=== PATIENT | female | born 1970 | race Caucasian/White ===

== ENCOUNTER 2016-06-14 18:01 | Emergency (ER) | payer MEDICARE ==
[2016-06-14] MEDS ORDERED: Phenergan 25 MG INJ IM ONE ×2 (18:33→20:44)
[2016-06-14] MEDS ORDERED: DILAUDID 1 MG/ML INJECTION IM ONE (18:33)
[2016-06-14] MEDS ORDERED: Phenergan 25 MG INJ ONE ×2 (18:34→20:46)
[2016-06-14] MEDS ORDERED: DILAUDID 1 MG/ML INJECTION ONE (18:35)
--- NOTE | 2016-06-14 18:44 | ERPHSYRPT ---
- History of Present Illness Time Seen by Provider: 06/14/16 18:30 Source: patient Exam Limitations: clinical condition Patient Subjective Stated Complaint: PT REPORTS LEGS GAVE OUT ET SHE FELL LANDING ON LEFT HIP ET WRIST-STATES THAT SHE IS SCHEDULED TO HAVE A HIP REPLACEMENT SOON-PT HAS HX OF HIP ET LEG PROBLEMS-PT STATES SHE BECAME NASUEATED DUE TO PAIN Triage Nursing Assessment: PT PALE WARM ET DRY-A & O X 3-NO BRUISING CONTUSIONS NOTED AT THSI TIME-PT MOVING WRIST WITH NO DIFFICUTLY Physician History: PATIENT WITH HISTORY OF LEFT HIP PROSTHESIS, HAS FREQUENT FALLS, SCHEDULED FOR PROSTHETIC REVISION. FELL TODAY HAS LEFT HIP AND LOWER BACK PAIN. CURRENTLY TAKES OXYCONTIN AND OXYCODONE. DENIES ASSOCIATED HEAD, NECK INJURY. Timing/Duration: today Occured at: home Context: fall, lost balance Quality: throbbing Hip Pain Location: hip (L) Severity of Pain-Max: severe Severity of Pain-Current: severe Symptoms prior to fall: none Associated Symptoms: denies symptoms Allergies/Adverse Reactions: latex Allergy (Intermediate, Verified 06/14/16 18:09) Rash metronidazole [From Flagyl] Allergy (Intermediate, Verified 06/14/16 18:09) Hives Metronidazole HCl [From Flagyl] Allergy (Intermediate, Verified 06/14/16 18:09) Hives clomiphene citrate [From Serophene] Allergy (Mild, Verified 06/14/16 18:09) Nausea and Vomiting lidocaine Allergy (Mild, Verified 06/14/16 18:09) Hives fluoxetine [From Sarafem] Allergy (Verified 06/14/16 18:09) ketorolac tromethamine [From Toradol] Adverse Reaction (Intermediate, Verified 06/14/16 18:09) Vomiting NSAIDS (Non-Steroidal Anti-Inflamma Adverse Reaction (Mild, Verified 06/14/16 18 :09) Vomiting triamcinolone acetonide [From Kenalog] Adverse Reaction (Verified 06/14/16 18:09 ) Vomiting SARAPIN Allergy (Uncoded 06/14/16 18:09) CERAPIN Adverse Reaction (Uncoded 06/14/16 18:09) Vomiting Home Medications: Esomeprazole Magnesium [Nexium] 40 mg PO BID 11/26/15 [History] Levothyroxine Sodium 150 Mcg [Synthroid 150 Mcg] 150 mcg PO HS 11/26/15 [ History] Pregabalin [Lyrica] 75 mg PO LUNCH 11/26/15 [History] Pregabalin [Lyrica] 150 mg PO BID 11/26/15 [History] Ondansetron HCl [Zofran] 4 mg PO UD PRN 12/17/15 [History] Ranitidine HCl 150 mg PO DAILY PRN 12/17/15 [History] Tizanidine HCl [Zanaflex] 4 mg PO QID 12/17/15 [History] Diazepam 5 mg [Valium 5 MG] 2.5 mg PO DAILY PRN PRN 01/22/16 [History] Aclidinium [place] [Tudorza Pressair] 400 mcg IH DAILY 03/10/16 [History] Albuterol 2.5 mg/3 ml Neb [Proventil 2.5 mg/3 ml Neb] 2.5 mg IH QID PRN [History] Albuterol Common Canister [Proventil Common Canister] 2 puff IH UD PRN 10/19 [History] Cholecalciferol (Vitamin D3) [Vitamin D] 1.25 mg PO DAILY 03/10/16 [History ] Denosumab 60 mg [Prolia 60 mg Injection] 60 mg SQ UD 03/10/16 [History] Ferrous Sulfate 325 mg [Feosol 325 mg] 325 mg PO DAILY 03/10/16 [History] Oxycodone HCl Cr 20 mg [Oxycontin 20 MG] 20 mg PO BID 03/10/16 [History] Oxycodone HCl [Roxicodone] 7.5 mg PO BID 03/10/16 [History] Potassium Chloride 20 Meq Tab [Potassium Chloride 20 MEQ TABLET] 20 meq PO DAILY 03/10/16 [History] Hx Tetanus, Diphtheria Vaccination/Date Given: No Hx Influenza Vaccination/Date Given: No Hx Pneumococcal Vaccination/Date Given: No Immunizations Up to Date: Yes - Review of Systems Constitutional: No Fever, No Chills Eyes: No Symptoms Ears, Nose, & Throat: No Symptoms Respiratory: No Cough, No Dyspnea Cardiac: No Chest Pain, No Edema, No Syncope Abdominal/Gastrointestinal: No Abdominal Pain, No Nausea, No Vomiting, No Diarrhea Genitourinary Symptoms: No Dysuria Musculoskeletal: Injury, Joint Pain, No Back Pain, No Neck Pain Skin: No Rash Neurological: No Dizziness, No Focal Weakness, No Sensory Changes Psychological: No Symptoms Endocrine: No Symptoms All Other Systems: Reviewed and Negative - Past Medical History Pertinent Past Medical History: Yes Neurological History: Migraines ENT History: No Pertinent History Cardiac History: No Pertinent History Respiratory History: Bronchitis, Pneumonia Endocrine Medical History: Hypothyroidism Musculoskeletal History: Fibromyalgia, Osteoarthritis, Osteoporosis, Rheumatoid Arthritis, Other GI Medical History: GERD History: No Pertinent History Psycho-Social History: Depression Female Reproductive Disorders: No Pertinent History Other Medical History: HIATAL HERNIA, KIDNEY STONE X1 2015. recent bronchitis- sees Dr De Leon - Past Surgical History Past Surgical History: Yes Neuro Surgical History: No Pertinent History Cardiac: No Pertinent History Respiratory: No Pertinent History Gastrointestinal: No Pertinent History Genitourinary: No Pertinent History Musculoskeletal: Joint Replacement Female Surgical History: Tubal Ligation Other Surgical History: TOTAL HIP REPLACEMENT TO LEFT, CARVED HIP SOCKET OFF "hip dysplasia repair" (1972) - Social History Smoking Status: Former smoker How long have you smoked: 24years Exposure to second hand smoke: Yes Drug Use: none Patient Lives Alone: No Significant Family History: no pertinent family hx - Female History Hx Now: No (TUBAL) - Nursing Vital Signs Nursing Vital Signs: Initial Vital Signs Temperature 97.5 F Temperature Source Oral Pulse Rate 76 Respiratory Rate 14 Blood Pressure 107/63 Pain Intensity 10 - Physical Exam General Appearance: no apparent distress, mild distress, alert Eye Exam: PERRL/EOMI Ears, Nose, Throat Exam: normal ENT inspection, moist mucous membranes Neck Exam: normal inspection, non-tender, supple Respiratory Exam: normal breath sounds, lungs clear, No chest tenderness, No respiratory distress Cardiovascular Exam: regular rate/rhythm, No edema Gastrointestinal Exam: soft, normal bowel sounds, No tenderness, No distention, No guarding Back Exam: normal inspection, normal range of motion, No vertebral tenderness (L -1 TO L-5) Extremity Exam: normal inspection, pelvis stable, limited range of motion (LEFT HIP, NO GREATER TROCHANTER SWELLING, ECCHYMOSIS OR DEFORMITY) Peripheral Pulses: femoral (R): 3+, femoral (L): 3+, dorsalis-pedis (R): 3+, dorsalis-pedis (L): 3+ Neurologic Exam: alert, oriented x 3, cooperative, 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, sensation nml, No motor deficits Skin Exam: normal color, warm, dry, No rash SpO2 Interpretation: normal SpO2: 99 Oxygen Delivery: Room Air - CT Exams Pelvis CT Interpretation: Tele-radiologist Report (NO ACUTE FINDINGS, FRACTURE, STREAK ARTIFACT FROM A LEFT HIP ARTHROPLASTY, NO DISLOCATION) Lumbar Spine CT Interpretation: Tele-radiologist Report (DEGENERATIVE CHANGES ARE PRESENT IN THE SPINE, NO FRACTURE OR SPINAL CANAL STENOSIS) Ordered Tests: Active Orders 24 hr Category Date Time Status LUMBAR SPINE W/O [CT] Stat Exams 06/14/16 18:39 Taken PELVIS WITHOUT CONTRAST [CT] Stat Exams 06/14/16 18:39 Taken Medication Summary Discontinued Medications Generic Name Dose Route Start Last Admin Trade Name Freq PRN Reason Stop Dose Admin Hydromorphone HCl 0.5 mg 06/14/16 18:33 06/14/16 18:38 Dilaudid 1 Mg/Ml Injection IM 06/14/16 18:34 0.5 mg STAT ONE Administration Hydromorphone HCl Confirm 06/14/16 18:35 Dilaudid 1 Mg/Ml Injection Administered 06/14/16 18:36 Dose 1 mg .ROUTE .STK-MED ONE Promethazine HCl 12.5 mg 06/14/16 18:33 06/14/16 18:38 Phenergan 25 Mg Inj IM 06/14/16 18:34 12.5 mg STAT ONE Administration Promethazine HCl Confirm 06/14/16 18:34 Phenergan 25 Mg Inj Administered 06/14/16 18:35 Dose 25 mg .ROUTE .STK-MED ONE Promethazine HCl 25 mg 06/14/16 20:44 06/14/16 20:50 Phenergan 25 Mg Inj IM 06/14/16 20:45 25 mg STAT ONE Administration Promethazine HCl Confirm 06/14/16 20:46 Phenergan 25 Mg Inj Administered 06/14/16 20:47 Dose 25 mg .ROUTE .STK-MED ONE - Progress Progress: improved Progress Note: 06/14/16 20:39 PATIENT GIVEN DILAUDID 0.5MG/PHENERGAN 12.5MG IM Counseled pt/family regarding: diagnosis, need for follow-up, rad results - Departure Time of Disposition: 21:15 Departure Disposition: Home Clinical Impression: CHRONIC PAIN LEFT HIP, CONTUSION/STRAIN LUMBAR SPINE Condition: Stable Critical Care Time: No Referrals: MARNIE FLORIAN [Primary Care Provider] - Instructions: Contusion, Prevent Falls Additional Instructions: CONTINUE ALL CURRENT PAIN MEDICATIONS. CONSULT YOUR FAMILY PHYSICIAN FOR ADJUSTMENT OF YOUR PAIN MEDICATIONS.
[2016-06-14 20:21] VITALS: BP 107/63
[2016-06-14 20:52] VITALS: PULSE 76
[2016-06-14 21:52] VITALS: O2SAT 99
--- NOTE | 2016-06-15 08:58 | XRAY ---
Indication: Pain following fall. Multiple contiguous axial images obtained through the lumbar spine. Sagittal and coronal reformatted images obtained. Comparison: Lumbar radiograph of July 09, 2015. Axial images negative for acute fracture, suspicious bony lesions, or spinal canal stenosis. There is mild broad-based disc bulge, endplate spurring, and vacuum disc phenomena at the L5-S1 level. Facets are symmetric. Sagittal and coronal reformatted images demonstrates normal alignment with L5-S1 disc space loss. Remaining disc spaces preserved. No acute compression fracture or subluxation. Visualized noncontrasted soft tissues demonstrates fatty liver, mild scattered colonic fecal debris, previous cholecystectomy, and 4 mm right renal calculus. Impression: 1. Negative for acute fracture/subluxation. 2. Stable L5-S1 degenerative disc disease. 3. Incidental nonobstructing right renal micro-calculus, fatty liver, and fecal stasis. Comment: Preliminary interpretation was made by [facility]. Incidental soft tissue findings not reported and not felt to be critical. CT DI is 73.57
--- NOTE | 2016-06-15 09:03 | XRAY ---
Indication: Pain following fall. Multiple contiguous axial images obtained through the pelvis with special attention to the osseous structures. Sagittal and coronal reformatted images obtained. Comparison: March 31, 2015 CT lumbar spine reported separately. Again there is note of left total hip arthroplasty with intact bipolar prosthesis and single acetabular screw again producing beam artifact. No acute fracture, dislocation, or suspicious bony lesions. Visualized noncontrasted soft tissues again demonstrate scattered colonic fecal debris and bilateral tubal ligation clips. No pelvic free fluid/air. Impression: 1. Again negative for acute fracture/dislocation. 2. Stable left total hip arthroplasty with intact bipolar prosthesis. 3. Incidental fecal stasis. Comment: Preliminary interpretation was made by C. No discrepancy. CT DI is 52.87
== END 2016-06-14 21:07 | disposition home or self-care (01) ==
LOC: ED 18:01
DX: M25.552 Pain in left hip (principal); G89.29 Other chronic pain; S30.0XXA Contusion of lower back and pelvis, initial encounter; W18.39XA Other fall on same level, initial encounter
CPT/HCPCS: 72131; 72192; 96372; 99283; J1170; J2550

== ENCOUNTER 2016-09-11 23:56 | Emergency (ER) | payer MEDICARE ==
[2016-09-12] MEDS ORDERED: ZOFRAN ODT 4 MG PO ONE (00:16)
[2016-09-12] MEDS ORDERED: SUBLIMAZE 100 MCG/2 ML IV ONE ×2 (00:16→00:40)
[2016-09-12] MEDS ORDERED: ZOFRAN ODT 4 MG ONE (00:22)
--- NOTE | 2016-09-12 00:24 | ERPHSYRPT ---
- History of Present Illness Time Seen by Provider: 09/12/16 00:12 Source: patient Exam Limitations: no limitations Patient Subjective Stated Complaint: pt states she thinks that she dislocated her hip. states she has dislocated her hip before. had revision of total lt hip in june. Triage Nursing Assessment: pt alert and oriented, answers questions approp. respirations nonlabored with lungs cta. difficult to tell if pt has deformity d/ t the way pt is laying. pedal pule wnl. Physician History: This is a 45-year-old white female she is brought by medics with complaint of pain in her left hip since his prior to arrival according to the patient she was in the shower sitting in a shower chair, shaving her legs when she twisted and felt a pop in her left hip. She arrives with complaint of pain in the left hip states she cannot move her left leg secondary to pain in her left hip she denies any other complaints she states she did not fall in the shower. Patient does have a history of a left hip prosthesis revision which was done in June. She has a history of a hip dysplasia in the past. Patient does state she has narcotic analgesia at home. Past medical history includes left hip prosthesis, frequent falls, migraines, bronchitis, pneumonia, osteoporosis, rheumatoid arthritis, GERD, depression, hiatal hernia, kidney stones. Past surgical history includes tubal ligation, total hip arthroplasty, hip dysplasia repair. Method of Injury: twisted Occurred: just prior to arrival Quality: constant Severity of Pain-Max: moderate Severity of Pain-Current: moderate Lower Extremities Pain: hip: left Modifying Factors: Improves With: movement Associated Symptoms: other (pain with moving her lower left extremity) Allergies/Adverse Reactions: latex Allergy (Intermediate, Verified 09/12/16 01:44) Rash metronidazole [From Flagyl] Allergy (Intermediate, Verified 09/12/16 01:44) Hives Metronidazole HCl [From Flagyl] Allergy (Intermediate, Verified 09/12/16 01:44) Hives clomiphene citrate [From Serophene] Allergy (Mild, Verified 09/12/16 01:44) Nausea and Vomiting lidocaine Allergy (Mild, Verified 09/12/16 01:44) Hives fluoxetine [From Sarafem] Allergy (Verified 09/12/16 01:44) ketorolac tromethamine [From Toradol] Adverse Reaction (Intermediate, Verified 09/12/16 01:44) Vomiting NSAIDS (Non-Steroidal Anti-Inflamma Adverse Reaction (Mild, Verified 09/12/16 01 :44) Vomiting triamcinolone acetonide [From Kenalog] Adverse Reaction (Verified 09/12/16 01:44 ) Vomiting SARAPIN Allergy (Uncoded 09/12/16 01:44) CERAPIN Adverse Reaction (Uncoded 09/12/16 01:44) Vomiting Home Medications: Esomeprazole Magnesium [Nexium] 40 mg PO BID 11/26/15 [History] Levothyroxine Sodium 150 Mcg [Synthroid 150 Mcg] 150 mcg PO HS 11/26/15 [ History] Pregabalin [Lyrica] 75 mg PO LUNCH 11/26/15 [History] Pregabalin [Lyrica] 150 mg PO BID 11/26/15 [History] Ondansetron HCl [Zofran] 4 mg PO UD PRN 12/17/15 [History] Ranitidine HCl 150 mg PO DAILY PRN 12/17/15 [History] Tizanidine HCl [Zanaflex] 4 mg PO TID 12/17/15 [History] Diazepam 5 mg [Valium 5 MG] 2.5 mg PO DAILY PRN PRN 01/22/16 [History] Aclidinium [place] [Tudorza Pressair] 400 mcg IH DAILY 03/10/16 [History] Albuterol Common Canister [Proventil Common Canister] 2 puff IH UD PRN 10/19 [History] Denosumab 60 mg [Prolia 60 mg Injection] 60 mg SQ UD 03/10/16 [History] Oxycodone HCl Cr 20 mg [Oxycontin 20 MG] 20 mg PO BID 03/10/16 [History] Potassium Chloride 20 Meq Tab [Potassium Chloride 20 MEQ TABLET] 20 meq PO DAILY 03/10/16 [History] Ergocalciferol (Vitamin D2) [Vitamin D2] 50,000 unit PO Q7D 08/23/16 [History] Ferrous Gluconate 324 mg PO DAILY 08/23/16 [History] Oxycodone HCl/Acetaminophen [Percocet 7.5-325 mg Tablet] 1 tab PO DAILY PRN PRN 08/23/16 [History] Pregabalin [Lyrica] 75 mg PO DAILY PRN PRN 08/23/16 [History] Hx Tetanus, Diphtheria Vaccination/Date Given: No Hx Influenza Vaccination/Date Given: No Hx Pneumococcal Vaccination/Date Given: No Immunizations Up to Date: Yes - Review of Systems Constitutional: No Fever, No Chills Eyes: No Symptoms Ears, Nose, & Throat: No Symptoms Respiratory: No Cough, No Dyspnea Cardiac: No Chest Pain, No Edema, No Syncope Abdominal/Gastrointestinal: No Abdominal Pain, No Nausea, No Vomiting, No Diarrhea Genitourinary Symptoms: No Dysuria Musculoskeletal: Other (Left hip pain) Skin: No Rash Neurological: No Dizziness, No Focal Weakness, No Sensory Changes Psychological: No Symptoms Endocrine: No Symptoms All Other Systems: Reviewed and Negative - Past Medical History Pertinent Past Medical History: Yes Neurological History: Migraines ENT History: No Pertinent History Cardiac History: No Pertinent History Respiratory History: Bronchitis, Pneumonia Endocrine Medical History: Hypothyroidism Musculoskeletal History: Fibromyalgia, Osteoarthritis, Osteoporosis, Rheumatoid Arthritis, Other GI Medical History: GERD History: No Pertinent History Psycho-Social History: Depression Female Reproductive Disorders: No Pertinent History Other Medical History: HIATAL HERNIA, KIDNEY STONE X1 2015. recent bronchitis- sees Dr De Leon - Past Surgical History Past Surgical History: Yes Neuro Surgical History: No Pertinent History Cardiac: No Pertinent History Respiratory: No Pertinent History Gastrointestinal: No Pertinent History Genitourinary: No Pertinent History Musculoskeletal: Joint Replacement Female Surgical History: Tubal Ligation Other Surgical History: TOTAL HIP REPLACEMENT TO LEFT, CARVED HIP SOCKET OFF "hip dysplasia repair" (1972). revision of lt total hip in june - Social History Smoking Status: Former smoker How long have you smoked: 24years Exposure to second hand smoke: Yes Drug Use: none Patient Lives Alone: No Significant Family History: no pertinent family hx - Female History Hx Last Menstrual Period: last week Hx Now: No (TUBAL) - Nursing Vital Signs Nursing Vital Signs: Initial Vital Signs Temperature 99.0 F Temperature Source Oral Pulse Rate 87 Respiratory Rate 18 Blood Pressure [] 129/70 Pain Intensity 1 - Physical Exam General Appearance: mild distress Eyes, Ears, Nose, Throat Exam: moist mucous membranes Neck Exam: non-tender, supple Cardiovascular/Respiratory Exam: chest non-tender, normal breath sounds, regular rate/rhythm, no respiratory distress Gastrointestinal/Abdominal Exam: non-tender, guarding Back Exam: normal inspection, No vertebral tenderness Hips Exam: right: non-tender, normal inspection, normal range of motion, no evidence of injury, left: other (left hip with well-healed surgical incision laterally, decreased range of motion left hip secondary to pain. Left hip internally rotated decreased range of motion left knee sensation intactto left toes, dorsal pedal, posterior tibial pulses intact 2/4) Legs Exam: left leg: limited range of motion (Decreased range of motion left lower extremities secondary to pain in left hip), bilateral leg: non-tender, normal inspection Knees Exam: bilateral knee: non-tender, normal inspection, normal range of motion Ankle Exam: bilateral ankle: non-tender, normal inspection, normal range of motion, no evidence of injury Foot Exam: bilateral foot: non-tender, normal inspection, normal range of motion , no evidence of injury Neuro/Tendon Exam: normal sensation, normal motor functions Mental Status Exam: alert, oriented x 3, cooperative Skin Exam: normal color, warm, dry SpO2 Interpretation: normal (100%) SpO2: 100 Oxygen Delivery: Room Air - Course Nursing assessment & vital signs reviewed: Yes - Radiology Exams Left Hip X-ray Interpretation: Interpreted by me, Other (x-ray left hip: Dislocated prosthetic left hip) Pelvis X-ray Interpretation: Interpreted by me (AP pelvis dislocated prosthetic left hip) Ordered Tests: Active Orders 24 hr Category Date Time Status IV Insertion STAT Care 09/12/16 00:17 Active HIP UNI (2V) INCL PEL IF DONE Stat Exams 09/12/16 00:18 Taken Medication Summary Discontinued Medications Generic Name Dose Route Start Last Admin Trade Name Luanq PRN Reason Stop Dose Admin Fentanyl Citrate 50 mcg 09/12/16 00:16 09/12/16 00:43 Sublimaze 100 Mcg/2 Ml IV 09/12/16 00:17 Not Given STAT ONE Fentanyl Citrate 100 mcg 09/12/16 00:40 09/12/16 00:43 Sublimaze 100 Mcg/2 Ml IV 09/12/16 00:41 100 mcg STAT ONE Administration Fentanyl Citrate Confirm 09/12/16 00:43 Sublimaze 100 Mcg/2 Ml Administered 09/12/16 00:44 Dose 100 mcg .ROUTE .STK-MED ONE Hydromorphone HCl 1 mg 09/12/16 01:27 09/12/16 01:32 Hydromorphone 1 Mg/Ml Ampule IV 09/12/16 01:28 1 mg STAT ONE Administration Hydromorphone HCl Confirm 09/12/16 01:31 Hydromorphone 1 Mg/Ml Ampule Administered 09/12/16 01:32 Dose 1 mg .ROUTE .STK-MED ONE Ondansetron HCl 4 mg 09/12/16 00:16 09/12/16 00:22 Zofran Odt 4 Mg PO 09/12/16 00:17 4 mg STAT ONE Administration Ondansetron HCl Confirm 09/12/16 00:22 Zofran Odt 4 Mg Administered 09/12/16 00:23 Dose 4 mg .ROUTE .STK-MED ONE - Progress Progress: improved Progress Note: 09/12/16 01:54 This is a 45-year-old white female with a 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 Gallego at [facility] he recommended ER to ER transfer, Will plan on this, Patient has been given fentanyl, and Dilaudid for pain, 09/12/16 02:05 Case is discussed with Dr. Gibson at [facility] ER he accepted the patient for transfer. - Departure Time of Disposition: 02:06 Departure Disposition: Transfer ([facility] emergency room) Clinical Impression: Dislocation of internal left hip prosthesis Qualifiers: Encounter type: initial encounter Qualified Code(s): T84.021A - Dislocation of internal left hip prosthesis, initial encounter Condition: Fair Critical Care Time: No Referrals: MARNIE FLORIAN [Primary Care Provider] -
[2016-09-12] MEDS ORDERED: SUBLIMAZE 100 MCG/2 ML ONE (00:43)
[2016-09-12] MEDS ORDERED: Hydromorphone 1 mg/ml Ampule IV ONE (01:27)
[2016-09-12] MEDS ORDERED: Hydromorphone 1 mg/ml Ampule ONE (01:31)
[2016-09-12 03:27] VITALS: BP 108/68; PULSE 112; O2SAT 97
--- NOTE | 2016-09-12 08:43 | XRAY ---
Indication: Pain following twisting injury. Comparison: February 17, 2016. AP pelvis and 2 views of the left hip again demonstrates bilateral tubal ligation clips and prior left total hip arthroplasty. Femur prosthesis now dislocated posterior superiorly. No other bony, articular, or soft tissue abnormalities.
== END 2016-09-12 02:38 | disposition short-term general hospital (02) ==
LOC: ED 23:56
DX: T84.021A Dislocation of internal left hip prosthesis, initial encounter (principal); X50.1XXA Overexertion from prolonged static or awkward postures, initial encounter; M25.552 Pain in left hip
CPT/HCPCS: 36000; 73502; 96374; 96375; 99285; J1170; J3010; Q0162

== ENCOUNTER 2017-03-26 21:35 | Emergency (ER) | payer MEDICARE ==
[2017-03-26] MEDS ORDERED: Sodium Chloride 0.9% 1000 ML 1,000 ML IV STA (22:36)
[2017-03-26] MEDS ORDERED: ROCEPHIN 1 Gm-D5w 50 ml Bag** 1 G/50 ML IVPB IV STA (22:36)
--- NOTE | 2017-03-26 22:36 | ERPHSYRPT ---
- History of Present Illness Time Seen by Provider: 03/26/17 22:33 Source: patient, family Exam Limitations: no limitations Patient Subjective Stated Complaint: patient went to [facility] care on tuesday gave her z pack but shes worse and now is nauseous and having fever and vomitting Triage Nursing Assessment: pt is alert and orientedx3, [place] WELL, GAIT IS SLOW BUT STEADY, PAtients skin pale, dry adn intact, oral mucosa dry, lung sounds clear diminished, bowels sounds present x4, stomach tender to palpation. Physician History: pt has three week history of productive cough, vomiting this week started on z farnaz and just finished but still sick; chest has bilateral rhonchi and wheezes; pt states 95 BP is normal for her. abd is nontender at this time. Timing/Duration: week(s) Cough Quality/Degree: moderate, productive cough Possible Cause: frequent episodes, chronic episodes Modifying Factors: Improves With: albuterol nebulizer, coughing Associated Symptoms: fever, cough Allergies/Adverse Reactions: latex Allergy (Intermediate, Verified 09/12/16 01:44) Rash metronidazole [From Flagyl] Allergy (Intermediate, Verified 09/12/16 01:44) Hives Metronidazole HCl [From Flagyl] Allergy (Intermediate, Verified 09/12/16 01:44) Hives clomiphene citrate [From Serophene] Allergy (Mild, Verified 09/12/16 01:44) Nausea and Vomiting lidocaine Allergy (Mild, Verified 09/12/16 01:44) Hives fluoxetine [From Sarafem] Allergy (Verified 09/12/16 01:44) ketorolac tromethamine [From Toradol] Adverse Reaction (Intermediate, Verified 09/12/16 01:44) Vomiting NSAIDS (Non-Steroidal Anti-Inflamma Adverse Reaction (Mild, Verified 09/12/16 01 :44) Vomiting triamcinolone acetonide [From Kenalog] Adverse Reaction (Verified 09/12/16 01:44 ) Vomiting SARAPIN Allergy (Uncoded 09/12/16 01:44) CERAPIN Adverse Reaction (Uncoded 09/12/16 01:44) Vomiting Home Medications: Esomeprazole Magnesium [Nexium] 40 mg PO BID 11/26/15 [History] Levothyroxine Sodium 150 Mcg [Synthroid 150 Mcg] 150 mcg PO HS 11/26/15 [ History] Pregabalin [Lyrica] 75 mg PO LUNCH 11/26/15 [History] Pregabalin [Lyrica] 150 mg PO BID 11/26/15 [History] Ondansetron HCl [Zofran] 4 mg PO UD PRN 12/17/15 [History] Ranitidine HCl 150 mg PO DAILY PRN 12/17/15 [History] Tizanidine HCl [Zanaflex] 4 mg PO QID 12/17/15 [History] Diazepam 5 mg [Valium 5 MG] 2.5 mg PO DAILY PRN PRN 01/22/16 [History] Aclidinium [place] [Tudorza Pressair] 400 mcg IH DAILY 03/10/16 [History] Albuterol Common Canister [Proventil Common Canister] 2 puff IH UD PRN 10/19 [History] Denosumab 60 mg [Prolia 60 mg Injection] 60 mg SQ UD 03/10/16 [History] Oxycodone HCl Cr 20 mg [Oxycontin 20 MG ER] 20 mg PO BID 03/10/16 [History ] Potassium Chloride 20 Meq Tab [Potassium Chloride 20 MEQ TABLET] 20 meq PO DAILY 03/10/16 [History] Ergocalciferol (Vitamin D2) [Vitamin D2] 50,000 unit PO Q7D 08/23/16 [History] Ferrous Gluconate 324 mg PO DAILY 08/23/16 [History] Pregabalin [Lyrica] 75 mg PO DAILY PRN PRN 08/23/16 [History] Hx Tetanus, Diphtheria Vaccination/Date Given: No Hx Influenza Vaccination/Date Given: No Hx Pneumococcal Vaccination/Date Given: No Immunizations Up to Date: No - Review of Systems Constitutional: Fever, No Chills Eyes: No Symptoms Ears, Nose, & Throat: No Symptoms Respiratory: Cough, Dyspnea, Wheezing Cardiac: No Chest Pain, No Edema, No Syncope Abdominal/Gastrointestinal: Nausea, Vomiting, Diarrhea, No Abdominal Pain Genitourinary Symptoms: No Dysuria Musculoskeletal: No Back Pain, No Neck Pain Skin: No Rash Neurological: No Dizziness, No Focal Weakness, No Sensory Changes Psychological: No Symptoms Endocrine: No Symptoms All Other Systems: Reviewed and Negative - Past Medical History Pertinent Past Medical History: Yes Neurological History: Migraines ENT History: No Pertinent History Cardiac History: No Pertinent History Respiratory History: Bronchitis, Pneumonia Endocrine Medical History: Hypothyroidism Musculoskeletal History: Fibromyalgia, Osteoarthritis, Osteoporosis, Rheumatoid Arthritis, Other GI Medical History: GERD History: No Pertinent History Psycho-Social History: Depression Female Reproductive Disorders: No Pertinent History Other Medical History: HIATAL HERNIA, KIDNEY STONE X1 2015. recent bronchitis- sees Dr De Leon - Past Surgical History Past Surgical History: Yes Neuro Surgical History: No Pertinent History Cardiac: No Pertinent History Respiratory: No Pertinent History Gastrointestinal: No Pertinent History Genitourinary: No Pertinent History Musculoskeletal: Joint Replacement Female Surgical History: Tubal Ligation Other Surgical History: TOTAL HIP REPLACEMENT TO LEFT, CARVED HIP SOCKET OFF "hip dysplasia repair" (1972). revision of lt total hip in june - Social History Smoking Status: Current every day smoker How long have you smoked: 24years Exposure to second hand smoke: Yes Drug Use: none Patient Lives Alone: No Significant Family History: no pertinent family hx - Female History Hx Now: No (TUBAL) - Nursing Vital Signs Nursing Vital Signs: Initial Vital Signs Temperature 96.5 F 03/26/17 21:36 Pulse Rate 80 03/26/17 21:36 Respiratory Rate 20 03/26/17 21:36 Blood Pressure 95/60 03/26/17 21:36 O2 Sat by Pulse Oximetry 98 03/26/17 21:36 Pain Scale Pain Intensity 4 - Physical Exam General Appearance: no apparent distress, alert Eye Exam: PERRL/EOMI, eyes nml inspection Ears, Nose, Throat Exam: normal ENT inspection, TMs normal, pharynx normal, moist mucous membranes Neck Exam: normal inspection, non-tender, supple, full range of motion Respiratory Exam: airway intact, rhonchi, wheezing, No respiratory distress, No accessory muscle use Cardiovascular Exam: regular rate/rhythm, normal heart sounds Gastrointestinal/Abdomen Exam: soft, No tenderness Back Exam: normal inspection, No CVA tenderness, No vertebral tenderness Extremity Exam: normal inspection, normal range of motion Neurologic Exam: alert, oriented x 3, cooperative, normal mood/affect, sensation nml, No motor deficits Skin Exam: normal color, warm, dry, No rash Lymphatic Exam: No adenopathy SpO2: 98 Oxygen Delivery: Room Air - Course Nursing assessment & vital signs reviewed: Yes Ordered Tests: Active Orders 24 hr Category Date Time Status IV Insertion STAT Care 03/26/17 22:36 Active PO Fluid Challenge STAT Care 03/27/17 01:26 Active Pulse Oximetry (ED) STAT Care 03/26/17 22:36 Active CHEST 2 VIEWS (PA AND LAT) Stat Exams 03/26/17 22:37 Taken CBC W DIFF Stat Lab 03/26/17 22:40 Completed CMP Stat Lab 03/26/17 22:40 Completed CULTURE, THROAT Stat Lab 03/26/17 22:45 Received Lactic Acid Stat Lab 03/26/17 22:42 Completed STREP SCREEN-BETA A Stat Lab 03/26/17 22:45 Completed Medication Summary Generic Name Dose Route Start Last Admin Trade Name Freq PRN Reason Stop Dose Admin Levofloxacin/Dextrose 500 mg in 100 mls @ 100 mls/hr 03/27/17 00:58 03/27/17 01:23 Levofloxacin 500mg/100ml D5w IV 03/27/17 01:57 100 mls/hr STAT STA Administration Discontinued Medications Generic Name Dose Route Start Last Admin Trade Name Freq PRN Reason Stop Dose Admin Ceftriaxone Sodium/Dextrose 1 g in 50 mls @ 100 mls/hr 03/26/17 22:36 22:49 Rocephin 1 Gm-D5w 50 Ml Bag IV 03/26/17 23:05 100 mls/hr STAT STA Administration Sodium Chloride 1,000 mls @ 999 mls/hr 03/26/17 22:36 03/26/17 22:49 Sodium Chloride 0.9% 1000 Ml IV 03/26/17 23:36 999 mls/hr .Q1H1M STA Administration Sodium Chloride Confirm 03/26/17 22:46 Sodium Chloride 0.9% 1000 Ml Administered 03/26/17 22:47 Dose 1,000 mls @ ud .ROUTE .STK-MED ONE Ceftriaxone Sodium/Dextrose Confirm 03/26/17 22:46 Rocephin 1 Gm-D5w 50 Ml Bag Administered 03/26/17 22:47 Dose 1 g in 50 mls @ ud IV .STK-MED ONE Levofloxacin/Dextrose Confirm 03/27/17 01:15 Levofloxacin 500mg/100ml D5w Administered 03/27/17 01:16 Dose 500 mg in 100 mls @ ud IV .STK-MED ONE Methylprednisolone Sodium Succinate 125 mg 03/27/17 00:58 03/27/17 01:24 Solu-Medrol 125 Mg IV 03/27/17 00:59 125 mg STAT ONE Administration Methylprednisolone Sodium Succinate Confirm 03/27/17 01:14 Solu-Medrol 125 Mg Administered 03/27/17 01:15 Dose 125 mg .ROUTE .STK-MED ONE Promethazine HCl 25 mg 03/27/17 01:26 03/27/17 01:34 Phenergan 25 Mg PO 03/27/17 01:27 25 mg STAT ONE Administration Lab/Rad Data: Laboratory Result Diagrams 03/26/17 22:40 03/26/17 22:40 Laboratory Results 03/26/17 03/26/17 03/26/17 Range/Units 22:45 22:45 22:42 WBC (4.0-10.5) K/mm3 RBC (4.1-5.4) M/mm3 Hgb (12.0-16.0) gm/dl Hct (35-47) % MCV (78-100) fl MCH (26-32) pg MCHC (32-36) g/dl RDW (11.5-14.0) % Plt Count (150-450) K/mm3 MPV (6-9.5) fl Gran % (36.0-66.0) % Lymphocytes % (24.0-44.0) % Monocytes % (0.0-12.0) % Eosinophils % (0.00-5.0) % Basophils % (0.0-0.4) % Basophils # (0-0.4) Sodium (136-145) mEq/L Potassium (3.5-5.1) mEq/L Chloride (98-107) mEq/L Carbon Dioxide (21-32) mEq/L Anion Gap (5-15) MEQ/L BUN (9-20) mg/dL Creatinine (0.55-1.30) mg/dl Estimated GFR ML/MIN Glucose (70-110) MG/DL Lactic Acid 1.3 (0.4-2.0) Calcium (8.5-10.1) mg/dL Total Bilirubin (0.2-1.0) mg/dL AST (15-37) U/L ALT (12-78) U/L Alkaline Phosphatase (46-116) U/L Serum Total Protein (6.4-8.2) gm/dL Albumin (3.4-5.0) g/dL Influenza Type A Ag NEGATIVE (NEGATIVE) Influenza Type B Ag NEGATIVE (NEGATIVE) RSV (PCR) NEGATIVE (Negative) Streptococcus Screen NEGATIVE (Negative) 03/26/17 03/26/17 Range/Units 22:40 22:40 WBC 11.4 H (4.0-10.5) K/mm3 RBC 5.54 H (4.1-5.4) M/mm3 Hgb 14.1 (12.0-16.0) gm/dl Hct 43.3 (35-47) % MCV 78.2 (78-100) fl MCH 25.4 L (26-32) pg MCHC 32.6 (32-36) g/dl RDW 16.2 H (11.5-14.0) % Plt Count 326 (150-450) K/mm3 MPV 10.6 H (6-9.5) fl Gran % 50.3 (36.0-66.0) % Lymphocytes % 40.8 (24.0-44.0) % Monocytes % 6.6 (0.0-12.0) % Eosinophils % 1.5 (0.00-5.0) % Basophils % 0.8 (0.0-0.4) % Basophils # 0.09 (0-0.4) Sodium 135 L (136-145) mEq/L Potassium 3.6 (3.5-5.1) mEq/L Chloride 99 (98-107) mEq/L Carbon Dioxide 24.8 (21-32) mEq/L Anion Gap 15.0 (5-15) MEQ/L BUN 13 (9-20) mg/dL Creatinine 0.99 (0.55-1.30) mg/dl Estimated GFR > 60 ML/MIN Glucose 125 H (70-110) MG/DL Lactic Acid (0.4-2.0) Calcium 9.2 (8.5-10.1) mg/dL Total Bilirubin 0.20 (0.2-1.0) mg/dL AST 12 L (15-37) U/L ALT 12 (12-78) U/L Alkaline Phosphatase 96 (46-116) U/L Serum Total Protein 7.9 (6.4-8.2) gm/dL Albumin 3.6 (3.4-5.0) g/dL Influenza Type A Ag (NEGATIVE) Influenza Type B Ag (NEGATIVE) RSV (PCR) (Negative) Streptococcus Screen (Negative) - Progress Progress: improved, re-examined Air Movement: good Progress Note: 03/27/17 00:52 discussed with pt and she wants to try additional ab and steroids and see if that works and then return if not improving pt also wants to take a little longer to try po and this will take more tme in ER prior to dispo . 03/27/17 01:28 03/27/17 01:51 bartolome po in er now Blood Culture(s) Obtained: No Antibiotics given: Yes Counseled pt/family regarding: lab results, diagnosis, need for follow-up, rad results - Departure Time of Disposition: 00:54 Departure Disposition: Home Clinical Impression: Chronic bronchitis with acute exacerbation, COPD exacerbation Condition: Good Critical Care Time: No Referrals: MARNIE FLORIAN [Primary Care Provider] - Instructions: Chronic Obstructive Pulmonary Disease Additional Instructions: followup with your dr this week, return meantime if relapse again or other concerns. Prescriptions: Promethazine HCl 25 mg [Phenergan 25 mg] 25 mg PO Q4HPRN PRN #20 tablet PRN Reason: Nausea Levofloxacin [Levaquin] 500 mg PO DAILY #10 tablet
[2017-03-26 22:43] LABS: BASOPHIL % 0.8 % (0.0-0.4); Eosinophil % 1.5 % (0.00-5.0); Granulocytes % 50.3 % (36.0-66.0); Lymphocytes % 40.8 % (24.0-44.0); Mean Cell Volume 78.2 fl (78-100); Mean Platelet Volume 10.6 fl (6-9.5); Monocytes % 6.6 % (0.0-12.0); Platelet Count 326 K/mm3 (150-450); Red Blood Count 5.54 M/mm3 (4.1-5.4); Red Cell Distribution Width 16.2 % (11.5-14.0); White Blood Count 11.4 K/mm3 (4.0-10.5)
[2017-03-26] MEDS ORDERED: Sodium Chloride 0.9% 1000 ML 1,000 ML ONE (22:46)
[2017-03-26] MEDS ORDERED: ROCEPHIN 1 Gm-D5w 50 ml Bag** 1 G/50 ML IVPB IV ONE (22:46)
[2017-03-26 22:54] LABS: Mean Corpuscular Hemoglobin 25.4 pg (26-32)
[2017-03-26 23:00] LABS: ALBUMIN 3.6 g/dL (3.4-5.0); ALKALINE PHOSPHATASE 96 U/L (46-116); BLOOD UREA NITROGEN 13 mg/dL (9-20); CHLORIDE 99 mEq/L (98-107); Carbon Dioxide 24.8 mEq/L (21-32); Glucose 125 MG/DL (70-110); Potassium 3.6 mEq/L (3.5-5.1); SGPT/ALT 12 U/L (12-78); SODIUM 135 mEq/L (136-145); Total Protein 7.9 gm/dL (6.4-8.2)
[2017-03-26 23:42] LABS: SGOT/AST 12 U/L (15-37)
[2017-03-27] MEDS ORDERED: Levofloxacin 500MG/100ML D5W 500 MG/100 ML BAG IV STA (00:58)
[2017-03-27] MEDS ORDERED: solu-MEDROL 125 MG IV ONE (00:58)
[2017-03-27] MEDS ORDERED: solu-MEDROL 125 MG ONE (01:14)
[2017-03-27] MEDS ORDERED: Levofloxacin 500MG/100ML D5W 500 MG/100 ML BAG IV ONE (01:15)
[2017-03-27] MEDS ORDERED: PHENERGAN 25 MG PO ONE (01:26)
[2017-03-27 02:52] VITALS: BP 98/46; PULSE 77; O2SAT 100
--- NOTE | 2017-03-27 08:50 | XRAY ---
Indication: Fever, cough, and congestion. Comparison: December 30, 2016. AP/lateral chest unchanged again hyperinflated and clear. Heart is not enlarged. No new/acute findings.
[2017-03-27] MEDS ORDERED: PHENERGAN 25 MG ONE (12:15)
== END 2017-03-27 02:52 | disposition home or self-care (01) ==
LOC: ED 21:35
DX: J42 Unspecified chronic bronchitis (principal); J44.1 Chronic obstructive pulmonary disease with (acute) exacerbation; Z79.899 Other long term (current) drug therapy; Z79.891 Long term (current) use of opiate analgesic; R11.2 Nausea with vomiting, unspecified; R19.7 Diarrhea, unspecified
CPT/HCPCS: 36000; 36415; 71020; 80053; 83605; 85025; 87070; 87430; 87631; 96360; 96361; 96365; 96367; 96374; 96375; 99284; J0696; J1956; J2930; A9270-GY

== ENCOUNTER 2018-04-18 12:22 | Emergency (ER) | payer MEDICARE ==
[2018-04-18] MEDS ORDERED: Quelicin Fliptop 200 MG/10 ML IJ ONE (12:23)
[2018-04-18] MEDS ORDERED: VERSED 5 MG/5 ML IV ONE (12:23)
[2018-04-18] MEDS ORDERED: Sodium Chloride 0.9% 250 ML 250 ML IV ONE (12:47)
[2018-04-18] MEDS ORDERED: Sodium Chloride 0.9% 1000 ML 1,000 ML ONE ×2 (12:47→13:37)
[2018-04-18] MEDS ORDERED: Versed 50 MG/ 10 Ml MDV ONE (12:47)
[2018-04-18] MEDS ORDERED: Zofran 4 MG/2 ML VIAL IV ONE (13:00)
[2018-04-18] MEDS ORDERED: Sodium Chloride 0.9% 1000 ML 1,000 ML IV STA (13:00)
--- NOTE | 2018-04-18 13:00 | ERPHSYRPT ---
- History of Present Illness Time Seen by Provider: 04/18/18 12:25 Source: EMS Exam Limitations: clinical condition Physician History: 47 y/o morbidly obese white female with known opiod abuse hx, found unresponsive sitting in her chair at home. friends and family who found her state she was in the same position yesterday afternoon at 4pm. family state she routinely takes more than prescribed dose of her oxycodone and oxycontin meds and passes out, wakes up later and repeats the cycles. not much else in terms of hx. pt unable to provide and no family members available. EMS found pt sitting in a chair slumped over with vomitus in her mouth. pt given narcan X4 ( two intranasally and two iv). pt did wake up slightly to a incomprehensible mumble and responded to pain. pt arrived to ED with IV in place moving all extremities. Timing/Duration: today Severity: severe Character of Deficits: unable to speak Deficits: cannot stand, cannot walk, unable to stand, unable to sit Baseline/Normal Cognition: alert oriented x 3, poor alertness Current Cognition: poor alertness Baseline Gait: walks w/o assistance Associated Symptoms: loss of consciousness, vomiting, slurred speech Allergies/Adverse Reactions: latex Allergy (Intermediate, Verified 04/18/18 13:37) Rash metronidazole [From Flagyl] Allergy (Intermediate, Verified 04/18/18 13:37) Hives Metronidazole HCl [From Flagyl] Allergy (Intermediate, Verified 04/18/18 13:37) Hives clomiphene citrate [From Serophene] Allergy (Mild, Verified 04/18/18 13:37) Nausea and Vomiting lidocaine Allergy (Mild, Verified 04/18/18 13:37) Hives fluoxetine [From Sarafem] Allergy (Verified 04/18/18 13:37) ketorolac tromethamine [From Toradol] Adverse Reaction (Intermediate, Verified 04/18/18 13:37) Vomiting NSAIDS (Non-Steroidal Anti-Inflamma Adverse Reaction (Mild, Verified 04/18/18 13 :37) Vomiting triamcinolone acetonide [From Kenalog] Adverse Reaction (Verified 04/18/18 13:37 ) Vomiting Home Medications: Esomeprazole Magnesium [Nexium] 40 mg PO BID 11/26/15 [History] Levothyroxine Sodium 150 Mcg [Synthroid 150 Mcg] 150 mcg PO HS 11/26/15 [ History] Pregabalin [Lyrica 75 mg Cap] 75 mg PO LUNCH 11/26/15 [History] Pregabalin [Lyrica] 150 mg PO BID 11/26/15 [History] Ondansetron HCl [Zofran] 4 mg PO Q4H PRN 12/17/15 [History] Ranitidine HCl 150 mg PO DAILY PRN 12/17/15 [History] Tizanidine HCl [Zanaflex] 4 mg PO QID 12/17/15 [History] Aclidinium [place] [Tudorza Pressair] 400 mcg IH DAILY 03/10/16 [History] Albuterol Common Canister [Proventil Common Canister] 2 puff IH UD PRN 10/19 [History] Denosumab 60 mg [Prolia 60 mg Injection] 60 mg SQ UD 03/10/16 [History] Oxycodone HCl Cr 20 mg [Oxycontin 20 MG ER] 20 mg PO BID 03/10/16 [History ] Potassium Chloride 20 Meq Tab [Potassium Chloride 20 MEQ TABLET] 20 meq PO DAILY 03/10/16 [History] Ergocalciferol (Vitamin D2) [Vitamin D2] 50,000 unit PO Q7D 08/23/16 [History] Albuterol/Ipratropium 3ml Neb* [DUONEB 0.5-3 MG/3 ml Neb] 3 ml IH QID PRN [History] Ferrous Sulfate 325 mg [Feosol 325 mg] 325 mg PO DAILY 04/04/17 [History] Hydroxyzine HCl 25 mg [Atarax 25 mg] 25 mg PO QID 04/04/17 [History] Oxycodone HCl/Acetaminophen [Oxycodon-Acetaminophen 7.5-325] 1 each PO BIDPRN PRN 04/04/17 [History] Promethazine HCl 25 mg [Phenergan 25 mg] 25 mg PO TIDPRN PRN 04/04/17 [ History] Hx Tetanus, Diphtheria Vaccination/Date Given: No Hx Influenza Vaccination/Date Given: No Hx Pneumococcal Vaccination/Date Given: No - Review of Systems Constitutional: Lethargy Respiratory: Wheezing Abdominal/Gastrointestinal: Vomiting Skin: Other (cool moist skin) Neurological: Lethargy, Other All Other Systems: Unable due to condition - Past Medical History Pertinent Past Medical History: Yes Neurological History: Migraines ENT History: No Pertinent History Cardiac History: No Pertinent History Respiratory History: Bronchitis, Pneumonia Endocrine Medical History: Hypothyroidism Musculoskeletal History: Fibromyalgia, Osteoarthritis, Osteoporosis, Rheumatoid Arthritis, Other GI Medical History: GERD History: No Pertinent History Psycho-Social History: Depression Female Reproductive Disorders: No Pertinent History Other Medical History: HIATAL HERNIA, KIDNEY STONE X1 2015. recent bronchitis- sees Dr De Leon - Past Surgical History Past Surgical History: Yes Neuro Surgical History: No Pertinent History Cardiac: No Pertinent History Respiratory: No Pertinent History Gastrointestinal: Cholecystectomy Genitourinary: No Pertinent History Musculoskeletal: Joint Replacement Female Surgical History: Tubal Ligation Other Surgical History: TOTAL HIP REPLACEMENT TO LEFT, CARVED HIP SOCKET OFF "hip dysplasia repair" (1972). revision of lt total hip in june. carpal tunnel 2016 - Social History Smoking Status: Current every day smoker How long have you smoked: 24years Exposure to second hand smoke: Yes Drug Use: none Patient Lives Alone: No Significant Family History: no pertinent family hx - Nursing Vital Signs Nursing Vital Signs: Initial Vital Signs Temperature 99.5 F 04/18/18 12:59 Pulse Rate 67 04/18/18 12:59 Blood Pressure 70/45 04/18/18 12:59 - [place] Coma Scale Best Eye Response ([place]): (2) open to pain Best Verbal Response ([place]): (2) incomprehsible sounds Best Motor Response ([place]): (4) withdraws to pain [place] Total: 8 - Physical Exam General Appearance: severe distress, lethargy Eye Exam: bilateral eye: other (pinpoint equal size) Ears, Nose, Throat Exam: TMs normal, other (vomitus orotracheally. ) Respiratory: diminished breath sounds, accessory muscle use, rhonchi, wheezing, other (decreased respiratory ) Cardiovascular: regular rate/rhythm, normal heart sounds, normal peripheral pulses, capillary refill <2 sec Gastrointestinal: soft, normal bowel sounds, No tenderness, No guarding, No rebound Pelvic Exam: not done Rectal Exam: not done Back Exam: normal inspection Mental Status: intoxicated appearance, lethargy, unresponsive flanger Exam: abnormal speech Skin Exam: other (cool and moist) SpO2 Interpretation: borderline oxygenation Procedures - Intubation Intubation Indications: airway protection, respiratory distress Intubation Method: orotracheal, curved blade Tube Size (cm): 7.5 Medications: Midazolam (Versed), Succinylcholine Endotracheal Tube Confirmation: bilateral breath sounds, positive end tidal CO2 , good rise & fall of chest Intubation Complications: no complications Performed By: ED Physician Post Intubation Xray: Yes Progress/X-ray Impression: 04/18/18 13:32 ett in appropriate location 3cm above curtis advanced 1cm. - Course Nursing assessment & vital signs reviewed: Yes Ordered Tests: Active Orders 24 hr Category Date Time Status Accucheck STAT Care 04/18/18 13:00 Active CO2 Monitoring STAT Care 04/18/18 14:08 Active Irrigation Service Technician STAT Care 04/18/18 13:02 Active Clean Catch Urine Specimen STAT Care 04/18/18 13:00 Active EKG-ER Only STAT Care 04/18/18 13:00 Active Goel [Catheter-[place] Goel] STAT Care 04/18/18 13:34 Active Gastric Tube Insertion STAT Care 04/18/18 13:35 Active IV Insertion STAT Care 04/18/18 13:00 Active NPO (ED) STAT Care 04/18/18 13:00 Active Pulse Oximetry (ED) STAT Care 04/18/18 13:00 Active CHEST 1 VIEW (PORTABLE) Stat Exams 04/18/18 13:01 Completed HEAD WITHOUT CONTRAST [CT] Stat Exams 04/18/18 15:01 Completed ABG [ARTERIAL BLOOD GASES] Routine Lab 04/18/18 15:16 Completed ABG [ARTERIAL BLOOD GASES] Stat Lab 04/18/18 13:20 Completed ACETAMINOPHEN Stat Lab 04/18/18 13:40 Completed CBC W DIFF Stat Lab 04/18/18 13:40 Completed CMP Stat Lab 04/18/18 13:40 Completed ETHYL ALCOHOL Stat Lab 04/18/18 13:40 Completed Lactic Acid Stat Lab 04/18/18 13:20 Completed SALICYLATE Stat Lab 04/18/18 13:40 Completed UA W/RFX UR CULTURE Stat Lab 04/18/18 13:20 Completed Urine Triage Profile Stat Lab 04/18/18 13:20 Completed Intubate Patient STAT RT 04/18/18 14:07 Completed Standby STAT RT 04/18/18 14:07 Completed Vent Settings [Ventilator Management] STAT RT 04/18/18 14:06 Active Medication Summary Generic Name Dose Route Start Last Admin Trade Name Imani PRN Reason Stop Dose Admin Dopamine HCl/Dextrose 250 mls @ 16.074 mls/hr 04/18/18 13:17 Dopamine 400 Mg/D5w 250ml Premix IV 05/18/18 13:16 .[id number] PRN SEVERE HYPOTENSION Protocol 5 MCG/KG/MIN Discontinued Medications Generic Name Dose Route Start Last Admin Trade Name Imani PRN Reason Stop Dose Admin Artificial Tears 3.5 gm 04/18/18 14:54 04/18/18 15:13 Lubrifresh P.M. 3.5 Gm Ointment OP 04/18/18 14:55 3.5 gm STAT ONE Administration Sodium Chloride Confirm 04/18/18 12:47 Sodium Chloride 0.9% 1000 Ml Administered 04/18/18 12:48 Dose 1,000 mls @ ud .ROUTE .STK-MED ONE Sodium Chloride Confirm 04/18/18 12:47 Sodium Chloride 0.9% 250 Ml Administered 04/18/18 12:48 Dose 250 mls @ ud IV .STK-MED ONE Sodium Chloride 1,000 mls @ 999 mls/hr 04/18/18 13:00 04/18/18 14:40 Sodium Chloride 0.9% 1000 Ml IV 04/18/18 14:00 Infused .Q1H1M STA Infusion Dopamine HCl/Dextrose Confirm 04/18/18 13:13 Dopamine 400 Mg/D5w 250ml Premix Administered 04/18/18 13:14 Dose 250 mls @ ud IV .STK-MED ONE Sodium Chloride Confirm 04/18/18 13:37 Sodium Chloride 0.9% 1000 Ml Administered 04/18/18 13:38 Dose 1,000 mls @ ud .ROUTE .STK-MED ONE Midazolam HCl Confirm 04/18/18 12:47 Versed 50 Mg/ 10 Ml Mdv Administered 04/18/18 12:48 Dose 50 mg .ROUTE .STK-MED ONE Ondansetron HCl 4 mg 04/18/18 13:00 04/18/18 13:39 Zofran 4 Mg/2 Ml Vial IV 04/18/18 13:01 4 mg STAT ONE Administration Ondansetron HCl Confirm 04/18/18 13:34 Zofran 4 Mg/2 Ml Vial Administered 04/18/18 13:35 Dose 4 mg .ROUTE .STK-MED ONE Sodium Chloride Confirm 04/18/18 15:28 Sodium Chloride 3 Ml Ud Nebules Administered 04/18/18 15:29 Dose 6 ml IH .STK-MED ONE Lab/Rad Data: Laboratory Result Diagrams 04/18/18 13:40 04/18/18 13:40 Laboratory Results 04/18/18 04/18/18 04/18/18 Range/Units 15:16 13:40 13:40 WBC 21.8 H (4.0-10.5) K/mm3 RBC 5.21 (4.1-5.4) M/mm3 Hgb 12.3 (12.0-16.0) gm/dl Hct 42.3 (35-47) % MCV 81.2 (78-100) fl MCH 23.6 L (26-32) pg MCHC 29.1 L (32-36) g/dl RDW 20.4 H (11.5-14.0) % Plt Count 231 (150-450) K/mm3 MPV 11.2 H (6-9.5) fl Gran % 85.2 H (36.0-66.0) % Eos # (Auto) 0.05 (0-0.5) Absolute Lymphs (auto) 1.72 (1.0-4.6) Absolute Monos (auto) 1.41 H (0.0-1.3) Lymphocytes % 7.9 L (24.0-44.0) % Monocytes % 6.5 (0.0-12.0) % Eosinophils % 0.2 (0.00-5.0) % Basophils % 0.2 (0.0-0.4) % Absolute Granulocytes 18.59 H (1.4-6.9) Basophils # 0.04 (0-0.4) Puncture Site RIGHT BRACHIAL pCO2 50 H (35-45) mmHg pO2 138 H* (75-100) mmHg Base Excess -8.5 L (-2.0-2.0) O2 Saturation 94.8 (94-100) g/dF ABG pH 7.20 L* (7.35-7.45) ABG HCO3 19.5 L (22-28) ABG O2 Sat (Measured) 99.4 (95-100) % Ric Test NOT APPLICABLE A-a Gradient 299 a/A Ratio 0.32 Hemoglobin 11.4 Carboxyhemoglobin 3.0 (0.0-6.9) % THgb Methemoglobin 1.6 H (1.4-1.5) % Potassium 3.5 4.1 (3.5-5.1) Temperature 37.0 C POC O2 Flow Rate 70 % Vent Mode A/C Tidal Volume 550 cc PEEP 3 cmH2O Sodium 139 (137-145) mmol/L Chloride 108 H (98-107) mmol/L Carbon Dioxide 21 L (22-30) mmol/L Anion Gap 14.0 (5-15) MEQ/L BUN 21 H (7-17) mg/dL Creatinine 1.72 H (0.52-1.04) mg/dL Estimated GFR 33.8 ML/MIN Glucose 130 H (74-106) mg/dL Lactic Acid (0.4-2.0) Calcium 8.8 (8.4-10.2) mg/dL Total Bilirubin 0.50 (0.2-1.3) mg/dL AST 39 H (14-36) U/L ALT 16 (0-35) U/L Alkaline Phosphatase 82 (38-126) U/L Serum Total Protein 7.0 (6.3-8.2) g/dL Albumin 3.7 (3.5-5.0) g/dL Urine Color (YELLOW) Urine Appearance (CLEAR) Urine pH (5-6) Ur Specific [place] (1.005-1.025) Urine Protein (Negative) Urine Ketones (NEGATIVE) Urine Blood (0-5) Marshal/ul Urine Nitrite (NEGATIVE) Urine Bilirubin (NEGATIVE) Urine Urobilinogen (0-1) mg/dL Ur Leukocyte Esterase (NEGATIVE) Urine WBC (Auto) (0-5) /HPF Urine RBC (Auto) (0-2) /HPF U Hyaline Cast (Auto) (0-2) /LPF U Epithel Cells (Auto) (FEW) /HPF Urine Bacteria (Auto) (NEGATIVE) /HPF Urine Mucus (Auto) (NEGATIVE) /HPF Urine Culture Reflexed (NO) Urine Glucose (NEGATIVE) mg/dL Salicylates < 1.0 L (2-20) mg/dL Urine Opiates Level (NEGATIVE) Ur Methadone (NEGATIVE) Acetaminophen < 10 L (10-30) ug/ml Urine Barbiturates (NEGATIVE) Ur Phencyclidine (PCP) (NEGATIVE) Urine Amphetamine (NEGATIVE) U Benzodiazepine Level (NEGATIVE) Urine Cocaine (NEGATIVE) Urine Marijuana (THC) (NEGATIVE) Ethyl Alcohol < 10 (0-10) mg/dL 04/18/18 04/18/18 04/18/18 Range/Units 13:20 13:20 13:20 WBC (4.0-10.5) K/mm3 RBC (4.1-5.4) M/mm3 Hgb (12.0-16.0) gm/dl Hct (35-47) % MCV (78-100) fl MCH (26-32) pg MCHC (32-36) g/dl RDW (11.5-14.0) % Plt Count (150-450) K/mm3 MPV (6-9.5) fl Gran % (36.0-66.0) % Eos # (Auto) (0-0.5) Absolute Lymphs (auto) (1.0-4.6) Absolute Monos (auto) (0.0-1.3) Lymphocytes % (24.0-44.0) % Monocytes % (0.0-12.0) % Eosinophils % (0.00-5.0) % Basophils % (0.0-0.4) % Absolute Granulocytes (1.4-6.9) Basophils # (0-0.4) Puncture Site pCO2 (35-45) mmHg pO2 (75-100) mmHg Base Excess (-2.0-2.0) O2 Saturation (94-100) g/dF ABG pH (7.35-7.45) ABG HCO3 (22-28) ABG O2 Sat (Measured) (95-100) % Ric Test A-a Gradient a/A Ratio Hemoglobin Carboxyhemoglobin (0.0-6.9) % THgb Methemoglobin (1.4-1.5) % Potassium (3.5-5.1) Temperature C POC O2 Flow Rate % Vent Mode Tidal Volume cc PEEP cmH2O Sodium (137-145) mmol/L Chloride (98-107) mmol/L Carbon Dioxide (22-30) mmol/L Anion Gap (5-15) MEQ/L BUN (7-17) mg/dL Creatinine (0.52-1.04) mg/dL Estimated GFR ML/MIN Glucose (74-106) mg/dL Lactic Acid 1.3 (0.4-2.0) Calcium (8.4-10.2) mg/dL Total Bilirubin (0.2-1.3) mg/dL AST (14-36) U/L ALT (0-35) U/L Alkaline Phosphatase (38-126) U/L Serum Total Protein (6.3-8.2) g/dL Albumin (3.5-5.0) g/dL Urine Color YELLOW (YELLOW) Urine Appearance SLIGHTLY CLOUDY (CLEAR) Urine pH 5.0 (5-6) Ur Specific [place] 1.025 (1.005-1.025) Urine Protein 30 (Negative) Urine Ketones NEGATIVE (NEGATIVE) Urine Blood NEGATIVE (0-5) Marshal/ul Urine Nitrite NEGATIVE (NEGATIVE) Urine Bilirubin NEGATIVE (NEGATIVE) Urine Urobilinogen NEGATIVE (0-1) mg/dL Ur Leukocyte Esterase NEGATIVE (NEGATIVE) Urine WBC (Auto) 3-5 (0-5) /HPF Urine RBC (Auto) NONE (0-2) /HPF U Hyaline Cast (Auto) >50 (0-2) /LPF U Epithel Cells (Auto) RARE (FEW) /HPF Urine Bacteria (Auto) RARE (NEGATIVE) /HPF Urine Mucus (Auto) SLIGHT (NEGATIVE) /HPF Urine Culture Reflexed NO (NO) Urine Glucose NEGATIVE (NEGATIVE) mg/dL Salicylates (2-20) mg/dL Urine Opiates Level POSITIVE (NEGATIVE) Ur Methadone NEGATIVE (NEGATIVE) Acetaminophen (10-30) ug/ml Urine Barbiturates POSITIVE (NEGATIVE) Ur Phencyclidine (PCP) NEGATIVE (NEGATIVE) Urine Amphetamine NEGATIVE (NEGATIVE) U Benzodiazepine Level NEGATIVE (NEGATIVE) Urine Cocaine NEGATIVE (NEGATIVE) Urine Marijuana (THC) NEGATIVE (NEGATIVE) Ethyl Alcohol (0-10) mg/dL 04/18/18 Range/Units 13:20 WBC (4.0-10.5) K/mm3 RBC (4.1-5.4) M/mm3 Hgb (12.0-16.0) gm/dl Hct (35-47) % MCV (78-100) fl MCH (26-32) pg MCHC (32-36) g/dl RDW (11.5-14.0) % Plt Count (150-450) K/mm3 MPV (6-9.5) fl Gran % (36.0-66.0) % Eos # (Auto) (0-0.5) Absolute Lymphs (auto) (1.0-4.6) Absolute Monos (auto) (0.0-1.3) Lymphocytes % (24.0-44.0) % Monocytes % (0.0-12.0) % Eosinophils % (0.00-5.0) % Basophils % (0.0-0.4) % Absolute Granulocytes (1.4-6.9) Basophils # (0-0.4) Puncture Site RIGHT BRACHIAL pCO2 46 H (35-45) mmHg pO2 377 H* (75-100) mmHg Base Excess -3.8 L (-2.0-2.0) O2 Saturation 95.7 (94-100) g/dF ABG pH 7.30 L (7.35-7.45) ABG HCO3 22.6 (22-28) ABG O2 Sat (Measured) 99.9 (95-100) % Ric Test NOT APPLICABLE A-a Gradient 279 a/A Ratio 0.57 Hemoglobin 10.6 Carboxyhemoglobin 3.3 (0.0-6.9) % THgb Methemoglobin 0.9 L (1.4-1.5) % Potassium 3.6 (3.5-5.1) Temperature 37.0 C POC O2 Flow Rate 100 % Vent Mode A/C Tidal Volume cc PEEP cmH2O Sodium (137-145) mmol/L Chloride (98-107) mmol/L Carbon Dioxide (22-30) mmol/L Anion Gap (5-15) MEQ/L BUN (7-17) mg/dL Creatinine (0.52-1.04) mg/dL Estimated GFR ML/MIN Glucose (74-106) mg/dL Lactic Acid (0.4-2.0) Calcium (8.4-10.2) mg/dL Total Bilirubin (0.2-1.3) mg/dL AST (14-36) U/L ALT (0-35) U/L Alkaline Phosphatase (38-126) U/L Serum Total Protein (6.3-8.2) g/dL Albumin (3.5-5.0) g/dL Urine Color (YELLOW) Urine Appearance (CLEAR) Urine pH (5-6) Ur Specific [place] (1.005-1.025) Urine Protein (Negative) Urine Ketones (NEGATIVE) Urine Blood (0-5) Marshal/ul Urine Nitrite (NEGATIVE) Urine Bilirubin (NEGATIVE) Urine Urobilinogen (0-1) mg/dL Ur Leukocyte Esterase (NEGATIVE) Urine WBC (Auto) (0-5) /HPF Urine RBC (Auto) (0-2) /HPF U Hyaline Cast (Auto) (0-2) /LPF U Epithel Cells (Auto) (FEW) /HPF Urine Bacteria (Auto) (NEGATIVE) /HPF Urine Mucus (Auto) (NEGATIVE) /HPF Urine Culture Reflexed (NO) Urine Glucose (NEGATIVE) mg/dL Salicylates (2-20) mg/dL Urine Opiates Level (NEGATIVE) Ur Methadone (NEGATIVE) Acetaminophen (10-30) ug/ml Urine Barbiturates (NEGATIVE) Ur Phencyclidine (PCP) (NEGATIVE) Urine Amphetamine (NEGATIVE) U Benzodiazepine Level (NEGATIVE) Urine Cocaine (NEGATIVE) Urine Marijuana (THC) (NEGATIVE) Ethyl Alcohol (0-10) mg/dL - Progress Progress: improved, re-examined Progress Note: 04/18/18 16:[address] florian i reviewed pt condition, hx, lab,ekg and xray results. she is concerned of the possible immediate need for back up in this pt if she suddenly decompensates. she would like to see if dr. gamez will accept pt in transfer to [facility]. i feel this is reasonable. 04/18/18 16:11 [id number] i reviewed pt hx, condition, lab, xray, ekg results with dr. gamez. he accepts pt for transfer admission to [facility]. jennifer Cr Discussed with : Violeta Martinez Counseled pt/family regarding: lab results, diagnosis, rad results - Departure Time of Disposition: 16:12 Departure Disposition: Transfer Clinical Impression: Opioid abuse with intoxication, Barbiturate abuse, Respiratory distress, Aspiration pneumonia Condition: Stable Critical Care Time: Yes Critical Care Time(excluding separately billable procedures): 75-104 minutes Referrals: MARNIE FLORIAN [Primary Care Provider] -
[2018-04-18] MEDS ORDERED: Dopamine 400 MG/D5W 250ML PREMIX 250 ML IV ONE (13:13)
--- NOTE | 2018-04-18 13:16 | XRAY ---
Indication: Overdose. Intubation. Comparison: March 17, 2018. Portable chest demonstrates new endotracheal tube tip 3 cm above the curtis and new NG tube with the tip presumed in the stomach. Remaining heart, lungs, and bony thorax unremarkable.
[2018-04-18] MEDS ORDERED: Dopamine 400 MG/D5W 250ML PREMIX 250 ML IV PRN (13:17)
[2018-04-18 13:24] LABS: A-aADO2 279; ABG HEMOGLOBIN 10.6; ABG POTASSIUM 3.6 (3.5-5.1); ABG SITE RIGHT BRACHIAL; ARTERIAL BLD GAS O2 SATURATION 99.9 % (95-100); ARTERIAL BLOOD GAS BASE EXCESS -3.8 (-2.0-2.0); ARTERIAL BLOOD GAS FIO2 100 %; ARTERIAL BLOOD GAS PCO2 46 mmHg (35-45); ARTERIAL BLOOD GAS PO2 377 mmHg (75-100); ARTERIAL BLOOD GAS VENT MODE A/C; CARBOXYHEMOGLOBIN 3.3 % THgb (0.0-6.9); HCO3- 22.6 (22-28); HGB O2 SAT 95.7 g/dF (94-100); Methhemoglobin 0.9 % (1.4-1.5); paO2 pAO1 0.57
[2018-04-18] MEDS ORDERED: Zofran 4 MG/2 ML VIAL ONE (13:34)
[2018-04-18 13:44] LABS: BASOPHIL % 0.2 % (0.0-0.4); Basophil (Absolute #) 0.04 (0-0.4); Eosinophil % 0.2 % (0.00-5.0); Eosinophil (Absolute #) 0.05 (0-0.5); Granulocyte Absolute (ANC) 18.59 (1.4-6.9); Granulocytes % 85.2 % (36.0-66.0); Hematocrit 42.3 % (35-47); Hemoglobin 12.3 gm/dl (12.0-16.0); Lymphocyte (Absolute #) 1.72 (1.0-4.6); Lymphocytes % 7.9 % (24.0-44.0); Mean Cell Volume 81.2 fl (78-100); Mean Corpuscular Hemoglobin 23.6 pg (26-32); Mean Corpuscular Hgb Concent. 29.1 g/dl (32-36); Mean Platelet Volume 11.2 fl (6-9.5); Monocyte (Absolute #) 1.41 (0.0-1.3); Monocytes % 6.5 % (0.0-12.0); Platelet Count 231 K/mm3 (150-450); Red Blood Count 5.21 M/mm3 (4.1-5.4); Red Cell Distribution Width 20.4 % (11.5-14.0); White Blood Count 21.8 K/mm3 (4.0-10.5)
[2018-04-18 14:02] LABS: Appearance SLIGHTLY CLOUDY (CLEAR); Bilirubin NEGATIVE (NEGATIVE); Blood NEGATIVE Ery/ul (0-5); Glucose NEGATIVE (NEGATIVE); Ketones NEGATIVE (NEGATIVE); Leukocyte Esterase NEGATIVE (NEGATIVE); Nitrite NEGATIVE (NEGATIVE); Protein,Urine Dip 30 (Negative); Specific Gravity 1.025 (1.005-1.025); Urobilinogen NEGATIVE mg/dL (0-1)
[2018-04-18 14:05] LABS: ALBUMIN 3.7 g/dL (3.5-5.0); ALKALINE PHOSPHATASE 82 U/L (38-126); BLOOD UREA NITROGEN 21 mg/dL (7-17); CHLORIDE 108 mmol/L (98-107); Calcium 8.8 mg/dL (8.4-10.2); Carbon Dioxide 21 mmol/L (22-30); Creatinine 1 1.72 mg/dL (0.52-1.04); Glucose 130 mg/dL (74-106); Potassium 4.1 mmol/L (3.5-5.1); SGOT/AST 39 U/L (14-36); SGPT/ALT 16 U/L (0-35); SODIUM 139 mmol/L (137-145)
[2018-04-18 14:16] LABS: ACETAMINOPHEN < 10 ug/ml (10-30); ETHYL ALCOHOL < 10 mg/dL (0-10); SALICYLATE < 1.0 mg/dL (2-20)
[2018-04-18 14:19] LABS: Amphetamine,Urine NEGATIVE (NEGATIVE); Barbiturate,Urine POSITIVE (NEGATIVE); Benzodiazepine,Urine NEGATIVE (NEGATIVE); Cocaine,Urine NEGATIVE (NEGATIVE); Methadone,Urine NEGATIVE (NEGATIVE); Opiate,Urine POSITIVE (NEGATIVE); PCP,Urine NEGATIVE (NEGATIVE); THC,Urine NEGATIVE (NEGATIVE)
[2018-04-18] MEDS ORDERED: Lubrifresh P.M. 3.5 gm Ointment OP ONE (14:54)
[2018-04-18 15:19] LABS: A-aADO2 299; ABG HEMOGLOBIN 11.4; ABG POTASSIUM 3.5 (3.5-5.1); ARTERIAL BLD GAS O2 SATURATION 99.4 % (95-100); ARTERIAL BLD GAS TIDAL VOLUME 550 cc; ARTERIAL BLOOD GAS BASE EXCESS -8.5 (-2.0-2.0); ARTERIAL BLOOD GAS FIO2 70 %; ARTERIAL BLOOD GAS PCO2 50 mmHg (35-45); ARTERIAL BLOOD GAS PEEP 3 cmH2O; ARTERIAL BLOOD GAS PO2 138 mmHg (75-100); ARTERIAL BLOOD GAS VENT MODE A/C; HCO3- 19.5 (22-28); HGB O2 SAT 94.8 g/dF (94-100); Methhemoglobin 1.6 % (1.4-1.5); paO2 pAO1 0.32
[2018-04-18 15:21] LABS: ABG SITE RIGHT BRACHIAL
[2018-04-18] MEDS ORDERED: Sodium Chloride 3 ML UD NEBULES IH ONE (15:28)
[2018-04-18 15:33] VITALS: O2SAT 99
--- NOTE | 2018-04-18 15:34 | XRAY ---
Indication: Overdose. Multiple contiguous axial images obtained through the head without contrast. Comparison: August 16, 2015. Several images slightly degraded by motion artifact. No gross acute intracranial hemorrhage, abnormal extra-axial fluid collection, or mass effect. Fourth Beng[place] was midline without hydrocephalus. Richardson-white matter differentiation preserved. Bony calvarium intact. Mild mucosal thickening of both ethmoid and sphenoid sinuses. Remaining visualized paranasal sinuses and mastoid air cells are clear. Impression: 1. Motion artifact. 2. No gross acute intracranial abnormalities. 3. Incidental paranasal sinus disease. CT DI 68.32
[2018-04-18] MEDS ORDERED: Zosyn 3.375GM/100 Ml D5W 3.375 GM/100 ML IVPB IV STA (16:21)
[2018-04-18] MEDS ORDERED: Zosyn 3.375GM/100 Ml D5W 3.375 GM/100 ML IVPB IV ONE (16:23)
[2018-04-18 16:47] LABS: VBG CARBOXYHEMOGLOBIN 3.1 % T HGB (0.0-6.9); VBG HCO3- 18.9 meq/L (22-28); VBG HEMOGLOBIN 11.3; VBG O2 SATURATION 81.2 (95-100); VBG POTASSIUM 3.3 (3.5-5.1); VBG pH 7.25 (7.32-7.42)
[2018-04-18 18:10] VITALS: BP 123/67; PULSE 86
== END 2018-04-18 18:39 | disposition short-term general hospital (02) ==
LOC: ED 12:22
DX: F11.129 Opioid abuse with intoxication, unspecified (principal); F13.10 Sedative, hypnotic or anxiolytic abuse, uncomplicated; R06.03 Acute respiratory distress; J69.0 Pneumonitis due to inhalation of food and vomit; Z79.899 Other long term (current) drug therapy
CPT/HCPCS: 31500; 51702; 70450; 80053; 80307; 81001; 82375; 82803; 82805; 82962; 83605; 85025; 93005; 93041; 94770; 94799; 96360; 96365; 96367; 96374; 96375; 99291; 99292; G0480; G0481; 36000; 36415; 36600; 71045; 94002; 99285; J0330; J1265; J2250; J2405; J2543; A9270-GY

== ENCOUNTER 2018-05-22 11:27 | Emergency (ER) | payer MEDICARE ==
[2018-05-22] MEDS ORDERED: Sodium Chloride 0.9% 1000 ML 1,000 ML IV STA ×3 (11:46→12:09)
[2018-05-22] MEDS ORDERED: DUONEB 0.5-3 MG/3 ml Neb IH ONE ×2 (11:50→12:17)
--- NOTE | 2018-05-22 11:50 | ERPHSYRPT ---
- History of Present Illness Time Seen by Provider: 05/22/18 11:43 Source: patient Exam Limitations: no limitations Patient Subjective Stated Complaint: Pt states "I was placed in [facility] in the middle of april for opiate issues and they took me off and put me on suboxone. I mised my midnight dose because I was actually sleeping and I feel like I am withdrawling. I have been coughing, diarrhea, I hurt all over, I just do not feel well." Triage Nursing Assessment: Pt alert and oriented X 3, ski pwd. Pt ambulates with a limp. Pt has rhonchi noted in all lung frances. Pt coughing intermittantly. Pt in no apparent respiratory distress. Physician History: 47-year-old white female with history of migraines, bronchitis, pneumonia, hypothyroidism, fibromyalgia, osteoarthritis, osteoporosis, rheumatoid arthritis , GERD, depression Patient states she was recently admitted to [facility] for pneumonia she also had her pain medications turned around she apparently was placed on Suboxone. She states that she missed her dose of Suboxone last night she states she is feeling sleepy she states she is aching all over she states she is coughing and feels short of breath. Past medical history includes migraines, bronchitis, pneumonia, hypothyroidism, fibromyalgia, osteoarthritis, osteoporosis, rheumatoid arthritis, GERD, depression, hiatal hernia, kidney stones Past surgical history includes cholecystectomy, tubal ligation, left total hip arthroplasty, surgery for hip dysplasia in 1972, carpal tunnel Timing/Duration: other (symptoms since last night) Activities at Onset: none Severity of Dyspnea-Max: moderate Severity of Dyspnea-Current: moderate Possible Cause: occasional episodes Modifying Factors: Improves With: activity Associated Symptoms: cough, fever, chills, No chest pain/discomfort, No edema, No insomnia, No loss of appetite, No lightheadedness, No weakness, No ankle swelling, No hemoptysis, No calf pain, No dizziness, No heaviness, No heart racing, No lightheadedness, No leg swelling, No muscle spasms feet, No muscle spasms hands, No painful breathing, No productive cough, No sweating, No tightness, No tingling face International travel in last 2 weeks: No Allergies/Adverse Reactions: divalproex sodium [From Depakote] Allergy (Intermediate, Verified 05/22/18 11:42 ) latex Allergy (Intermediate, Verified 04/18/18 13:37) Rash metronidazole [From Flagyl] Allergy (Intermediate, Verified 04/18/18 13:37) Hives Metronidazole HCl [From Flagyl] Allergy (Intermediate, Verified 04/18/18 13:37) Hives olanzapine [From Zyprexa] Allergy (Intermediate, Verified 05/22/18 11:42) clomiphene citrate [From Serophene] Allergy (Mild, Verified 04/18/18 13:37) Nausea and Vomiting lidocaine Allergy (Mild, Verified 04/18/18 13:37) Hives fluoxetine [From Sarafem] Allergy (Verified 04/18/18 13:37) ketorolac tromethamine [From Toradol] Adverse Reaction (Intermediate, Verified 04/18/18 13:37) Vomiting NSAIDS (Non-Steroidal Anti-Inflamma Adverse Reaction (Mild, Verified 04/18/18 13 :37) Vomiting triamcinolone acetonide [From Kenalog] Adverse Reaction (Verified 04/18/18 13:37 ) Vomiting Home Medications: Esomeprazole Magnesium [Nexium] 40 mg PO BID 11/26/15 [History] Levothyroxine Sodium 150 Mcg [Synthroid 150 Mcg] 150 mcg PO HS 11/26/15 [ History] Pregabalin [Lyrica 75 mg Cap] 75 mg PO LUNCH 11/26/15 [History] Pregabalin [Lyrica] 150 mg PO BID 11/26/15 [History] Ondansetron HCl [Zofran] 4 mg PO Q4H PRN 12/17/15 [History] Ranitidine HCl 150 mg PO DAILY PRN 12/17/15 [History] Aclidinium [place] [Tudorza Pressair] 400 mcg IH DAILY 03/10/16 [History] Albuterol Common Canister [Proventil Common Canister] 2 puff IH UD PRN 10/19 [History] Denosumab 60 mg [Prolia 60 mg Injection] 60 mg SQ UD 03/10/16 [History] Potassium Chloride 20 Meq Tab [Potassium Chloride 20 MEQ TABLET] 20 meq PO DAILY 03/10/16 [History] Ergocalciferol (Vitamin D2) [Vitamin D2] 50,000 unit PO Q7D 08/23/16 [History] Albuterol/Ipratropium 3ml Neb* [DUONEB 0.5-3 MG/3 ml Neb] 3 ml IH QID PRN [History] Ferrous Sulfate 325 mg [Feosol 325 mg] 325 mg PO DAILY 04/04/17 [History] Hydroxyzine HCl 25 mg [Atarax 25 mg] 25 mg PO QID 04/04/17 [History] Promethazine HCl 25 mg [Phenergan 25 mg] 25 mg PO TIDPRN PRN 04/04/17 [ History] Hx Tetanus, Diphtheria Vaccination/Date Given: No Hx Influenza Vaccination/Date Given: Yes Hx Pneumococcal Vaccination/Date Given: Yes Immunizations Up to Date: Yes - Review of Systems Constitutional: Fever, Chills, Malaise, No Fatigue, No Lethargy, No Night Sweats , No Weakness, No Weight Loss Eyes: No Symptoms Ears, Nose, & Throat: No Symptoms Respiratory: Cough, Dyspnea, No Cyanosis, No Dyspnea on Exertion (VIEIRA), No Wheezing Cardiac: No Chest Pain, No Edema, No Syncope Abdominal/Gastrointestinal: No Abdominal Pain, No Nausea, No Vomiting, No Diarrhea Genitourinary Symptoms: No Dysuria Musculoskeletal: Myalgias (aches all over), No Back Pain, No Neck Pain Skin: No Rash Neurological: Other (patient states she feels s;leepy), No Dizziness, No Focal Weakness, No Gait Changes, No Headache, No Irritability, No Lethargy, No Paralysis, No Parasthesia, No Seizure, No Sensory Changes, No Speech Changes, No Tics, No Tremors, No Vertigo Psychological: No Symptoms Endocrine: No Symptoms All Other Systems: Reviewed and Negative - Past Medical History Pertinent Past Medical History: Yes Neurological History: Migraines ENT History: No Pertinent History Cardiac History: No Pertinent History Respiratory History: Bronchitis, Pneumonia Endocrine Medical History: Hypothyroidism Musculoskeletal History: Fibromyalgia, Osteoarthritis, Osteoporosis, Rheumatoid Arthritis, Other GI Medical History: GERD History: No Pertinent History Psycho-Social History: Depression Female Reproductive Disorders: No Pertinent History Other Medical History: HIATAL HERNIA, KIDNEY STONE X1 2014. recent bronchitis- sees Dr De Leon - Past Surgical History Past Surgical History: Yes Neuro Surgical History: No Pertinent History Cardiac: No Pertinent History Respiratory: No Pertinent History Gastrointestinal: Cholecystectomy Genitourinary: No Pertinent History Musculoskeletal: Joint Replacement Female Surgical History: Tubal Ligation Other Surgical History: TOTAL HIP REPLACEMENT TO LEFT, CARVED HIP SOCKET OFF "hip dysplasia repair" (1972). revision of lt total hip in june. carpal tunnel 2016 - Social History Smoking Status: Current some day smoker How long have you smoked: years Exposure to second hand smoke: Yes Drug Use: none Patient Lives Alone: No Significant Family History: no pertinent family hx - Female History Hx Last Menstrual Period: 04/20/2018 Hx Now: No - Nursing Vital Signs Nursing Vital Signs: Initial Vital Signs Temperature 100.2 F 05/22/18 11:33 Pulse Rate 120 H 05/22/18 11:33 Respiratory Rate 20 05/22/18 11:33 Blood Pressure 76/45 05/22/18 11:33 O2 Sat by Pulse Oximetry 94 L 05/22/18 11:33 Pain Scale Pain Intensity 0 - Physical Exam General Appearance: mild distress, alert Eye Exam: PERRL/EOMI, eyes nml inspection, other (Fundi are unremarkable) Ears, Nose, Throat Exam: hearing grossly normal, normal pharynx, No abnormal TM (R), No abnormal TM (L), No sinus pain/drainage, No hearing decreased, No nasal congestion, No pharyngeal erythema Neck Exam: normal inspection, supple, full range of motion Respiratory Exam: diminished breath sounds, rhonchi Cardiovascular/Chest Exam: normal heart sounds, regular rate/rhythm, tachycardia Abdominal/Gastrointestinal Exam: soft, No tenderness, No distention, No mass Extremity Exam: non-tender, normal range of motion, normal inspection, no calf tenderness, no pedal edema Peripheral Pulses Exam: dorsalis-pedis (R): 2+, dorsalis-pedis (L): 2+ Neurologic Exam: alert, oriented x 3, cooperative, felt cementer II-XII nml as tested, sensation nml, No motor deficits Skin Exam: normal color, warm, No dry SpO2 Interpretation: normal (94%) SpO2: 94 Oxygen Delivery: Room Air - Course Nursing assessment & vital signs reviewed: Yes EKG Interpreted by Me: RATE (108 bpm), Sinus Tach, NORMAL AXIS, Other (EKG: Sinus tachycardia, 108 bpm, normal axis, no acute st or t wave changes noted) - Radiology Exams Chest X-ray Interpretation: Discussed w/ radiologist (chest x-ray: New diffuse left lung infiltrate with left base atelectasis/effusion, remaining heart, right lung, and bony thorax are unremarkable) - CT Exams Chest CT Interpretation: Discussed w/radiologist (CT chest with contrast: Impression. 1. Negative pulmonary embolus. 2. Diffuse left lung infiltrates with lower lobe consolidations and small effusion. Probable pneumonia. Additional subtle hazy infiltrates in the right upper and right lower lobes3. Prominent mediastinal lymph nodes presumed reactive. 4. Hiatal hernia with partial intrathoracic stomach. Esophagus is also mildly fluid distended presumed from reflux. In light of above findings, rule out aspiration pneumonitis. 5. Incidental fatty liver and splenomegaly,) Ordered Tests: Active Orders 24 hr Category Date Time Status Airbrush Painter STAT Care 05/22/18 11:48 Active EKG-ER Only STAT Care 05/22/18 11:46 Active IV Insertion STAT Care 05/22/18 11:46 Active Pulse Oximetry (ED) STAT Care 05/22/18 11:46 Active cath [Cath for Specimen-Straight] STAT Care 05/22/18 12:34 Active CHEST 1 VIEW (PORTABLE) Stat Exams 05/22/18 11:47 Completed CHEST WITH CONTRAST [CT] Stat Exams 05/22/18 13:58 Completed ACETAMINOPHEN Stat Lab 05/22/18 12:16 Completed BLOOD CULTURE Stat Lab 05/22/18 11:50 Received CBC W DIFF Stat Lab 05/22/18 12:07 Completed CMP Stat Lab 05/22/18 12:07 Completed CULTURE,SPUTUM Stat Lab 05/22/18 11:47 Uncollected D-DIMER QUANTITATION Stat Lab 05/22/18 12:07 Completed Lactic Acid Stat Lab 05/22/18 11:46 Completed Lactic Acid Stat Lab 05/22/18 14:02 Results NT PRO BNP Stat Lab 05/22/18 12:07 Completed PROTIME WITH INR Stat Lab 05/22/18 12:07 Completed PTT Stat Lab 05/22/18 12:07 Completed SALICYLATE Stat Lab 05/22/18 12:16 Completed TROPONIN Q3H Lab 05/22/18 12:07 Completed TROPONIN Q3H Lab 05/22/18 15:14 Completed TROPONIN Q3H Lab 05/22/18 18:00 Ordered TROPONIN Q3H Lab 05/22/18 21:00 Ordered TROPONIN Q3H Lab 05/23/18 00:00 Ordered UA W/RFX UR CULTURE Stat Lab 05/22/18 15:00 Completed Urine Triage Profile Stat Lab 05/22/18 15:00 Completed VENOUS BLOOD GAS Stat Lab 05/22/18 11:46 Completed Peak Expiratory Flow Rate ONCE RT 05/22/18 12:26 Completed Respiratory Nebulizer STAT RT 05/22/18 11:50 Completed Respiratory Therapy Assessment DAILY RT 05/22/18 12:26 Active Medication Summary Generic Name Dose Route Start Last Admin Trade Name Freq PRN Reason Stop Dose Admin Sodium Chloride 1,000 mls @ 100 mls/hr 05/22/18 14:15 05/22/18 14:13 Sodium Chloride 0.9% 1000 Ml IV 06/21/18 14:14 100 mls/hr .Q10H CHRIST Administration Dopamine HCl/Dextrose 250 mls @ 15.564 mls/hr 05/22/18 14:57 05/22/18 15:28 Dopamine 400 Mg/D5w 250ml Premix IV 06/21/18 14:56 5 mcg/kg/min .Q16H4M PRN 15.564 mls/hr SEVERE HYPOTENSION Administration Protocol 5 MCG/KG/MIN Discontinued Medications Generic Name Dose Route Start Last Admin Trade Name Freq PRN Reason Stop Dose Admin Albuterol Sulfate 2.5 mg 05/22/18 15:52 Proventil 2.5 Mg/3 Ml Neb IH 05/22/18 15:53 STAT ONE Albuterol/Ipratropium 3 ml 05/22/18 11:50 05/22/18 12:20 Duoneb 0.5-3 Mg/3 Ml Neb IH 05/22/18 11:51 3 ml STAT ONE Administration Albuterol/Ipratropium Confirm 05/22/18 12:17 Duoneb 0.5-3 Mg/3 Ml Neb Administered 05/22/18 12:18 Dose 3 ml IH .STK-MED ONE Sodium Chloride 1,000 mls @ 999 mls/hr 05/22/18 11:46 05/22/18 14:02 Sodium Chloride 0.9% 1000 Ml IV 05/22/18 12:46 Infused .Q1H1M STA Infusion Sodium Chloride Confirm 05/22/18 12:02 Sodium Chloride 0.9% 1000 Ml Administered 05/22/18 12:03 Dose 1,000 mls @ ud .ROUTE .STK-MED ONE Sodium Chloride 1,000 mls @ 999 mls/hr 05/22/18 12:07 05/22/18 14:02 Sodium Chloride 0.9% 1000 Ml IV 05/22/18 13:07 Infused .Q1H1M STA Infusion Piperacillin Sod/Tazobactam Sod 3.375 gm in 100 mls @ 200 mls/hr 05/22/18 12: 09 05/22/18 14:03 Zosyn 3.375gm/100 Ml D5w IV 05/22/18 12:38 Infused STAT STA Infusion Sodium Chloride 1,000 mls @ 999 mls/hr 05/22/18 12:09 05/22/18 14:03 Sodium Chloride 0.9% 1000 Ml IV 05/22/18 13:09 Infused .Q1H1M STA Infusion Sodium Chloride Confirm 05/22/18 12:34 Sodium Chloride 0.9% 1000 Ml Administered 05/22/18 12:35 Dose 1,000 mls @ ud .ROUTE .STK-MED ONE Sodium Chloride Confirm 05/22/18 12:34 Sodium Chloride 0.9% 1000 Ml Administered 05/22/18 12:35 Dose 1,000 mls @ ud .ROUTE .STK-MED ONE Piperacillin Sod/Tazobactam Sod Confirm 05/22/18 12:34 Zosyn 3.375gm/100 Ml D5w Administered 05/22/18 12:35 Dose 3.375 gm in 100 mls @ ud IV .STK-MED ONE Sodium Chloride Confirm 05/22/18 14:04 Sodium Chloride 0.9% 1000 Ml Administered 05/22/18 14:05 Dose 1,000 mls @ ud .ROUTE .STK-MED ONE Lab/Rad Data: Laboratory Result Diagrams 05/22/18 12:07 05/22/18 12:07 Laboratory Results 05/22/18 05/22/18 05/22/18 Range/Units 15:14 15:00 15:00 WBC (4.0-10.5) K/mm3 RBC (4.1-5.4) M/mm3 Hgb (12.0-16.0) gm/dl Hct (35-47) % MCV (78-100) fl MCH (26-32) pg MCHC (32-36) g/dl RDW (11.5-14.0) % Plt Count (150-450) K/mm3 MPV (6-9.5) fl Gran % (36.0-66.0) % Eos # (Auto) (0-0.5) Absolute Lymphs (auto) (1.0-4.6) Absolute Monos (auto) (0.0-1.3) Lymphocytes % (24.0-44.0) % Monocytes % (0.0-12.0) % Eosinophils % (0.00-5.0) % Basophils % (0.0-0.4) % Absolute Granulocytes (1.4-6.9) Basophils # (0-0.4) PT (9.95-12.35) SECONDS INR (0.8-3.0) APTT (25.3-37.0) SECONDS D-Dimer (215-500) ng/mL pO2/FiO2 Ratio % VBG pH (7.32-7.42) VBG pCO2 at Pat Temp (42-55) mm/Hg VBG pO2 at Pat Temp (25-40) mm/Hg VBG HCO3 (22-28) meq/L VBG O2 Sat ([place]) (95-100) VBG Base Excess (-2.0-2.0) VBG Hemoglobin VBG Carboxyhemoglobin (0.0-6.9) % T HGB POC Potassium (3.5-5.1) Sodium (137-145) mmol/L Potassium (3.5-5.1) mmol/L Chloride (98-107) mmol/L Carbon Dioxide (22-30) mmol/L Anion Gap (5-15) MEQ/L BUN (7-17) mg/dL Creatinine (0.52-1.04) mg/dL Estimated GFR ML/MIN Glucose (74-106) mg/dL Lactic Acid (0.4-2.0) Calcium (8.4-10.2) mg/dL Total Bilirubin (0.2-1.3) mg/dL AST (14-36) U/L ALT (0-35) U/L Alkaline Phosphatase (38-126) U/L Troponin I < 0.012 (0.000-0.034) ng/mL NT-Pro-B Natriuret Pep (0-450) pg/mL Serum Total Protein (6.3-8.2) g/dL Albumin (3.5-5.0) g/dL Urine Color BILL (YELLOW) Urine Appearance CLOUDY (CLEAR) Urine pH 5.0 (5-6) Ur Specific [place] 1.024 (1.005-1.025) Urine Protein 100 (Negative) Urine Ketones TRACE (NEGATIVE) Urine Blood NEGATIVE (0-5) Marshal/ul Urine Nitrite NEGATIVE (NEGATIVE) Urine Bilirubin SMALL (NEGATIVE) Urine Urobilinogen 2 (0-1) mg/dL Ur Leukocyte Esterase NEGATIVE (NEGATIVE) Urine WBC (Auto) 3-5 (0-5) /HPF Urine RBC (Auto) NONE (0-2) /HPF U Hyaline Cast (Auto) >50 (0-2) /LPF U Epithel Cells (Auto) RARE (FEW) /HPF Urine Bacteria (Auto) RARE (NEGATIVE) /HPF Urine Mucus (Auto) MODERATE (NEGATIVE) /HPF Urine Culture Reflexed NO (NO) Urine Glucose NEGATIVE (NEGATIVE) mg/dL Salicylates (2-20) mg/dL Urine Opiates Level NEGATIVE (NEGATIVE) Ur Methadone NEGATIVE (NEGATIVE) Acetaminophen (10-30) ug/ml Urine Barbiturates NEGATIVE (NEGATIVE) Ur Phencyclidine (PCP) NEGATIVE (NEGATIVE) Urine Amphetamine NEGATIVE (NEGATIVE) U Benzodiazepine Level NEGATIVE (NEGATIVE) Urine Cocaine NEGATIVE (NEGATIVE) Urine Marijuana (THC) POSITIVE (NEGATIVE) 05/22/18 05/22/18 05/22/18 Range/Units 14:02 12:16 12:07 WBC (4.0-10.5) K/mm3 RBC (4.1-5.4) M/mm3 Hgb (12.0-16.0) gm/dl Hct (35-47) % MCV (78-100) fl MCH (26-32) pg MCHC (32-36) g/dl RDW (11.5-14.0) % Plt Count (150-450) K/mm3 MPV (6-9.5) fl Gran % (36.0-66.0) % Eos # (Auto) (0-0.5) Absolute Lymphs (auto) (1.0-4.6) Absolute Monos (auto) (0.0-1.3) Lymphocytes % (24.0-44.0) % Monocytes % (0.0-12.0) % Eosinophils % (0.00-5.0) % Basophils % (0.0-0.4) % Absolute Granulocytes (1.4-6.9) Basophils # (0-0.4) PT (9.95-12.35) SECONDS INR (0.8-3.0) APTT (25.3-37.0) SECONDS D-Dimer (215-500) ng/mL pO2/FiO2 Ratio % VBG pH (7.32-7.42) VBG pCO2 at Pat Temp (42-55) mm/Hg VBG pO2 at Pat Temp (25-40) mm/Hg VBG HCO3 (22-28) meq/L VBG O2 Sat ([place]) (95-100) VBG Base Excess (-2.0-2.0) VBG Hemoglobin VBG Carboxyhemoglobin (0.0-6.9) % T HGB POC Potassium (3.5-5.1) Sodium (137-145) mmol/L Potassium (3.5-5.1) mmol/L Chloride (98-107) mmol/L Carbon Dioxide (22-30) mmol/L Anion Gap (5-15) MEQ/L BUN (7-17) mg/dL Creatinine (0.52-1.04) mg/dL Estimated GFR ML/MIN Glucose (74-106) mg/dL Lactic Acid 2.4 H (0.4-2.0) Calcium (8.4-10.2) mg/dL Total Bilirubin (0.2-1.3) mg/dL AST (14-36) U/L ALT (0-35) U/L Alkaline Phosphatase (38-126) U/L Troponin I < 0.012 (0.000-0.034) ng/mL NT-Pro-B Natriuret Pep (0-450) pg/mL Serum Total Protein (6.3-8.2) g/dL Albumin (3.5-5.0) g/dL Urine Color (YELLOW) Urine Appearance (CLEAR) Urine pH (5-6) Ur Specific [place] (1.005-1.025) Urine Protein (Negative) Urine Ketones (NEGATIVE) Urine Blood (0-5) Marshal/ul Urine Nitrite (NEGATIVE) Urine Bilirubin (NEGATIVE) Urine Urobilinogen (0-1) mg/dL Ur Leukocyte Esterase (NEGATIVE) Urine WBC (Auto) (0-5) /HPF Urine RBC (Auto) (0-2) /HPF U Hyaline Cast (Auto) (0-2) /LPF U Epithel Cells (Auto) (FEW) /HPF Urine Bacteria (Auto) (NEGATIVE) /HPF Urine Mucus (Auto) (NEGATIVE) /HPF Urine Culture Reflexed (NO) Urine Glucose (NEGATIVE) mg/dL Salicylates < 1.0 L (2-20) mg/dL Urine Opiates Level (NEGATIVE) Ur Methadone (NEGATIVE) Acetaminophen < 10 L (10-30) ug/ml Urine Barbiturates (NEGATIVE) Ur Phencyclidine (PCP) (NEGATIVE) Urine Amphetamine (NEGATIVE) U Benzodiazepine Level (NEGATIVE) Urine Cocaine (NEGATIVE) Urine Marijuana (THC) (NEGATIVE) 05/22/18 05/22/18 05/22/18 Range/Units 12:07 12:07 12:07 WBC 11.5 H (4.0-10.5) K/mm3 RBC 4.18 (4.1-5.4) M/mm3 Hgb 9.8 L (12.0-16.0) gm/dl Hct 33.4 L (35-47) % MCV 79.9 (78-100) fl MCH 23.4 L (26-32) pg MCHC 29.3 L (32-36) g/dl RDW 17.3 H (11.5-14.0) % Plt Count 252 (150-450) K/mm3 MPV 11.1 H (6-9.5) fl Gran % 87.0 H (36.0-66.0) % Eos # (Auto) 0.01 (0-0.5) Absolute Lymphs (auto) 0.76 L (1.0-4.6) Absolute Monos (auto) 0.70 (0.0-1.3) Lymphocytes % 6.6 L (24.0-44.0) % Monocytes % 6.1 (0.0-12.0) % Eosinophils % 0.1 (0.00-5.0) % Basophils % 0.2 (0.0-0.4) % Absolute Granulocytes 9.98 H (1.4-6.9) Basophils # 0.02 (0-0.4) PT 13.6 H (9.95-12.35) SECONDS INR 1.17 (0.8-3.0) APTT 26.4 (25.3-37.0) SECONDS D-Dimer 2085 H* (215-500) ng/mL pO2/FiO2 Ratio % VBG pH (7.32-7.42) VBG pCO2 at Pat Temp (42-55) mm/Hg VBG pO2 at Pat Temp (25-40) mm/Hg VBG HCO3 (22-28) meq/L VBG O2 Sat ([place]) (95-100) VBG Base Excess (-2.0-2.0) VBG Hemoglobin VBG Carboxyhemoglobin (0.0-6.9) % T HGB POC Potassium (3.5-5.1) Sodium 136 L (137-145) mmol/L Potassium 3.5 (3.5-5.1) mmol/L Chloride 99 (98-107) mmol/L Carbon Dioxide 25 (22-30) mmol/L Anion Gap 14.7 (5-15) MEQ/L BUN 13 (7-17) mg/dL Creatinine 1.05 H (0.52-1.04) mg/dL Estimated GFR 59.7 ML/MIN Glucose 115 H (74-106) mg/dL Lactic Acid (0.4-2.0) Calcium 8.7 (8.4-10.2) mg/dL Total Bilirubin 0.90 (0.2-1.3) mg/dL AST 19 (14-36) U/L ALT 15 (0-35) U/L Alkaline Phosphatase 59 (38-126) U/L Troponin I (0.000-0.034) ng/mL NT-Pro-B Natriuret Pep 1560 H (0-450) pg/mL Serum Total Protein 6.3 (6.3-8.2) g/dL Albumin 3.4 L (3.5-5.0) g/dL Urine Color (YELLOW) Urine Appearance (CLEAR) Urine pH (5-6) Ur Specific [place] (1.005-1.025) Urine Protein (Negative) Urine Ketones (NEGATIVE) Urine Blood (0-5) Marshal/ul Urine Nitrite (NEGATIVE) Urine Bilirubin (NEGATIVE) Urine Urobilinogen (0-1) mg/dL Ur Leukocyte Esterase (NEGATIVE) Urine WBC (Auto) (0-5) /HPF Urine RBC (Auto) (0-2) /HPF U Hyaline Cast (Auto) (0-2) /LPF U Epithel Cells (Auto) (FEW) /HPF Urine Bacteria (Auto) (NEGATIVE) /HPF Urine Mucus (Auto) (NEGATIVE) /HPF Urine Culture Reflexed (NO) Urine Glucose (NEGATIVE) mg/dL Salicylates (2-20) mg/dL Urine Opiates Level (NEGATIVE) Ur Methadone (NEGATIVE) Acetaminophen (10-30) ug/ml Urine Barbiturates (NEGATIVE) Ur Phencyclidine (PCP) (NEGATIVE) Urine Amphetamine (NEGATIVE) U Benzodiazepine Level (NEGATIVE) Urine Cocaine (NEGATIVE) Urine Marijuana (THC) (NEGATIVE) 05/22/18 Range/Units 11:46 WBC (4.0-10.5) K/mm3 RBC (4.1-5.4) M/mm3 Hgb (12.0-16.0) gm/dl Hct (35-47) % MCV (78-100) fl MCH (26-32) pg MCHC (32-36) g/dl RDW (11.5-14.0) % Plt Count (150-450) K/mm3 MPV (6-9.5) fl Gran % (36.0-66.0) % Eos # (Auto) (0-0.5) Absolute Lymphs (auto) (1.0-4.6) Absolute Monos (auto) (0.0-1.3) Lymphocytes % (24.0-44.0) % Monocytes % (0.0-12.0) % Eosinophils % (0.00-5.0) % Basophils % (0.0-0.4) % Absolute Granulocytes (1.4-6.9) Basophils # (0-0.4) PT (9.95-12.35) SECONDS INR (0.8-3.0) APTT (25.3-37.0) SECONDS D-Dimer (215-500) ng/mL pO2/FiO2 Ratio 21.0 % VBG pH 7.45 H (7.32-7.42) VBG pCO2 at Pat Temp 39 L (42-55) mm/Hg VBG pO2 at Pat Temp 36 (25-40) mm/Hg VBG HCO3 27.1 (22-28) meq/L VBG O2 Sat ([place]) 76.9 L (95-100) VBG Base Excess 2.9 H (-2.0-2.0) VBG Hemoglobin 10.0 VBG Carboxyhemoglobin 5.1 (0.0-6.9) % T HGB POC Potassium 3.4 L (3.5-5.1) Sodium (137-145) mmol/L Potassium (3.5-5.1) mmol/L Chloride (98-107) mmol/L Carbon Dioxide (22-30) mmol/L Anion Gap (5-15) MEQ/L BUN (7-17) mg/dL Creatinine (0.52-1.04) mg/dL Estimated GFR ML/MIN Glucose (74-106) mg/dL Lactic Acid 3.4 H (0.4-2.0) Calcium (8.4-10.2) mg/dL Total Bilirubin (0.2-1.3) mg/dL AST (14-36) U/L ALT (0-35) U/L Alkaline Phosphatase (38-126) U/L Troponin I (0.000-0.034) ng/mL NT-Pro-B Natriuret Pep (0-450) pg/mL Serum Total Protein (6.3-8.2) g/dL Albumin (3.5-5.0) g/dL Urine Color (YELLOW) Urine Appearance (CLEAR) Urine pH (5-6) Ur Specific [place] (1.005-1.025) Urine Protein (Negative) Urine Ketones (NEGATIVE) Urine Blood (0-5) Marshal/ul Urine Nitrite (NEGATIVE) Urine Bilirubin (NEGATIVE) Urine Urobilinogen (0-1) mg/dL Ur Leukocyte Esterase (NEGATIVE) Urine WBC (Auto) (0-5) /HPF Urine RBC (Auto) (0-2) /HPF U Hyaline Cast (Auto) (0-2) /LPF U Epithel Cells (Auto) (FEW) /HPF Urine Bacteria (Auto) (NEGATIVE) /HPF Urine Mucus (Auto) (NEGATIVE) /HPF Urine Culture Reflexed (NO) Urine Glucose (NEGATIVE) mg/dL Salicylates (2-20) mg/dL Urine Opiates Level (NEGATIVE) Ur Methadone (NEGATIVE) Acetaminophen (10-30) ug/ml Urine Barbiturates (NEGATIVE) Ur Phencyclidine (PCP) (NEGATIVE) Urine Amphetamine (NEGATIVE) U Benzodiazepine Level (NEGATIVE) Urine Cocaine (NEGATIVE) Urine Marijuana (THC) (NEGATIVE) - Progress Progress: improved Air Movement: fair Progress Note: 05/22/18 12:11 This is a 47-year-old white female with history of migraines, bronchitis, pneumonia, hypothyroidism, fibromyalgia patient arrives with complaint of shortness of breath cough she states that she missed a dose of Suboxone feels like she might be withdrawing from Suboxone states she feels sleepy. Patient arrives patient is noted to have a temperature of 100.2 pulse 120 respirations 20 blood pressure is low at 76/45 patient with bilateral rhonchi in her lung frances Patient does have a lactate of 3.4 Blood cultures chest x-ray CBC CMP sputum cultures urine have been ordered. Zosyn has been ordered IV. 05/22/18 15:53 Patient given 3 L of fluids started on Zosyn she is being given DuoNeb treatment. Patient with left sided extensive pneumonia and right-sided pneumonia as well of findings suspicious for aspiration pneumonitis. Patient's blood pressure was noted to be somewhat low around 78 on arrival she is placed on dopamine after receiving 3 L IV normal saline I've discussed the patient's case with Dr. Newby will plan on placing patient on ICU Continue IV antibiotics . 05/22/18 15:56 I reevaluated the patient after talking with Dr. Newby, I feel patient would best be served by transfer to [place] [facility]. She has both sepsis and pneumonia and pneumonia is fairly extensive. 05/22/18 16:15 I discussed the patient's case with Dr. Florez, he has accepted the patient for transfer to [facility]. Will send patient Diagnosis 1. Pneumonia 2. Sepsis 3. Hypotension. - Departure Time of Disposition: 16:16 Departure Disposition: Transfer ([facility]) Clinical Impression: Pneumonia Qualifiers: Pneumonia type: due to unspecified organism Laterality: bilateral Lung location : unspecified part of lung Qualified Code(s): J18.9 - Pneumonia, unspecified organism Sepsis Qualifiers: Sepsis type: sepsis due to unspecified organism Qualified Code(s): A41.9 - Sepsis, unspecified organism Hypotension Qualifiers: Hypotension type: unspecified hypotension type Qualified Code(s): I95.9 - Hypotension, unspecified Condition: Fair Critical Care Time: No Referrals: MARNIE FLORIAN [Primary Care Provider] -
[2018-05-22] MEDS ORDERED: Sodium Chloride 0.9% 1000 ML 1,000 ML ONE ×4 (12:02→14:04)
[2018-05-22 12:03] LABS: Lactic Acid 3.4 (0.4-2.0); VBG BASE EXCESS 2.9 (-2.0-2.0); VBG CARBOXYHEMOGLOBIN 5.1 % T HGB (0.0-6.9); VBG HCO3- 27.1 meq/L (22-28); VBG O2 SATURATION 76.9 (95-100); VBG PCO2 39 mm/Hg (42-55); VBG PO2 36 mm/Hg (25-40); VBG POTASSIUM 3.4 (3.5-5.1); VBG pH 7.45 (7.32-7.42)
[2018-05-22] MEDS ORDERED: Zosyn 3.375GM/100 Ml D5W 3.375 GM/100 ML IVPB IV STA (12:09)
[2018-05-22 12:15] LABS: BASOPHIL % 0.2 % (0.0-0.4); Basophil (Absolute #) 0.02 (0-0.4); Eosinophil % 0.1 % (0.00-5.0); Eosinophil (Absolute #) 0.01 (0-0.5); Granulocyte Absolute (ANC) 9.98 (1.4-6.9); Hematocrit 33.4 % (35-47); Hemoglobin 9.8 gm/dl (12.0-16.0); Lymphocyte (Absolute #) 0.76 (1.0-4.6); Lymphocytes % 6.6 % (24.0-44.0); Mean Cell Volume 79.9 fl (78-100); Mean Corpuscular Hemoglobin 23.4 pg (26-32); Mean Corpuscular Hgb Concent. 29.3 g/dl (32-36); Mean Platelet Volume 11.1 fl (6-9.5); Monocytes % 6.1 % (0.0-12.0); Platelet Count 252 K/mm3 (150-450); Red Blood Count 4.18 M/mm3 (4.1-5.4); Red Cell Distribution Width 17.3 % (11.5-14.0); White Blood Count 11.5 K/mm3 (4.0-10.5)
--- NOTE | 2018-05-22 12:16 | XRAY ---
Indication: Short of breath. Comparison: April 18, 2018. Portal chest demonstrates new diffuse left lung infiltrate with left base atelectasis/effusion. Remaining heart, right lung, and bony thorax are unremarkable.
[2018-05-22] MEDS ORDERED: Zosyn 3.375GM/100 Ml D5W 3.375 GM/100 ML IVPB IV ONE (12:34)
[2018-05-22 12:39] LABS: ACETAMINOPHEN < 10 ug/ml (10-30); SALICYLATE < 1.0 mg/dL (2-20)
[2018-05-22 12:47] LABS: ALBUMIN 3.4 g/dL (3.5-5.0); ANION GAP 14.7 MEQ/L (5-15); BILIRUBIN,TOTAL 0.9 mg/dL (0.2-1.3); Calcium 8.7 mg/dL (8.4-10.2); Creatinine 1 1.05 mg/dL (0.52-1.04); Potassium 3.5 mmol/L (3.5-5.1); Total Protein 6.3 g/dL (6.3-8.2)
[2018-05-22 12:55] LABS: INR 1.17 (0.8-3.0)
[2018-05-22 12:57] LABS: PTT 26.4 SECONDS (25.3-37.0)
[2018-05-22] MEDS ORDERED: Sodium Chloride 0.9% 1000 ML 1,000 ML IV SCH (14:15)
--- NOTE | 2018-05-22 14:23 | XRAY ---
Indication: Short of breath. Elevated d-dimer. Multiple contiguous axial images obtained through the chest using 80 cc Isovue 370 contrast and PE protocol. Comparison: None There is satisfactory opacification of the pulmonary arteries to include the lobar and segmental branches. No filling defect or pulmonary embolus. Heart is not enlarged. Aorta is normal in course and caliber. Small paratracheal and precarinal lymph nodes, largest precarinal measuring 1.6 x 2.2 cm. No pathologic hilar lymphadenopathy. Moderate-sized hiatal hernia with partial intrathoracic stomach. Remaining esophagus is mildly fluid distended, possibly from reflux. Examination of lung parenchyma demonstrates diffuse left lung infiltrates greatest in the lower lobe with multifocal areas of organizing/consolidation. Small left effusion. Subtle patchy hazy opacities in the right upper and right lower lobes suggesting further disease. Minimal peripheral right lower lobe fibrosis/scarring. Bony thorax intact. Limited upper abdomen demonstrates mild fatty liver and 13 cm splenomegaly. Impression: 1. Negative pulmonary embolus. 2. Diffuse left lung infiltrates with lower lobe consolidations and small effusion, probable pneumonia. Additional subtle hazy infiltrates in the right upper and right lower lobes. 3. Prominent mediastinal lymph nodes presumed reactive. 4. Hiatal hernia with partial intrathoracic stomach. Esophagus is also mildly fluid distended presumed from reflux. In light of above findings, rule out aspiration pneumonitis. 5. Incidental fatty liver and splenomegaly. CT DI 23.18
[2018-05-22] MEDS ORDERED: Dopamine 400 MG/D5W 250ML PREMIX 250 ML IV PRN (14:57)
[2018-05-22 15:09] LABS: Appearance CLOUDY (CLEAR); Bilirubin SMALL (NEGATIVE); Blood NEGATIVE Ery/ul (0-5); Glucose NEGATIVE (NEGATIVE); Ketones TRACE (NEGATIVE); Leukocyte Esterase NEGATIVE (NEGATIVE); Nitrite NEGATIVE (NEGATIVE); Protein,Urine Dip 100 (Negative); Specific Gravity 1.024 (1.005-1.025); Urobilinogen 2 mg/dL (0-1)
[2018-05-22 15:09] LABS: Lactic Acid 2.4 (0.4-2.0)
[2018-05-22 15:18] LABS: Amphetamine,Urine NEGATIVE (NEGATIVE); Barbiturate,Urine NEGATIVE (NEGATIVE); Benzodiazepine,Urine NEGATIVE (NEGATIVE); Cocaine,Urine NEGATIVE (NEGATIVE); Methadone,Urine NEGATIVE (NEGATIVE); Opiate,Urine NEGATIVE (NEGATIVE); PCP,Urine NEGATIVE (NEGATIVE); THC,Urine POSITIVE (NEGATIVE)
[2018-05-22] MEDS ORDERED: Dopamine 400 MG/D5W 250ML PREMIX 250 ML IV ONE (15:22)
[2018-05-22] MEDS ORDERED: PROVENTIL 2.5 MG/3 ML NEB IH ONE ×2 (15:52→16:16)
[2018-05-22 16:09] VITALS: BP 97/55
[2018-05-22 16:31] VITALS: PULSE 116; O2SAT 82
[2018-05-22 16:33] LABS: A-aADO2 147; ABG HEMOGLOBIN 9.5; ABG POTASSIUM 3.6 (3.5-5.1); ARTERIAL BLD GAS O2 SATURATION 93.2 % (95-100); ARTERIAL BLOOD GAS BASE EXCESS -0.2 (-2.0-2.0); ARTERIAL BLOOD GAS FIO2 36 %; ARTERIAL BLOOD GAS PCO2 41 mmHg (35-45); ARTERIAL BLOOD GAS PO2 58 mmHg (75-100); ARTERIAL BLOOD GAS pH 7.39 (7.35-7.45); CARBOXYHEMOGLOBIN 4.4 % THgb (0.0-6.9); HCO3- 24.8 (22-28); HGB O2 SAT 88.3 g/dF (94-100); Methhemoglobin 0.9 % (1.4-1.5); paO2 pAO1 0.28
[2018-05-22 16:34] LABS: ABG SITE LEFT RADIAL; ALLEN TEST OK? YES
== END 2018-05-22 16:50 | disposition short-term general hospital (02) ==
LOC: ED 11:27
DX: J18.9 Pneumonia, unspecified organism (principal); A41.9 Sepsis, unspecified organism; I95.9 Hypotension, unspecified; Z79.899 Other long term (current) drug therapy
CPT/HCPCS: 36000; 36415; 36600; 71045; 71260; 80053; 80307; 81001; 82375; 82803; 82805; 83605; 83880; 84484; 85025; 85379; 85610; 85730; 87040; 93005; 93041; 94150; 94640; 96360; 96361; 96365; 96368; 96374; 96375; 99285; G0481; P9612; J1265; J2543; J7609; A9270-GY

== ENCOUNTER 2018-11-30 11:32 | Inpatient (IN) | payer MEDICARE ==
[2018-11-30] MEDS ORDERED: DUONEB 0.5-3 MG/3 ml Neb IH PRN (11:38)
[2018-11-30 12:38] LABS: BASOPHIL % 0.6 % (0.0-0.4); Basophil (Absolute #) 0.05 (0-0.4); Eosinophil % 2.6 % (0.00-5.0); Eosinophil (Absolute #) 0.23 (0-0.5); Granulocyte Absolute (ANC) 5.56 (1.4-6.9); Granulocytes % 62.3 % (36.0-66.0); Hematocrit 38.4 % (35-47); Hemoglobin 11.6 gm/dl (12.0-16.0); Lymphocyte (Absolute #) 2.49 (1.0-4.6); Lymphocytes % 27.9 % (24.0-44.0); Mean Cell Volume 76.5 fl (78-100); Mean Corpuscular Hemoglobin 23.1 pg (26-32); Mean Corpuscular Hgb Concent. 30.2 g/dl (32-36); Mean Platelet Volume 10.9 fl (6-9.5); Monocyte (Absolute #) 0.59 (0.0-1.3); Monocytes % 6.6 % (0.0-12.0); Platelet Count 321 K/mm3 (150-450); Red Blood Count 5.02 M/mm3 (4.1-5.4); Red Cell Distribution Width 19.4 % (11.5-14.0); White Blood Count 8.9 K/mm3 (4.0-10.5)
[2018-11-30 12:46] LABS: ALBUMIN 3.7 g/dL (3.5-5.0); ALKALINE PHOSPHATASE 92 U/L (38-126); ANION GAP 12.7 MEQ/L (5-15); BLOOD UREA NITROGEN 11 mg/dL (7-17); CHLORIDE 102 mmol/L (98-107); Calcium 9.7 mg/dL (8.4-10.2); Carbon Dioxide 26 mmol/L (22-30); Creatinine 1 0.67 mg/dL (0.52-1.04); Glucose 100 mg/dL (74-106); Potassium 4.1 mmol/L (3.5-5.1); SGOT/AST 15 U/L (14-36); SGPT/ALT 11 U/L (0-35); SODIUM 137 mmol/L (137-145); Total Protein 6.9 g/dL (6.3-8.2)
--- NOTE | 2018-11-30 13:13 | XRAY ---
Indication: Pneumonia. Comparison: November 23, 2018. PA/lateral chest unchanged again demonstrating subtle hazy right lung interstitial alveolar opacities without consolidation/large effusion. Remaining heart and lungs unremarkable. No new cardiopulmonary abnormalities.
[2018-11-30] MEDS: Levofloxacin 500MG/100ML D5W 500 MG/100 ML BAG IV SCH (13:32)
[2018-11-30] MEDS: Sodium Chloride 0.9% 1000 ML 1,000 ML IV SCH ×2 (13:32→21:08)
[2018-11-30 14:00] LABS: Appearance CLEAR (CLEAR); Bilirubin NEGATIVE (NEGATIVE); Blood NEGATIVE Ery/ul (0-5); Epithelial Cells RARE /HPF (FEW); Glucose NEGATIVE (NEGATIVE); Ketones NEGATIVE (NEGATIVE); Leukocyte Esterase NEGATIVE (NEGATIVE); Nitrite NEGATIVE (NEGATIVE); Protein,Urine Dip NEGATIVE (Negative); Specific Gravity 1.003 (1.005-1.025); Urobilinogen NEGATIVE mg/dL (0-1)
[2018-11-30] MEDS ORDERED: NON-FORMULARY ITEM (Ranitidine Hcl [Ranitidine Hcl] 150 MG) PO PRN (16:20)
[2018-11-30] MEDS ORDERED: Flonase NASAL NS PRN (16:20)
[2018-11-30] MEDS ORDERED: Colace 100 MG PO PRN (16:20)
[2018-11-30] MEDS ORDERED: Tessalon Perles 100 MG PO PRN (16:20)
[2018-11-30] MEDS ORDERED: Sodium Chloride 0.9% 500 ML 500 ML IV ONE (16:26)
--- NOTE | 2018-11-30 16:26 | PCM.HP ---
History of Present Illness - Chief Complaint Chief Complaint: PNEUMONIA History of Present Illness: is a 48 year old female pt of mine from [facility] with COPD, PTSD, chronic hip pain s/p multiple surgeries, hypothyroidism, and fibromyalgia who was admitted directly with pneumonia. She had pneumonia last fall, was inpatient two separate times at different facilities then went to [facility] for 4 months. She has been out since October 12 and has already completed 2 rounds of antibiotics for respiratory infections. For the past 3 weeks her cough has been worse. She saw me last week and we started po augmentin. She had an XR with pneumonia. Follow up CT lungs with LLL and RLL patchy infiltrates. She has not had productive cough. Some nausea, no vomiting. Temps 99-100. - Review of Systems Respiratory: Cough Abdominal/Gastrointestinal: Nausea Musculoskeletal: Joint Pain (chronic) Psychological: Anxiety, No Depression, No Suicidal Ideations All Other Systems: Reviewed and Negative Medications & Allergies Home Medications: Home Medication List Esomeprazole Magnesium [Nexium] 40 mg PO 0800 11/26/15 [History Confirmed ] Pregabalin [Lyrica] 225 mg PO BID 11/26/15 [History Confirmed 11/30/18] Ranitidine HCl 150 mg PO BID PRN PRN 12/17/15 [History Confirmed 11/30/18] Nicotine 21 mg [Nicoderm CQ 21 MG] 21 mg TOP Q24H #14 patch 02/20/16 [Rx Confirmed 11/30/18] Aclidinium Howe [Tudorza Pressair] 400 mcg IH Q12H 03/10/16 [History Confirmed 11/30/18] Albuterol Common Canister [Proventil Common Canister] 2 puff IH Q4-6HPRN PRN 03/10/16 [History Confirmed 11/30/18] Denosumab 60 mg [Prolia 60 mg Injection] 60 mg SQ UD 03/10/16 [History Confirmed 11/30/18] Potassium Chloride 20 Meq Tab [Potassium Chloride 20 MEQ TABLET] 20 meq PO DAILY 03/10/16 [History Confirmed 11/30/18] Ergocalciferol (Vitamin D2) [Vitamin D2] 50,000 unit PO Q7D 08/23/16 [History Confirmed 11/30/18] Albuterol/Ipratropium 3ml Neb* [DUONEB 0.5-3 MG/3 ml Neb] 3 ml IH QID PRN PRN 04/04/17 [History Confirmed 11/30/18] Ferrous Sulfate 325 mg [Feosol 325 mg] 325 mg PO DAILY 04/04/17 [History Confirmed 11/30/18] Hydroxyzine HCl 25 mg [Atarax 25 mg] 25 mg PO TID PRN 04/04/17 [History Confirmed 11/30/18] Promethazine HCl 25 mg [Phenergan 25 mg] 12.5 mg PO Q6H PRN PRN 04/04/17 [ History Confirmed 11/30/18] Amox Tr/Potass Clav. 875 mg [Augmentin 875-125 Tablet] 1 tab PO BID [History Confirmed 11/30/18] Benzonatate [Tessalon Perle] 100 mg PO TIDPRN PRN 11/30/18 [History Confirmed ] Buprenorphine HCl/Naloxone HCl [Suboxone 2 mg-0.5 mg Sl Film] 1 each SL QAM [History Confirmed 11/30/18] Buprenorphine HCl/Naloxone HCl [Suboxone 2 mg-0.5 mg Tablet Sl] 0.5 each SL HS 11/30/18 [History Confirmed 11/30/18] Cetirizine HCl 10 mg PO DAILY 11/30/18 [History Confirmed 11/30/18] Citalopram Hydrobromide [Celexa] 30 mg PO HS 11/30/18 [History Confirmed ] Cyanocobalamin (Vitamin B-12) [Cyanocobalamin Injection] 1,000 mcg IJ UD [History Confirmed 11/30/18] Docusate Sodium [Doc-Q-Lace] 100 mg PO DAILY PRN PRN 11/30/18 [History Confirmed 11/30/18] Fluticasone Propionate [Flonase NASAL] 1 spray NS DAILY PRN PRN 11/30/18 [ History Confirmed 11/30/18] Fluticasone/Salmeterol [Advair 250-50 Diskus] 1 puff IH BID 11/30/18 [History Confirmed 11/30/18] Levothyroxine Sodium [Synthroid] 137 mcg PO DAILY 11/30/18 [History Confirmed ] Montelukast Sodium 10 mg [Singulair 10 MG] 10 mg PO DAILY 11/30/18 [History Confirmed 11/30/18] Ondansetron ODT 4 MG [Zofran Odt 4 mg] 1 tab SL Q4-6HPRN PRN 11/30/18 [ History Confirmed 11/30/18] Prazosin HCl 2 mg PO DAILY 11/30/18 [History Confirmed 11/30/18] Tizanidine HCl 4 mg [Zanaflex 4 MG] 4 mg PO TID PRN 11/30/18 [History Confirmed 11/30/18] Trazodone HCl 50 mg [Desyrel 50 mg] 150 mg PO HS 11/30/18 [History Confirmed 11/30/18] hydrOXYzine pamoate [Hydroxyzine Pamoate] 50 mg PO HS 11/30/18 [History Confirmed 11/30/18] Allergies/Adverse Reactions: Allergies Allergy/AdvReac Type Severity Reaction Status Date / Time divalproex sodium Allergy Intermediate Verified 11/24/18 08:13 [From Depakote] latex Allergy Intermediate Rash Verified 11/24/18 08:13 metronidazole [From Flagyl] Allergy Intermediate Hives Verified 11/24/18 08:13 Metronidazole HCl Allergy Intermediate Hives Verified 11/24/18 08:13 [From Flagyl] olanzapine [From Zyprexa] Allergy Intermediate Verified 11/24/18 08:13 clomiphene citrate Allergy Mild Nausea and Verified 11/24/18 08:13 [From Serophene] Vomiting lidocaine Allergy Mild Hives Verified 11/24/18 08:13 fluoxetine [From Sarafem] Allergy Verified 11/24/18 08:13 ketorolac tromethamine AdvReac Intermediate Vomiting Verified 11/24/18 08:13 [From Toradol] NSAIDS (Non-Steroidal AdvReac Mild Vomiting Verified 11/24/18 08:13 Anti-Inflamma triamcinolone acetonide AdvReac Vomiting Verified 11/24/18 08:13 [From Kenalog] - Past Medical History Past Medical History: Yes Neurological History: Migraines ENT History: No Pertinent History Cardiac History: No Pertinent History Respiratory History: Bronchitis, Pneumonia Endocrine Medical History: Hypothyroidism Musculoskelatal History: Other, Rheumatoid Arthritis, Osteoarthritis, Osteoporosis, Fibromyalgia GI Medical History: GERD History: No Pertinent History Pyscho-Social History: Depression, Other Reproductive Disorders: No Pertinent History Comment: HIATAL HERNIA, KIDNEY STONE X1 2015. recent bronchitis- sees Dr De Leon. Opioid abuse; opioid overdose resulting in intubation - Female History Are you now?: No - Past Surgical History Past Surgical History: Yes Neuro Surgical History: No Pertinent History Cardiac History: No Pertinent History Respiratory Surgery: No Pertinent History GI Surgical History: Cholecystectomy Genitourinary Surgical Hx: No Pertinent History Musculskeletal Surgical Hx: Joint Replacement Female Surgical History: Tubal Ligation Other Surgical History: TOTAL HIP REPLACEMENT TO LEFT, CARVED HIP SOCKET OFF "hip dysplasia repair" (1972). revision of lt total hip in june. carpal tunnel 2016 - Social History Smoking Status: Former smoker How long have you smoked: "Since " Exposure to second hand smoke: Yes Alcohol: Rarely Drug Use: none Significant Family History: no pertinent family hx - Physical Exam Vital Signs: Vital Signs - 24 hr Temp Pulse Resp BP Pulse Ox 11/30/18 13:48 98.4 F 72 16 98/53 98 11/30/18 12:10 72 18 95 General Appearance: no apparent distress, alert Neurologic Exam: oriented x 3, cooperative Eye Exam: eyes nml inspection Ears, Nose, Throat Exam: pharynx normal, moist mucous membranes, No pharyngeal erythema Respiratory Exam: normal breath sounds, lungs clear, rhonchi (RLL), wheezing ( RLL), No crackles/rales Cardiovascular Exam: regular rate/rhythm, normal heart sounds, No murmur Gastrointestinal/Abdomen Exam: soft, normal bowel sounds, No tenderness, No distention, No mass, No guarding, No rebound Extremity Exam: normal inspection, No pedal edema, No swelling Skin Exam: normal color, warm, dry, No rash Results - Labs Lab/Micro Results: Lab Results-Last 24 Hours 11/30/18 11/30/18 11/30/18 Range/Units 12:22 12:22 13:47 WBC 8.9 (4.0-10.5) K/mm3 RBC 5.02 (4.1-5.4) M/mm3 Hgb 11.6 L (12.0-16.0) gm/dl Hct 38.4 (35-47) % MCV 76.5 L (78-100) fl MCH 23.1 L (26-32) pg MCHC 30.2 L (32-36) g/dl RDW 19.4 H (11.5-14.0) % Plt Count 321 (150-450) K/mm3 MPV 10.9 H (6-9.5) fl Gran % 62.3 (36.0-66.0) % Eos # (Auto) 0.23 (0-0.5) Absolute Lymphs (auto) 2.49 (1.0-4.6) Absolute Monos (auto) 0.59 (0.0-1.3) Lymphocytes % 27.9 (24.0-44.0) % Monocytes % 6.6 (0.0-12.0) % Eosinophils % 2.6 (0.00-5.0) % Basophils % 0.6 (0.0-0.4) % Absolute Granulocytes 5.56 (1.4-6.9) Basophils # 0.05 (0-0.4) Sodium 137 (137-145) mmol/L Potassium 4.1 (3.5-5.1) mmol/L Chloride 102 (98-107) mmol/L Carbon Dioxide 26 (22-30) mmol/L Anion Gap 12.7 (5-15) MEQ/L BUN 11 (7-17) mg/dL Creatinine 0.67 (0.52-1.04) mg/dL Estimated GFR > 60.0 ML/MIN Glucose 100 (74-106) mg/dL Calcium 9.7 (8.4-10.2) mg/dL Total Bilirubin 0.30 (0.2-1.3) mg/dL AST 15 (14-36) U/L ALT 11 (0-35) U/L Alkaline Phosphatase 92 (38-126) U/L Serum Total Protein 6.9 (6.3-8.2) g/dL Albumin 3.7 (3.5-5.0) g/dL Urine Color STRAW (YELLOW) Urine Appearance CLEAR (CLEAR) Urine pH 6.0 (5-6) Ur Specific [place] 1.003 (1.005-1.025) Urine Protein NEGATIVE (Negative) Urine Ketones NEGATIVE (NEGATIVE) Urine Blood NEGATIVE (0-5) Marshal/ul Urine Nitrite NEGATIVE (NEGATIVE) Urine Bilirubin NEGATIVE (NEGATIVE) Urine Urobilinogen NEGATIVE (0-1) mg/dL Ur Leukocyte Esterase NEGATIVE (NEGATIVE) Urine WBC (Auto) NONE (0-5) /HPF Urine RBC (Auto) NONE (0-2) /HPF U Epithel Cells (Auto) RARE (FEW) /HPF Urine Bacteria (Auto) NONE (NEGATIVE) /HPF Urine Glucose NEGATIVE (NEGATIVE) mg/dL - Radiology Impressions Radiology Exams & Impressions: Radiology Procedures Category Date Time Status CHEST 2 VIEWS (PA AND LAT) Routine Exams 11/30/18 12:00 Completed - Other Procedures and Tests Respiratory Therapy 11/30/18 12:09 Peak Expiratory Flow Rate ONCE Respiratory Therapy Assessment DAILY 11/30/18 12:14 Oxygen NASAL CANNULA 2 lpm Assessment/Plan (1) Pneumonia Current Visit: No Status: Acute Qualifiers: Pneumonia type: due to unspecified organism Laterality: bilateral Lung location: unspecified part of lung Qualified Code(s): J18.9 - Pneumonia, unspecified organism Assessment & Plan: start IV levaquin. overall is fairly well appearing. Code(s): J18.9 - PNEUMONIA, UNSPECIFIED ORGANISM (2) Failure of outpatient treatment Current Visit: No Status: Acute Code(s): Z78.9 - OTHER SPECIFIED HEALTH STATUS (3) Hypotension Current Visit: No Status: Acute Qualifiers: Hypotension type: unspecified hypotension type Qualified Code(s): I95.9 - Hypotension, unspecified Assessment & Plan: bp 89/40s, will give IV bollus. is somewhat chronic. Code(s): I95.9 - HYPOTENSION, UNSPECIFIED (4) Chronic pain Current Visit: No Status: Chronic Qualifiers: Chronic pain type: other chronic pain Assessment & Plan: ok to stay on home meds Code(s): G89.29 - OTHER CHRONIC PAIN
[2018-11-30] MEDS ORDERED: ATARAX 25 MG PO SCH (16:30)
[2018-11-30] MEDS ORDERED: Pepcid 20 MG PO PRN (16:42)
[2018-11-30] MEDS: Nicoderm CQ 21 MG TOP SCH (17:45)
[2018-11-30] MEDS: Advair Hfa 115/21 Common canister IH SCH (18:39)
[2018-11-30] MEDS: Desyrel 150 MG PO SCH (21:32)
[2018-11-30] MEDS: LYRICA 75 MG CAP PO SCH (21:32)
[2018-11-30] MEDS: ATARAX 25 MG PO SCH (21:33)
[2018-11-30] MEDS: PATIENT OWN MEDICATION SL SCH ×2 (21:34→21:37)
[2018-11-30] MEDS: ceLEXa 20 MG PO SCH (21:37)
[2018-11-30] MEDS: NON-FORMULARY ITEM (Prazosin Hcl [Prazosin Hcl] 0 MG) PO SCH (21:53)
[2018-11-30] MEDS ORDERED: BUPRENORPHINE HCL SL SCH (22:00)
[2018-11-30] MEDS ORDERED: NALOXONE HCL SL SCH (22:00)
[2018-11-30] MEDS ORDERED: HYDROXYZINE PAMOATE 50 MG PO SCH (22:00)
[2018-11-30] MEDS ORDERED: DESYREL 50 MG PO SCH (22:00)
[2018-11-30] MEDS ORDERED: [UNRECOGNIZED DRUG - OTHER] SL SCH (22:00)
[2018-11-30] MEDS ORDERED: PREGABALIN 225 MG PO SCH (22:00)
[2018-11-30] MEDS ORDERED: CITALOPRAM HYDROBROMIDE 30 MG PO SCH (22:00)
[2018-12-01] MEDS: Protonix 40MG Tablet PO SCH (07:45)
[2018-12-01] MEDS: Sodium Chloride 0.9% 1000 ML 1,000 ML IV SCH ×2 (07:47→18:32)
[2018-12-01] MEDS ORDERED: NON-FORMULARY ITEM (Esomeprazole Magnesium [Nexium] 40 MG) PO SCH (08:00)
[2018-12-01] MEDS: Advair Hfa 115/21 Common canister IH SCH ×2 (08:44→18:42)
[2018-12-01] MEDS: Spiriva 18 Mcg/Cap Inhaler IH SCH (08:45)
--- NOTE | 2018-12-01 09:03 | PCM.NOTE ---
Date and Time: 12/01/18900 Subjective Assessment: She is starting to cough up some sputum. Carina po. - Review of Systems Constitutional: No Fever Respiratory: Cough Objective Exam General Appearance: no apparent distress, alert Neurologic Exam: oriented x 3, cooperative Skin Exam: normal color, warm, dry, No rash Respiratory Exam: diminished breath sounds, wheezing (scattered), No crackles/ rales, No rhonchi Cardiovascular Exam: regular rate/rhythm, normal heart sounds, No murmur Extremity Exam: normal inspection, No pedal edema, No swelling Back Exam: normal inspection, No rash OBJECTIVE DATA Vital Signs: Vital Signs - 24 hr Temp Pulse Resp BP Pulse Ox 12/01/18 08:48 82 16 92 L 12/01/18 07:33 98.2 F 65 18 90/55 94 L 12/01/18 04:00 97.9 F 68 15 84/54 95 12/01/18 00:00 98.7 F 85 16 89/52 95 11/30/18 20:00 98.3 F 76 16 83/48 98 11/30/18 18:40 77 16 93 L 11/30/18 16:00 98.5 F 69 16 89/45 94 L 11/30/18 13:48 98.4 F 72 16 98/53 98 11/30/18 12:10 72 18 95 Pain Assessment - Last Documented Pain Intensity 0 [facility] Intake and Output: Intake & Output 11/28/18 11/29/18 11/30/18 12/01/18 11:59 11:59 11:59 11:59 Intake Total 2814 Output Total 2700 Balance 114 Weight 95 kg Lab Results: Lab Results-Last 24 Hours 11/30/18 11/30/18 11/30/18 Range/Units 12:22 12:22 13:47 WBC 8.9 (4.0-10.5) K/mm3 RBC 5.02 (4.1-5.4) M/mm3 Hgb 11.6 L (12.0-16.0) gm/dl Hct 38.4 (35-47) % MCV 76.5 L (78-100) fl MCH 23.1 L (26-32) pg MCHC 30.2 L (32-36) g/dl RDW 19.4 H (11.5-14.0) % Plt Count 321 (150-450) K/mm3 MPV 10.9 H (6-9.5) fl Gran % 62.3 (36.0-66.0) % Eos # (Auto) 0.23 (0-0.5) Absolute Lymphs (auto) 2.49 (1.0-4.6) Absolute Monos (auto) 0.59 (0.0-1.3) Lymphocytes % 27.9 (24.0-44.0) % Monocytes % 6.6 (0.0-12.0) % Eosinophils % 2.6 (0.00-5.0) % Basophils % 0.6 (0.0-0.4) % Absolute Granulocytes 5.56 (1.4-6.9) Basophils # 0.05 (0-0.4) Sodium 137 (137-145) mmol/L Potassium 4.1 (3.5-5.1) mmol/L Chloride 102 (98-107) mmol/L Carbon Dioxide 26 (22-30) mmol/L Anion Gap 12.7 (5-15) MEQ/L BUN 11 (7-17) mg/dL Creatinine 0.67 (0.52-1.04) mg/dL Estimated GFR > 60.0 ML/MIN Glucose 100 (74-106) mg/dL Calcium 9.7 (8.4-10.2) mg/dL Total Bilirubin 0.30 (0.2-1.3) mg/dL AST 15 (14-36) U/L ALT 11 (0-35) U/L Alkaline Phosphatase 92 (38-126) U/L Serum Total Protein 6.9 (6.3-8.2) g/dL Albumin 3.7 (3.5-5.0) g/dL Urine Color STRAW (YELLOW) Urine Appearance CLEAR (CLEAR) Urine pH 6.0 (5-6) Ur Specific [place] 1.003 (1.005-1.025) Urine Protein NEGATIVE (Negative) Urine Ketones NEGATIVE (NEGATIVE) Urine Blood NEGATIVE (0-5) Marshal/ul Urine Nitrite NEGATIVE (NEGATIVE) Urine Bilirubin NEGATIVE (NEGATIVE) Urine Urobilinogen NEGATIVE (0-1) mg/dL Ur Leukocyte Esterase NEGATIVE (NEGATIVE) Urine WBC (Auto) NONE (0-5) /HPF Urine RBC (Auto) NONE (0-2) /HPF U Epithel Cells (Auto) RARE (FEW) /HPF Urine Bacteria (Auto) NONE (NEGATIVE) /HPF Urine Glucose NEGATIVE (NEGATIVE) mg/dL Radiology Exams: Radiology Procedures Category Date Time Status CHEST 2 VIEWS (PA AND LAT) Routine Exams 11/30/18 12:00 Completed Assessment/Plan (1) Pneumonia Current Visit: No Status: Acute Qualifiers: Pneumonia type: due to unspecified organism Laterality: bilateral Lung location: unspecified part of lung Qualified Code(s): J18.9 - Pneumonia, unspecified organism Assessment & Plan: On IV levaquin. Will get sputum culture if possible. Code(s): J18.9 - PNEUMONIA, UNSPECIFIED ORGANISM (2) Failure of outpatient treatment Current Visit: No Status: Acute Code(s): Z78.9 - OTHER SPECIFIED HEALTH STATUS (3) Hypotension Current Visit: No Status: Chronic Qualifiers: Hypotension type: unspecified hypotension type Qualified Code(s): I95.9 - Hypotension, unspecified Code(s): I95.9 - HYPOTENSION, UNSPECIFIED (4) Chronic pain Current Visit: No Status: Chronic Qualifiers: Chronic pain type: other chronic pain Code(s): G89.29 - OTHER CHRONIC PAIN
[2018-12-01] MEDS ORDERED: NALOXONE HCL SL SCH (10:00)
[2018-12-01] MEDS ORDERED: BUPRENORPHINE HCL SL SCH (10:00)
[2018-12-01] MEDS ORDERED: LEVOTHYROXINE SODIUM 137 MCG PO SCH (10:00)
[2018-12-01] MEDS ORDERED: NON-FORMULARY ITEM (Potassium Chloride 20 Meq Tab [Potassium Chloride 20 Meq Tablet] 20 ME PO SCH (10:00)
[2018-12-01] MEDS ORDERED: [UNRECOGNIZED DRUG - OTHER] SL SCH (10:00)
[2018-12-01] MEDS: Singulair 10 MG PO SCH (10:34)
[2018-12-01] MEDS: LYRICA 75 MG CAP PO SCH ×2 (10:34→22:35)
[2018-12-01] MEDS: SYNTHROID 112 MCG PO SCH (10:35)
[2018-12-01] MEDS: SYNTHROID 25 MCG PO SCH (10:35)
[2018-12-01] MEDS: Klor Con 10 MEQ PO SCH (10:35)
[2018-12-01] MEDS: ENOXAPARIN SODIUM SQ SCH (10:40)
[2018-12-01] MEDS: Levofloxacin 500MG/100ML D5W 500 MG/100 ML BAG IV SCH (10:41)
[2018-12-01] MEDS: PATIENT OWN MEDICATION SL SCH ×2 (10:44→22:42)
[2018-12-01] MEDS: Phenergan 25 MG INJ IV PRN ×2 (12:29→18:33)
[2018-12-01] MEDS ORDERED: Zanaflex 4 MG PO PRN (12:30)
[2018-12-01] MEDS: NON-FORMULARY ITEM (Prazosin Hcl [Prazosin Hcl] 0 MG) PO SCH ×2 (13:12→22:40)
[2018-12-01] MEDS: Nicoderm CQ 21 MG TOP SCH (17:31)
[2018-12-01] MEDS: ceLEXa 20 MG PO SCH (22:35)
[2018-12-01] MEDS: Desyrel 150 MG PO SCH (22:35)
[2018-12-01] MEDS: ATARAX 25 MG PO SCH (22:41)
[2018-12-02] MEDS: Sodium Chloride 0.9% 1000 ML 1,000 ML IV SCH ×2 (04:33→15:33)
[2018-12-02 05:31] LABS: BASOPHIL % 0.9 % (0.0-0.4); Basophil (Absolute #) 0.08 (0-0.4); Eosinophil % 4.5 % (0.00-5.0); Eosinophil (Absolute #) 0.41 (0-0.5); Granulocyte Absolute (ANC) 5.53 (1.4-6.9); Granulocytes % 60.6 % (36.0-66.0); Hematocrit 34.1 % (35-47); Hemoglobin 10.1 gm/dl (12.0-16.0); Lymphocyte (Absolute #) 2.46 (1.0-4.6); Mean Cell Volume 79.3 fl (78-100); Mean Corpuscular Hgb Concent. 29.6 g/dl (32-36); Mean Platelet Volume 10.8 fl (6-9.5); Monocyte (Absolute #) 0.64 (0.0-1.3); Platelet Count 283 K/mm3 (150-450); White Blood Count 9.1 K/mm3 (4.0-10.5)
[2018-12-02 05:59] LABS: ALKALINE PHOSPHATASE 72 U/L (38-126); ANION GAP 10.6 MEQ/L (5-15); BLOOD UREA NITROGEN 9 mg/dL (7-17); CHLORIDE 108 mmol/L (98-107); Calcium 8.9 mg/dL (8.4-10.2); Carbon Dioxide 28 mmol/L (22-30); Creatinine 1 0.74 mg/dL (0.52-1.04); Glucose 125 mg/dL (74-106); Potassium 4.1 mmol/L (3.5-5.1); SGOT/AST 14 U/L (14-36); SGPT/ALT 9 U/L (0-35); SODIUM 142 mmol/L (137-145)
[2018-12-02 06:00] LABS: Mean Corpuscular Hemoglobin 23.4 pg (26-32)
[2018-12-02] MEDS: Levofloxacin 500MG/100ML D5W 500 MG/100 ML BAG IV SCH (09:22)
[2018-12-02] MEDS: SYNTHROID 25 MCG PO SCH (09:23)
[2018-12-02] MEDS: Klor Con 10 MEQ PO SCH (09:23)
[2018-12-02] MEDS: Protonix 40MG Tablet PO SCH (09:23)
[2018-12-02] MEDS: Singulair 10 MG PO SCH (09:23)
[2018-12-02] MEDS: ENOXAPARIN SODIUM SQ SCH (09:23)
[2018-12-02] MEDS: LYRICA 75 MG CAP PO SCH ×2 (09:23→22:44)
[2018-12-02] MEDS: SYNTHROID 112 MCG PO SCH (09:24)
[2018-12-02] MEDS: PATIENT OWN MEDICATION SL SCH ×2 (09:25→22:50)
[2018-12-02] MEDS: Advair Hfa 115/21 Common canister IH SCH ×2 (10:05→19:01)
[2018-12-02] MEDS: Spiriva 18 Mcg/Cap Inhaler IH SCH (10:05)
[2018-12-02] MEDS: Phenergan 25 MG INJ IV PRN ×2 (11:12→17:50)
--- NOTE | 2018-12-02 14:53 | PCM.NOTE ---
Date and Time: 12/02/18 1449 Subjective Assessment: Cough seems more productive intermittently. Having some nausea with levaquin. - Review of Systems Constitutional: No Fever Respiratory: Cough Objective Exam General Appearance: no apparent distress, alert Neurologic Exam: oriented x 3, cooperative Skin Exam: normal color, warm, dry, No rash Respiratory Exam: lungs clear, diminished breath sounds, No crackles/rales, No rhonchi, No wheezing Cardiovascular Exam: regular rate/rhythm, normal heart sounds, No murmur Extremity Exam: normal inspection, swelling (trace pretibial edema bilat) OBJECTIVE DATA Vital Signs: Vital Signs - 24 hr Temp Pulse Resp BP Pulse Ox 12/02/18 12:00 98.3 F 103 H 18 86/53 94 L 12/02/18 10:09 88 16 94 L 12/02/18 07:26 98.3 F 84 18 94/56 94 L 12/02/18 03:46 98.5 F 97 H 19 103/63 94 L 12/01/18 23:39 79.6 F 71 18 111/71 95 12/01/18 19:44 98.3 F 88 18 110/60 93 L 12/01/18 18:42 71 18 93 L 12/01/18 16:00 98.3 F 81 18 115/67 93 L Oxygen-Last 24 hours O2 Percentage 2 Liters = 28% Pain Assessment - Last Documented Pain Intensity 0 Pain Scale Used 0-10 Pain Scale Intake and Output: Intake & Output 11/30/18 12/01/18 12/02/18 12/03/18 11:59 11:59 11:59 11:59 Intake Total 2814 3268 Output Total 2700 4100 1200 Balance 114 -832 -1200 Weight 95 kg 95 kg Lab Results: Lab Results-Last 24 Hours 12/02/18 12/02/18 Range/Units 05:28 05:28 WBC 9.1 (4.0-10.5) K/mm3 RBC 4.30 (4.1-5.4) M/mm3 Hgb 10.1 L (12.0-16.0) gm/dl Hct 34.1 L (35-47) % MCV 79.3 (78-100) fl MCH 23.4 L (26-32) pg MCHC 29.6 L (32-36) g/dl RDW 19.0 H (11.5-14.0) % Plt Count 283 (150-450) K/mm3 MPV 10.8 H (6-9.5) fl Gran % 60.6 (36.0-66.0) % Eos # (Auto) 0.41 (0-0.5) Absolute Lymphs (auto) 2.46 (1.0-4.6) Absolute Monos (auto) 0.64 (0.0-1.3) Lymphocytes % 27.0 (24.0-44.0) % Monocytes % 7.0 (0.0-12.0) % Eosinophils % 4.5 (0.00-5.0) % Basophils % 0.9 (0.0-0.4) % Absolute Granulocytes 5.53 (1.4-6.9) Basophils # 0.08 (0-0.4) Sodium 142 (137-145) mmol/L Potassium 4.1 (3.5-5.1) mmol/L Chloride 108 H (98-107) mmol/L Carbon Dioxide 28 (22-30) mmol/L Anion Gap 10.6 (5-15) MEQ/L BUN 9 (7-17) mg/dL Creatinine 0.74 (0.52-1.04) mg/dL Estimated GFR > 60.0 ML/MIN Glucose 125 H (74-106) mg/dL Calcium 8.9 (8.4-10.2) mg/dL Total Bilirubin 0.20 (0.2-1.3) mg/dL AST 14 (14-36) U/L ALT 9 (0-35) U/L Alkaline Phosphatase 72 (38-126) U/L Serum Total Protein 6.0 L (6.3-8.2) g/dL Albumin 3.0 L (3.5-5.0) g/dL Assessment/Plan (1) Pneumonia Current Visit: No Status: Acute Qualifiers: Pneumonia type: due to unspecified organism Laterality: bilateral Lung location: unspecified part of lung Qualified Code(s): J18.9 - Pneumonia, unspecified organism Assessment & Plan: On day #3 Levaquin IV. May be able to send home tomorrow on po levaquin, with a phenergan 30min prior to antibiotic. Code(s): J18.9 - PNEUMONIA, UNSPECIFIED ORGANISM (2) Failure of outpatient treatment Current Visit: No Status: Acute Code(s): Z78.9 - OTHER SPECIFIED HEALTH STATUS (3) Hypotension Current Visit: No Status: Chronic Qualifiers: Hypotension type: unspecified hypotension type Qualified Code(s): I95.9 - Hypotension, unspecified Assessment & Plan: asx Code(s): I95.9 - HYPOTENSION, UNSPECIFIED (4) Chronic pain Current Visit: No Status: Chronic Qualifiers: Chronic pain type: other chronic pain Code(s): G89.29 - OTHER CHRONIC PAIN
[2018-12-02] MEDS: Nicoderm CQ 21 MG TOP SCH (17:50)
[2018-12-02] MEDS: ATARAX 25 MG PO SCH (22:40)
[2018-12-02] MEDS: ceLEXa 20 MG PO SCH (22:42)
[2018-12-02] MEDS: Desyrel 150 MG PO SCH (22:43)
[2018-12-02] MEDS: NON-FORMULARY ITEM (Prazosin Hcl [Prazosin Hcl] 0 MG) PO SCH (22:50)
[2018-12-03] MEDS: Sodium Chloride 0.9% 1000 ML 1,000 ML IV SCH ×2 (01:42→13:14)
[2018-12-03] MEDS: Phenergan 25 MG INJ IV PRN (01:44)
[2018-12-03] MEDS: Protonix 40MG Tablet PO SCH (07:23)
[2018-12-03] MEDS: SYNTHROID 25 MCG PO SCH (09:35)
[2018-12-03] MEDS: Klor Con 10 MEQ PO SCH (09:35)
[2018-12-03] MEDS: LYRICA 75 MG CAP PO SCH (09:36)
[2018-12-03] MEDS: SYNTHROID 112 MCG PO SCH (09:36)
[2018-12-03] MEDS: Singulair 10 MG PO SCH (09:36)
[2018-12-03] MEDS: ENOXAPARIN SODIUM SQ SCH (09:37)
[2018-12-03] MEDS: PATIENT OWN MEDICATION SL SCH (09:39)
[2018-12-03] MEDS: Advair Hfa 115/21 Common canister IH SCH (10:20)
[2018-12-03] MEDS: Spiriva 18 Mcg/Cap Inhaler IH SCH (10:21)
[2018-12-03 11:58] VITALS: BP 125/60
[2018-12-03] MEDS: Levofloxacin 500MG/100ML D5W 500 MG/100 ML BAG IV SCH (13:14)
[2018-12-03] MEDS ORDERED: Levofloxacin 250MG Tablet PO ONE (14:09)
--- NOTE | 2018-12-03 14:21 | PCM.DS ---
Discharge Summary Date of Admission: 11/30/18 11:32 Admitting Physician: MARNIE FLORIAN Primary Care Provider: MARNIE FLORIAN Allergies Allergies divalproex sodium [From Depakote] Allergy (Intermediate, Verified 11/24/18 08:13 ) latex Allergy (Intermediate, Verified 11/24/18 08:13) Rash metronidazole [From Flagyl] Allergy (Intermediate, Verified 11/24/18 08:13) Hives Metronidazole HCl [From Flagyl] Allergy (Intermediate, Verified 11/24/18 08:13) Hives olanzapine [From Zyprexa] Allergy (Intermediate, Verified 11/24/18 08:13) clomiphene citrate [From Serophene] Allergy (Mild, Verified 11/24/18 08:13) Nausea and Vomiting lidocaine Allergy (Mild, Verified 11/24/18 08:13) Hives fluoxetine [From Sarafem] Allergy (Verified 11/24/18 08:13) ketorolac tromethamine [From Toradol] Adverse Reaction (Intermediate, Verified 11/24/18 08:13) Vomiting NSAIDS (Non-Steroidal Anti-Inflamma Adverse Reaction (Mild, Verified 11/24/18 08 :13) Vomiting triamcinolone acetonide [From Kenalog] Adverse Reaction (Verified 11/24/18 08:13 ) Vomiting Hospital Summary - Hospital Course Hospital Course: is a 48 year old female pt of mine from [facility] with COPD, PTSD, chronic hip pain s/p multiple surgeries, hypothyroidism, and fibromyalgia who was admitted directly with pneumonia, with worsening cough x 3 weeks. She had pneumonia last fall, was inpatient two separate times at different facilities then went to [facility] for 4 months. She has been out since October 12 and had completed 2 rounds of antibiotics for respiratory infections prior to this hospitalization. CT lungs with LLL and RLL patchy infiltrates. Initially after admission her cough became productive, but she has not been able to produce a sputum sample. She is tolerating po. Having some nausea; she thinks possibly related to drainage and/or the levaquin. Will be discharged to home today on po levaquin and nebs BID, up to QID prn. F/u with me the week after next (can call for sooner appt with another provider if having problems next week, as I am out of office). - Vitals & Intake/Output Vital Signs: Vital Signs Temperature 98.0 F 12/03/18 10:00 Pulse Rate 71 12/03/18 10:21 Respiratory Rate 16 12/03/18 10:21 Blood Pressure 125/60 12/03/18 10:00 O2 Sat by Pulse Oximetry 97 12/03/18 10:21 Oxygen-Last Documented O2 Percentage 2 Liters = 28% Intake & Output: Intake & Output 12/01/18 12/02/18 12/03/18 12/04/18 11:59 11:59 11:59 11:59 Intake Total 2814 3268 1280 Output Total 2700 4100 3300 Balance 959 -494 Weight 95 kg 95 kg - Lab Result Diagrams: 12/02/18 05:28 12/02/18 05:28 Micro Results-Entire Visit: Microbiology 11/30/18 14:20 Urine Culture - Final Urine, Void NO GROWTH - Procedures and Test Procedures and Tests throughout Hospitalization: Therapy Orders & Screens 11/30/18 11:43 neb [Respiratory Nebulizer] Q6H Comment: DUONEBS Q6H PRN Diagnosis: PNEUMONIA 11/30/18 12:09 Peak Expiratory Flow Rate ONCE Comment: Reason For Exam: Diagnosis: PNEUMONIA Respiratory Therapy Assessment DAILY Comment: Diagnosis: PNEUMONIA 11/30/18 12:14 Oxygen NASAL CANNULA 2 lpm Comment: Diagnosis: PNEUMONIA 11/30/18 14:25 RT Screen per Nursing Assess ONCE Comment: Protocol Order Physician Instructions: Greater than 3 points order RT Admission Screen Reason For Exam: Triggered on Admission Diagnosis: PNEUMONIA Diagnosis: PNEUMONIA Pneumonia: Yes Home O2: Yes Asthma: No CHF: No Home CPAP/BIPAP: No Home Nebs/MDI: Yes Total Points: 13 Discharge Exam General Appearance: no apparent distress, alert Neurologic Exam: oriented x 3, cooperative Eye Exam: eyes nml inspection Ears, Nose, Throat Exam: moist mucous membranes Respiratory Exam: diminished breath sounds, prolonged expirations, wheezing ( occasional expiratory), No crackles/rales, No rhonchi Cardiovascular Exam: regular rate/rhythm, normal heart sounds, No murmur Gastrointestinal/Abdomen Exam: soft, normal bowel sounds, No tenderness, No distention, No mass, No guarding, No rebound Extremity Exam: normal inspection, swelling (trace LE edema bilat) Skin Exam: normal color, warm, dry, No rash Final Diagnosis/Problem List - Final Discharge Diagnosis/Problem (1) Pneumonia Current Visit: No Status: Acute Assessment & Plan: Improved. Home today on IV levaquin. Code(s): J18.9 - PNEUMONIA, UNSPECIFIED ORGANISM (2) Failure of outpatient treatment Current Visit: No Status: Acute Code(s): Z78.9 - OTHER SPECIFIED HEALTH STATUS (3) Hypotension Current Visit: No Status: Chronic Assessment & Plan: resolved; had some BP in the 80s systolic yesterday (no sx) but today in 110s- 120s systolic. Code(s): I95.9 - HYPOTENSION, UNSPECIFIED (4) Chronic pain Current Visit: No Status: Chronic Code(s): G89.29 - OTHER CHRONIC PAIN (5) Nausea Current Visit: Yes Status: Acute Assessment & Plan: already on famotidine and pantoprazole 40mg/d. Will add phenergan to take particularly prior to levaquin dose. Code(s): R11.0 - NAUSEA - Discharge Disposition: Home, Self-Care Condition: Good Prescriptions: New Levofloxacin [Levaquin] 500 mg PO DAILY #10 tablet Continue Pregabalin [Lyrica] 225 mg PO BID Esomeprazole Magnesium [Nexium] 40 mg PO 0800 Ranitidine HCl 150 mg PO BID PRN PRN PRN Reason: Stomach Upset Nicotine 21 mg [Nicoderm CQ 21 MG] 21 mg TOP Q24H #14 patch Potassium Chloride 20 Meq Tab [Potassium Chloride 20 MEQ TABLET] 20 meq PO DAILY Albuterol Common Canister [Proventil Common Canister] 2 puff IH Q4- 6HPRN PRN PRN Reason: Shortness Of Breath Aclidinium [place] [Tudorza Pressair] 400 mcg IH Q12H Denosumab 60 mg [Prolia 60 mg Injection] 60 mg SQ UD Ergocalciferol (Vitamin D2) [Vitamin D2] 50,000 unit PO Q7D Ferrous Sulfate 325 mg [Feosol 325 mg] 325 mg PO DAILY Hydroxyzine HCl 25 mg [Atarax 25 mg] 25 mg PO TID PRN Albuterol/Ipratropium 3ml Neb* [DUONEB 0.5-3 MG/3 ml Neb] 3 ml IH QID PRN PRN PRN Reason: soa Fluticasone Propionate [Flonase NASAL] 1 spray NS DAILY PRN PRN PRN Reason: allergy Cyanocobalamin (Vitamin B-12) [Cyanocobalamin Injection] 1,000 mcg IJ UD Citalopram Hydrobromide [Celexa] 30 mg PO HS Fluticasone/Salmeterol [Advair 250-50 Diskus] 1 puff IH BID Buprenorphine HCl/Naloxone HCl [Suboxone 2 mg-0.5 mg Sl Film] 1 each SL QAM Buprenorphine HCl/Naloxone HCl [Suboxone 2 mg-0.5 mg Tablet Sl] 0.5 each SL HS Prazosin HCl 2 mg PO DAILY Montelukast Sodium 10 mg [Singulair 10 MG] 10 mg PO DAILY Trazodone HCl 50 mg [Desyrel 50 mg] 150 mg PO HS Tizanidine HCl 4 mg [Zanaflex 4 MG] 4 mg PO TID PRN Benzonatate [Tessalon Perle] 100 mg PO TIDPRN PRN PRN Reason: Cough hydrOXYzine pamoate [Hydroxyzine Pamoate] 50 mg PO HS Docusate Sodium [Doc-Q-Lace] 100 mg PO DAILY PRN PRN PRN Reason: Constipation Cetirizine HCl 10 mg PO DAILY Levothyroxine Sodium [Synthroid] 137 mcg PO DAILY Promethazine HCl 25 mg [Phenergan 25 mg] 12.5 mg PO Q6H PRN PRN #30 tablet PRN Reason: Nausea Discontinued Amox Tr/Potass Clav. 875 mg [Augmentin 875-125 Tablet] 1 tab PO BID Ondansetron ODT 4 MG [Zofran Odt 4 mg] 1 tab SL Q4-6HPRN PRN PRN Reason: Nausea Additional Instructions: Hold hydroxyzine while on promethazine (phenergan). Follow up with: MARNIE FLORIAN [Primary Care Provider] - 1 Week
[2018-12-03 14:40] VITALS: PULSE 74; O2SAT 98
[2018-12-11] MEDS ORDERED: DENOSUMAB 60 MG SQ SCH (16:30)
== END 2018-12-03 14:50 | disposition home or self-care (01) | DRG 195 ==
LOC: MED SURG 11:32
PROVIDERS: ADMIT Family Medicine; ATTEND Family Medicine
DX: J18.9 Pneumonia, unspecified organism (principal); J44.9 Chronic obstructive pulmonary disease, unspecified; I95.9 Hypotension, unspecified; E03.9 Hypothyroidism, unspecified; R11.0 Nausea; F43.10 Post-traumatic stress disorder, unspecified; G89.29 Other chronic pain; M25.559 Pain in unspecified hip; M79.7 Fibromyalgia
CPT/HCPCS: 36415; 71046; 80053; 81001; 85025; 87086; 94640; 94760; J1650; J1956; J2550; A9270-GY

== ENCOUNTER 2020-11-22 15:58 | Emergency (ER) | payer MEDICARE ==
[2020-11-22 16:13] VITALS: O2SAT 96
--- NOTE | 2020-11-22 16:32 | ERPHSYRPT ---
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 denies pain at this time. pt also reports she had mitral valve replacement done Mar 05, 2020. pt states she now regularly checks INR at home, reports INR was 4 and she was told that if she had rectal bleeding to be checked out. reports small amounts of bright red blood in the toilet and on the toilet paper. Physician History: 50 years old female with history of mitral valve replacement on Coumadin currently on Z-Nick for sinusitis checked her INR yesterday which was 4.2 and prior to arrival noticed some blood staining her underwear and also when she wiped. Denies any junior bleeding, passing clots. Denies any abdominal pain/rectal pain/history of hemorrhoids. Denies feeling dizzy or lightheadedness. No history of diverticulitis before. Denies any chest pain palpitations or shortness of breath. Patient reports calling her Coumadin clinic and her medication was adjusted yesterday. Also reports having some bruising yesterday in lower extremities without obvious trauma which are resolved now. Timing/Duration: today, resolved prior to arrival Severity: mild Associated Symptoms: denies symptoms Allergies/Adverse Reactions: divalproex sodium [From Depakote] Allergy (Intermediate, Verified 11/22/20 16:17) latex Allergy (Intermediate, Verified 11/22/20 16:17) Rash metronidazole [From Flagyl] Allergy (Intermediate, Verified 11/22/20 16:17) Hives Metronidazole HCl [From Flagyl] Allergy (Intermediate, Verified 11/22/20 16:17) Hives olanzapine [From Zyprexa] Allergy (Intermediate, Verified 11/22/20 16:17) clomiphene citrate [From Serophene] Allergy (Mild, Verified 11/22/20 16:17) Nausea and Vomiting lidocaine Allergy (Mild, Verified 11/22/20 16:17) Hives fluoxetine [From Sarafem] Allergy (Verified 11/22/20 16:17) ketorolac tromethamine [From Toradol] Adverse Reaction (Intermediate, Verified 11/22/20 16:17) Vomiting NSAIDS (Non-Steroidal Anti-Inflamma Adverse Reaction (Mild, Verified 06/19/21 16:17) Vomiting triamcinolone acetonide [From Kenalog] Adverse Reaction (Verified 11/22/20 16:17) Vomiting Home Medications: Esomeprazole Magnesium [Nexium] 40 mg PO 0800 11/26/15 [History] Pregabalin [Lyrica] 225 mg PO BID 11/26/15 [History] Ranitidine HCl 150 mg PO BID PRN PRN 12/17/15 [History] Aclidinium [place] [Tudorza Pressair] 400 mcg IH Q12H 03/10/16 [History] Albuterol Common Canister [Ventolin Common Canister] 2 puff IH Q4-6HPRN PRN 03/10/16 [History] Denosumab 60 mg [Prolia 60 mg Injection] 60 mg SQ UD 03/10/16 [History] Potassium Chloride 20 Meq Tab [Potassium Chloride 20 MEQ TABLET] 20 meq PO DAILY 03/10/16 [History] Ergocalciferol (Vitamin D2) [Vitamin D2] 50,000 unit PO Q7D 08/23/16 [History] Albuterol/Ipratropium 3ml Neb* [DUONEB 0.5-3 MG/3 ml Neb] 3 ml IH QID PRN PRN 04/04/17 [History] Ferrous Sulfate 325 mg [Feosol 325 mg] 325 mg PO DAILY 04/04/17 [History] Hydroxyzine HCl 25 mg [Atarax 25 mg] 25 mg PO TID PRN 04/04/17 [History] Benzonatate [Tessalon Perle] 100 mg PO TIDPRN PRN 11/30/18 [History] Buprenorphine HCl/Naloxone HCl [Suboxone 2 mg-0.5 mg Sl Film] 1 each SL QAM 11/30/18 [History] Buprenorphine HCl/Naloxone HCl [Suboxone 2 mg-0.5 mg Tablet Sl] 0.5 each SL HS 11/30/18 [History] Cetirizine HCl 10 mg PO DAILY 11/30/18 [History] Citalopram Hydrobromide [Celexa] 30 mg PO HS 11/30/18 [History] Cyanocobalamin (Vitamin B-12) [Cyanocobalamin Injection] 1,000 mcg IJ UD 11/30/18 [History] Docusate Sodium [Doc-Q-Lace] 100 mg PO DAILY PRN PRN 11/30/18 [History] Fluticasone Propionate [Flonase NASAL] 1 spray NS DAILY PRN PRN 11/30/18 [History] Fluticasone/Salmeterol [Advair 250-50 Diskus] 1 puff IH BID 11/30/18 [History] Levothyroxine Sodium [Synthroid] 137 mcg PO DAILY 11/30/18 [History] Montelukast Sodium 10 mg [Singulair 10 MG] 10 mg PO DAILY 11/30/18 [History] Prazosin HCl 2 mg PO DAILY 11/30/18 [History] Tizanidine HCl 4 mg [Zanaflex 4 MG] 4 mg PO TID PRN 11/30/18 [History] Trazodone HCl 50 mg [Desyrel 50 mg] 150 mg PO HS 11/30/18 [History] hydrOXYzine pamoate [Hydroxyzine Pamoate] 50 mg PO HS 11/30/18 [History] Hx Tetanus, Diphtheria Vaccination/Date Given: Yes Hx Influenza Vaccination/Date Given: No Hx Pneumococcal Vaccination/Date Given: Yes Travel Risk - International Travel Have you traveled outside of the country in past 3 weeks: No - Coronavirus Screening Are you exhibiting any of the following symptoms?: No Close contact with a COVID-19 positive Pt in past 14-21 Days: No - Vaccine Status Have you recieved a Covid-19 vaccination: No - Review of Systems Constitutional: No Symptoms Eyes: No Symptoms Ears, Nose, & Throat: No Symptoms Respiratory: No Symptoms Cardiac: No Symptoms Abdominal/Gastrointestinal: Hematochezia Genitourinary Symptoms: No Symptoms Musculoskeletal: No Symptoms Skin: No Symptoms - Past Medical History Pertinent Past Medical History: Yes Neurological History: Migraines ENT History: No Pertinent History Cardiac History: No Pertinent History Respiratory History: Bronchitis, Pneumonia Endocrine Medical History: Hypothyroidism Musculoskeletal History: Other, Rheumatoid Arthritis, Osteoarthritis, Osteoporosis, Fibromyalgia GI Medical History: GERD History: No Pertinent History Psycho-Social History: Depression, Other Female Reproductive Disorders: No Pertinent History Other Medical History: HIATAL HERNIA, KIDNEY STONE X1 2014. recent bronchitis- sees Dr De Leon. Opioid abuse; opioid overdose resulting in intubation - Past Surgical History Past Surgical History: Yes Neuro Surgical History: No Pertinent History Cardiac: No Pertinent History Respiratory: No Pertinent History Gastrointestinal: Cholecystectomy Genitourinary: No Pertinent History Musculoskeletal: Joint Replacement Female Surgical History: Tubal Ligation Other Surgical History: TOTAL HIP REPLACEMENT TO LEFT, CARVED HIP SOCKET OFF "hip dysplasia repair" (1972). revision of lt total hip in june. carpal tunnel 2016. mitral valve replacement feb 2020 - Social History Smoking Status: Light tobacco smoker How long have you smoked: "Since " Exposure to second hand smoke: No Drug Use: none Patient Lives Alone: No Significant Family History: no pertinent family hx - Female History Hx Now: No - Nursing Vital Signs Nursing Vital Signs: Initial Vital Signs Temperature 98.4 F 11/22/20 16:04 Pulse Rate 80 11/22/20 16:04 Respiratory Rate 16 11/22/20 16:04 Blood Pressure 101/72 11/22/20 16:04 O2 Sat by Pulse Oximetry 96 11/22/20 16:04 Pain Scale Pain Intensity 0 - Physical Exam General Appearance: no apparent distress, alert, anxiety Eye Exam: PERRL/EOMI, eyes nml inspection Ears, Nose, Throat Exam: normal ENT inspection, TMs normal, pharynx normal Neck Exam: normal inspection, non-tender, supple, full range of motion Respiratory Exam: normal breath sounds, lungs clear Cardiovascular Exam: regular rate/rhythm, normal heart sounds Gastrointestinal/Abdomen Exam: soft, normal bowel sounds, No tenderness, No distention, No guarding Rectal Exam: normal rectal tone, other (No obvious blood. 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 Skin Exam: normal color SpO2 Interpretation: normal SpO2: 96 O2 Delivery: Room Air Ordered Tests: Active Orders 24 hr Category Date Time Status CBC W DIFF Stat Lab 11/22/20 16:28 Completed CMP Stat Lab 11/22/20 16:28 Completed PROTIME WITH INR Stat Lab 11/22/20 16:28 Completed Lab/Rad Data: Laboratory Result Diagrams 11/22/20 16:28 11/22/20 16:28 Laboratory Results 11/22/20 11/22/20 11/22/20 Range/Units 16:28 16:28 16:28 WBC 13.6 H (4.0-10.5) K/mm3 RBC 4.41 (4.1-5.4) M/mm3 Hgb 14.3 (12.0-16.0) gm/dl Hct 45.0 (35-47) % MCV 102.0 H (78-100) fl MCH 32.4 H (26-32) pg MCHC 31.8 L (32-36) g/dl RDW 15.7 H (11.5-14.0) % Plt Count 253 (150-450) K/mm3 MPV 11.5 H (7.5-11.0) fl Gran % 52.0 (36.0-66.0) % Eos # (Auto) 0.17 (0-0.5) Absolute Lymphs (auto) 5.37 H (1.0-4.6) Absolute Monos (auto) 0.91 (0.0-1.3) Lymphocytes % 39.4 (24.0-44.0) % Monocytes % 6.7 (0.0-12.0) % Eosinophils % 1.2 (0.00-5.0) % Basophils % 0.7 (0.0-0.4) % Absolute Granulocytes 7.09 H (1.4-6.9) Basophils # 0.09 (0-0.4) PT 32.8 H (9.4-12.5) SECONDS INR 2.78 (0.8-3.0) Sodium 136 L (137-145) mmol/L Potassium 4.0 (3.5-5.1) mmol/L Chloride 103 (98-107) mmol/L Carbon Dioxide 25 (22-30) mmol/L Anion Gap 12.1 (5-15) MEQ/L BUN 16 (7-17) mg/dL Creatinine 0.79 (0.52-1.04) mg/dL Estimated GFR > 60.0 ML/MIN Glucose 132 H (74-106) mg/dL Calcium 9.7 (8.4-10.2) mg/dL Total Bilirubin 0.40 (0.2-1.3) mg/dL AST 72 H (14-36) U/L ALT 44 H (0-35) U/L Alkaline Phosphatase 92 (38-126) U/L Serum Total Protein 7.5 (6.3-8.2) g/dL Albumin 4.4 (3.5-5.0) g/dL - Progress Progress: improved Progress Note: 11/22/20 17:40 Has stable vitals. Normal hemoglobin/hematocrit. INR is improved to 2.7. Did not have huge bleeding. Recommended following up with Coumadin clinic closely for monitoring of INR while being on antibiotics. May need colonoscopy as patient does not have 1. Does not have any abdominal tenderness at all. Discussed signs symptoms of worsening needing return to ER which she seems understanding. Stable for discharge. Counseled pt/family regarding: lab results, diagnosis, need for follow-up - Departure Departure Disposition: Home Clinical Impression: Lower GI bleed Condition: Stable Critical Care Time: No Referrals: MARNIE MATIAS [Primary Care Provider] - (In 2 days for reevaluation and may need appointment for colonoscopy) Instructions: Bloody Stools, Adult (DC) Additional Instructions: Drink plenty of fluids. Monitoring your INR and closely follow-up with Coumadin clinic while being on antibiotics. Return to ER for worsening rectal bleed, nontraumatic bruising, feeling dizzy lightheaded, chest pain palpitations or shortness of breath.
[2020-11-22 16:43] LABS: Absolute Neutrophil Ct (ANC) 7.09 (1.4-6.9); BASOPHIL % 0.7 % (0.0-0.4); Basophil (Absolute #) 0.09 (0-0.4); Eosinophil % 1.2 % (0.00-5.0); Eosinophil (Absolute #) 0.17 (0-0.5); Hemoglobin 14.3 gm/dl (12.0-16.0); Lymphocyte (Absolute #) 5.37 (1.0-4.6); Lymphocytes % 39.4 % (24.0-44.0); Mean Corpuscular Hemoglobin 32.4 pg (26-32); Mean Corpuscular Hgb Concent. 31.8 g/dl (32-36); Mean Platelet Volume 11.5 fl (7.5-11.0); Monocyte (Absolute #) 0.91 (0.0-1.3); Monocytes % 6.7 % (0.0-12.0); Platelet Count 253 K/mm3 (150-450); Red Blood Count 4.41 M/mm3 (4.1-5.4); Red Cell Distribution Width 15.7 % (11.5-14.0); White Blood Count 13.6 K/mm3 (4.0-10.5)
[2020-11-22 16:53] LABS: ALBUMIN 4.4 g/dL (3.5-5.0); ALKALINE PHOSPHATASE 92 U/L (38-126); ANION GAP 12.1 MEQ/L (5-15); BLOOD UREA NITROGEN 16 mg/dL (7-17); CHLORIDE 103 mmol/L (98-107); Calcium 9.7 mg/dL (8.4-10.2); Carbon Dioxide 25 mmol/L (22-30); Creatinine 1 0.79 mg/dL (0.52-1.04); EST GLOMERULAR FILTRATION RATE > 60.0 ML/MIN; Glucose 132 mg/dL (74-106); SGOT/AST 72 U/L (14-36); SGPT/ALT 44 U/L (0-35); SODIUM 136 mmol/L (137-145); Total Protein 7.5 g/dL (6.3-8.2)
[2020-11-22 17:02] LABS: INR 2.78 (0.8-3.0); PROTIME 32.8 SECONDS (9.4-12.5)
[2020-11-22 17:24] VITALS: BP 94/61; PULSE 76
[2020-11-22 18:08] LABS: Slide Review 1 YES
== END 2020-11-22 17:53 | disposition home or self-care (01) ==
LOC: ED 15:58
DX: K92.2 Gastrointestinal hemorrhage, unspecified (principal)
CPT/HCPCS: 36415; 80053; 85025; 85610; 99283

== ENCOUNTER 2021-04-24 17:41 | Inpatient (IN) | payer MEDICARE ==
--- NOTE | 2021-04-24 17:47 | ERPHSYRPT ---
- History of Present Illness Time Seen by Provider: 04/24/21 17:47 Source: patient Exam Limitations: no limitations Physician History: This is a 50-year-old obese white female who has a history of COPD and recurrent bronchitis and was diagnosed 6 weeks ago with pneumonia. Her symptoms of cough and shortness of breath have been intermittent since that time. She has been followed by her primary care nurse practitioner. This morning, her symptoms of cough and shortness of breath were worse and she had associated fever of 103 F at home. Patient does take Coumadin. Patient denies chest pain. She denies abdominal pain. She denies nausea vomiting diarrhea. Timing/Duration: today Severity of Dyspnea-Max: mild Severity of Dyspnea-Current: mild (To moderate) Possible Cause: occasional episodes Modifying Factors: Improves With: coughing Associated Symptoms: cough Allergies/Adverse Reactions: divalproex sodium [From Depakote] Allergy (Intermediate, Verified 04/24/21 18:23) latex Allergy (Intermediate, Verified 04/24/21 18:23) Rash metronidazole [From Flagyl] Allergy (Intermediate, Verified 04/24/21 18:23) Hives Metronidazole HCl [From Flagyl] Allergy (Intermediate, Verified 04/24/21 18:23) Hives olanzapine [From Zyprexa] Allergy (Intermediate, Verified 04/24/21 18:23) clomiphene citrate [From Serophene] Allergy (Mild, Verified 04/24/21 18:23) Nausea and Vomiting lidocaine Allergy (Mild, Verified 04/24/21 18:23) Hives fluoxetine [From Sarafem] Allergy (Verified 04/24/21 18:23) tramadol Allergy (Verified 04/24/21 18:24) ketorolac tromethamine [From Toradol] Adverse Reaction (Intermediate, Verified 04/24/21 18:23) Vomiting NSAIDS (Non-Steroidal Anti-Inflamma Adverse Reaction (Mild, Verified 04/24/21 18:23) Vomiting triamcinolone acetonide [From Kenalog] Adverse Reaction (Verified 04/24/21 18:23) Vomiting Home Medications: Esomeprazole Magnesium [Nexium] 40 mg PO 0800 11/26/15 [History] Pregabalin [Lyrica] 225 mg PO BID 11/26/15 [History] Ranitidine HCl 150 mg PO BID PRN PRN 12/17/15 [History] Aclidinium [place] [Tudorza Pressair] 400 mcg IH Q12H 03/10/16 [History] Albuterol Common Canister [Ventolin Common Canister] 2 puff IH Q4-6HPRN PRN 03/10/16 [History] Denosumab 60 mg [Prolia 60 mg Injection] 60 mg SQ UD 03/10/16 [History] Potassium Chloride 20 Meq Tab [Potassium Chloride 20 MEQ TABLET] 20 meq PO DAILY 03/10/16 [History] Ergocalciferol (Vitamin D2) [Vitamin D2] 50,000 unit PO Q7D 08/23/16 [History] Albuterol/Ipratropium 3ml Neb* [DUONEB 0.5-3 MG/3 ml Neb] 3 ml IH QID PRN PRN 04/04/17 [History] Ferrous Sulfate 325 mg [Feosol 325 mg] 325 mg PO DAILY 04/04/17 [History] Hydroxyzine HCl 25 mg [Atarax 25 mg] 25 mg PO TID PRN 04/04/17 [History] Benzonatate [Tessalon Perle] 100 mg PO TIDPRN PRN 11/30/18 [History] Citalopram Hydrobromide [Celexa] 30 mg PO HS 11/30/18 [History] Cyanocobalamin (Vitamin B-12) [Cyanocobalamin Injection] 1,000 mcg IJ UD 11/30/18 [History] Fluticasone Propionate [Flonase NASAL] 1 spray NS DAILY PRN PRN 11/30/18 [History] Fluticasone/Salmeterol [Advair 250-50 Diskus] 1 puff IH BID 11/30/18 [History] Levothyroxine Sodium [Synthroid] 137 mcg PO DAILY 11/30/18 [History] Montelukast Sodium 10 mg [Singulair 10 MG] 10 mg PO DAILY 11/30/18 [History] Prazosin HCl 2 mg PO DAILY 11/30/18 [History] Tizanidine HCl 4 mg [Zanaflex 4 MG] 4 mg PO TID PRN 11/30/18 [History] Trazodone HCl 50 mg [Desyrel 50 mg] 150 mg PO HS 11/30/18 [History] Buprenorphine HCl [Belbuca] 300 mcg PO BID 04/24/21 [History] Hydrocodone/Acetaminophen [Hydrocodone-Acetamin 10-325 mg] 1 tab PO TID PRN 04/24/21 [History] Hx Tetanus, Diphtheria Vaccination/Date Given: Yes Hx Influenza Vaccination/Date Given: No Hx Pneumococcal Vaccination/Date Given: Yes Travel Risk - International Travel Have you traveled outside of the country in past 3 weeks: No - Coronavirus Screening Are you exhibiting any of the following symptoms?: No Close contact with a COVID-19 positive Pt in past 14-21 Days: No - Vaccine Status Have you recieved a Covid-19 vaccination: No - Review of Systems Constitutional: Fever Eyes: No Symptoms Ears, Nose, & Throat: No Symptoms Respiratory: Cough, Dyspnea Cardiac: No Symptoms Abdominal/Gastrointestinal: No Symptoms Genitourinary Symptoms: No Symptoms Musculoskeletal: No Symptoms Skin: No Symptoms Neurological: No Symptoms Psychological: No Symptoms Endocrine: No Symptoms Hematologic/Lymphatic: No Symptoms Immunological/Allergic: No Symptoms All Other Systems: Reviewed and Negative - Past Medical History Pertinent Past Medical History: Yes Neurological History: Migraines ENT History: No Pertinent History Cardiac History: No Pertinent History Respiratory History: Bronchitis, Pneumonia Endocrine Medical History: Hypothyroidism Musculoskeletal History: Other, Rheumatoid Arthritis, Osteoarthritis, Osteoporosis, Fibromyalgia GI Medical History: GERD History: No Pertinent History Psycho-Social History: Depression, Other Female Reproductive Disorders: No Pertinent History Other Medical History: HIATAL HERNIA, KIDNEY STONE X1 2014. recent bronchitis- sees Dr De Leon. Opioid abuse; opioid overdose resulting in intubation - Past Surgical History Past Surgical History: Yes Neuro Surgical History: No Pertinent History Cardiac: No Pertinent History Respiratory: No Pertinent History Gastrointestinal: Cholecystectomy Genitourinary: No Pertinent History Musculoskeletal: Joint Replacement Female Surgical History: Tubal Ligation Other Surgical History: TOTAL HIP REPLACEMENT TO LEFT, CARVED HIP SOCKET OFF "hip dysplasia repair" (1972). revision of lt total hip in june. carpal tunnel 2016. mitral valve replacement feb 2020 - Social History Smoking Status: Light tobacco smoker How long have you smoked: "Since 12" Exposure to second hand smoke: No Drug Use: none Patient Lives Alone: No Significant Family History: no pertinent family hx - Nursing Vital Signs Nursing Vital Signs: Initial Vital Signs Temperature 97.5 F 04/24/21 17:57 Pulse Rate 96 H 04/24/21 17:57 Respiratory Rate 24 04/24/21 17:57 Blood Pressure 68/46 04/24/21 17:57 O2 Sat by Pulse Oximetry 96 04/24/21 17:57 Pain Scale Pain Intensity 6 - Physical Exam General Appearance: mild distress, alert, anxiety, obese Eye Exam: PERRL/EOMI, eyes nml inspection Ears, Nose, Throat Exam: hearing grossly normal, normal ENT inspection, normal pharynx Neck Exam: normal inspection, non-tender, supple, full range of motion Respiratory Exam: normal breath sounds, lungs clear, airway intact, No chest tenderness, No respiratory distress Cardiovascular/Chest Exam: normal heart sounds, regular rate/rhythm, normal peripheral pulses Abdominal/Gastrointestinal Exam: soft, normal bowel sounds, No tenderness Rectal Exam: not done Extremity Exam: non-tender, normal range of motion, normal inspection, normal capillary refill, no calf tenderness, no pedal edema, pelvis stable Neurologic Exam: alert, oriented x 3, cooperative, 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 When compared to the EKG dated 05/22/2018, there is persistent short MO interval and persistent sinus rhythm. There is no evidence of acute ischemic changes on either EKG.) Ordered Tests: Active Orders 24 hr Category Date Time Status EKG-ER Only STAT Care 04/24/21 17:48 Active IV Insertion STAT Care 04/24/21 17:48 Active Isolation, Initiate & Maintain STAT Care 04/24/21 17:49 Active Pulse Oximetry (ED) STAT Care 04/24/21 17:48 Active CHEST 1 VIEW (PORTABLE) Stat Exams 04/24/21 17:49 Taken BLOOD CULTURE Stat Lab 04/24/21 Ordered CBC W DIFF Stat Lab 04/24/21 18:22 Completed CMP Stat Lab 04/24/21 18:22 Completed D-DIMER QUANTITATIVE Stat Lab 04/24/21 18:22 Completed Ferritin Stat Lab 04/24/21 18:22 Completed INFLUENZA A+B CAMACHO Stat Lab 04/24/21 18:10 Completed LDH-LACTATE DEHYDROGENASE Stat Lab 04/24/21 18:22 Completed Lactic Acid Stat Lab 04/24/21 18:21 Completed Manual Differential NC Stat Lab 04/24/21 18:22 Completed [place] Screen Stat Lab 04/24/21 18:22 Completed TROPONIN Q3H Lab 04/24/21 18:22 Completed TROPONIN Q3H Lab 04/24/21 21:00 Received TROPONIN Q3H Lab 04/25/21 00:00 Ordered TROPONIN Q3H Lab 04/25/21 03:00 Ordered TROPONIN Q3H Lab 04/25/21 06:00 Ordered UA W/RFX UR CULTURE Stat Lab 04/24/21 17:57 Completed Transfer Order Routine Transfer 04/24/21 Ordered Medication Summary Discontinued Medications Generic Name Dose Route Start Last Admin Trade Name Luanq PRN Reason Stop Dose Admin Sodium Chloride 1,000 mls @ 999 mls/hr 04/24/21 17:48 04/24/21 20:49 Sodium Chloride 0.9% 1000 Ml IV 04/24/21 18:48 Infused .Q1H1M STA Infusion Sodium Chloride Confirm 04/24/21 18:38 Sodium Chloride 0.9% 1000 Ml Administered 04/24/21 18:39 Dose 1,000 mls @ ud .ROUTE .STK-MED ONE Ceftriaxone Sodium/Dextrose 1 g in 50 mls @ 100 mls/hr 04/24/21 20:25 04/24/21 20:35 Rocephin 1 Gm-D5w 50 Ml Bag IV 04/24/21 20:54 100 mls/hr STAT STA 100 mls/hr Administration Ceftriaxone Sodium/Dextrose Confirm 04/24/21 20:34 Rocephin 1 Gm-D5w 50 Ml Bag Administered 04/24/21 20:35 Dose 1 g in 50 mls @ ud IV .STK-MED ONE Ondansetron HCl 4 mg 04/24/21 20:52 04/24/21 21:00 Ondansetron Hcl 4 Mg/2 Ml Vial IV 04/24/21 20:53 4 mg STAT ONE Administration Ondansetron HCl Confirm 04/24/21 20:55 Ondansetron Hcl 4 Mg/2 Ml Vial Administered 04/24/21 20:56 Dose 4 mg .ROUTE .[facility]-MED ONE Lab/Rad Data: Laboratory Result Diagrams 04/24/21 18:22 04/24/21 18:22 Laboratory Results 04/24/21 04/24/21 04/24/21 Range/Units 18:22 18:22 18:22 WBC (4.0-10.5) K/mm3 RBC (4.1-5.4) M/mm3 Hgb (12.0-16.0) gm/dl Hct (35-47) % MCV (78-100) fl MCH (26-32) pg MCHC (32-36) g/dl RDW (11.5-14.0) % Plt Count (150-450) K/mm3 MPV (7.5-11.0) fl D-Dimer (215-500) ng/mL Sodium (137-145) mmol/L Potassium (3.5-5.1) mmol/L Chloride (98-107) mmol/L Carbon Dioxide (22-30) mmol/L Anion Gap (5-15) MEQ/L BUN (7-17) mg/dL Creatinine (0.52-1.04) mg/dL Estimated GFR ML/MIN Glucose (74-106) mg/dL Lactic Acid (0.4-2.0) Calcium (8.4-10.2) mg/dL Ferritin 73.4 (11.1-264) ng/mL Total Bilirubin (0.2-1.3) mg/dL AST (14-36) U/L ALT (0-35) U/L Alkaline Phosphatase (38-126) U/L Lactate Dehydrogenase (120-246) U/L Troponin I < 0.012 (0.000-0.034) ng/mL Serum Total Protein (6.3-8.2) g/dL Albumin (3.5-5.0) g/dL Urine Color (YELLOW) Urine Appearance (CLEAR) Urine pH (5-6) Ur Specific [place] (1.005-1.025) Urine Protein (Negative) Urine Ketones (NEGATIVE) Urine Blood (0-5) Marshal/ul Urine Nitrite (NEGATIVE) Urine Bilirubin (NEGATIVE) Urine Urobilinogen (0-1) mg/dL Ur Leukocyte Esterase (NEGATIVE) Urine WBC (Auto) (0-5) /HPF Urine RBC (Auto) (0-2) /HPF U Hyaline Cast (Auto) (0-2) /LPF U Epithel Cells (Auto) (FEW) /HPF Urine Bacteria (Auto) (NEGATIVE) /HPF Urine Mucus (Auto) (NEGATIVE) /HPF Urine Culture Reflexed (NO) Urine Glucose (NEGATIVE) mg/dL Monoscreen NEGATIVE (Negative) Influenza Type A Ag (NEGATIVE) Influenza Type B Ag (NEGATIVE) Group A Strep Antibody (NEGATIVE) 04/24/21 04/24/21 04/24/21 Range/Units 18:22 18:22 18:22 WBC 26.0 H* (4.0-10.5) K/mm3 RBC 3.69 L (4.1-5.4) M/mm3 Hgb 11.2 L (12.0-16.0) gm/dl Hct 35.8 (35-47) % MCV 97.0 (78-100) fl MCH 30.4 (26-32) pg MCHC 31.3 L (32-36) g/dl RDW 15.5 H (11.5-14.0) % Plt Count 258 (150-450) K/mm3 MPV 11.5 H (7.5-11.0) fl D-Dimer 292 (215-500) ng/mL Sodium 131 L (137-145) mmol/L Potassium 4.1 (3.5-5.1) mmol/L Chloride 95 L (98-107) mmol/L Carbon Dioxide 31 H (22-30) mmol/L Anion Gap 8.9 (5-15) MEQ/L BUN 15 (7-17) mg/dL Creatinine 1.28 H (0.52-1.04) mg/dL Estimated GFR 46.9 ML/MIN Glucose 129 H (74-106) mg/dL Lactic Acid (0.4-2.0) Calcium 8.8 (8.4-10.2) mg/dL Ferritin (11.1-264) ng/mL Total Bilirubin 0.50 (0.2-1.3) mg/dL AST 37 H (14-36) U/L ALT 31 (0-35) U/L Alkaline Phosphatase 83 (38-126) U/L Lactate Dehydrogenase 295 H (120-246) U/L Troponin I (0.000-0.034) ng/mL Serum Total Protein 6.2 L (6.3-8.2) g/dL Albumin 3.4 L (3.5-5.0) g/dL Urine Color (YELLOW) Urine Appearance (CLEAR) Urine pH (5-6) Ur Specific [place] (1.005-1.025) Urine Protein (Negative) Urine Ketones (NEGATIVE) Urine Blood (0-5) Marshal/ul Urine Nitrite (NEGATIVE) Urine Bilirubin (NEGATIVE) Urine Urobilinogen (0-1) mg/dL Ur Leukocyte Esterase (NEGATIVE) Urine WBC (Auto) (0-5) /HPF Urine RBC (Auto) (0-2) /HPF U Hyaline Cast (Auto) (0-2) /LPF U Epithel Cells (Auto) (FEW) /HPF Urine Bacteria (Auto) (NEGATIVE) /HPF Urine Mucus (Auto) (NEGATIVE) /HPF Urine Culture Reflexed (NO) Urine Glucose (NEGATIVE) mg/dL Monoscreen (Negative) Influenza Type A Ag (NEGATIVE) Influenza Type B Ag (NEGATIVE) Group A Strep Antibody (NEGATIVE) 04/24/21 04/24/21 04/24/21 Range/Units 18:21 18:10 18:10 WBC (4.0-10.5) K/mm3 RBC (4.1-5.4) M/mm3 Hgb (12.0-16.0) gm/dl Hct (35-47) % MCV (78-100) fl MCH (26-32) pg MCHC (32-36) g/dl RDW (11.5-14.0) % Plt Count (150-450) K/mm3 MPV (7.5-11.0) fl D-Dimer (215-500) ng/mL Sodium (137-145) mmol/L Potassium (3.5-5.1) mmol/L Chloride (98-107) mmol/L Carbon Dioxide (22-30) mmol/L Anion Gap (5-15) MEQ/L BUN (7-17) mg/dL Creatinine (0.52-1.04) mg/dL Estimated GFR ML/MIN Glucose (74-106) mg/dL Lactic Acid 1.4 (0.4-2.0) Calcium (8.4-10.2) mg/dL Ferritin (11.1-264) ng/mL Total Bilirubin (0.2-1.3) mg/dL AST (14-36) U/L ALT (0-35) U/L Alkaline Phosphatase (38-126) U/L Lactate Dehydrogenase (120-246) U/L Troponin I (0.000-0.034) ng/mL Serum Total Protein (6.3-8.2) g/dL Albumin (3.5-5.0) g/dL Urine Color (YELLOW) Urine Appearance (CLEAR) Urine pH (5-6) Ur Specific [place] (1.005-1.025) Urine Protein (Negative) Urine Ketones (NEGATIVE) Urine Blood (0-5) Marshal/ul Urine Nitrite (NEGATIVE) Urine Bilirubin (NEGATIVE) Urine Urobilinogen (0-1) mg/dL Ur Leukocyte Esterase (NEGATIVE) Urine WBC (Auto) (0-5) /HPF Urine RBC (Auto) (0-2) /HPF U Hyaline Cast (Auto) (0-2) /LPF U Epithel Cells (Auto) (FEW) /HPF Urine Bacteria (Auto) (NEGATIVE) /HPF Urine Mucus (Auto) (NEGATIVE) /HPF Urine Culture Reflexed (NO) Urine Glucose (NEGATIVE) mg/dL Monoscreen (Negative) Influenza Type A Ag NEGATIVE (NEGATIVE) Influenza Type B Ag NEGATIVE (NEGATIVE) Group A Strep Antibody NOT DETECTED (NEGATIVE) 04/24/21 Range/Units 17:57 WBC (4.0-10.5) K/mm3 RBC (4.1-5.4) M/mm3 Hgb (12.0-16.0) gm/dl Hct (35-47) % MCV (78-100) fl MCH (26-32) pg MCHC (32-36) g/dl RDW (11.5-14.0) % Plt Count (150-450) K/mm3 MPV (7.5-11.0) fl D-Dimer (215-500) ng/mL Sodium (137-145) mmol/L Potassium (3.5-5.1) mmol/L Chloride (98-107) mmol/L Carbon Dioxide (22-30) mmol/L Anion Gap (5-15) MEQ/L BUN (7-17) mg/dL Creatinine (0.52-1.04) mg/dL Estimated GFR ML/MIN Glucose (74-106) mg/dL Lactic Acid (0.4-2.0) Calcium (8.4-10.2) mg/dL Ferritin (11.1-264) ng/mL Total Bilirubin (0.2-1.3) mg/dL AST (14-36) U/L ALT (0-35) U/L Alkaline Phosphatase (38-126) U/L Lactate Dehydrogenase (120-246) U/L Troponin I (0.000-0.034) ng/mL Serum Total Protein (6.3-8.2) g/dL Albumin (3.5-5.0) g/dL Urine Color BILL (YELLOW) Urine Appearance CLOUDY (CLEAR) Urine pH 5.0 (5-6) Ur Specific [place] 1.026 (1.005-1.025) Urine Protein 30 (Negative) Urine Ketones NEGATIVE (NEGATIVE) Urine Blood NEGATIVE (0-5) Marshal/ul Urine Nitrite NEGATIVE (NEGATIVE) Urine Bilirubin NEGATIVE (NEGATIVE) Urine Urobilinogen 2 (0-1) mg/dL Ur Leukocyte Esterase NEGATIVE (NEGATIVE) Urine WBC (Auto) NONE (0-5) /HPF Urine RBC (Auto) NONE (0-2) /HPF U Hyaline Cast (Auto) 26-50 (0-2) /LPF U Epithel Cells (Auto) RARE (FEW) /HPF Urine Bacteria (Auto) NONE (NEGATIVE) /HPF Urine Mucus (Auto) SLIGHT (NEGATIVE) /HPF Urine Culture Reflexed NO (NO) Urine Glucose NEGATIVE (NEGATIVE) mg/dL Monoscreen (Negative) Influenza Type A Ag (NEGATIVE) Influenza Type B Ag (NEGATIVE) Group A Strep Antibody (NEGATIVE) - Progress Progress: improved, re-examined Air Movement: fair Progress Note: 04/24/21 21:41 Chest x-ray shows right side lung infiltrate. Blood Culture(s) Obtained: Yes Antibiotics given: Yes Discussed with : Fortino Counseled pt/family regarding: lab results, diagnosis, rad results - Departure Departure Disposition: Observation Clinical Impression: Pneumonia involving right lung, Urinary tract infection Condition: Fair Critical Care Time: No Referrals: MARNIE NATHAN [Primary Care Provider] - Follow up/PCP as directed
[2021-04-24] MEDS ORDERED: Sodium Chloride 0.9% 1000 ML 1,000 ML IV STA (17:48)
[2021-04-24] MEDS ORDERED: Sodium Chloride 0.9% 1000 ML 1,000 ML ONE (18:38)
[2021-04-24 18:42] LABS: ALBUMIN 3.4 g/dL (3.5-5.0); ANION GAP 8.9 MEQ/L (5-15); BILIRUBIN,TOTAL 0.5 mg/dL (0.2-1.3); Calcium 8.8 mg/dL (8.4-10.2); Creatinine 1 1.28 mg/dL (0.52-1.04); EST GLOMERULAR FILTRATION RATE 46.9 ML/MIN; Potassium 4.1 mmol/L (3.5-5.1); Total Protein 6.2 g/dL (6.3-8.2)
[2021-04-24 18:45] LABS: Appearance CLOUDY (CLEAR); Bilirubin NEGATIVE (NEGATIVE); Blood NEGATIVE Ery/ul (0-5); Epithelial Cells RARE /HPF (FEW); Glucose NEGATIVE (NEGATIVE); Hyaline Casts 26-50 /LPF (0-2); Ketones NEGATIVE (NEGATIVE); Leukocyte Esterase NEGATIVE (NEGATIVE); Mucus SLIGHT /HPF (NEGATIVE); Nitrite NEGATIVE (NEGATIVE); Protein,Urine Dip 30 (Negative); Specific Gravity 1.026 (1.005-1.025); Urobilinogen 2 mg/dL (0-1)
[2021-04-24 19:14] LABS: Hematocrit 35.8 % (35-47); Hemoglobin 11.2 gm/dl (12.0-16.0); Mean Corpuscular Hemoglobin 30.4 pg (26-32); Mean Corpuscular Hgb Concent. 31.3 g/dl (32-36); Mean Platelet Volume 11.5 fl (7.5-11.0); Platelet Count 258 K/mm3 (150-450); Red Blood Count 3.69 M/mm3 (4.1-5.4); Red Cell Distribution Width 15.5 % (11.5-14.0)
[2021-04-24 20:17] LABS: INFLUENZA A NEGATIVE (NEGATIVE); INFLUENZA B NEGATIVE (NEGATIVE)
[2021-04-24] MEDS ORDERED: ROCEPHIN 1 Gm-D5w 50 ml Bag** 1 G/50 ML IVPB IV STA (20:25)
[2021-04-24] MEDS ORDERED: ROCEPHIN 1 Gm-D5w 50 ml Bag** 1 G/50 ML IVPB IV ONE (20:34)
[2021-04-24] MEDS ORDERED: Zofran 4 MG/2 ML VIAL IV ONE (20:52)
[2021-04-24] MEDS ORDERED: Zofran 4 MG/2 ML VIAL ONE (20:55)
[2021-04-24 21:45] LABS: INFLUENZA A NEGATIVE (NEGATIVE); INFLUENZA B NEGATIVE (NEGATIVE); RESPIRATORY SYNCTIAL VIRUS NEGATIVE (Negative); SARS-CoV-2 Xpert Express NEGATIVE (NEGATIVE)
--- NOTE | 2021-04-24 22:24 | XRAY ---
Indication: Cough. Comparison: November 30, 2018. Portable chest demonstrates interval cardiac valve replacement surgery. Heart is now borderline enlarged with mild central vascular congestion and prominent interstitial opacities bilaterally without large effusion favoring mild/early cardiac decompensation. Superimposed pneumonia not completely excluded.
[2021-04-24 23:51] LABS: Basophil 5 % (0.0-1.0); Lymphocytes 13 % (24-44); Monocyte 3 % (0.0-12.0); Neutrophils 79 % (36.0-66.0); Total Cells Counted 100
[2021-04-24 23:52] LABS: ANISOCYTOSIS 2+; Platelet Estimate NORMAL (NORMAL)
[2021-04-25] MEDS: Sodium Chloride 0.9% 1000 ML 1,000 ML IV SCH ×3 (00:39→22:08)
[2021-04-25] MEDS: Nicoderm CQ 21 MG TOP SCH ×2 (01:50→15:43)
[2021-04-25] MEDS: PHENERGAN 25 MG PO PRN ×3 (01:51→17:39)
[2021-04-25] MEDS: Tessalon Perles 100 MG PO PRN ×3 (01:53→20:06)
[2021-04-25] MEDS: ceLEXa 20 MG PO SCH ×2 (01:53→21:59)
[2021-04-25] MEDS: LYRICA 100MG PO SCH ×3 (01:53→22:00)
[2021-04-25] MEDS: Desyrel 150 MG PO SCH ×2 (01:53→21:59)
[2021-04-25] MEDS: HYDROCODONE-ACETAMIN 10-325 MG PO PRN ×3 (02:06→19:53)
[2021-04-25] MEDS ORDERED: PROVENTIL 2.5 MG/3 ML NEB IH PRN (02:10)
[2021-04-25] MEDS ORDERED: VENTOLIN COMMON CANISTER IH PRN ×2 (02:10→15:11)
[2021-04-25 04:12] LABS: Absolute Neutrophil Ct (ANC) 13.95 (1.4-6.9); BASOPHIL % 0.2 % (0.0-0.4); Basophil (Absolute #) 0.04 (0-0.4); Eosinophil % 0.9 % (0.00-5.0); Eosinophil (Absolute #) 0.15 (0-0.5); Hemoglobin 11.3 gm/dl (12.0-16.0); Lymphocyte (Absolute #) 2.14 (1.0-4.6); Lymphocytes % 12.5 % (24.0-44.0); Mean Cell Volume 97.4 fl (78-100); Mean Corpuscular Hemoglobin 29.7 pg (26-32); Mean Corpuscular Hgb Concent. 30.5 g/dl (32-36); Monocyte (Absolute #) 0.89 (0.0-1.3); Monocytes % 5.2 % (0.0-12.0); Neutrophil % 81.2 % (36.0-66.0); Platelet Count 220 K/mm3 (150-450); Red Cell Distribution Width 15.7 % (11.5-14.0); White Blood Count 17.2 K/mm3 (4.0-10.5)
[2021-04-25 04:27] LABS: INR 2.05 (0.8-3.0); PROTIME 24.2 SECONDS (9.4-12.5)
[2021-04-25 04:52] LABS: ANION GAP 10.8 MEQ/L (5-15); BLOOD UREA NITROGEN 13 mg/dL (7-17); CHLORIDE 102 mmol/L (98-107); Carbon Dioxide 28 mmol/L (22-30); Creatinine 1 0.89 mg/dL (0.52-1.04); EST GLOMERULAR FILTRATION RATE > 60.0 ML/MIN; Glucose 133 mg/dL (74-106); Potassium 3.8 mmol/L (3.5-5.1); SODIUM 137 mmol/L (137-145)
[2021-04-25] MEDS ORDERED: RANITIDINE HCL 150 MG PO PRN (07:51)
[2021-04-25] MEDS ORDERED: Pepcid 20 MG PO PRN (07:52)
[2021-04-25] MEDS: Zofran 4 MG/2 ML VIAL IV PRN ×2 (09:19→15:13)
[2021-04-25] MEDS: Spiriva 18 Mcg/Cap Inhaler IH SCH (09:25)
[2021-04-25] MEDS: Advair Hfa 115/21 Common canister IH SCH ×2 (09:25→20:07)
[2021-04-25] MEDS: Zithromax 500 MG/ 250 ML NaCl Premix 500 MG/250 ML IVPB IV SCH (10:03)
[2021-04-25] MEDS ORDERED: clonazePAM PO PRN (14:39)
[2021-04-25] MEDS ORDERED: Lasix 20 MG/2 ML IV ONE (15:00)
[2021-04-25] MEDS ORDERED: Flonase NASAL NS PRN ×2 (15:11→15:27)
[2021-04-25] MEDS ORDERED: NON-FORMULARY ITEM (Ondansetron Hcl [Zofran***] 4 MG Tablet) PO PRN (15:11)
[2021-04-25] MEDS ORDERED: DUONEB 0.5-3 MG/3 ml Neb IH PRN (15:11)
[2021-04-25] MEDS ORDERED: ATARAX 25 MG PO PRN (15:15)
[2021-04-25] MEDS ORDERED: ACLIDINIUM BROMIDE 400 MCG IH SCH (15:15)
[2021-04-25] MEDS ORDERED: Zanaflex 4 MG PO PRN (15:15)
[2021-04-25] MEDS ORDERED: ZOFRAN ODT 4 MG PO PRN (15:29)
[2021-04-25] MEDS: PATIENT OWN MEDICATION PO SCH ×2 (15:46→22:03)
[2021-04-25] MEDS ORDERED: MEDICATION INTERVENTION MC SCH ×2 (16:00)
--- NOTE | 2021-04-25 16:02 | PCM.HP ---
History of Present Illness - Chief Complaint Chief Complaint: Pnuemonia History of Present Illness: is a 50 year old female, former pt of mine with OA, PTSD, fibromyalgia, hypothyroid, hypokalemia, GERD, COPD, asthma, anxiety, depression, and anemia who was admitted through ER with PNA and UTI. She had WBC 26,000 and was started on IV rocephin and zithromax. She was hospitalized at the end of February 2021 with pneumonia and never felt like it totally resolved. Yesterday she had a fever to 103 at home. Her cough has been intermittently productive of greenish bloody sputum. She was visiting her son's home so came to nearest ER yesterday when she felt ill. C/o N, no V, no dizziness/syncope. - Review of Systems Constitutional: Fever Respiratory: Cough, Short Of Breath Abdominal/Gastrointestinal: Nausea Musculoskeletal: Back Pain (sees [facility] in [facility] - has appt Tuesday) All Other Systems: Reviewed and Negative Medications & Allergies Home Medications: Home Medication List Esomeprazole Magnesium [Nexium] 40 mg PO 0800 11/26/15 [History Confirmed 04/24/21] Pregabalin [Lyrica] 200 mg PO BID 11/26/15 [History Confirmed 04/25/21] Ranitidine HCl 150 mg PO BID PRN PRN 12/17/15 [History Confirmed 04/24/21] Nicotine 21 mg [Nicoderm CQ 21 MG] 21 mg TOP Q24H #14 patch 02/20/16 [Rx Confirmed 04/24/21] Aclidinium [place] [Tudorza Pressair] 400 mcg IH Q12H 03/10/16 [History Confirmed 04/24/21] Albuterol Common Canister [Ventolin Common Canister] 2 puff IH Q4-6HPRN P RN 03/10/16 [History Confirmed 04/24/21] Denosumab 60 mg [Prolia 60 mg Injection] 60 mg SQ UD 03/10/16 [History Confirmed 04/24/21] Potassium Chloride 20 Meq Tab [Potassium Chloride 20 MEQ TABLET] 10 meq PO DAILY 03/10/16 [History Confirmed 04/25/21] Ergocalciferol (Vitamin D2) [Vitamin D2] 50,000 unit PO Q7D 08/23/16 [History Confirmed 04/24/21] Albuterol/Ipratropium 3ml Neb* [DUONEB 0.5-3 MG/3 ml Neb] 3 ml IH QID PRN PRN 04/04/17 [History Confirmed 04/24/21] Ferrous Sulfate 325 mg [Feosol 325 mg] 325 mg PO UD 04/04/17 [History Confirmed 04/25/21] Hydroxyzine HCl 25 mg [Atarax 25 mg] 25 mg PO TID PRN 04/04/17 [History Confirmed 04/24/21] Benzonatate [Tessalon Perle] 100 mg PO TIDPRN PRN 11/30/18 [History Confirmed 04/24/21] Citalopram Hydrobromide [Celexa] 40 mg PO HS 11/30/18 [History Confirmed 04/25/21] Cyanocobalamin (Vitamin B-12) [Cyanocobalamin Injection] 1,000 mcg IJ UD 11/30/18 [History Confirmed 04/24/21] Fluticasone Propionate [Flonase NASAL] 1 spray NS DAILY PRN PRN 11/30/18 [History Confirmed 04/24/21] Fluticasone/Salmeterol [Advair 250-50 Diskus] 1 puff IH BID 11/30/18 [History Confirmed 04/24/21] Levothyroxine Sodium [Synthroid] 137 mcg PO DAILY 11/30/18 [History Confirmed 04/24/21] Montelukast Sodium 10 mg [Singulair 10 MG] 10 mg PO DAILY 11/30/18 [History Confirmed 04/24/21] Prazosin HCl 2 mg PO DAILY 11/30/18 [History Confirmed 04/24/21] Tizanidine HCl 4 mg [Zanaflex 4 MG] 4 mg PO TID PRN 11/30/18 [History Confirmed 04/24/21] Trazodone HCl 50 mg [Desyrel 50 mg] 150 mg PO HS 11/30/18 [History Confirmed 04/24/21] Promethazine HCl 25 mg [Phenergan 25 mg] 12.5 mg PO Q6H PRN PRN #30 tablet 12/03/18 [Rx Confirmed 04/24/21] Buprenorphine HCl [Belbuca] 300 mcg PO BID 04/24/21 [History Confirmed 04/24/21] Hydrocodone/Acetaminophen [Hydrocodone-Acetamin 10-325 mg] 1 tab PO TID PRN 04/24/21 [History Confirmed 04/24/21] Bupropion HCl [Wellbutrin Xl] 300 mg PO DAILY 04/25/21 [History Confirmed 04/25/21] L.acidoph,Paracasei, B.lactis [Probiotic] 1 each PO DAILY 04/25/21 [History Confirmed 04/25/21] Metformin HCl 500 mg [Glucophage 500 MG] 500 mg PO BID 04/25/21 [History Confirmed 04/25/21] Metoprolol Tartrate 25 mg [Lopressor 25MG Tab] 25 mg PO DAILY 04/25/21 [History Confirmed 04/25/21] Multivit-Min/Iron/Folic/Lutein [Centrum Silver Women Tablet] 1 tab PO DAILY 04/25/21 [History Confirmed 04/25/21] Ondansetron HCl [Zofran] 4 mg PO Q6H PRN 04/25/21 [History Confirmed 04/25/21] Warfarin Sodium [Coumadin] 10 mg PO DAILY 04/25/21 [History Confirmed 04/25/21] Warfarin Sodium [Coumadin] 12 mg PO DAILY 04/25/21 [History Confirmed 04/25/21] Allergies/Adverse Reactions: Allergies Allergy/AdvReac Type Severity Reaction Status Date / Time divalproex sodium Allergy Intermediate Verified 04/24/21 18:23 [From Depakote] latex Allergy Intermediate Rash Verified 04/24/21 18:23 metronidazole [From Flagyl] Allergy Intermediate Hives Verified 04/24/21 18:23 Metronidazole HCl Allergy Intermediate Hives Verified 04/24/21 18:23 [From Flagyl] olanzapine [From Zyprexa] Allergy Intermediate Verified 04/24/21 18:23 clomiphene citrate Allergy Mild Nausea and Verified 04/24/21 18:23 [From Serophene] Vomiting lidocaine Allergy Mild Hives Verified 04/24/21 18:23 fluoxetine [From Sarafem] Allergy Verified 04/24/21 18:23 tramadol Allergy Verified 04/24/21 18:24 ketorolac tromethamine AdvReac Intermediate Vomiting Verified 04/24/21 18:23 [From Toradol] NSAIDS (Non-Steroidal AdvReac Mild Vomiting Verified 04/24/21 18:23 Anti-Inflamma triamcinolone acetonide AdvReac Vomiting Verified 04/24/21 18:23 [From Kenalog] - Past Medical History Past Medical History: Yes Neurological History: Migraines, Peripheral Neuropathy ENT History: No Pertinent History Cardiac History: High Cholesterol Respiratory History: Bronchitis, COPD, Pneumonia Endocrine Medical History: Diabetes Type II, Hypothyroidism Musculoskelatal History: Other, Rheumatoid Arthritis, Osteoarthritis, Osteoporosis, Fibromyalgia GI Medical History: GERD, Hernia History: No Pertinent History Pyscho-Social History: Anxiety, Depression, Other Reproductive Disorders: No Pertinent History Comment: HIATAL HERNIA, KIDNEY STONE X1 2014. recent bronchitis- sees Dr De Leon. Opioid abuse; opioid overdose resulting in intubation - Female History Are you now?: No - Past Surgical History Past Surgical History: Yes Neuro Surgical History: No Pertinent History Cardiac History: No Pertinent History Respiratory Surgery: No Pertinent History GI Surgical History: Cholecystectomy Genitourinary Surgical Hx: No Pertinent History Musculskeletal Surgical Hx: Joint Replacement Female Surgical History: Tubal Ligation Other Surgical History: TOTAL HIP REPLACEMENT TO LEFT, CARVED HIP SOCKET OFF "hip dysplasia repair" (1972). revision of lt total hip in june. carpal tunnel 2016. mitral valve replacement feb 2020 - Social History Smoking Status: Current some day smoker How long have you smoked: 30 Exposure to second hand smoke: No Alcohol: None Drug Use: none Significant Family History: no pertinent family hx - Physical Exam Vital Signs: Vital Signs - 24 hr Temp Pulse Resp BP Pulse Ox 04/25/21 12:00 96.6 F 95 H 14 101/56 92 L 04/25/21 09:48 84 16 94 L 04/25/21 08:00 98 F 85 12 93/52 93 L 04/25/21 04:00 98.4 F 89 20 135/58 93 L 04/25/21 01:28 98.2 F 82 18 85/52 97 04/25/21 00:50 78 17 98 04/24/21 23:25 78 16 108/69 97 04/24/21 22:00 86 18 94/72 96 04/24/21 21:00 66 16 86/58 100 04/24/21 20:10 74 16 78/45 94 L 04/24/21 19:12 68 16 87/59 94 L 04/24/21 18:49 71 19 63/41 94 L 04/24/21 17:57 97.5 F 96 H 24 68/46 96 General Appearance: no apparent distress, alert Neurologic Exam: oriented x 3, cooperative Eye Exam: eyes nml inspection Ears, Nose, Throat Exam: moist mucous membranes Neck Exam: normal inspection, non-tender, No lymphadenopathy Respiratory Exam: prolonged expirations, rhonchi (scattered throughout), No diminished breath sounds (good air exchange), No crackles/rales, No wheezing Cardiovascular Exam: regular rate/rhythm, normal heart sounds, No murmur Gastrointestinal/Abdomen Exam: soft, normal bowel sounds, No tenderness, No distention, No mass, No guarding, No rebound Extremity Exam: normal inspection, swelling (trace pretibial) Results - Labs Lab/Micro Results: Lab Results-Last 24 Hours 04/24/21 04/24/21 04/24/21 Range/Units 17:57 18:10 18:10 WBC (4.0-10.5) K/mm3 RBC (4.1-5.4) M/mm3 Hgb (12.0-16.0) gm/dl Hct (35-47) % MCV (78-100) fl MCH (26-32) pg MCHC (32-36) g/dl RDW (11.5-14.0) % Plt Count (150-450) K/mm3 MPV (7.5-11.0) fl Gran % (36.0-66.0) % Eos # (Auto) (0-0.5) Absolute Lymphs (auto) (1.0-4.6) Absolute Monos (auto) (0.0-1.3) Lymphocytes % (24.0-44.0) % Monocytes % (0.0-12.0) % Eosinophils % (0.00-5.0) % Basophils % (0.0-0.4) % Absolute Granulocytes (1.4-6.9) Segmented Neutrophils (36.0-66.0) % Lymphocytes (Manual) (24-44) % Monocytes (Manual) (0.0-12.0) % Basophils (Manual) (0.0-1.0) % Basophils # (0-0.4) Platelet Estimate (NORMAL) RBC Morphology Anisocytosis PT (9.4-12.5) SECONDS INR (0.8-3.0) D-Dimer (215-500) ng/mL Sodium (137-145) mmol/L Potassium (3.5-5.1) mmol/L Chloride (98-107) mmol/L Carbon Dioxide (22-30) mmol/L Anion Gap (5-15) MEQ/L BUN (7-17) mg/dL Creatinine (0.52-1.04) mg/dL Estimated GFR ML/MIN Glucose (74-106) mg/dL Lactic Acid (0.4-2.0) Calcium (8.4-10.2) mg/dL Ferritin (11.1-264) ng/mL Total Bilirubin (0.2-1.3) mg/dL AST (14-36) U/L ALT (0-35) U/L Alkaline Phosphatase (38-126) U/L Lactate Dehydrogenase (120-246) U/L Troponin I (0.000-0.034) ng/mL Serum Total Protein (6.3-8.2) g/dL Albumin (3.5-5.0) g/dL Urine Color BILL (YELLOW) Urine Appearance CLOUDY (CLEAR) Urine pH 5.0 (5-6) Ur Specific [place] 1.026 (1.005-1.025) Urine Protein 30 (Negative) Urine Ketones NEGATIVE (NEGATIVE) Urine Blood NEGATIVE (0-5) Marshal/ul Urine Nitrite NEGATIVE (NEGATIVE) Urine Bilirubin NEGATIVE (NEGATIVE) Urine Urobilinogen 2 (0-1) mg/dL Ur Leukocyte Esterase NEGATIVE (NEGATIVE) Urine WBC (Auto) NONE (0-5) /HPF Urine RBC (Auto) NONE (0-2) /HPF U Hyaline Cast (Auto) 26-50 (0-2) /LPF U Epithel Cells (Auto) RARE (FEW) /HPF Urine Bacteria (Auto) NONE (NEGATIVE) /HPF Urine Mucus (Auto) SLIGHT (NEGATIVE) /HPF Urine Culture Reflexed NO (NO) Urine Glucose NEGATIVE (NEGATIVE) mg/dL Monoscreen (Negative) Influenza Type A Ag NEGATIVE (NEGATIVE) Influenza Type B Ag NEGATIVE (NEGATIVE) RSV (PCR) (Negative) SARS-CoV-2 (PCR) (NEGATIVE) Group A Strep Antibody NOT DETECTED (NEGATIVE) 04/24/21 04/24/21 04/24/21 Range/Units 18:21 18:22 18:22 WBC 26.0 H* (4.0-10.5) K/mm3 RBC 3.69 L (4.1-5.4) M/mm3 Hgb 11.2 L (12.0-16.0) gm/dl Hct 35.8 (35-47) % MCV 97.0 (78-100) fl MCH 30.4 (26-32) pg MCHC 31.3 L (32-36) g/dl RDW 15.5 H (11.5-14.0) % Plt Count 258 (150-450) K/mm3 MPV 11.5 H (7.5-11.0) fl Gran % (36.0-66.0) % Eos # (Auto) (0-0.5) Absolute Lymphs (auto) (1.0-4.6) Absolute Monos (auto) (0.0-1.3) Lymphocytes % (24.0-44.0) % Monocytes % (0.0-12.0) % Eosinophils % (0.00-5.0) % Basophils % (0.0-0.4) % Absolute Granulocytes (1.4-6.9) Segmented Neutrophils 79 H (36.0-66.0) % Lymphocytes (Manual) 13 L (24-44) % Monocytes (Manual) 3 (0.0-12.0) % Basophils (Manual) 5 H (0.0-1.0) % Basophils # (0-0.4) Platelet Estimate NORMAL (NORMAL) RBC Morphology ABNORMAL Anisocytosis 2+ PT (9.4-12.5) SECONDS INR (0.8-3.0) D-Dimer (215-500) ng/mL Sodium 131 L (137-145) mmol/L Potassium 4.1 (3.5-5.1) mmol/L Chloride 95 L (98-107) mmol/L Carbon Dioxide 31 H (22-30) mmol/L Anion Gap 8.9 (5-15) MEQ/L BUN 15 (7-17) mg/dL Creatinine 1.28 H (0.52-1.04) mg/dL Estimated GFR 46.9 ML/MIN Glucose 129 H (74-106) mg/dL Lactic Acid 1.4 (0.4-2.0) Calcium 8.8 (8.4-10.2) mg/dL Ferritin (11.1-264) ng/mL Total Bilirubin 0.50 (0.2-1.3) mg/dL AST 37 H (14-36) U/L ALT 31 (0-35) U/L Alkaline Phosphatase 83 (38-126) U/L Lactate Dehydrogenase 295 H (120-246) U/L Troponin I (0.000-0.034) ng/mL Serum Total Protein 6.2 L (6.3-8.2) g/dL Albumin 3.4 L (3.5-5.0) g/dL Urine Color (YELLOW) Urine Appearance (CLEAR) Urine pH (5-6) Ur Specific [place] (1.005-1.025) Urine Protein (Negative) Urine Ketones (NEGATIVE) Urine Blood (0-5) Marshal/ul Urine Nitrite (NEGATIVE) Urine Bilirubin (NEGATIVE) Urine Urobilinogen (0-1) mg/dL Ur Leukocyte Esterase (NEGATIVE) Urine WBC (Auto) (0-5) /HPF Urine RBC (Auto) (0-2) /HPF U Hyaline Cast (Auto) (0-2) /LPF U Epithel Cells (Auto) (FEW) /HPF Urine Bacteria (Auto) (NEGATIVE) /HPF Urine Mucus (Auto) (NEGATIVE) /HPF Urine Culture Reflexed (NO) Urine Glucose (NEGATIVE) mg/dL Monoscreen (Negative) Influenza Type A Ag (NEGATIVE) Influenza Type B Ag (NEGATIVE) RSV (PCR) (Negative) SARS-CoV-2 (PCR) (NEGATIVE) Group A Strep Antibody (NEGATIVE) 04/24/21 04/24/21 04/24/21 Range/Units 18:22 18:22 18:22 WBC (4.0-10.5) K/mm3 RBC (4.1-5.4) M/mm3 Hgb (12.0-16.0) gm/dl Hct (35-47) % MCV (78-100) fl MCH (26-32) pg MCHC (32-36) g/dl RDW (11.5-14.0) % Plt Count (150-450) K/mm3 MPV (7.5-11.0) fl Gran % (36.0-66.0) % Eos # (Auto) (0-0.5) Absolute Lymphs (auto) (1.0-4.6) Absolute Monos (auto) (0.0-1.3) Lymphocytes % (24.0-44.0) % Monocytes % (0.0-12.0) % Eosinophils % (0.00-5.0) % Basophils % (0.0-0.4) % Absolute Granulocytes (1.4-6.9) Segmented Neutrophils (36.0-66.0) % Lymphocytes (Manual) (24-44) % Monocytes (Manual) (0.0-12.0) % Basophils (Manual) (0.0-1.0) % Basophils # (0-0.4) Platelet Estimate (NORMAL) RBC Morphology Anisocytosis PT (9.4-12.5) SECONDS INR (0.8-3.0) D-Dimer 292 (215-500) ng/mL Sodium (137-145) mmol/L Potassium (3.5-5.1) mmol/L Chloride (98-107) mmol/L Carbon Dioxide (22-30) mmol/L Anion Gap (5-15) MEQ/L BUN (7-17) mg/dL Creatinine (0.52-1.04) mg/dL Estimated GFR ML/MIN Glucose (74-106) mg/dL Lactic Acid (0.4-2.0) Calcium (8.4-10.2) mg/dL Ferritin 73.4 (11.1-264) ng/mL Total Bilirubin (0.2-1.3) mg/dL AST (14-36) U/L ALT (0-35) U/L Alkaline Phosphatase (38-126) U/L Lactate Dehydrogenase (120-246) U/L Troponin I < 0.012 (0.000-0.034) ng/mL Serum Total Protein (6.3-8.2) g/dL Albumin (3.5-5.0) g/dL Urine Color (YELLOW) Urine Appearance (CLEAR) Urine pH (5-6) Ur Specific [place] (1.005-1.025) Urine Protein (Negative) Urine Ketones (NEGATIVE) Urine Blood (0-5) Marshal/ul Urine Nitrite (NEGATIVE) Urine Bilirubin (NEGATIVE) Urine Urobilinogen (0-1) mg/dL Ur Leukocyte Esterase (NEGATIVE) Urine WBC (Auto) (0-5) /HPF Urine RBC (Auto) (0-2) /HPF U Hyaline Cast (Auto) (0-2) /LPF U Epithel Cells (Auto) (FEW) /HPF Urine Bacteria (Auto) (NEGATIVE) /HPF Urine Mucus (Auto) (NEGATIVE) /HPF Urine Culture Reflexed (NO) Urine Glucose (NEGATIVE) mg/dL Monoscreen (Negative) Influenza Type A Ag (NEGATIVE) Influenza Type B Ag (NEGATIVE) RSV (PCR) (Negative) SARS-CoV-2 (PCR) (NEGATIVE) Group A Strep Antibody (NEGATIVE) 04/24/21 04/24/21 04/24/21 Range/Units 18:22 19:00 21:00 WBC (4.0-10.5) K/mm3 RBC (4.1-5.4) M/mm3 Hgb (12.0-16.0) gm/dl Hct (35-47) % MCV (78-100) fl MCH (26-32) pg MCHC (32-36) g/dl RDW (11.5-14.0) % Plt Count (150-450) K/mm3 MPV (7.5-11.0) fl Gran % (36.0-66.0) % Eos # (Auto) (0-0.5) Absolute Lymphs (auto) (1.0-4.6) Absolute Monos (auto) (0.0-1.3) Lymphocytes % (24.0-44.0) % Monocytes % (0.0-12.0) % Eosinophils % (0.00-5.0) % Basophils % (0.0-0.4) % Absolute Granulocytes (1.4-6.9) Segmented Neutrophils (36.0-66.0) % Lymphocytes (Manual) (24-44) % Monocytes (Manual) (0.0-12.0) % Basophils (Manual) (0.0-1.0) % Basophils # (0-0.4) Platelet Estimate (NORMAL) RBC Morphology Anisocytosis PT (9.4-12.5) SECONDS INR (0.8-3.0) D-Dimer (215-500) ng/mL Sodium (137-145) mmol/L Potassium (3.5-5.1) mmol/L Chloride (98-107) mmol/L Carbon Dioxide (22-30) mmol/L Anion Gap (5-15) MEQ/L BUN (7-17) mg/dL Creatinine (0.52-1.04) mg/dL Estimated GFR ML/MIN Glucose (74-106) mg/dL Lactic Acid (0.4-2.0) Calcium (8.4-10.2) mg/dL Ferritin (11.1-264) ng/mL Total Bilirubin (0.2-1.3) mg/dL AST (14-36) U/L ALT (0-35) U/L Alkaline Phosphatase (38-126) U/L Lactate Dehydrogenase (120-246) U/L Troponin I < 0.012 (0.000-0.034) ng/mL Serum Total Protein (6.3-8.2) g/dL Albumin (3.5-5.0) g/dL Urine Color (YELLOW) Urine Appearance (CLEAR) Urine pH (5-6) Ur Specific [place] (1.005-1.025) Urine Protein (Negative) Urine Ketones (NEGATIVE) Urine Blood (0-5) Marshal/ul Urine Nitrite (NEGATIVE) Urine Bilirubin (NEGATIVE) Urine Urobilinogen (0-1) mg/dL Ur Leukocyte Esterase (NEGATIVE) Urine WBC (Auto) (0-5) /HPF Urine RBC (Auto) (0-2) /HPF U Hyaline Cast (Auto) (0-2) /LPF U Epithel Cells (Auto) (FEW) /HPF Urine Bacteria (Auto) (NEGATIVE) /HPF Urine Mucus (Auto) (NEGATIVE) /HPF Urine Culture Reflexed (NO) Urine Glucose (NEGATIVE) mg/dL Monoscreen NEGATIVE (Negative) Influenza Type A Ag NEGATIVE (NEGATIVE) Influenza Type B Ag NEGATIVE (NEGATIVE) RSV (PCR) NEGATIVE (Negative) SARS-CoV-2 (PCR) NEGATIVE (NEGATIVE) Group A Strep Antibody (NEGATIVE) 04/25/21 04/25/21 04/25/21 Range/Units 00:48 03:50 03:50 WBC 17.2 H (4.0-10.5) K/mm3 RBC 3.80 L (4.1-5.4) M/mm3 Hgb 11.3 L (12.0-16.0) gm/dl Hct 37.0 (35-47) % MCV 97.4 (78-100) fl MCH 29.7 (26-32) pg MCHC 30.5 L (32-36) g/dl RDW 15.7 H (11.5-14.0) % Plt Count 220 (150-450) K/mm3 MPV 11.0 (7.5-11.0) fl Gran % 81.2 H (36.0-66.0) % Eos # (Auto) 0.15 (0-0.5) Absolute Lymphs (auto) 2.14 (1.0-4.6) Absolute Monos (auto) 0.89 (0.0-1.3) Lymphocytes % 12.5 L (24.0-44.0) % Monocytes % 5.2 (0.0-12.0) % Eosinophils % 0.9 (0.00-5.0) % Basophils % 0.2 (0.0-0.4) % Absolute Granulocytes 13.95 H (1.4-6.9) Segmented Neutrophils (36.0-66.0) % Lymphocytes (Manual) (24-44) % Monocytes (Manual) (0.0-12.0) % Basophils (Manual) (0.0-1.0) % Basophils # 0.04 (0-0.4) Platelet Estimate (NORMAL) RBC Morphology Anisocytosis PT (9.4-12.5) SECONDS INR (0.8-3.0) D-Dimer (215-500) ng/mL Sodium (137-145) mmol/L Potassium (3.5-5.1) mmol/L Chloride (98-107) mmol/L Carbon Dioxide (22-30) mmol/L Anion Gap (5-15) MEQ/L BUN (7-17) mg/dL Creatinine (0.52-1.04) mg/dL Estimated GFR ML/MIN Glucose (74-106) mg/dL Lactic Acid (0.4-2.0) Calcium (8.4-10.2) mg/dL Ferritin (11.1-264) ng/mL Total Bilirubin (0.2-1.3) mg/dL AST (14-36) U/L ALT (0-35) U/L Alkaline Phosphatase (38-126) U/L Lactate Dehydrogenase (120-246) U/L Troponin I < 0.012 < 0.012 (0.000-0.034) ng/mL Serum Total Protein (6.3-8.2) g/dL Albumin (3.5-5.0) g/dL Urine Color (YELLOW) Urine Appearance (CLEAR) Urine pH (5-6) Ur Specific [place] (1.005-1.025) Urine Protein (Negative) Urine Ketones (NEGATIVE) Urine Blood (0-5) Marshal/ul Urine Nitrite (NEGATIVE) Urine Bilirubin (NEGATIVE) Urine Urobilinogen (0-1) mg/dL Ur Leukocyte Esterase (NEGATIVE) Urine WBC (Auto) (0-5) /HPF Urine RBC (Auto) (0-2) /HPF U Hyaline Cast (Auto) (0-2) /LPF U Epithel Cells (Auto) (FEW) /HPF Urine Bacteria (Auto) (NEGATIVE) /HPF Urine Mucus (Auto) (NEGATIVE) /HPF Urine Culture Reflexed (NO) Urine Glucose (NEGATIVE) mg/dL Monoscreen (Negative) Influenza Type A Ag (NEGATIVE) Influenza Type B Ag (NEGATIVE) RSV (PCR) (Negative) SARS-CoV-2 (PCR) (NEGATIVE) Group A Strep Antibody (NEGATIVE) 04/25/21 04/25/21 04/25/21 Range/Units 03:50 03:50 05:50 WBC (4.0-10.5) K/mm3 RBC (4.1-5.4) M/mm3 Hgb (12.0-16.0) gm/dl Hct (35-47) % MCV (78-100) fl MCH (26-32) pg MCHC (32-36) g/dl RDW (11.5-14.0) % Plt Count (150-450) K/mm3 MPV (7.5-11.0) fl Gran % (36.0-66.0) % Eos # (Auto) (0-0.5) Absolute Lymphs (auto) (1.0-4.6) Absolute Monos (auto) (0.0-1.3) Lymphocytes % (24.0-44.0) % Monocytes % (0.0-12.0) % Eosinophils % (0.00-5.0) % Basophils % (0.0-0.4) % Absolute Granulocytes (1.4-6.9) Segmented Neutrophils (36.0-66.0) % Lymphocytes (Manual) (24-44) % Monocytes (Manual) (0.0-12.0) % Basophils (Manual) (0.0-1.0) % Basophils # (0-0.4) Platelet Estimate (NORMAL) RBC Morphology Anisocytosis PT 24.2 H (9.4-12.5) SECONDS INR 2.05 (0.8-3.0) D-Dimer (215-500) ng/mL Sodium 137 (137-145) mmol/L Potassium 3.8 (3.5-5.1) mmol/L Chloride 102 (98-107) mmol/L Carbon Dioxide 28 (22-30) mmol/L Anion Gap 10.8 (5-15) MEQ/L BUN 13 (7-17) mg/dL Creatinine 0.89 (0.52-1.04) mg/dL Estimated GFR > 60.0 ML/MIN Glucose 133 H (74-106) mg/dL Lactic Acid (0.4-2.0) Calcium 9.0 (8.4-10.2) mg/dL Ferritin (11.1-264) ng/mL Total Bilirubin (0.2-1.3) mg/dL AST (14-36) U/L ALT (0-35) U/L Alkaline Phosphatase (38-126) U/L Lactate Dehydrogenase (120-246) U/L Troponin I < 0.012 (0.000-0.034) ng/mL Serum Total Protein (6.3-8.2) g/dL Albumin (3.5-5.0) g/dL Urine Color (YELLOW) Urine Appearance (CLEAR) Urine pH (5-6) Ur Specific [place] (1.005-1.025) Urine Protein (Negative) Urine Ketones (NEGATIVE) Urine Blood (0-5) Marshal/ul Urine Nitrite (NEGATIVE) Urine Bilirubin (NEGATIVE) Urine Urobilinogen (0-1) mg/dL Ur Leukocyte Esterase (NEGATIVE) Urine WBC (Auto) (0-5) /HPF Urine RBC (Auto) (0-2) /HPF U Hyaline Cast (Auto) (0-2) /LPF U Epithel Cells (Auto) (FEW) /HPF Urine Bacteria (Auto) (NEGATIVE) /HPF Urine Mucus (Auto) (NEGATIVE) /HPF Urine Culture Reflexed (NO) Urine Glucose (NEGATIVE) mg/dL Monoscreen (Negative) Influenza Type A Ag (NEGATIVE) Influenza Type B Ag (NEGATIVE) RSV (PCR) (Negative) SARS-CoV-2 (PCR) (NEGATIVE) Group A Strep Antibody (NEGATIVE) - Radiology Impressions Radiology Exams & Impressions: Radiology Procedures Category Date Time Status CHEST 1 VIEW (PORTABLE) Stat Exams 04/24/21 17:49 Completed - Other Procedures and Tests Respiratory Therapy 04/24/21 23:40 Oxygen Nasal Cannula 2 lpm 04/25/21 02:09 Respiratory Therapy Assessment DAILY Assessment/Plan (1) Pneumonia Current Visit: No Status: Acute Qualifiers: Pneumonia type: due to unspecified organism Laterality: bilateral Lung location: unspecified part of lung Qualified Code(s): J18.9 - Pneumonia, unspecified organism Assessment & Plan: pt is on IV rocephin and zithromax. Her WBC have decreased from 26,000 to 17,000 since admission yesterday. Code(s): J18.9 - PNEUMONIA, UNSPECIFIED ORGANISM (2) H/O mitral valve replacement with mechanical valve Current Visit: Yes Status: Chronic Assessment & Plan: INR should be 2.5-3.5. She did miss last night's coumadin dose. Will give 14mg today instead of the 12.5 she normally gets (takes 12.5 five days/wk, then 10mg the other 2 days). Will bridge with lovenox until INR is therapeutic. Code(s): Z95.2 - PRESENCE OF PROSTHETIC HEART VALVE (3) CHF (congestive heart failure) Current Visit: Yes Status: Acute Qualifiers: Heart failure type: unspecified Heart failure chronicity: acute on chronic Qualified Code(s): I50.9 - Heart failure, unspecified Assessment & Plan: give 20mg lasix IV x 1. I think the majority of her issue is infectious, however. Code(s): I50.9 - HEART FAILURE, UNSPECIFIED (4) Urinary tract infection Current Visit: Yes Status: Ruled-out Code(s): N39.0 - URINARY TRACT INFECTION, SITE NOT SPECIFIED
[2021-04-25] MEDS: ENOXAPARIN SODIUM SQ SCH (17:11)
[2021-04-25] MEDS ORDERED: Protonix 40MG Tablet ONE (17:28)
[2021-04-25] MEDS: Protonix 40MG Tablet PO SCH (17:31)
[2021-04-25] MEDS: Coumadin 5 MG PO SCH (17:32)
[2021-04-25] MEDS ORDERED: Coumadin 3 MG PO ONE (18:00)
[2021-04-25] MEDS ORDERED: Coumadin 1 MG PO ONE (18:00)
[2021-04-25] MEDS ORDERED: Coumadin 1 MG PO SCH (18:00)
[2021-04-25] MEDS ORDERED: Advair Hfa 115/21 Common canister IH SCH (19:00)
[2021-04-25] MEDS: Mucinex 600MG ER Tabs PO SCH (21:59)
[2021-04-25] MEDS ORDERED: BUPRENORPHINE HCL 300 MCG PO SCH (22:00)
[2021-04-25] MEDS ORDERED: ADVAIR/WIXELLA 250-50 DISKUS 14 DOSE IH SCH (22:00)
[2021-04-25] MEDS: ROCEPHIN 1 Gm-D5w 50 ml Bag** 1 G/50 ML IVPB IV SCH (22:04)
[2021-04-26] MEDS: Tessalon Perles 100 MG PO PRN ×3 (04:30→21:34)
[2021-04-26] MEDS: HYDROCODONE-ACETAMIN 10-325 MG PO PRN ×3 (04:30→21:32)
[2021-04-26 06:09] LABS: INR 1.82 (0.8-3.0); PROTIME 21.5 SECONDS (9.4-12.5)
[2021-04-26] MEDS ORDERED: NON-FORMULARY ITEM (Esomeprazole Magnesium [Nexium] 40 MG Capsule.Dr) PO SCH (08:00)
[2021-04-26] MEDS: Sodium Chloride 0.9% 1000 ML 1,000 ML IV SCH ×2 (08:21→20:41)
[2021-04-26 09:12] LABS: Absolute Neutrophil Ct (ANC) 4.82 (1.4-6.9); BASOPHIL % 0.3 % (0.0-0.4); Basophil (Absolute #) 0.02 (0-0.4); Eosinophil % 2.4 % (0.00-5.0); Eosinophil (Absolute #) 0.19 (0-0.5); Hematocrit 34.4 % (35-47); Hemoglobin 9.9 gm/dl (12.0-16.0); Lymphocyte (Absolute #) 2.28 (1.0-4.6); Mean Corpuscular Hemoglobin 29.6 pg (26-32); Mean Corpuscular Hgb Concent. 28.8 g/dl (32-36); Mean Platelet Volume 11.6 fl (7.5-11.0); Monocyte (Absolute #) 0.55 (0.0-1.3); Neutrophil % 61.3 % (36.0-66.0); Platelet Count 212 K/mm3 (150-450); Red Blood Count 3.34 M/mm3 (4.1-5.4); White Blood Count 7.9 K/mm3 (4.0-10.5)
[2021-04-26 09:26] LABS: ANION GAP 9.3 MEQ/L (5-15); BLOOD UREA NITROGEN 8 mg/dL (7-17); CHLORIDE 107 mmol/L (98-107); Calcium 8.1 mg/dL (8.4-10.2); Carbon Dioxide 29 mmol/L (22-30); Creatinine 1 0.68 mg/dL (0.52-1.04); EST GLOMERULAR FILTRATION RATE > 60.0 ML/MIN; Glucose 119 mg/dL (74-106); SODIUM 141 mmol/L (137-145)
[2021-04-26] MEDS: Zofran 4 MG/2 ML VIAL IV PRN ×3 (09:36→21:34)
[2021-04-26] MEDS: PATIENT OWN MEDICATION PO SCH ×2 (09:42→21:33)
[2021-04-26] MEDS: Mucinex 600MG ER Tabs PO SCH ×2 (09:42→21:33)
[2021-04-26] MEDS: Lopressor 25MG Tab PO SCH (09:43)
[2021-04-26] MEDS: Acidophilus TABLET PO SCH (09:43)
[2021-04-26] MEDS: Protonix 40MG Tablet PO SCH (09:43)
[2021-04-26] MEDS: SYNTHROID 25 MCG PO SCH (09:43)
[2021-04-26] MEDS: LYRICA 100MG PO SCH ×2 (09:43→21:33)
[2021-04-26] MEDS: Singulair 10 MG PO SCH (09:44)
[2021-04-26] MEDS: Klor Con 10 MEQ PO SCH (09:44)
[2021-04-26] MEDS: Wellbutrin XL 150 MG PO SCH (09:44)
[2021-04-26] MEDS: SYNTHROID 112 MCG PO SCH (09:45)
[2021-04-26] MEDS: ENOXAPARIN SODIUM SQ SCH (09:48)
[2021-04-26] MEDS: Zithromax 500 MG/ 250 ML NaCl Premix 500 MG/250 ML IVPB IV SCH (09:59)
[2021-04-26] MEDS ORDERED: WARFARIN SODIUM 10 MG PO SCH ×2 (10:00)
[2021-04-26] MEDS ORDERED: NON-FORMULARY ITEM (Potassium Chloride 20 Meq Tab [Potassium Chloride 20 Meq Tablet] 20 ME PO SCH (10:00)
[2021-04-26] MEDS ORDERED: LEVOTHYROXINE SODIUM 137 MCG PO SCH (10:00)
[2021-04-26] MEDS ORDERED: NON-FORMULARY ITEM (Bupropion Hcl [Wellbutrin Xl] 300 MG Tab.Er.24h) PO SCH (10:00)
[2021-04-26] MEDS ORDERED: NON-FORMULARY ITEM (L.Acidoph,Paracasei, B.Lactis [Probiotic] 1 EACH Capsule) PO SCH (10:00)
[2021-04-26] MEDS ORDERED: NON-FORMULARY ITEM (Prazosin Hcl [Prazosin Hcl] 2 MG Capsule) PO SCH (10:00)
[2021-04-26] MEDS: PHENERGAN 25 MG PO PRN (12:09)
[2021-04-26 14:17] LABS: Slide Review 1 YES
--- NOTE | 2021-04-26 16:01 | PCM.NOTE ---
Date and Time: 04/26/21 1557 Subjective Assessment: Pt feels a little better than at admission. Nauseated except when eating chicken noodle soup, crackers etc. - Review of Systems Respiratory: Cough Abdominal/Gastrointestinal: Nausea Objective Exam General Appearance: mild distress (coughs during exam), alert, obese Neurologic Exam: oriented x 3, cooperative Skin Exam: normal color, warm, dry, No rash Eye Exam: eyes nml inspection Ears, Nose, Throat Exam: moist mucous membranes Neck Exam: normal inspection Respiratory Exam: normal breath sounds, lungs clear (after coughing), No crackles/rales, No rhonchi, No wheezing Cardiovascular Exam: regular rate/rhythm, normal heart sounds, No murmur Gastrointestinal/Abdomen Exam: soft, normal bowel sounds, No tenderness, No distention, No mass, No guarding, No rebound Extremity Exam: normal inspection, No pedal edema, No swelling Back Exam: normal inspection, No rash OBJECTIVE DATA Vital Signs: Vital Signs - 24 hr Temp Pulse Resp BP Pulse Ox 04/26/21 11:47 97.1 F 68 18 100/61 96 04/26/21 07:47 97.1 F 64 16 115/68 100 04/26/21 03:47 97.9 F 73 20 110/54 96 04/25/21 23:23 97.4 F 75 22 88/50 94 L 04/25/21 20:07 90 18 94 L 04/25/21 19:40 97.1 F 101 H 19 120/59 97 04/25/21 16:00 96.9 F 80 16 108/60 96 Pain Assessment - Last Documented Pain Intensity 8 Pain Scale Used 0-10 Pain Scale Intake and Output: Intake & Output 04/24/21 04/25/21 04/26/21 04/27/21 11:59 11:59 11:59 11:59 Intake Total 970 4703 780 Output Total 1900 2300 1600 Balance -930 2403 -820 Weight 103.2 kg 106.4 kg Lab Results: Lab Results-Last 24 Hours 04/26/21 04/26/21 04/26/21 Range/Units 05:35 05:35 05:35 WBC 7.9 (4.0-10.5) K/mm3 RBC 3.34 L (4.1-5.4) M/mm3 Hgb 9.9 L (12.0-16.0) gm/dl Hct 34.4 L (35-47) % MCV 103.0 H (78-100) fl MCH 29.6 (26-32) pg MCHC 28.8 L (32-36) g/dl RDW 16.0 H (11.5-14.0) % Plt Count 212 (150-450) K/mm3 MPV 11.6 H (7.5-11.0) fl Gran % 61.3 (36.0-66.0) % Eos # (Auto) 0.19 (0-0.5) Absolute Lymphs (auto) 2.28 (1.0-4.6) Absolute Monos (auto) 0.55 (0.0-1.3) Lymphocytes % 29.0 (24.0-44.0) % Monocytes % 7.0 (0.0-12.0) % Eosinophils % 2.4 (0.00-5.0) % Basophils % 0.3 (0.0-0.4) % Absolute Granulocytes 4.82 (1.4-6.9) Basophils # 0.02 (0-0.4) PT 21.5 H (9.4-12.5) SECONDS INR 1.82 (0.8-3.0) Sodium 141 (137-145) mmol/L Potassium 4.0 (3.5-5.1) mmol/L Chloride 107 (98-107) mmol/L Carbon Dioxide 29 (22-30) mmol/L Anion Gap 9.3 (5-15) MEQ/L BUN 8 (7-17) mg/dL Creatinine 0.68 (0.52-1.04) mg/dL Estimated GFR > 60.0 ML/MIN Glucose 119 H (74-106) mg/dL Calcium 8.1 L (8.4-10.2) mg/dL Slides for Path Review YES Radiology Exams: Radiology Procedures Category Date Time Status CHEST 1 VIEW (PORTABLE) Stat Exams 04/24/21 17:49 Completed Assessment/Plan (1) Pneumonia Current Visit: No Status: Acute Qualifiers: Pneumonia type: due to unspecified organism Laterality: bilateral Lung location: unspecified part of lung Qualified Code(s): J18.9 - Pneumonia, unspecified organism Assessment & Plan: She is starting to feel a little better, although still with O2 requirement. WBC back to normal today. Code(s): J18.9 - PNEUMONIA, UNSPECIFIED ORGANISM (2) H/O mitral valve replacement with mechanical valve Current Visit: Yes Status: Chronic Code(s): Z95.2 - PRESENCE OF PROSTHETIC HEART VALVE (3) CHF (congestive heart failure) Current Visit: Yes Status: Acute Qualifiers: Heart failure type: unspecified Heart failure chronicity: acute on chronic Qualified Code(s): I50.9 - Heart failure, unspecified Code(s): I50.9 - HEART FAILURE, UNSPECIFIED (4) Urinary tract infection Current Visit: Yes Status: Ruled-out Code(s): N39.0 - URINARY TRACT IN FECTION, SITE NOT SPECIFIED
[2021-04-26] MEDS: Spiriva 18 Mcg/Cap Inhaler IH SCH (16:32)
[2021-04-26] MEDS: Advair Hfa 115/21 Common canister IH SCH ×2 (16:32→19:50)
[2021-04-26] MEDS: Coumadin 5 MG PO SCH (17:27)
[2021-04-26] MEDS: PHENERGAN WITH CODEINE SYRUP PO PRN (17:28)
[2021-04-26] MEDS: ceLEXa 20 MG PO SCH (21:32)
[2021-04-26] MEDS: Desyrel 150 MG PO SCH (21:32)
[2021-04-26] MEDS: ROCEPHIN 1 Gm-D5w 50 ml Bag** 1 G/50 ML IVPB IV SCH (21:41)
[2021-04-26] MEDS: Nicoderm CQ 21 MG TOP SCH (21:41)
[2021-04-27] MEDS: Zofran 4 MG/2 ML VIAL IV PRN ×4 (03:48→22:13)
[2021-04-27] MEDS: HYDROCODONE-ACETAMIN 10-325 MG PO PRN ×3 (05:24→22:02)
[2021-04-27] MEDS: PHENERGAN WITH CODEINE SYRUP PO PRN ×2 (05:25→17:57)
[2021-04-27 06:04] LABS: BLOOD UREA NITROGEN 4 mg/dL (7-17); CHLORIDE 106 mmol/L (98-107); Calcium 8.2 mg/dL (8.4-10.2); Carbon Dioxide 31 mmol/L (22-30); Creatinine 1 0.74 mg/dL (0.52-1.04); EST GLOMERULAR FILTRATION RATE > 60.0 ML/MIN; Glucose 147 mg/dL (74-106); SODIUM 141 mmol/L (137-145)
[2021-04-27 06:07] LABS: Potassium 4.1 mmol/L (3.5-5.1)
[2021-04-27 06:14] LABS: ANION GAP 8.1 MEQ/L (5-15); Absolute Neutrophil Ct (ANC) 4.26 (1.4-6.9); BASOPHIL % 0.4 % (0.0-0.4); Basophil (Absolute #) 0.03 (0-0.4); Eosinophil % 3.8 % (0.00-5.0); Eosinophil (Absolute #) 0.28 (0-0.5); Hematocrit 33.7 % (35-47); Hemoglobin 9.8 gm/dl (12.0-16.0); Lymphocyte (Absolute #) 2.26 (1.0-4.6); Lymphocytes % 30.6 % (24.0-44.0); Mean Cell Volume 101.8 fl (78-100); Mean Corpuscular Hemoglobin 29.6 pg (26-32); Mean Corpuscular Hgb Concent. 29.1 g/dl (32-36); Mean Platelet Volume 11.1 fl (7.5-11.0); Monocyte (Absolute #) 0.56 (0.0-1.3); Monocytes % 7.6 % (0.0-12.0); Neutrophil % 57.6 % (36.0-66.0); Platelet Count 226 K/mm3 (150-450); Red Blood Count 3.31 M/mm3 (4.1-5.4); Red Cell Distribution Width 15.5 % (11.5-14.0); White Blood Count 7.4 K/mm3 (4.0-10.5)
[2021-04-27] MEDS: Sodium Chloride 0.9% 1000 ML 1,000 ML IV SCH ×3 (06:21→22:03)
--- NOTE | 2021-04-27 08:12 | PCM.NOTE ---
Date and Time: 04/27/21 08 Subjective Assessment: Pt still not feeling great. Tolerating po as long as she eats bland foods. Still some nausea yesterday requiring zofran. Currently on 4L O2; at home she is on O2 only at night. - Review of Systems Constitutional: No Fever Respiratory: Cough Abdominal/Gastrointestinal: Nausea Objective Exam General Appearance: no apparent distress, alert (wakes to touch) Neurologic Exam: oriented x 3, cooperative Skin Exam: normal color, warm, dry, No rash Eye Exam: eyes nml inspection Ears, Nose, Throat Exam: moist mucous membranes Neck Exam: normal inspection Respiratory Exam: normal breath sounds, lungs clear, No crackles/rales, No rhonchi, No wheezing Cardiovascular Exam: regular rate/rhythm, normal heart sounds, No murmur Gastrointestinal/Abdomen Exam: soft, normal bowel sounds, No tenderness, No distention, No guarding, No rebound Extremity Exam: No swelling OBJECTIVE DATA Vital Signs: Vital Signs - 24 hr Temp Pulse Resp BP Pulse Ox 04/27/21 07:48 98.1 F 79 16 92/52 93 L 04/27/21 03:48 97.5 F 83 16 109/62 96 04/26/21 23:37 97.7 F 92 H 16 117/58 97 04/26/21 20:12 97.5 F 71 18 100/58 97 04/26/21 19:50 82 18 88 L 04/26/21 17:35 95 04/26/21 16:00 97.1 F 71 20 81/46 94 L 04/26/21 11:47 97.1 F 68 18 100/61 96 Pain Assessment - Last Documented Pain Intensity 5 Pain Scale Used 0-10 Pain Scale Intake and Output: Intake & Output 04/24/21 04/25/21 04/26/21 04/27/21 11:59 11:59 11:59 11:59 Intake Total 970 4703 4915 Output Total 1900 2300 4250 Balance -930 2403 665 Weight 103.2 kg 106.4 kg 107.1 kg Lab Results: Lab Results-Last 24 Hours 04/26/21 04/26/21 04/27/21 Range/Units 05:35 05:35 04:30 WBC 7.9 7.4 (4.0-10.5) K/mm3 RBC 3.34 L 3.31 L (4.1-5.4) M/mm3 Hgb 9.9 L 9.8 L (12.0-16.0) gm/dl Hct 34.4 L 33.7 L (35-47) % MCV 103.0 H 101.8 H (78-100) fl MCH 29.6 29.6 (26-32) pg MCHC 28.8 L 29.1 L (32-36) g/dl RDW 16.0 H 15.5 H (11.5-14.0) % Plt Count 212 226 (150-450) K/mm3 MPV 11.6 H 11.1 H (7.5-11.0) fl Gran % 61.3 57.6 (36.0-66.0) % Eos # (Auto) 0.19 0.28 (0-0.5) Absolute Lymphs (auto) 2.28 2.26 (1.0-4.6) Absolute Monos (auto) 0.55 0.56 (0.0-1.3) Lymphocytes % 29.0 30.6 (24.0-44.0) % Monocytes % 7.0 7.6 (0.0-12.0) % Eosinophils % 2.4 3.8 (0.00-5.0) % Basophils % 0.3 0.4 (0.0-0.4) % Absolute Granulocytes 4.82 4.26 (1.4-6.9) Basophils # 0.02 0.03 (0-0.4) Sodium 141 (137-145) mmol/L Potassium 4.0 (3.5-5.1) mmol/L Chloride 107 (98-107) mmol/L Carbon Dioxide 29 (22-30) mmol/L Anion Gap 9.3 (5-15) MEQ/L BUN 8 (7-17) mg/dL Creatinine 0.68 (0.52-1.04) mg/dL Estimated GFR > 60.0 ML/MIN Glucose 119 H (74-106) mg/dL Calcium 8.1 L (8.4-10.2) mg/dL Slides for Path Review YES 04/27/21 Range/Units 04:30 WBC (4.0-10.5) K/mm3 RBC (4.1-5.4) M/mm3 Hgb (12.0-16.0) gm/dl Hct (35-47) % MCV (78-100) fl MCH (26-32) pg MCHC (32-36) g/dl RDW (11.5-14.0) % Plt Count (150-450) K/mm3 MPV (7.5-11.0) fl Gran % (36.0-66.0) % Eos # (Auto) (0-0.5) Absolute Lymphs (auto) (1.0-4.6) Absolute Monos (auto) (0.0-1.3) Lymphocytes % (24.0-44.0) % Monocytes % (0.0-12.0) % Eosinophils % (0.00-5.0) % Basophils % (0.0-0.4) % Absolute Granulocytes (1.4-6.9) Basophils # (0-0.4) Sodium 141 (137-145) mmol/L Potassium 4.1 (3.5-5.1) mmol/L Chloride 106 (98-107) mmol/L Carbon Dioxide 31 H (22-30) mmol/L Anion Gap 8.1 (5-15) MEQ/L BUN 4 L (7-17) mg/dL Creatinine 0.74 (0.52-1.04) mg/dL Estimated GFR > 60.0 ML/MIN Glucose 147 H (74-106) mg/dL Calcium 8.2 L (8.4-10.2) mg/dL Slides for Path Review Multi-Disciplinary Progress Notes: Multi-Disciplinary Progress Notes 04/26/21 20:39 Respiratory Note by Ivory Fung Increased to 3LPM due to low SpO2 of 88%. Patient also had C/O not feeling like oxygen was enough Initialized on 04/26/21 20:39 - END OF NOTE Assessment/Plan (1) Pneumonia Current Visit: No Status: Acute Qualifiers: Pneumonia type: due to unspecified organism Laterality: bilateral Lung location: unspecified part of lung Qualified Code(s): J18.9 - Pneumonia, unspecified organism Assessment & Plan: Her WBC have been nl since yesterday. Still has O2 requirement. Try weaning off O2 today; if unable, qualify for home O2 during the day. Plan would be to send pt home tomorrow. Code(s): J18.9 - PNEUMONIA, UNSPECIFIED ORGANISM (2) H/O mitral valve replacement with mechanical valve Current Visit: Yes Status: Chronic Assessment & Plan: Bridging with lovenox until INR reaches 2.5-3.5. Code(s): Z95.2 - PRESENCE OF PROSTHETIC HEART VALVE (3) CHF (congestive heart failure) Current Visit: Yes Status: Acute Qualifiers: Heart failure type: unspecified Heart failure chronicity: acute on chronic Qualified Code(s): I50.9 - Heart failure, unspecified Code(s): I50.9 - HEART FAILURE, UNSPECIFIED
[2021-04-27] MEDS: Mucinex 600MG ER Tabs PO SCH ×2 (10:08→22:02)
[2021-04-27] MEDS: Singulair 10 MG PO SCH (10:09)
[2021-04-27] MEDS: Protonix 40MG Tablet PO SCH (10:09)
[2021-04-27] MEDS: Klor Con 10 MEQ PO SCH (10:09)
[2021-04-27] MEDS: SYNTHROID 25 MCG PO SCH (10:09)
[2021-04-27] MEDS: Acidophilus TABLET PO SCH (10:09)
[2021-04-27] MEDS: LYRICA 100MG PO SCH ×2 (10:09→22:02)
[2021-04-27] MEDS: Lopressor 25MG Tab PO SCH (10:09)
[2021-04-27] MEDS: PATIENT OWN MEDICATION PO SCH ×2 (10:10→22:14)
[2021-04-27] MEDS: Wellbutrin XL 150 MG PO SCH (10:10)
[2021-04-27] MEDS: SYNTHROID 112 MCG PO SCH (10:10)
[2021-04-27] MEDS: ENOXAPARIN SODIUM SQ SCH (10:11)
[2021-04-27] MEDS: Zithromax 500 MG/ 250 ML NaCl Premix 500 MG/250 ML IVPB IV SCH (10:11)
[2021-04-27] MEDS ORDERED: NON-FORMULARY ITEM PO SCH ×2 (11:00→22:00)
[2021-04-27] MEDS: TYLENOL 325 MG PO PRN (12:29)
[2021-04-27] MEDS: Tessalon Perles 100 MG PO PRN ×2 (12:29→22:19)
[2021-04-27] MEDS: Advair Hfa 115/21 Common canister IH SCH ×2 (13:05→18:46)
[2021-04-27] MEDS: Spiriva 18 Mcg/Cap Inhaler IH SCH (13:08)
[2021-04-27] MEDS: Coumadin 5 MG PO SCH (17:56)
[2021-04-27] MEDS ORDERED: Coumadin 1 MG PO SCH (18:00)
[2021-04-27] MEDS: ROCEPHIN 1 Gm-D5w 50 ml Bag** 1 G/50 ML IVPB IV SCH (22:01)
[2021-04-27] MEDS: Nicoderm CQ 21 MG TOP SCH (22:01)
[2021-04-27] MEDS: Desyrel 150 MG PO SCH (22:02)
[2021-04-27] MEDS: ceLEXa 20 MG PO SCH (22:02)
[2021-04-28] MEDS: Sodium Chloride 0.9% 1000 ML 1,000 ML IV SCH (02:40)
[2021-04-28] MEDS: TYLENOL 325 MG PO PRN ×2 (02:57→11:43)
[2021-04-28] MEDS: Zofran 4 MG/2 ML VIAL IV PRN ×2 (02:57→08:35)
[2021-04-28 07:16] LABS: INR 3.39 (0.8-3.0)
--- NOTE | 2021-04-28 08:27 | PCM.DS ---
Discharge Summary Date of Admission: 04/25/21 15:56 Admitting Physician: MARNIE NATHAN Primary Care Provider: MARNIE NATHAN Allergies Allergies divalproex sodium [From Depakote] Allergy (Intermediate, Verified 04/24/21 18:23) latex Allergy (Intermediate, Verified 04/24/21 18:23) Rash metronidazole [From Flagyl] Allergy (Intermediate, Verified 04/24/21 18:23) Hives Metronidazole HCl [From Flagyl] Allergy (Intermediate, Verified 04/24/21 18:23) Hives olanzapine [From Zyprexa] Allergy (Intermediate, Verified 04/24/21 18:23) clomiphene citrate [From Serophene] Allergy (Mild, Verified 04/24/21 18:23) Nausea and Vomiting lidocaine Allergy (Mild, Verified 04/24/21 18:23) Hives fluoxetine [From Sarafem] Allergy (Verified 04/24/21 18:23) tramadol Allergy (Verified 04/24/21 18:24) ketorolac tromethamine [From Toradol] Adverse Reaction (Intermediate, Verified 04/24/21 18:23) Vomiting NSAIDS (Non-Steroidal Anti-Inflamma Adverse Reaction (Mild, Verified 04/24/21 18:23) Vomiting triamcinolone acetonide [From Kenalog] Adverse Reaction (Verified 04/24/21 18:23) Vomiting Hospital Summary - Hospital Course Hospital Course: is a 50 year old female, former pt of mine with OA, PTSD, fibromyalgia, hypothyroid, hypokalemia, GERD, COPD, asthma, mechanical mitral valve, anxiety, depression, and anemia who was admitted through ER with PNA and UTI (later ruled out). She had WBC 26,000 and was started on IV rocephin and zithromax. Temp prior to admission was 103 degrees F. CXR read as prominent interstitial opacities, possibly fluid overload but cannot rule out pneumonia. She improved steadily; by day #3 her WBC were normal. She has still been on oxygen throughout the day; she does have O2 at home for night wear already. She has had some nausea but she is tolerating po. She has a mechanical valve and her INR dropped below 2 during her stay (likely due to missing a dose on admission). She was bridged with lovenox until today, when her INR is 3.35 (goal between 2.5-3.5). She will be discharged to home today and f/u with her PCP in 1 week (pt now lives in [facility]). Home on 6 d of po augmentin. - Vitals & Intake/Output Vital Signs: Vital Signs Temperature 97.5 F 04/28/21 06:46 Pulse Rate 76 04/28/21 06:46 Respiratory Rate 18 04/28/21 06:46 Blood Pressure 97/55 04/28/21 06:46 O2 Sat by Pulse Oximetry 93 L 04/28/21 06:46 Intake & Output: Intake & Output 04/25/21 04/26/21 04/27/21 04/28/21 11:59 11:59 11:59 11:59 Intake Total 970 4703 4915 2449 Output Total 1900 2300 4800 2600 Balance -930 2403 115 -151 Weight 103.2 kg 106.4 kg 107.1 kg 111.4 kg - Lab Result Diagrams: 04/27/21 04:30 04/27/21 04:30 Lab Results-Last 24 Hrs: Lab Results-Last 24 Hours 04/28/21 04/28/21 Range/Units 06:25 07:30 PT 40.0 H (9.4-12.5) SECONDS INR 3.39 H (0.8-3.0) POC Glucometer 113 H (74 to 106) mg/dL Micro Results-Entire Visit: Microbiology 04/24/21 18:00 Blood Culture Gram Stain - Final Blood Accuchecks Date 04/28/21 Time 07:30 - Procedures and Test Procedures and Tests throughout Hospitalization: Therapy Orders & Screens 04/24/21 23:40 Oxygen Nasal Cannula 2 lpm Comment: 04/25/21 01:42 RT Screen per Nursing Assess ONCE Comment: Protocol Order Physician Instructions: Greater than 3 points order RT Admission Screen Reason For Exam: Triggered on Admission Diagnosis: Pnuemonia Diagnosis: Pnuemonia Pneumonia: Yes Home O2: Yes Asthma: No CHF: No Home CPAP/BIPAP: No Home Nebs/MDI: Yes Total Points: 13 Smoking Cessation Education ONCE Comment: Diagnosis: Pnuemonia Smoking Status: Current some day smoker How long have you smoked: 30 Have you smoked in the past 12 months: Yes Approximately how many cigarettes per day: 1-2 Do you dip or chew tobacco: No If,Former Smoker,when did you quit: 2 weeks ago 04/25/21 02:09 Respiratory Therapy Assessment DAILY Comment: Diagnosis: Pnuemonia 04/25/21 02:11 Respiratory MDI BID Comment: Diagnosis: Pnuemonia 04/27/21 10:54 Qualify for Home Oxygen ROUTINE Comment: Diagnosis: Pnuemonia Discharge Exam General Appearance: no apparent distress, alert, other (sleeping well initially; woke to voice and touch) Neurologic Exam: oriented x 3, cooperative Eye Exam: eyes nml inspection Ears, Nose, Throat Exam: moist mucous membranes Neck Exam: normal inspection Respiratory Exam: normal breath sounds, lungs clear, No crackles/rales, No rhonchi, No wheezing Cardiovascular Exam: regular rate/rhythm, normal heart sounds, No murmur Gastrointestinal/Abdomen Exam: soft, normal bowel sounds, No tenderness, No distention, No mass, No guarding, No rebound Back Exam: normal inspection, No rash Extremity Exam: normal inspection, No swelling Skin Exam: normal color, warm, dry, No rash Final Diagnosis/Problem List - Final Discharge Diagnosis/Problem (1) Pneumonia Current Visit: No Status: Acute Assessment & Plan: Much improved, with normalized WBC count. She is still coughing quite a bit; would like cough syrup, but since she is on home opiates will not be able to write for that. I will send her with olga lidia larson. Gurpreet on 6 more days of augmentin (will start tomorrow; will get rocephin prior to discharge today). Code(s): J18.9 - PNEUMONIA, UNSPECIFIED ORGANISM (2) H/O mitral valve replacement with mechanical valve Current Visit: Yes Status: Chronic Code(s): Z95.2 - PRESENCE OF PROSTHETIC HEART VALVE (3) CHF (congestive heart failure) Current Visit: Yes Status: Chronic Code(s): I50.9 - HEART FAILURE, UNSPECIFIED - Discharge Disposition: Home, Self-Care Condition: Good Prescriptions: New Amoxicillin/Potassium Clav [Augmentin 875-125 Tablet] 875 mg PO BID 6 Days #12 tablet Guaifenesin 600 mg ER [Mucinex 600MG ER Tabs] 1,200 mg PO BID tablet Continue Pregabalin [Lyrica] 200 mg PO BID Esomeprazole Magnesium [Nexium] 40 mg PO 0800 Ranitidine HCl 150 mg PO BID PRN PRN PRN Reason: Stomach Upset Nicotine 21 mg [Nicoderm CQ 21 MG] 21 mg TOP Q24H #14 patch Potassium Chloride 20 Meq Tab [Potassium Chloride 20 MEQ TABLET] 10 meq PO DAILY Albuterol Common Canister [Ventolin Common Canister] 2 puff IH Q4-6HPRN PRN PRN Reason: Shortness Of Breath Aclidinium [place] [Tudorza Pressair] 400 mcg IH Q12H Denosumab 60 mg [Prolia 60 mg Injection] 60 mg SQ UD Ergocalciferol (Vitamin D2) [Vitamin D2] 50,000 unit PO Q7D Ferrous Sulfate 325 mg [Feosol 325 mg] 325 mg PO UD Hydroxyzine HCl 25 mg [Atarax 25 mg] 25 mg PO TID PRN Albuterol/Ipratropium 3ml Neb* [DUONEB 0.5-3 MG/3 ml Neb] 3 ml IH QID PRN PRN PRN Reason: soa Fluticasone Propionate [Flonase NASAL] 1 spray NS DAILY PRN PRN PRN Reason: allergy Cyanocobalamin (Vitamin B-12) [Cyanocobalamin Injection] 1,000 mcg IJ UD Citalopram Hydrobromide [Celexa] 40 mg PO HS Fluticasone/Salmeterol [Advair 250-50 Diskus] 1 puff IH BID Prazosin HCl 2 mg PO DAILY Montelukast Sodium 10 mg [Singulair 10 MG] 10 mg PO DAILY Trazodone HCl 50 mg [Desyrel 50 mg] 150 mg PO HS Tizanidine HCl 4 mg [Zanaflex 4 MG] 4 mg PO TID PRN Benzonatate [Tessalon Perle] 100 mg PO TIDPRN PRN PRN Reason: Cough Levothyroxine Sodium [Synthroid] 137 mcg PO DAILY Promethazine HCl 25 mg [Phenergan 25 mg] 12.5 mg PO Q6H PRN PRN #30 tablet PRN Reason: Nausea Buprenorphine HCl [Belbuca] 300 mcg PO BID Hydrocodone/Acetaminophen [Hydrocodone-Acetamin 10-325 mg] 1 tab PO TID PRN PRN Reason: Pain Ondansetron HCl [Zofran] 4 mg PO Q6H PRN PRN Reason: Nausea Multivit-Min/Iron/Folic/Lutein [Centrum Silver Women Tablet] 1 tab PO DAILY Metoprolol Tartrate 25 mg [Lopressor 25MG Tab] 25 mg PO DAILY Metformin HCl 500 mg [Glucophage 500 MG] 500 mg PO BID L.acidoph,Paracasei, B.lactis [Probiotic] 1 each PO DAILY Bupropion HCl [Wellbutrin Xl] 300 mg PO DAILY Warfarin Sodium [Coumadin] 10 mg PO DAILY Warfarin Sodium [Coumadin] 12 mg PO DAILY Follow up with: MARNIE NATHAN [Primary Care Provider] -
[2021-04-28] MEDS: SYNTHROID 25 MCG PO SCH (09:12)
[2021-04-28] MEDS: Lopressor 25MG Tab PO SCH (09:12)
[2021-04-28] MEDS: Singulair 10 MG PO SCH (09:12)
[2021-04-28] MEDS: Mucinex 600MG ER Tabs PO SCH (09:12)
[2021-04-28] MEDS: LYRICA 100MG PO SCH (09:13)
[2021-04-28] MEDS: Klor Con 10 MEQ PO SCH (09:13)
[2021-04-28] MEDS: HYDROCODONE-ACETAMIN 10-325 MG PO PRN (09:13)
[2021-04-28] MEDS: PATIENT OWN MEDICATION PO SCH (09:13)
[2021-04-28] MEDS: Acidophilus TABLET PO SCH (09:13)
[2021-04-28] MEDS: Protonix 40MG Tablet PO SCH (09:13)
[2021-04-28] MEDS: SYNTHROID 112 MCG PO SCH (09:15)
[2021-04-28] MEDS: Wellbutrin XL 150 MG PO SCH (09:15)
[2021-04-28] MEDS: ROCEPHIN 1 Gm-D5w 50 ml Bag** 1 G/50 ML IVPB IV SCH (09:16)
[2021-04-28 09:23] VITALS: BP 119/84
[2021-04-28] MEDS: Tessalon Perles 100 MG PO PRN (09:30)
[2021-04-28] MEDS: Advair Hfa 115/21 Common canister IH SCH (09:33)
[2021-04-28] MEDS: Spiriva 18 Mcg/Cap Inhaler IH SCH (09:34)
[2021-04-28 09:36] VITALS: PULSE 92; O2SAT 92
== END 2021-04-28 11:57 | disposition home or self-care (01) | DRG 194 ==
LOC: ED 17:41 → MED SURG 23:38 → OBSVTOIN 04-25 15:56
PROVIDERS: ADMIT Family Medicine; ATTEND Family Medicine
DX: J18.9 Pneumonia, unspecified organism (principal); N39.0 Urinary tract infection, site not specified; J44.9 Chronic obstructive pulmonary disease, unspecified; J40 Bronchitis, not specified as acute or chronic; E03.9 Hypothyroidism, unspecified; E87.6 Hypokalemia; D64.9 Anemia, unspecified; I50.9 Heart failure, unspecified; E11.9 Type 2 diabetes mellitus without complications; F17.200 Nicotine dependence, unspecified, uncomplicated; Z95.2 Presence of prosthetic heart valve; Z79.899 Other long term (current) drug therapy; Z79.01 Long term (current) use of anticoagulants; Z20.828 Contact with and (suspected) exposure to other viral communicable diseases
CPT/HCPCS: 0241U; 36000; 36415; 71045; 80048; 80053; 81001; 82728; 82947; 83605; 83615; 84484; 85025; 85379; 85610; 86308; 87040; 87400; 87651; 93005; 94640; 94760; 96360; 96374; 99284; G0378; J0456; J0696; J1650; J1940; J2405; Q0162; A9270-GY

== ENCOUNTER 2022-08-20 10:21 | Emergency (ER) | payer MEDICARE ==
[2022-08-20] MEDS ORDERED: SUBLIMAZE 100 MCG/2 ML IV ONE (10:40)
[2022-08-20] MEDS ORDERED: ZOFRAN ODT 4 MG PO ONE (10:40)
[2022-08-20] MEDS ORDERED: Sodium Chloride 0.9% 1000 ML 1,000 ML IV STA (10:40)
[2022-08-20 12:32] LABS: BASOPHIL % 0.3 % (0.0-0.4); Basophil (Absolute #) 0.07 x10^3/uL (0-0.4); Eosinophil (Absolute #) 0 x10^3/uL (0-0.5); Hemoglobin 14.2 g/dL (12.0-16.0); IMMATURE GRAN # 0.09 x10^3u/L (0.00-0.03); IMMATURE GRAN % 0.4 % (0.00-0.4); Lymphocyte (Absolute #) 1.74 x10^3/uL (1.0-4.6); Lymphocytes % 8.3 % (24.0-44.0); Mean Cell Volume 92.7 fL (78-100); Mean Corpuscular Hemoglobin 30.6 pg (26-32); Mean Platelet Volume 11.8 fL (7.5-11.0); Monocyte (Absolute #) 1.21 x10^3/uL (0.0-1.3); Monocytes % 5.8 % (0.0-12.0); Neutrophil % 85.2 % (36.0-66.0); Platelet Count 198 x10^3/uL (150-450); Red Blood Count 4.64 x10^6/uL (4.1-5.4); Red Cell Distribution Width 14.4 % (11.5-14.0)
[2022-08-20 12:45] LABS: INR 2.01 (0.8-3.0); PROTIME 20.8 SECONDS (9.4-12.5)
[2022-08-20 12:47] LABS: ALBUMIN 4.2 g/dL (3.5-5.0); ALKALINE PHOSPHATASE 81 U/L (38-126); BLOOD UREA NITROGEN 14 mg/dL (7-17); CHLORIDE 101 mmol/L (98-107); Calcium 9.4 mg/dL (8.4-10.2); Carbon Dioxide 30 mmol/L (22-30); Creatinine 1 0.64 mg/dL (0.52-1.04); EST GLOMERULAR FILTRATION RATE > 60.0 ML/MIN; Glucose 162 mg/dL (74-106); LIPASE 46 U/L (23-300); Potassium 3.9 mmol/L (3.5-5.1); SGOT/AST 36 U/L (14-36); SGPT/ALT 30 U/L (0-35); SODIUM 138 mmol/L (137-145); Total Protein 7.1 g/dL (6.3-8.2)
[2022-08-20] MEDS ORDERED: SUBLIMAZE 100 MCG/2 ML ONE (13:05)
[2022-08-20] MEDS ORDERED: Sodium Chloride 0.9% 1000 ML 1,000 ML ONE (13:05)
[2022-08-20] MEDS ORDERED: Zofran 4 MG/2 ML VIAL ONE (13:05)
[2022-08-20] MEDS ORDERED: ZOFRAN ODT 4 MG ONE (13:11)
--- NOTE | 2022-08-20 13:13 | ERPHSYRPT ---
- History of Present Illness Source: patient Exam Limitations: no limitations Patient Subjective Stated Complaint: Pt fell down the basement stairs around 0330 this morning thinking she was stepping into the bathroom, pt uses a wheelchair in the house and it does not go into the bathroom and so she stood up to take a couple of steps and she went down the stairs instead, pt injured her left hip, knee, left back, left arm, head, left wrist, pt is on coumadin Triage Nursing Assessment: Pt was brought to the ER by EMS, hypotensive, rates pain as 8/10, extreme pain to left hip, right knee swollen, pain in head and neck, pain in left wrist and left arm, pulses normal, skin n/w/d, no difficulty breathing Method of Injury: fall Occurred: yesterday Where Injury Occurred: home Loss of Consciousness: other (unknown) Pain Location: left, shoulder, wrist, knee Severity of Pain-Max: moderate Severity of Pain-Current: moderate Associated Symptoms: back pain, extremity injury, lightheadedness, nausea, No abdominal pain, No chest pain, No shortness of breath, No vision changes Hx Tetanus, Diphtheria Vaccination/Date Given: Yes Hx Influenza Vaccination/Date Given: No Hx Pneumococcal Vaccination/Date Given: Yes <FELI KATZ - Last Filed: 08/20/22 13:31> <DALE SURESH - Last Filed: 08/20/22 16:30> - History of Present Illness Time Seen by Provider: 08/20/22 10:22 Physician History: This's a 51 yr old pt, presenting to ED s/p fall Pt fell down the basement stairs around 0330 this morning thinking she was stepping into the bathroom. she fell on concrete, unknown LOC, has had a headache. Patient is on Coumadin she has had her mitral valve replaced Reports that her daughter came immediately and helped her get up Endorses pain to her left flank, back, left hip,left knee and left wrist. Endorses history of frequent falls normally ambulates with a wheelchair. States that she vomited once prior to getting on the ambulance. (FELI KATZ) Allergies/Adverse Reactions: divalproex sodium [From Depakote] Allergy (Intermediate, Verified 08/20/22 10:45) latex Allergy (Intermediate, Verified 08/20/22 10:45) Rash metronidazole [From Flagyl] Allergy (Intermediate, Verified 08/20/22 10:45) Hives Metronidazole HCl [From Flagyl] Allergy (Intermediate, Verified 08/20/22 10:45) Hives olanzapine [From Zyprexa] Allergy (Intermediate, Verified 08/20/22 10:45) clomiphene citrate [From Serophene] Allergy (Mild, Verified 08/20/22 10:45) Nausea and Vomiting lidocaine Allergy (Mild, Verified 08/20/22 10:45) Hives fluoxetine [From Sarafem] Allergy (Verified 08/20/22 10:45) tramadol Allergy (Verified 08/20/22 10:45) ketorolac tromethamine [From Toradol] Adverse Reaction (Intermediate, Verified 08/20/22 10:45) Vomiting NSAIDS (Non-Steroidal Anti-Inflamma Adverse Reaction (Mild, Verified 08/20/22 10:45) Vomiting triamcinolone acetonide [From Kenalog] Adverse Reaction (Verified 08/20/22 10:45) Vomiting Home Medications: Esomeprazole Magnesium [Nexium] 40 mg PO 0800 11/26/15 [History] Pregabalin [Lyrica] 200 mg PO BID 11/26/15 [History] raNITIdine HCL [Ranitidine HCl] 150 mg PO BID PRN PRN 12/17/15 [History] Albuterol Common Canister [Ventolin Common Canister] 2 puff IH Q4-6HPRN PRN 03/10/16 [History] Denosumab 60 mg [Prolia 60 mg Injection] 60 mg SQ UD 03/10/16 [History] Potassium Chloride 20 Meq Tab [Potassium Chloride 20 MEQ TABLET] 10 meq PO DAILY 03/10/16 [History] Ergocalciferol (Vitamin D2) [Vitamin D2] 50,000 unit PO Q7D 08/23/16 [History] Ferrous Sulfate 325 mg [Feosol 325 mg] 325 mg PO UD 04/04/17 [History] Hydroxyzine HCl 25 mg [Atarax 25 mg] 25 mg PO TID PRN 04/04/17 [History] Cyanocobalamin (Vitamin B-12) [Cyanocobalamin Injection] 1,000 mcg IJ UD 11/30/18 [History] Fluticasone Propionate [Flonase NASAL] 1 spray NS DAILY PRN PRN 11/30/18 [History] Levothyroxine Sodium [Synthroid] 137 mcg PO DAILY 11/30/18 [History] Montelukast Sodium 10 mg [Singulair 10 MG] 10 mg PO DAILY 11/30/18 [History] Prazosin HCl 2 mg PO DAILY 11/30/18 [History] Tizanidine HCl 4 mg [Zanaflex 4 MG] 4 mg PO TID PRN 11/30/18 [History] Trazodone HCl 50 mg [Desyrel 50 mg] 150 mg PO HS 11/30/18 [History] Buprenorphine HCl [Belbuca] 450 mcg PO BID 04/24/21 [History] Hydrocodone/Acetaminophen [Hydrocodone-Acetamin 10-325 mg] 1 tab PO QID 04/24/21 [History] L.acidoph,Paracasei, B.lactis [Probiotic] 1 each PO DAILY 04/25/21 [History] Metformin HCl 500 mg [Glucophage 500 MG] 500 mg PO BID 04/25/21 [History] Metoprolol Tartrate 25 mg [Lopressor 25MG Tab] 25 mg PO DAILY 04/25/21 [History] Multivit-Min/Iron/Folic/Lutein [Centrum Silver Women Tablet] 1 tab PO DAILY 04/25/21 [History] Warfarin Sodium [Coumadin] 8 mg PO UD 04/25/21 [History] Warfarin Sodium [Coumadin] 10 mg PO UD 04/25/21 [History] ondansetron HCL [Zofran] 4 mg PO Q6H PRN 04/25/21 [History] Beclomethasone Dipropionate [Qvar Redihaler] 2 puffs PO BID PRN 08/20/22 [History] Sertraline HCl 75 mg PO HS 08/20/22 [History] Travel Risk - International Travel Have you traveled outside of the country in past 3 weeks: No - Coronavirus Screening Are you exhibiting any of the following symptoms?: No - Vaccine Status Have you recieved a Covid-19 vaccination: No <FELI KATZ - Last Filed: 08/20/22 13:31> - Review of Systems Constitutional: No Symptoms Eyes: No Symptoms Ears, Nose, & Throat: No Symptoms Respiratory: No Symptoms Cardiac: No Symptoms Abdominal/Gastrointestinal: No Symptoms Genitourinary Symptoms: No Symptoms Musculoskeletal: No Symptoms Skin: No Symptoms Neurological: No Symptoms Psychological: No Symptoms All Other Systems: Reviewed and Negative <FELI KATZ - Last Filed: 08/20/22 13:31> - Past Medical History Pertinent Past Medical History: Yes Neurological History: Migraines, Peripheral Neuropathy ENT History: No Pertinent History Cardiac History: High Cholesterol Respiratory History: Bronchitis, COPD, Pneumonia Endocrine Medical History: Diabetes Type II, Hypothyroidism Musculoskeletal History: Other, Rheumatoid Arthritis, Osteoarthritis, Osteoporosis, Fibromyalgia GI Medical History: GERD, Hernia History: No Pertinent History Psycho-Social History: Anxiety, Depression, Other Female Reproductive Disorders: No Pertinent History Other Medical History: HIATAL HERNIA, KIDNEY STONE X1 2014. Opioid abuse; opioid overdose, has been intubated - Past Surgical History Past Surgical History: Yes Neuro Surgical History: No Pertinent History Cardiac: No Pertinent History Respiratory: No Pertinent History Gastrointestinal: Cholecystectomy Genitourinary: No Pertinent History Musculoskeletal: Joint Replacement Female Surgical History: Tubal Ligation Other Surgical History: TOTAL HIP REPLACEMENT TO LEFT, CARVED HIP SOCKET OFF "hip dysplasia repair" (1972). revision of lt total hip in june. carpal tunnel 2016. mitral valve replacement feb 2020 - Social History Smoking Status: Current some day smoker How long have you smoked: 30 Exposure to second hand smoke: Yes Drug Use: none Patient Lives Alone: No Significant Family History: no pertinent family hx <FELI KATZ - Last Filed: 08/20/22 13:31> Physical Exam - Tejas Coma Score Best Eye Response (Tejas): (4) open spontaneously Best Verbal Response (Emerson): (5) oriented Best Motor Response (Emerson): (6) obeys commands Tejas Total: 15 - Physical Exam General Appearance: no apparent distress Head Injury: no evidence of injury Eye Exam: bilateral eye: normal inspection, PERRL, EOMI ENT Exam: airway nml, No evidence of ENT injury, No dental injury, No midface instability, No hemotympanum Neck Exam: supple, trachea midline, full range of motion, normal alignment Respiratory/Chest Exam: normal breath sounds, No chest tenderness, No respiratory distress Cardiovascular Exam: normal heart sounds, regular rate/rhythm Gastrointestinal Exam: soft, normal bowel sounds, No tenderness, No distention Rectal Exam: deferred Back Exam: normal inspection, No point tenderness Extremity Exam: normal inspection, pelvis stable, bony point tenderness, hip tenderness Peripheral Pulses: carotid (R): 4+, carotid (L): 4+, femoral (R): 4+, femoral (L): 4+, dorsalis-pedis (R): 4+, dorsalis-pedis (L): 4+ Neurologic Exam: alert, oriented x 3, cooperative, area attendant II-XII nml as tested, normal mood/affect Skin Exam: normal color, warm SpO2 Interpretation: normal SpO2: 94 <FELI KATZ - Last Filed: 08/20/22 13:31> - Nursing Vital Signs Nursing Vital Signs: Initial Vital Signs Temperature 97.8 F 08/20/22 10:22 Pulse Rate 103 H 08/20/22 10:22 Blood Pressure 79/59 08/20/22 10:22 O2 Sat by Pulse Oximetry 96 08/20/22 10:22 Pain Scale Pain Intensity 6 Ordered Tests: Active Orders 24 hr Category Date Time Status EKG-ER Only STAT Care 08/20/22 10:40 Active ABDOMEN AND PELVIS W CONTRAST [CT] Stat Exams 08/20/22 10:41 Completed CERVICAL SPINE WO CONTRAST [CT] Stat Exams 08/20/22 10:41 Completed HEAD WITHOUT CONTRAST [CT] Stat Exams 08/20/22 10:41 Completed KNEE (3 VIEWS) Stat Exams 08/20/22 10:44 Completed PELVIS (1 OR 2 VIEWS) Stat Exams 08/20/22 10:44 Completed SHOULDER Stat Exams 08/20/22 10:44 Completed WRIST (MIN 3 VIEWS) Stat Exams 08/20/22 10:44 Completed CBC W DIFF Stat Lab 08/20/22 12:26 Completed CMP Stat Lab 08/20/22 12:26 Completed LIPASE Stat Lab 08/20/22 12:26 Completed PROTIME WITH INR Stat Lab 08/20/22 12:26 Completed UA W/RFX UR CULTURE Stat Lab 08/20/22 13:19 Ordered Medication Summary Discontinued Medications Generic Name Dose Route Start Last Admin Trade Name Freq PRN Reason Stop Dose Admin Fentanyl Citrate 50 mcg 08/20/22 10:40 08/20/22 13:10 Fentanyl Citrate 100 Mcg/2 Ml* Vial IV 08/20/22 10:41 50 mcg STAT ONE Administration Fentanyl Citrate Confirm 08/20/22 13:05 Fentanyl Citrate 100 Mcg/2 Ml* Vial Administered 08/20/22 13:06 Dose 100 mcg .ROUTE .STK-MED ONE Sodium Chloride 1,000 mls @ 999 mls/hr 08/20/22 10:40 08/20/22 14:39 Sodium Chloride 0.9% 1000 Ml IV 08/20/22 11:40 Infused .Q1H1M STA Infusion Sodium Chloride Confirm 08/20/22 13:05 Sodium Chloride 0.9% 1000 Ml Administered 08/20/22 13:06 Dose 1,000 mls @ ud .ROUTE .STK-MED ONE Ondansetron HCl 4 mg 08/20/22 10:40 08/20/22 13:12 Zofran 4 Mg/Udtablet Orally Disintegrating PO 08/20/22 10:41 4 mg STAT ONE Administration Ondansetron HCl Confirm 08/20/22 13:05 Ondansetron Hcl 4 Mg/2 Ml Vial Administered 08/20/22 13:06 Dose 4 mg .ROUTE .STK-MED ONE Ondansetron HCl Confirm 08/20/22 13:11 Zofran 4 Mg/Udtablet Orally Disintegrating Administered 08/20/22 13:12 Dose 4 mg .ROUTE .STK-MED ONE Lab/Rad Data: Laboratory Result Diagrams 08/20/22 12:26 08/20/22 12:26 Laboratory Results 08/20/22 08/20/22 08/20/22 Range/Units 12:26 12:26 12:26 WBC 21.0 H (4.0-10.5) x10^3/uL RBC 4.64 (4.1-5.4) x10^6/uL Hgb 14.2 (12.0-16.0) g/dL Hct 43.0 (35-47) % MCV 92.7 (78-100) fL MCH 30.6 (26-32) pg MCHC 33.0 (32-36) g/dL RDW 14.4 H (11.5-14.0) % Plt Count 198 (150-450) x10^3/uL MPV 11.8 H (7.5-11.0) fL Gran % 85.2 H (36.0-66.0) % Immature Gran % (Auto) 0.4 (0.00-0.4) % Nucleat RBC Rel Count 0.0 (0.00-0.1) % Eos # (Auto) 0 (0-0.5) x10^3/uL Immature Gran # (Auto) 0.09 H (0.00-0.03) x10^3u/L Absolute Lymphs (auto) 1.74 (1.0-4.6) x10^3/uL Absolute Monos (auto) 1.21 (0.0-1.3) x10^3/uL Absolute Nucleated RBC 0.00 (0.00-0.01) x10^3u/L Lymphocytes % 8.3 L (24.0-44.0) % Monocytes % 5.8 (0.0-12.0) % Eosinophils % 0.0 (0.00-5.0) % Basophils % 0.3 (0.0-0.4) % Absolute Granulocytes 17.90 H (1.4-6.9) x10^3/uL Basophils # 0.07 (0-0.4) x10^3/uL PT 20.8 H (9.4-12.5) SECONDS INR 2.01 (0.8-3.0) Sodium 138 (137-145) mmol/L Potassium 3.9 (3.5-5.1) mmol/L Chloride 101 (98-107) mmol/L Carbon Dioxide 30 (22-30) mmol/L Anion Gap 11.0 (5-15) MEQ/L BUN 14 (7-17) mg/dL Creatinine 0.64 (0.52-1.04) mg/dL Estimated GFR > 60.0 ML/MIN Glucose 162 H (74-106) mg/dL Calcium 9.4 (8.4-10.2) mg/dL Total Bilirubin 0.60 (0.2-1.3) mg/dL AST 36 (14-36) U/L ALT 30 (0-35) U/L Alkaline Phosphatase 81 (38-126) U/L Serum Total Protein 7.1 (6.3-8.2) g/dL Albumin 4.2 (3.5-5.0) g/dL Lipase 46 (23-300) U/L <FELI KATZ - Last Filed: 08/20/22 13:31> <DALE SURESH - Last Filed: 08/20/22 16:30> - Progress Progress Note: 08/20/22 13Patient was hypotensive on arrival with a pressure of 79/59 Reorts that her pressure is normally 90/60 An IV line was established and patient was given IV fluid along with some pain medications and Zofran. labs and imaging were ordered Patient care [facility] abdomen/pelvis showed RLL PNA, no acute abdominal pathology. All other imaging negative for acute fracture or dislocation. Will place roxanne bandage on left knee. Discussed return sxs of DELA CRUZ, focal weakness, numbness/tingling, speech difficulty and dysphagia. 08/20/22 16:27 (DALE SURESH) Medical Desision Making - Diagnostic Testing Diagnostic test were ordered, analyzed, and reviewed by me: Yes Radiological Interpretation: Reviewed by me - Risk of complications Low Risk: Low risk of morbidity from additional dx testing or treatment <DALE SURESH - Last Filed: 08/20/22 16:30> <FELI KATZ - Last Filed: 08/20/22 13:31> - Departure Departure Disposition: Home Critical Care Time: No <DALE SURESH - Last Filed: 08/20/22 16:30> - Departure Clinical Impression: Accident due to mechanical fall without injury, RLL pneumonia Condition: Good Referrals: ANGEL BARRIENTOS FNP [Primary Care Provider] - Follow up/PCP as directed Instructions: Pneumonia, Adult (DC), Contusion (DC) Prescriptions: Amox Tr/Potass Clav. 875 mg [Augmentin 875-125 Tablet] 875 mg PO BID 10 Days #20 tablet
--- NOTE | 2022-08-20 14:13 | XRAY ---
Indication: Status post fall. Multiple contiguous axial images obtained through the head without contrast. Comparison: April 18, 2018 Normal appearing brain parenchyma, ventricles, and bony calvarium for patient's age with again incidental hyperostosis frontalis interna. Visualized paranasal sinuses and mastoid air cells are clear. Impression: Normal CT head without contrast exam.
--- NOTE | 2022-08-20 14:15 | XRAY ---
Indication: Status post fall. Multiple contiguous axial images obtained through the cervical spine. Sagittal and coronal reformatted images obtained. Comparison: None Several images are slightly degraded by motion artifact. Axial images grossly negative for acute fracture, suspicious bony lesions, or spinal canal stenosis. Facets are symmetric. Sagittal and coronal reformatted images demonstrate normal alignment with vertebral body heights/disc spaces maintained. No acute compression fracture, subluxation, or jumped facet. Normal appearing cranial cervical junction. Visualized noncontrasted soft tissues unremarkable. Impression: Mild motion artifact. Otherwise grossly negative CT cervical spine.
--- NOTE | 2022-08-20 14:19 | XRAY ---
Indication: Status post fall. Multiple contiguous axial images obtained through the abdomen and pelvis using 80 cc Isovue 370 contrast. Comparison: None Lung bases demonstrates incompletely visualized right lower lobe patchy airspace disease without effusion. Left lung bases clear. Heart not enlarged. Moderate sized hiatal hernia with partial intrathoracic stomach. Left hip arthroplasty produces beam artifact limiting this level. Noncontrasted stomach and bowel loops appear nonobstructed. Previous cholecystectomy. No free fluid/air. Diffuse fatty liver. Remaining liver, pancreas, spleen, adrenal glands, kidneys, ureters, bladder, uterus, and aorta are unremarkable. No pathologic retroperitoneal lymphadenopathy. Osseous structures intact with mild degenerative changes at the lumbosacral junction and 8 mm L4 bone cyst. Impression: 1. Beam artifact from left total hip arthroplasty. 2. Incompletely visualized patchy right lower lobe airspace disease. 3. Chronic findings including hiatal hernia, fatty liver, lumbosacral junction degenerative disc disease, and tiny L4 bone cyst.
--- NOTE | 2022-08-20 14:37 | XRAY ---
Indication: Pain following fall. Comparison: None 3 view left shoulder demonstrates previous cardiac valve replacement surgery. No other bony, articular, or soft tissue abnormalities.
--- NOTE | 2022-08-20 14:37 | XRAY ---
Indication: Pain following fall. Comparison: None AP pelvis demonstrates urinary bladder contrast from same day CT abdomen/pelvis with contrast exam. Incidental bilateral pelvic surgical clips and left total hip arthroplasty. No other bony, articular, or soft tissue abnormalities.
--- NOTE | 2022-08-20 14:37 | XRAY ---
Indication: Pain following fall. Comparison: None 3 view left wrist demonstrates radiocarpal joint space narrowing. No other bony, articular, or soft tissue abnormalities.
--- NOTE | 2022-08-20 14:39 | XRAY ---
Indication: Pain following fall. Comparison: None 3 view left knee demonstrates moderate medial/lateral compartment degenerative changes and small posterior fabella. No other bony, articular, or soft tissue abnormalities.
[2022-08-20 16:38] VITALS: BP 100/60; PULSE 87; O2SAT 98
== END 2022-08-20 16:50 | disposition home or self-care (01) ==
LOC: ED 10:21
DX: Z04.3 Encounter for examination and observation following other accident (principal); J18.9 Pneumonia, unspecified organism; R51.9 Headache, unspecified; M25.562 Pain in left knee; R10.9 Unspecified abdominal pain; M54.9 Dorsalgia, unspecified; M25.552 Pain in left hip; M25.532 Pain in left wrist; Z91.81 History of falling; Z79.01 Long term (current) use of anticoagulants; Z79.891 Long term (current) use of opiate analgesic; Z79.84 Long term (current) use of oral hypoglycemic drugs; Z79.899 Other long term (current) drug therapy; Z28.310 Unvaccinated for COVID-19; E78.5 Hyperlipidemia, unspecified; E11.42 Type 2 diabetes mellitus with diabetic polyneuropathy; Z72.0 Tobacco use
CPT/HCPCS: 36415; 70450; 72125; 72170; 73030; 73110; 73562; 74177; 80053; 83690; 85025; 85610; 93005; 96360; 96374; 99284; J2405; J3010; Q0162

== ENCOUNTER 2023-01-20 17:38 | Inpatient (IN) | payer MEDICARE ==
[2023-01-20] MEDS ORDERED: TYLENOL 325 MG PO STA (18:17)
--- NOTE | 2023-01-20 18:26 | ERPHSYRPT ---
- History of Present Illness Time Seen by Provider: 01/20/23 17:40 Source: patient, EMS Exam Limitations: no limitations Patient Subjective Stated Complaint: Pt states "I had a sinus infection a couple weeks ago and I think it turned into pneumonia. I hurt all over and I am running a fever." Triage Nursing Assessment: Pt presented alert and oriented X 3, skin pwd. Pt able to speak in clear full sentences. Pt resting comfortably on the bed. PT looking around, pt has coarse cough. Physician History: 52 years old female with history of chronic respiratory failure secondary to COPD on 2 L oxygen normally, tobacco abuse, mitral valve replacement on Coumadin, diabetes mellitus presented in the ER with chief complaint of increasing shortness of breath since yesterday. Patient reports she has been dealing with URI/sinusitis for couple of weeks and it seems like she is now having lung infection. She is coughing up yellow-green sputum copious in amount with increasing shortness of breath especially with activity. Patient increased her oxygen to 4 L and still feels short of breath. Patient is currently on 4-1 /2 L oxygen, given neb treatment and Solu-Medrol prior to arrival. She is also having a fever of 101. Timing/Duration: yesterday, gradual onset, worse Activities at Onset: activity, rest Severity of Dyspnea-Max: moderate Severity of Dyspnea-Current: moderate Possible Cause: unknown cause Modifying Factors: Improves With: albuterol nebulizer. Worsens With: coughing Associated Symptoms: cough, fever, wheezing, chills, productive cough Allergies/Adverse Reactions: divalproex sodium [From Depakote] Allergy (Intermediate, Verified 08/20/22 10:45) latex Allergy (Intermediate, Verified 08/20/22 10:45) Rash metronidazole [From Flagyl] Allergy (Intermediate, Verified 08/20/22 10:45) Hives Metronidazole HCl [From Flagyl] Allergy (Intermediate, Verified 08/20/22 10:45) Hives olanzapine [From Zyprexa] Allergy (Intermediate, Verified 08/20/22 10:45) clomiphene citrate [From Serophene] Allergy (Mild, Verified 08/20/22 10:45) Nausea and Vomiting lidocaine Allergy (Mild, Verified 08/20/22 10:45) Hives fluoxetine [From Sarafem] Allergy (Verified 08/20/22 10:45) tramadol Allergy (Verified 08/20/22 10:45) ketorolac tromethamine [From Toradol] Adverse Reaction (Intermediate, Verified 08/20/22 10:45) Vomiting NSAIDS (Non-Steroidal Anti-Inflamma Adverse Reaction (Mild, Verified 08/20/22 10:45) Vomiting triamcinolone acetonide [From Kenalog] Adverse Reaction (Verified 08/20/22 10 :45) Vomiting Home Medications: Esomeprazole Magnesium [Nexium] 40 mg PO 0800 11/26/15 [History] Pregabalin [Lyrica] 200 mg PO BID 11/26/15 [History] raNITIdine HCL [Ranitidine HCl] 150 mg PO BID PRN PRN 12/17/15 [History] Albuterol Common Canister [Ventolin Common Canister] 2 puff IH Q4-6HPRN PRN 03/10/16 [History] Denosumab 60 mg [Prolia 60 mg Injection] 60 mg SQ UD 03/10/16 [History] Potassium Chloride 20 Meq Tab [Potassium Chloride 20 MEQ TABLET] 10 meq PO DAILY 03/10/16 [History] Ergocalciferol (Vitamin D2) [Vitamin D2] 50,000 unit PO Q7D 08/23/16 [History] Ferrous Sulfate 325 mg [Feosol 325 mg] 325 mg PO UD 04/04/17 [History] Hydroxyzine HCl 25 mg [Atarax 25 mg] 25 mg PO 04/04/17 [History] Cyanocobalamin (Vitamin B-12) [Cyanocobalamin Injection] 1,000 mcg [facility] 11/30/18 [History] Levothyroxine Sodium [Synthroid] 137 mcg PO DAILY 11/30/18 [History] Montelukast Sodium 10 mg [Singulair 10 MG] 10 mg PO DAILY 11/30/18 [History] Prazosin HCl 2 mg PO DAILY 11/30/18 [History] Tizanidine HCl 4 mg [Zanaflex 4 MG] 4 mg PO TID PRN 11/30/18 [History] Trazodone HCl 50 mg [Desyrel 50 mg] 150 mg PO HS 11/30/18 [History] Buprenorphine HCl [Belbuca] 450 mcg PO BID 04/24/21 [History] L.acidoph,Paracasei, B.lactis [Probiotic] 1 each PO DAILY 04/25/21 [History] Metformin HCl 500 mg [Glucophage 500 MG] 500 mg PO BID 04/25/21 [History] Metoprolol Tartrate 25 mg [Lopressor 25MG Tab] 25 mg PO DAILY 04/25/21 [History] Multivit-Min/Iron/Folic/Lutein [Centrum Silver Women Tablet] 1 tab PO DAILY 04/25/21 [History] Warfarin Sodium [Coumadin] 12 mg PO HS 04/25/21 [History] ondansetron HCL [Zofran] 4 mg PO Q6H PRN 04/25/21 [History] Beclomethasone Dipropionate [Qvar Redihaler] 2 puffs PO BID PRN 08/20/22 [Histo ry] Sertraline HCl 100 mg PO HS 08/20/22 [History] Oxycodone / APAP 10/325 mg [Oxycodone-Acetaminophen 10-325] 1 tab PO QID PRN 01/20/23 [History] SUMAtriptan succinate [Imitrex 50 mg] 100 mg PO DAILY PRN 01/21/23 [History] clonazePAM [Clonazepam] 0.5 - 1 mg PO DAILY PRN 01/21/23 [History] Hx Tetanus, Diphtheria Vaccination/Date Given: Yes Hx Influenza Vaccination/Date Given: No Hx Pneumococcal Vaccination/Date Given: Yes Immunizations Up to Date: Yes Travel Risk - International Travel Have you traveled outside of the country in past 3 weeks: No - Coronavirus Screening Are you exhibiting any of the following symptoms?: Yes Symptoms: Fever, Shortness of Breath, Vomiting/Diarrhea, Headaches/Body Aches/Fatigue Close contact with a COVID-19 positive Pt in past 14-21 Days: No - Vaccine Status Have you recieved a Covid-19 vaccination: No - Review of Systems Constitutional: Fever, Chills, Fatigue, Weakness Eyes: No Symptoms Ears, Nose, & Throat: Sinus Drainage Respiratory: Cough, Dyspnea, Dyspnea on Exertion (VIEIRA), Wheezing Cardiac: No Symptoms Abdominal/Gastrointestinal: No Symptoms Genitourinary Symptoms: No Symptoms Musculoskeletal: Arthralgias Skin: No Symptoms Neurological: No Symptoms Psychological: No Symptoms Endocrine: No Symptoms Hematologic/Lymphatic: Easy Bleeding Immunological/Allergic: No Symptoms - Past Medical History Pertinent Past Medical History: Yes Neurological History: Migraines, Peripheral Neuropathy ENT History: No Pertinent History Cardiac History: High Cholesterol, Other Respiratory History: Bronchitis, COPD, Pneumonia Endocrine Medical History: Diabetes Type II, Hypothyroidism Musculoskeletal History: Other, Rheumatoid Arthritis, Osteoarthritis, Osteoporosis, Fibromyalgia GI Medical History: GERD, Hernia History: No Pertinent History Psycho-Social History: Anxiety, Depression, Other Female Reproductive Disorders: No Pertinent History Other Medical History: HIATAL HERNIA, KIDNEY STONE X1 2014. Opioid abuse; opioid overdose, has been intubated - Past Surgical History Past Surgical History: Yes Neuro Surgical History: No Pertinent History Cardiac: No Pertinent History Respiratory: No Pertinent History Gastrointestinal: Cholecystectomy Genitourinary: No Pertinent History Musculoskeletal: Joint Replacement Female Surgical History: Tubal Ligation Other Surgical History: TOTAL HIP REPLACEMENT TO LEFT, CARVED HIP SOCKET OFF "hip dysplasia repair" (1972). revision of lt total hip in june. carpal tunnel 2016. mitral valve replacement feb 2020 - Social History Smoking Status: Current some day smoker How long have you smoked: 30 Exposure to second hand smoke: Yes Drug Use: none Patient Lives Alone: No Significant Family History: no pertinent family hx - Nursing Vital Signs Nursing Vital Signs: Initial Vital Signs Temperature 101.0 F 01/20/23 17:38 Pulse Rate 114 H 01/20/23 17:38 Respiratory Rate 24 01/20/23 17:38 Blood Pressure 95/77 01/20/23 17:38 O2 Sat by Pulse Oximetry 94 L 01/20/23 17:38 Pain Scale Pain Intensity 4 - Physical Exam General Appearance: no apparent distress, alert Eye Exam: PERRL/EOMI, eyes nml inspection Ears, Nose, Throat Exam: hearing grossly normal, pharyngeal erythema Neck Exam: normal inspection, non-tender, supple, full range of motion Respiratory Exam: diminished breath sounds, crackles/rales, wheezing Cardiovascular/Chest Exam: normal heart sounds, tachycardia Abdominal/Gastrointestinal Exam: soft, No tenderness Extremity Exam: non-tender, normal range of motion Neurologic Exam: alert, oriented x 3, cooperative, kaitara taraka II-XII nml as tested Skin Exam: normal color SpO2 Interpretation: normal SpO2: 94 O2 Delivery: Room Air Procedures - Central Line Time Of Procedure: 20:15 Timeout: Performed Central Line Lumen: triple Lumen Size: 7 [place] Central Line Procedure: chlorahexadine prep, sterile drapes applied, sterile dressing applied, Aseptic Technique, Seldinger Technique Central Line Postion: femoral (R) Anesthesia: 1% Lidocaine cc's of anesthesia: 3 Ultrasound Guided Placement: Yes Central Line Post Position: sutured, good blood return - Course EKG Interpreted by Me: RATE (110), Sinus Tach, NORMAL AXIS, NORMAL INTERVALS, Non-specific ST Changes Ordered Tests: Medication Summary Discontinued Medications Generic Name Dose Route Start Last Admin Trade Name Freq PRN Reason Stop Dose Admin Acetaminophen 975 mg 01/20/23 18:17 01/20/23 18:38 Acetaminophen 325 Mg Tablet PO 01/20/23 18:18 975 mg STAT STA Administration Acetaminophen Confirm 01/20/23 18:37 Acetaminophen 325 Mg Tablet Administered 01/20/23 18:38 Dose 975 mg .ROUTE .STK-MED ONE Acetaminophen 650 mg 01/21/23 01:39 01/21/23 12:57 Acetaminophen 325 Mg Tablet PO 02/20/23 01:38 650 mg Q4H PRN PRN Administration PAIN AND/OR FEVER Albuterol Sulfate 2.5 mg 01/20/23 23:22 Albuterol Sulfate 2.5 Mg/3 Ml [facility] 02/19/23 23:21 Q4H PRN PRN SHORTNESS OF BREATH/WHEEZING Albuterol Sulfate 4 puff 01/22/23 11:21 01/23/23 11:07 Albuterol Common Canister Inhaler 02/21/23 11:20 4 puff Q4H PRN PRN Administration SHORTNESS OF BREATH/WHEEZING Albuterol/Ipratropium 3 ml 01/21/23 03:00 01/23/23 11:28 Ipratropium/Albuterol Sulfate 3 Ml [facility] 02/20/23 02:59 Not Given Q4HRT [facility] Benzonatate 100 mg 01/21/23 01:49 01/23/23 09:29 Benzonatate 100 Mg Capsule PO 02/20/23 01:48 100 mg TID PRN PRN Administration COUGH Methylprednisolone Sodium 0 mg 01/21/23 06:00 01/23/23 06:19 Succinate 40 mg/ Sterile Water IV 02/20/23 05:59 40 mg 1 ml Q8HT [facility] Administration Guaifenesin 1,200 mg 01/21/23 10:00 01/23/23 09:24 Guaifenesin 600 Mg Tablet Er PO 02/20/23 09:59 1,200 mg BID [facility] Administration Guaifenesin/Dextromethorphan 5 ml 01/21/23 01:49 01/21/23 20:14 Guaifenesin/D-Methorphan Hb 118 Ml Syrup PO 02/20/23 01:48 5 ml Q4H PRN PRN Administration COUGH Hydroxyzine HCl 25 mg 01/22/23 12:15 01/23/23 08:54 Hydroxyzine Hcl 25 Mg Tablet PO 02/21/23 12:14 25 mg TID PRN PRN Administration ANXIETY Piperacillin Sod/Tazobactam 100 mls @ 200 mls/hr 01/20/23 19:17 01/20/23 20 :13 Sod 3.375 gm/ Sodium Chloride IV 01/20/23 19:46 200 mls/hr STAT ONE Administration Azithromycin 500 mg in 250 mls @ 250 mls/hr 01/20/23 19:17 01/20/23 21:28 Zithromax 500 Mg/ 250 Ml Nacl Premix IV 01/20/23 20:16 Infused STAT STA Infusion Sodium Chloride Confirm 01/20/23 19:36 Sodium Chloride 100ml Mini-Bag Plus Administered 01/20/23 19:37 Dose 100 mls @ ud IV .STK-MED ONE Sodium Chloride 1,000 mls @ 999 mls/hr 01/20/23 20:15 01/20/23 21:27 Sodium Chloride 0.9% 1000 Ml IV 01/20/23 21:15 Infused .Q1H1M STA Infusion Sodium Chloride Confirm 01/20/23 20:15 Sodium Chloride 0.9% 1000 Ml Administered 01/20/23 20:16 Dose 1,000 mls @ ud .ROUTE .STK-MED ONE Azithromycin Confirm 01/20/23 20:27 Zithromax 500 Mg/ 250 Ml Nacl Premix Administered 01/20/23 20:28 Dose 500 mg in 250 mls @ ud IV .STK-MED ONE Azithromycin 500 mg in 250 mls @ 250 mls/hr 01/21/23 22:00 01/22/23 21:57 Zithromax 500 Mg/ 250 Ml Nacl Premix IV 02/20/23 21:59 250 mls/hr Q24H22 [facility] Administration Piperacillin Sod/Tazobactam 100 mls @ 200 mls/hr 01/21/23 06:00 01/23/23 05:09 Sod 4.5 gm/ Sodium Chloride IV 02/20/23 05:59 200 mls/hr Q8HT [facility] Administration Sodium Chloride Confirm 01/21/23 04:59 Sodium Chloride 100ml Mini-Bag Plus Administered 01/21/23 05:00 Dose 100 mls @ ud IV .STK-MED ONE Insulin Human Lispro 0 unit 01/21/23 10:19 01/23/23 11:42 Insulin Lispro 1 Unit SQ 02/20/23 10:18 5 unit UD PRN Administration HYPERGLYCEMIA Levothyroxine Sodium 112 mcg 01/21/23 10:00 01/23/23 09:24 Levothyroxine Sodium 112 Mcg Tablet PO 02/20/23 09:59 112 mcg DAILY [facility] Administration Levothyroxine Sodium 25 mcg 01/21/23 10:00 01/23/23 09:24 Levothyroxine Sodium 25 Mcg Tablet PO 02/20/23 09:59 25 mcg DAILY [facility] Administration Metformin HCl 500 mg 01/21/23 08:00 01/23/23 07:29 Metformin Hcl 500 Mg Tablet PO 02/20/23 07:59 500 mg BIDWM [facility] Administration Methylprednisolone Sodium Succinate Confirm 01/21/23 04:58 Methylprednisolone Sod Suc 40m 40 Mg/Ml Vial Administered 01/21/23 04:59 Dose 40 mg .ROUTE .STK-MED ONE Metoprolol Tartrate 25 mg 01/21/23 10:00 01/23/23 09:30 Metoprolol Tartrate 25 Mg Tab PO 02/20/23 09:59 Not Given DAILY [facility] Miscellaneous Information 1 each 01/21/23 07:15 Medication Intervention 1 Each Each 02/20/23 07:14 .RN TO CHECK CRHIST Montelukast Sodium 10 mg 01/21/23 10:00 01/23/23 09:22 Montelukast Sodium 10 Mg Tablet PO 02/20/23 09:59 10 mg DAILY [facility] Administration Morphine Sulfate 2 mg 01/21/23 09:41 01/23/23 12:31 Morphine Sulfate 2 Mg/Ml Inj IV 01/26/23 09:40 2 mg Q6H PRN PRN Administration PAIN Nicotine 21 mg 01/21/23 01:45 01/21/23 02:10 Nicotine 21 Mg/Patch Patch TOP 02/20/23 01:44 21 mg Q24H [facility] Administration Nicotine 21 mg 01/21/23 22:00 01/22/23 21:12 Nicotine 21 Mg/Patch Patch TOP 02/20/23 21:59 21 mg Q24H22 [facility] Administration Non-Formulary Medication 137 mcg 01/21/23 10:00 Levothyroxine Sodium [Synthroid] PO 02/20/23 09:59 DAILY [facility] Non-Formulary Drug : 1 each 01/21/23 11:03 01/23/23 09:37 Sumatriptan 100 Mg PO 02/20/23 11:02 1 each Tab PRN PRN Administration HEADACHE Ondansetron HCl 4 mg 01/21/23 07:07 01/22/23 22:46 Zofran 4 Mg/Udtablet Orally Disintegrating PO 02/20/23 07:06 4 mg Q6H PRN PRN Administration NAUSEA Oxycodone/Acetaminophen 1 tab 01/21/23 02:04 01/21/23 20:14 Oxycodone / Apap 10/325 Mg 1 Tablet PO 01/26/23 02:03 1 tab BID PRN PRN Administration PAIN Pantoprazole Sodium 40 mg 01/21/23 08:00 01/23/23 07:29 Protonix (Pantoprazole) 40 Mg Tablet PO 02/20/23 07:59 40 mg 0800 [facility] Administration Piperacillin Sod/Tazobactam Sod Confirm 01/20/23 19:35 Piperacillin/Tazobactam Sodium 3.375 Gm Vial Administered 01/20/23 19:36 Dose 3.375 gm IV .STK-MED ONE Piperacillin Sod/Tazobactam Sod Confirm 01/21/23 04:58 Piperacillin/Tazobactam Sodium 4.5 Gm Vial Administered 01/21/23 04:59 Dose 4.5 gm IV .STK-MED ONE Pregabalin 200 mg 01/21/23 10:00 01/23/23 09:23 Pregabalin 100 Mg Capsule PO 02/20/23 09:59 200 mg BID [facility] Administration Promethazine HCl 12.5 mg 01/21/23 01:40 01/21/23 20:15 Promethazine Hcl 25 Mg Tablet PO 02/20/23 01:39 12.5 mg Q6H PRN PRN Administration NAUSEA Fluticasone/Salmeterol 2 puff 01/21/23 07:00 01/23/23 07:31 Fluticasone/Salmeterol 115/21 - 120 Puff Common Canister IH 02/20/23 06:59 2 puff BIDRT [facility] Administration Sertraline HCl 100 mg 01/21/23 22:00 01/22/23 21:13 Sertraline Hcl 50 Mg Tab PO 02/20/23 21:59 100 mg HS [facility] Administration Sterile Water Confirm 01/21/23 04:58 Water For Injection,Sterile 10 Ml Vial Administered 01/21/23 04:59 Dose 10 ml IJ .STK-MED ONE Tizanidine HCl 4 mg 01/21/23 01:45 01/23/23 11:38 Tizanidine Hcl 4 Mg Tablet PO 02/20/23 01:44 4 mg TID PRN [facility] Administration Trazodone HCl 150 mg 01/21/23 22:00 01/22/23 21:12 Trazodone Hcl 150 Mg Tablet PO 02/20/23 21:59 150 mg HS [facility] Administration Warfarin Sodium 12 mg 01/21/23 22:00 01/22/23 21:12 Warfarin Sodium 3 Mg Tablet PO 02/20/23 21:59 12 mg HS [facility] Administration Lab/Rad Data: Laboratory Result Diagrams 01/20/23 18:28 01/20/23 18:28 Laboratory Results 01/20/23 01/20/23 01/20/23 Range/Units 18:55 18:30 18:28 WBC (4.0-10.5) x10^3/uL RBC (4.1-5.4) x10^6/uL Hgb (12.0-16.0) g/dL Hct (35-47) % MCV (78-100) fL MCH (26-32) pg MCHC (32-36) g/dL RDW (11.5-14.0) % Plt Count (150-450) x10^3/uL MPV (7.5-11.0) fL Gran % (36.0-66.0) % Immature Gran % (Auto) (0.00-0.4) % Nucleat RBC Rel Count (0.00-0.1) % Eos # (Auto) (0-0.5) x10^3/uL Immature Gran # (Auto) (0.00-0.03) x10^3u/L Absolute Lymphs (auto) (1.0-4.6) x10^3/uL Absolute Monos (auto) (0.0-1.3) x10^3/uL Absolute Nucleated RBC (0.00-0.01) x10^3u/L Lymphocytes % (24.0-44.0) % Monocytes % (0.0-12.0) % Eosinophils % (0.00-5.0) % Basophils % (0.0-0.4) % Absolute Granulocytes (1.4-6.9) x10^3/uL Basophils # (0-0.4) x10^3/uL PT 37.4 H (9.4-12.5) SECONDS INR 3.79 H (0.8-3.0) Sodium (137-145) mmol/L Potassium (3.5-5.1) mmol/L Chloride (98-107) mmol/L Carbon Dioxide (22-30) mmol/L Anion Gap (5-15) MEQ/L BUN (7-17) mg/dL Creatinine (0.52-1.04) mg/dL Estimated GFR ML/MIN Glucose (74-106) mg/dL Lactic Acid (0.4-2.0) Calcium (8.4-10.2) mg/dL Magnesium (1.6-2.3) mg/dL Total Bilirubin (0.2-1.3) mg/dL AST (14-36) U/L ALT (0-35) U/L Alkaline Phosphatase (38-126) U/L Troponin I (0.000-0.034) ng/mL NT-Pro-B Natriuret Pep (<300) pg/mL Serum Total Protein (6.3-8.2) g/dL Albumin (3.5-5.0) g/dL Procalcitonin (0.030-0.080) ng/mL Urine Color Yellow (Yellow) Urine Appearance Clear (Clear) Urine pH 8.5 A (4.6-8.0) Ur Specific [place] 1.015 (1.005-1.030) Urine Protein 30 (Negative) Urine Glucose (UA) Negative (Negative) mg/dL Urine Ketones Negative (Negative) Urine Blood Negative (Negative) Urine Nitrite Negative (Negative) Urine Bilirubin Negative (Negative) Urine Urobilinogen 1.0 A (0.2) mg/dL Ur Leukocyte Esterase Negative (Negative) U Hyaline Cast (Auto) NONE SEEN (0-2) /LPF Urine Microscopic RBC 3-5 (0-5) /HPF Urine Microscopic WBC 0-2 (0-5) /HPF Ur Epithelial Cells None Seen (None Seen) /HPF Urine Bacteria None Seen (None Seen) /HPF Urine Culture Reflexed NO (NO) Influenza Type A Ag NEGATIVE (NEGATIVE) Influenza Type B Ag NEGATIVE (NEGATIVE) RSV (PCR) NEGATIVE (NEGATIVE) SARS-CoV-2 (PCR) NEGATIVE (NEGATIVE) 01/20/23 01/20/23 01/20/23 Range/Units 18:28 18:28 18:25 WBC 22.1 H (4.0-10.5) x10^3/uL RBC 4.16 (4.1-5.4) x10^6/uL Hgb 11.8 L (12.0-16.0) g/dL Hct 38.2 (35-47) % MCV 91.8 (78-100) fL MCH 28.4 (26-32) pg MCHC 30.9 L (32-36) g/dL RDW 15.5 H (11.5-14.0) % Plt Count 205 (150-450) x10^3/uL MPV 12.2 H (7.5-11.0) fL Gran % 79.1 H (36.0-66.0) % Immature Gran % (Auto) 0.6 H (0.00-0.4) % Nucleat RBC Rel Count 0.0 (0.00-0.1) % Eos # (Auto) 0.12 (0-0.5) x10^3/uL Immature Gran # (Auto) 0.14 H (0.00-0.03) x10^3u/L Absolute Lymphs (auto) 3.13 (1.0-4.6) x10^3/uL Absolute Monos (auto) 1.12 (0.0-1.3) x10^3/uL Absolute Nucleated RBC 0.00 (0.00-0.01) x10^3u/L Lymphocytes % 14.2 L (24.0-44.0) % Monocytes % 5.1 (0.0-12.0) % Eosinophils % 0.5 (0.00-5.0) % Basophils % 0.5 (0.0-0.4) % Absolute Granulocytes 17.51 H (1.4-6.9) x10^3/uL Basophils # 0.10 (0-0.4) x10^3/uL PT (9.4-12.5) SECONDS INR (0.8-3.0) Sodium 133 L (137-145) mmol/L Potassium 4.4 (3.5-5.1) mmol/L Chloride 100 (98-107) mmol/L Carbon Dioxide 24 (22-30) mmol/L Anion Gap 13.0 (5-15) MEQ/L BUN 12 (7-17) mg/dL Creatinine 0.77 (0.52-1.04) mg/dL Estimated GFR > 60.0 ML/MIN Glucose 143 H (74-106) mg/dL Lactic Acid 1.7 (0.4-2.0) Calcium 8.5 (8.4-10.2) mg/dL Magnesium 2.1 (1.6-2.3) mg/dL Total Bilirubin 1.10 (0.2-1.3) mg/dL AST 44 H (14-36) U/L ALT 20 (0-35) U/L Alkaline Phosphatase 117 (38-126) U/L Troponin I < 0.012 (0.000-0.034) ng/mL NT-Pro-B Natriuret Pep 305 (<300) pg/mL Serum Total Protein 7.3 (6.3-8.2) g/dL Albumin 4.0 (3.5-5.0) g/dL Procalcitonin 5.590 H* (0.030-0.080) ng/mL Urine Color (Yellow) Urine Appearance (Clear) Urine pH (4.6-8.0) Ur Specific [place] (1.005-1.030) Urine Protein (Negative) Urine Glucose (UA) (Negative) mg/dL Urine Ketones (Negative) Urine Blood (Negative) Urine Nitrite (Negative) Urine Bilirubin (Negative) Urine Urobilinogen (0.2) mg/dL Ur Leukocyte Esterase (Negative) U Hyaline Cast (Auto) (0-2) /LPF Urine Microscopic RBC (0-5) /HPF Urine Microscopic WBC (0-5) /HPF Ur Epithelial Cells (None Seen) /HPF Urine Bacteria (None Seen) /HPF Urine Culture Reflexed (NO) Influenza Type A Ag (NEGATIVE) Influenza Type B Ag (NEGATIVE) RSV (PCR) (NEGATIVE) SARS-CoV-2 (PCR) (NEGATIVE) - Progress Progress: improved, re-examined Air Movement: good Progress Note: 01/20/23 18:26 52 years old female with history of chronic respiratory failure secondary to COPD on 2 L oxygen normally, tobacco abuse, mitral valve replacement on Coumadin, diabetes mellitus presented in the ER with chief complaint of increasing shortness of breath since yesterday. Patient reports she has been dealing with URI/sinusitis for couple of weeks and it seems like she is now having lung infection. She is coughing up yellow-green sputum copious in amount with increasing shortness of breath especially with activity. Patient increased her oxygen to 4 L and still feels short of breath. Patient is currently on 4-1/2 L oxygen, given neb treatment and Solu-Medrol prior to arrival. She is also having a fever of 101. 01/20/23 20:26 Patient is currently on 4-1/2 L oxygen with saturation around 96%. Chest x-ray showed bilateral pneumonia more on the right side. White count 22, lactate normal but procalcitonin of 5.6. Started on broad-spectrum antibiotics. Patient was a hard stick and central line is placed in. EKG showed sinus tach but no ST elevation and negative troponins. I have discussed the results of work-up with the patient/family and recommended admission which they understand and agrees with it. 01/20/23 20:[address] Norris, reviewed history, work-up and current management and patient is accepted for admission. Blood Culture(s) Obtained: Yes Antibiotics given: Yes Discussed with : Other Will see patient in: hospital (observation) Counseled pt/family regarding: lab results, diagnosis, need for follow-up, rad results Medical Desision Making - Independent Historian Additional History obtained from: Child, [employer]/EMT - Discussion of managment Care discussed with:: hospitalist (Dr. Norris 8:29 PM) Reviewed:: Test results Agreed on:: Treatment plan, decision to admit Will see patient: in hospital - Diagnostic Testing Diagnostic test were ordered, analyzed, and reviewed by me: Yes Radiological Interpretation: Interpreted by me, Reviewed by me - Risk of complications The pt has a high risk of morbidity or mortality based on: Decision regarding hospitilization or escalation of hosp level of care - Departure Departure Disposition: In-patient Admission Clinical Impression: Bilateral pneumonia, Sepsis, Elevated INR Respiratory failure Qualifiers: Chronicity: acute on chronic Respiratory failure complication: hypoxia Qualified Code(s): J96.21 - Acute and chronic respiratory failure with hypoxia Condition: Fair Critical Care Time: Yes Critical Care Time(excluding separately billable procedures): Critical 30-74 mins
[2023-01-20] MEDS ORDERED: TYLENOL 325 MG ONE (18:37)
[2023-01-20 18:43] LABS: Absolute Neutrophil Ct (ANC) 17.51 x10^3/uL (1.4-6.9); BASOPHIL % 0.5 % (0.0-0.4); Eosinophil % 0.5 % (0.00-5.0); Eosinophil (Absolute #) 0.12 x10^3/uL (0-0.5); Hematocrit 38.2 % (35-47); Hemoglobin 11.8 g/dL (12.0-16.0); IMMATURE GRAN # 0.14 x10^3u/L (0.00-0.03); IMMATURE GRAN % 0.6 % (0.00-0.4); Lymphocyte (Absolute #) 3.13 x10^3/uL (1.0-4.6); Lymphocytes % 14.2 % (24.0-44.0); Mean Cell Volume 91.8 fL (78-100); Mean Corpuscular Hemoglobin 28.4 pg (26-32); Mean Corpuscular Hgb Concent. 30.9 g/dL (32-36); Mean Platelet Volume 12.2 fL (7.5-11.0); Monocyte (Absolute #) 1.12 x10^3/uL (0.0-1.3); Monocytes % 5.1 % (0.0-12.0); Neutrophil % 79.1 % (36.0-66.0); Platelet Count 205 x10^3/uL (150-450); Red Blood Count 4.16 x10^6/uL (4.1-5.4); Red Cell Distribution Width 15.5 % (11.5-14.0); White Blood Count 22.1 x10^3/uL (4.0-10.5)
[2023-01-20 18:56] LABS: INR 3.79 (0.8-3.0); PROTIME 37.4 SECONDS (9.4-12.5)
[2023-01-20 19:03] LABS: Appearance Clear (Clear); Bacteria None Seen /HPF (None Seen); Bilirubin Negative (Negative); Blood Negative (Negative); Epithelial Cells None Seen /HPF (None Seen); Glucose, Urine Negative (Negative); Hyaline Casts NONE SEEN /LPF (0-2); Ketones Negative (Negative); Leukocyte Esterase Negative (Negative); Nitrite Negative (Negative); Ph 8.5 (4.6-8.0); Protein,Urine Dip 30 (Negative); Specific Gravity 1.015 (1.005-1.030); WBC 0-2 /HPF (0-5)
[2023-01-20 19:06] LABS: ADD URINE CULTURE? NO (NO)
[2023-01-20 19:15] LABS: ALKALINE PHOSPHATASE 117 U/L (38-126); BLOOD UREA NITROGEN 12 mg/dL (7-17); CHLORIDE 100 mmol/L (98-107); Calcium 8.5 mg/dL (8.4-10.2); Carbon Dioxide 24 mmol/L (22-30); Creatinine 1 0.77 mg/dL (0.52-1.04); EST GLOMERULAR FILTRATION RATE > 60.0 ML/MIN; Glucose 143 mg/dL (74-106); MAGNESIUM 2.1 mg/dL (1.6-2.3); NT PRO BNPII 305 pg/mL (<300); Potassium 4.4 mmol/L (3.5-5.1); SGOT/AST 44 U/L (14-36); SGPT/ALT 20 U/L (0-35); SODIUM 133 mmol/L (137-145); TROPONIN < 0.012 ng/mL (0.000-0.034); Total Protein 7.3 g/dL (6.3-8.2)
[2023-01-20] MEDS ORDERED: PIPERACILLIN/TAZOBACTAM 3.375 GM in Sodium Chloride 100ML MINI-BAG PLUS 100 ML IV ONE (19:17)
[2023-01-20] MEDS ORDERED: Zithromax 500 MG/ 250 ML NaCl Premix 500 MG/250 ML IVPB IV STA (19:17)
[2023-01-20 19:21] LABS: INFLUENZA A NEGATIVE (NEGATIVE); INFLUENZA B NEGATIVE (NEGATIVE); RESPIRATORY SYNCTIAL VIRUS NEGATIVE (NEGATIVE); SARS-CoV-2 Xpert Express NEGATIVE (NEGATIVE)
[2023-01-20] MEDS ORDERED: PIPERACILLIN/TAZOBACTAM IV ONE (19:35)
[2023-01-20] MEDS ORDERED: Sodium Chloride 100ML MINI-BAG PLUS 100 ML IV ONE (19:36)
[2023-01-20] MEDS ORDERED: Sodium Chloride 0.9% 1000 ML 1,000 ML IV STA (20:15)
[2023-01-20] MEDS ORDERED: Sodium Chloride 0.9% 1000 ML 1,000 ML ONE (20:15)
[2023-01-20] MEDS ORDERED: Zithromax 500 MG/ 250 ML NaCl Premix 500 MG/250 ML IVPB IV ONE (20:27)
[2023-01-20] MEDS ORDERED: PROVENTIL 2.5 MG/3 ML NEB IH PRN (23:22)
[2023-01-21] MEDS ORDERED: TYLENOL 325 MG PO PRN (01:39)
[2023-01-21] MEDS ORDERED: NON-FORMULARY ITEM (Ondansetron Hcl [Zofran***] 4 MG Tablet) PO PRN (01:40)
[2023-01-21] MEDS ORDERED: Nicoderm CQ 21 MG TOP SCH (01:45)
--- NOTE | 2023-01-21 02:05 | PCM.HP ---
History of Present Illness - Chief Complaint Chief Complaint: Acute on chronic resp faliure/sepsis/Pnuemonia Date: 01/21/23 History of Present Illness: Ms. Vega is a 52 year-old female with DM2, COPD, chronic hypoxemic respiratory failure (2L), and hypothyroidism who presents wt acute on chronic hypoxemic respiratory failure. She admits to two weeks of a "sinus infection" but one day of fevers (Tm 101F), chills, shortness of breath, nausea, and vomiting. Upon arrival to [facility], her laboratory data was remarkable for a leukocytosis, anemia, and a mild hyponatremia, while chest imaging revealed airspace disease. On my examination, she is on 4L NC oxygen denying any current fevers, chills, nausea, vomiting, diarrhea, syncope, presyncope, visual changes, orthopnea, PND, odynophagia, dysphagia, chest pain, belly pain, dysuria, hematuria, melena, hematochezia, or neurological changes. All other systems were reviewed and were negative. - Review of Systems Constitutional: Other ( PER HPI) Medications & Allergies Home Medications: Home Medication List Esomeprazole Magnesium [Nexium] 40 mg PO 0800 11/26/15 [History Confirmed 01/20/23] Pregabalin [Lyrica] 200 mg PO BID 11/26/15 [History Confirmed 01/20/23] raNITIdine HCL [Ranitidine HCl] 150 mg PO BID PRN PRN 12/17/15 [History Confirmed 01/20/23] Nicotine 21 mg [Nicoderm CQ 21 MG] 21 mg TOP Q24H #14 patch 02/20/16 [Rx Confirmed 01/20/23] Albuterol Common Canister [Ventolin Common Canister] 2 puff IH Q4-6HPRN PRN 03/10/16 [History Confirmed 01/20/23] Denosumab 60 mg [Prolia 60 mg Injection] 60 mg SQ UD 03/10/16 [History Confirmed 01/20/23] Potassium Chloride 20 Meq Tab [Potassium Chloride 20 MEQ TABLET] 10 meq PO DAILY 03/10/16 [History Confirmed 01/20/23] Ergocalciferol (Vitamin D2) [Vitamin D2] 50,000 unit PO Q7D 08/23/16 [History Confirmed 01/20/23] Ferrous Sulfate 325 mg [Feosol 325 mg] 325 mg PO UD 04/04/17 [History Confirmed 01/20/23] Hydroxyzine HCl 25 mg [Atarax 25 mg] 25 mg PO HS 04/04/17 [History Confirmed 01/20/23] Cyanocobalamin (Vitamin B-12) [Cyanocobalamin Injection] 1,000 mcg IJ UD 11/30/18 [History Confirmed 01/20/23] Levothyroxine Sodium [Synthroid] 137 mcg PO DAILY 11/30/18 [History Confirmed 01/20/23] Montelukast Sodium 10 mg [Singulair 10 MG] 10 mg PO DAILY 11/30/18 [History Confirmed 01/20/23] Prazosin HCl 2 mg PO DAILY 11/30/18 [History Confirmed 01/20/23] Tizanidine HCl 4 mg [Zanaflex 4 MG] 4 mg PO TID PRN 11/30/18 [History Confirmed 01/20/23] Trazodone HCl 50 mg [Desyrel 50 mg] 150 mg PO HS 11/30/18 [History Confirmed 01/20/23] Promethazine HCl 25 mg [Phenergan 25 mg] 12.5 mg PO Q6H PRN PRN #30 tablet 12/03/18 [Rx Confirmed 01/20/23] Buprenorphine HCl [Belbuca] 450 mcg PO BID 04/24/21 [History Confirmed 01/20/23] L.acidoph,Paracasei, B.lactis [Probiotic] 1 each PO DAILY 04/25/21 [History Confirmed 01/20/23] Metformin HCl 500 mg [Glucophage 500 MG] 500 mg PO BID 04/25/21 [History Confirmed 01/20/23] Metoprolol Tartrate 25 mg [Lopressor 25MG Tab] 25 mg PO DAILY 04/25/21 [History Confirmed 01/20/23] Multivit-Min/Iron/Folic/Lutein [Centrum Silver Women Tablet] 1 tab PO DAILY 04/25/21 [History Confirmed 01/20/23] Warfarin Sodium [Coumadin] 12 mg PO HS 04/25/21 [History Confirmed 01/20/23] ondansetron HCL [Zofran] 4 mg PO Q6H PRN 04/25/21 [History Confirmed 01/20/23 ] Guaifenesin 600 mg ER [Mucinex 600MG ER Tabs] 1,200 mg PO BID tablet 04/28/21 [Rx Confirmed 01/20/23] Beclomethasone Dipropionate [Qvar Redihaler] 2 puffs PO BID PRN 08/20/22 [History Confirmed 01/20/23] Sertraline HCl 100 mg PO HS 08/20/22 [History Confirmed 01/20/23] Oxycodone / APAP 10/325 mg [Oxycodone-Acetaminophen 10-325] 1 tab PO QID PRN 01/20/23 [History Confirmed 01/20/23] Allergies/Adverse Reactions: Allergies Allergy/AdvReac Type Severity Reaction Status Date / Time divalproex sodium Allergy Intermediate Verified 08/20/22 10:45 [From Depakote] latex Allergy Intermediate Rash Verified 08/20/22 10:45 metronidazole [From Flagyl] Allergy Intermediate Hives Verified 08/20/22 10:45 Metronidazole HCl Allergy Intermediate Hives Verified 08/20/22 10:45 [From Flagyl] olanzapine [From Zyprexa] Allergy Intermediate Verified 08/20/22 10:45 clomiphene citrate Allergy Mild Nausea and Verified 08/20/22 10:45 [From Serophene] Vomiting lidocaine Allergy Mild Hives Verified 08/20/22 10:45 fluoxetine [From Sarafem] Allergy Verified 08/20/22 10:45 tramadol Allergy Verified 08/20/22 10:45 ketorolac tromethamine AdvReac Intermediate Vomiting Verified 08/20/22 10:45 [From Toradol] NSAIDS (Non-Steroidal AdvReac Mild Vomiting Verified 08/20/22 10:45 Anti-Inflamma triamcinolone acetonide AdvReac Vomiting Verified 08/20/22 10:45 [From Kenalog] - Past Medical History Past Medical History: Yes Neurological History: Migraines, Peripheral Neuropathy ENT History: No Pertinent History Cardiac History: High Cholesterol, Other Respiratory History: Bronchitis, COPD, Pneumonia Endocrine Medical History: Diabetes Type II, Hypothyroidism Musculoskelatal History: Other, Rheumatoid Arthritis, Osteoarthritis, Osteoporosis, Fibromyalgia GI Medical History: GERD, Hernia History: No Pertinent History Pyscho-Social History: Anxiety, Depression, Other Reproductive Disorders: No Pertinent History Comment: HIATAL HERNIA, KIDNEY STONE X1 2015. Opioid abuse; opioid overdose, has been intubated. Mitral valve replacement - Female History Are you now?: No - Past Surgical History Past Surgical History: Yes Neuro Surgical History: No Pertinent History Cardiac History: No Pertinent History Respiratory Surgery: No Pertinent History GI Surgical History: Cholecystectomy Genitourinary Surgical Hx: No Pertinent History Musculskeletal Surgical Hx: Joint Replacement Female Surgical History: Tubal Ligation Other Surgical History: TOTAL HIP REPLACEMENT TO LEFT, CARVED HIP SOCKET OFF "hip dysplasia repair" (1972). revision of lt total hip in june. carpal tunnel 2016. mitral valve replacement feb 2020 - Social History Smoking Status: Current some day smoker How long have you smoked: 30 Exposure to second hand smoke: Yes Alcohol: None Drug Use: none Significant Family History: no pertinent family hx - Physical Exam Vital Signs: Vital Signs - 24 hr Temp Pulse Resp BP BP Pulse Ox 01/21/23 01:00 80 20 92/60 97 01/21/23 00:45 97.2 F 82 19 96/58 97 01/21/23 00:30 78 19 82/57 96 01/21/23 00:15 97.1 F 81 22 84/59 97 01/21/23 00:00 94/56 01/20/23 23:45 91/53 01/20/23 23:30 90/60 01/20/23 23:15 85/57 01/20/23 23:00 80/58 01/20/23 22:49 83 18 98 01/20/23 22:43 98 F 87 18 92/64 96 01/20/23 22:00 82/60 01/20/23 21:45 83/51 96 01/20/23 21:30 87 20 83/52 95 01/20/23 21:27 91 H 18 83/47 95 01/20/23 21:05 90 12 76/50 96 01/20/23 21:02 94 H 20 68/48 98 01/20/23 21:00 95 H 18 73/46 97 01/20/23 20:34 94 L 01/20/23 20:32 100 H 30 H 85/56 96 01/20/23 20:31 99 H 29 H 87/59 95 01/20/23 20:30 99 H 21 89/57 95 01/20/23 20:13 95 H 23 103/61 94 L 01/20/23 20:00 90 97 01/20/23 19:00 112 H 24 87/58 94 L 01/20/23 18:54 110 H 16 95/65 95 01/20/23 18:00 112 H 13 90/72 94 L 01/20/23 17:43 108 H 17 95/77 93 L 01/20/23 17:38 101.0 F 114 H 24 95/77 94 L General Appearance: no apparent distress, alert Neurologic Exam: alert, oriented x 3, cooperative, normal mood/affect, nml cerebellar function, nml station & gait, sensation nml, No motor deficits Eye Exam: PERRL/EOMI, eyes nml inspection Ears, Nose, Throat Exam: normal ENT inspection, TMs normal, pharynx normal, moist mucous membranes Neck Exam: normal inspection, non-tender, supple, full range of motion Respiratory Exam: wheezing Cardiovascular Exam: regular rate/rhythm, normal heart sounds, normal peripheral pulses Gastrointestinal/Abdomen Exam: soft, normal bowel sounds, No tenderness, No mass Back Exam: normal inspection, normal range of motion, No CVA tenderness, No vertebral tenderness Extremity Exam: normal inspection, normal range of motion, pelvis stable Skin Exam: normal color, warm, dry, No rash Wound Assessment: Skin/Wound Assessment Wound/Incision Assessment Start: 01/20/23 23:34 Text: Status: Active Freq: Q6H Protocol: Document 01/20/23 23:34 AB (Rec: 01/21/23 01:03 AB [id number]) Wound Photo Photo Taken No Lymphatic Exam: No adenopathy Results - Labs Lab/Micro Results: Lab Results-Last 24 Hours 01/20/23 01/20/23 01/20/23 Range/Units 18:25 18:28 18:28 WBC 22.1 H (4.0-10.5) x10^3/uL RBC 4.16 (4.1-5.4) x10^6/uL Hgb 11.8 L (12.0-16.0) g/dL Hct 38.2 (35-47) % MCV 91.8 (78-100) fL MCH 28.4 (26-32) pg MCHC 30.9 L (32-36) g/dL RDW 15.5 H (11.5-14.0) % Plt Count 205 (150-450) x10^3/uL MPV 12.2 H (7.5-11.0) fL Gran % 79.1 H (36.0-66.0) % Immature Gran % (Auto) 0.6 H (0.00-0.4) % Nucleat RBC Rel Count 0.0 (0.00-0.1) % Eos # (Auto) 0.12 (0-0.5) x10^3/uL Immature Gran # (Auto) 0.14 H (0.00-0.03) x10^3u/L Absolute Lymphs (auto) 3.13 (1.0-4.6) x10^3/uL Absolute Monos (auto) 1.12 (0.0-1.3) x10^3/uL Absolute Nucleated RBC 0.00 (0.00-0.01) x10^3u/L Lymphocytes % 14.2 L (24.0-44.0) % Monocytes % 5.1 (0.0-12.0) % Eosinophils % 0.5 (0.00-5.0) % Basophils % 0.5 (0.0-0.4) % Absolute Granulocytes 17.51 H (1.4-6.9) x10^3/uL Basophils # 0.10 (0-0.4) x10^3/uL PT (9.4-12.5) SECONDS INR (0.8-3.0) Sodium 133 L (137-145) mmol/L Potassium 4.4 (3.5-5.1) mmol/L Chloride 100 (98-107) mmol/L Carbon Dioxide 24 (22-30) mmol/L Anion Gap 13.0 (5-15) MEQ/L BUN 12 (7-17) mg/dL Creatinine 0.77 (0.52-1.04) mg/dL Estimated GFR > 60.0 ML/MIN Glucose 143 H (74-106) mg/dL Lactic Acid 1.7 (0.4-2.0) Calcium 8.5 (8.4-10.2) mg/dL Magnesium 2.1 (1.6-2.3) mg/dL Total Bilirubin 1.10 (0.2-1.3) mg/dL AST 44 H (14-36) U/L ALT 20 (0-35) U/L Alkaline Phosphatase 117 (38-126) U/L Troponin I < 0.012 (0.000-0.034) ng/mL NT-Pro-B Natriuret Pep 305 (<300) pg/mL Serum Total Protein 7.3 (6.3-8.2) g/dL Albumin 4.0 (3.5-5.0) g/dL Procalcitonin 5.590 H* (0.030-0.080) ng/mL Urine Color (Yellow) Urine Appearance (Clear) Urine pH (4.6-8.0) Ur Specific Logan (1.005-1.030) Urine Protein (Negative) Urine Glucose (UA) (Negative) mg/dL Urine Ketones (Negative) Urine Blood (Negative) Urine Nitrite (Negative) Urine Bilirubin (Negative) Urine Urobilinogen (0.2) mg/dL Ur Leukocyte Esterase (Negative) U Hyaline Cast (Auto) (0-2) /LPF Urine Microscopic RBC (0-5) /HPF Urine Microscopic WBC (0-5) /HPF Ur Epithelial Cells (None Seen) /HPF Urine Bacteria (None Seen) /HPF Urine Culture Reflexed (NO) Influenza Type A Ag (NEGATIVE) Influenza Type B Ag (NEGATIVE) RSV (PCR) (NEGATIVE) SARS-CoV-2 (PCR) (NEGATIVE) 01/20/23 01/20/23 01/20/23 Range/Units 18:28 18:30 18:55 WBC (4.0-10.5) x10^3/uL RBC (4.1-5.4) x10^6/uL Hgb (12.0-16.0) g/dL Hct (35-47) % MCV (78-100) fL MCH (26-32) pg MCHC (32-36) g/dL RDW (11.5-14.0) % Plt Count (150-450) x10^3/uL MPV (7.5-11.0) fL Gran % (36.0-66.0) % Immature Gran % (Auto) (0.00-0.4) % Nucleat RBC Rel Count (0.00-0.1) % Eos # (Auto) (0-0.5) x10^3/uL Immature Gran # (Auto) (0.00-0.03) x10^3u/L Absolute Lymphs (auto) (1.0-4.6) x10^3/uL Absolute Monos (auto) (0.0-1.3) x10^3/uL Absolute Nucleated RBC (0.00-0.01) x10^3u/L Lymphocytes % (24.0-44.0) % Monocytes % (0.0-12.0) % Eosinophils % (0.00-5.0) % Basophils % (0.0-0.4) % Absolute Granulocytes (1.4-6.9) x10^3/uL Basophils # (0-0.4) x10^3/uL PT 37.4 H (9.4-12.5) SECONDS INR 3.79 H (0.8-3.0) Sodium (137-145) mmol/L Potassium (3.5-5.1) mmol/L Chloride (98-107) mmol/L Carbon Dioxide (22-30) mmol/L Anion Gap (5-15) MEQ/L BUN (7-17) mg/dL Creatinine (0.52-1.04) mg/dL Estimated GFR ML/MIN Glucose (74-106) mg/dL Lactic Acid (0.4-2.0) Calcium (8.4-10.2) mg/dL Magnesium (1.6-2.3) mg/dL Total Bilirubin (0.2-1.3) mg/dL AST (14-36) U/L ALT (0-35) U/L Alkaline Phosphatase (38-126) U/L Troponin I (0.000-0.034) ng/mL NT-Pro-B Natriuret Pep (<300) pg/mL Serum Total Protein (6.3-8.2) g/dL Albumin (3.5-5.0) g/dL Procalcitonin (0.030-0.080) ng/mL Urine Color Yellow (Yellow) Urine Appearance Clear (Clear) Urine pH 8.5 A (4.6-8.0) Ur Specific Logan 1.015 (1.005-1.030) Urine Protein 30 (Negative) Urine Glucose (UA) Negative (Negative) mg/dL Urine Ketones Negative (Negative) Urine Blood Negative (Negative) Urine Nitrite Negative (Negative) Urine Bilirubin Negative (Negative) Urine Urobilinogen 1.0 A (0.2) mg/dL Ur Leukocyte Esterase Negative (Negative) U Hyaline Cast (Auto) NONE SEEN (0-2) /LPF Urine Microscopic RBC 3-5 (0-5) /HPF Urine Microscopic WBC 0-2 (0-5) /HPF Ur Epithelial Cells None Seen (None Seen) /HPF Urine Bacteria None Seen (None Seen) /HPF Urine Culture Reflexed NO (NO) Influenza Type A Ag NEGATIVE (NEGATIVE) Influenza Type B Ag NEGATIVE (NEGATIVE) RSV (PCR) NEGATIVE (NEGATIVE) SARS-CoV-2 (PCR) NEGATIVE (NEGATIVE) 01/20/23 Range/Units 22:40 WBC (4.0-10.5) x10^3/uL RBC (4.1-5.4) x10^6/uL Hgb (12.0-16.0) g/dL Hct (35-47) % MCV (78-100) fL MCH (26-32) pg MCHC (32-36) g/dL RDW (11.5-14.0) % Plt Count (150-450) x10^3/uL MPV (7.5-11.0) fL Gran % (36.0-66.0) % Immature Gran % (Auto) (0.00-0.4) % Nucleat RBC Rel Count (0.00-0.1) % Eos # (Auto) (0-0.5) x10^3/uL Immature Gran # (Auto) (0.00-0.03) x10^3u/L Absolute Lymphs (auto) (1.0-4.6) x10^3/uL Absolute Monos (auto) (0.0-1.3) x10^3/uL Absolute Nucleated RBC (0.00-0.01) x10^3u/L Lymphocytes % (24.0-44.0) % Monocytes % (0.0-12.0) % Eosinophils % (0.00-5.0) % Basophils % (0.0-0.4) % Absolute Granulocytes (1.4-6.9) x10^3/uL Basophils # (0-0.4) x10^3/uL PT (9.4-12.5) SECONDS INR (0.8-3.0) Sodium (137-145) mmol/L Potassium (3.5-5.1) mmol/L Chloride (98-107) mmol/L Carbon Dioxide (22-30) mmol/L Anion Gap (5-15) MEQ/L BUN (7-17) mg/dL Creatinine (0.52-1.04) mg/dL Estimated GFR ML/MIN Glucose (74-106) mg/dL Lactic Acid (0.4-2.0) Calcium (8.4-10.2) mg/dL Magnesium (1.6-2.3) mg/dL Total Bilirubin (0.2-1.3) mg/dL AST (14-36) U/L ALT (0-35) U/L Alkaline Phosphatase (38-126) U/L Troponin I < 0.012 (0.000-0.034) ng/mL NT-Pro-B Natriuret Pep (<300) pg/mL Serum Total Protein (6.3-8.2) g/dL Albumin (3.5-5.0) g/dL Procalcitonin (0.030-0.080) ng/mL Urine Color (Yellow) Urine Appearance (Clear) Urine pH (4.6-8.0) Ur Specific Logan (1.005-1.030) Urine Protein (Negative) Urine Glucose (UA) (Negative) mg/dL Urine Ketones (Negative) Urine Blood (Negative) Urine Nitrite (Negative) Urine Bilirubin (Negative) Urine Urobilinogen (0.2) mg/dL Ur Leukocyte Esterase (Negative) U Hyaline Cast (Auto) (0-2) /LPF Urine Microscopic RBC (0-5) /HPF Urine Microscopic WBC (0-5) /HPF Ur Epithelial Cells (None Seen) /HPF Urine Bacteria (None Seen) /HPF Urine Culture Reflexed (NO) Influenza Type A Ag (NEGATIVE) Influenza Type B Ag (NEGATIVE) RSV (PCR) (NEGATIVE) SARS-CoV-2 (PCR) (NEGATIVE) - Radiology Impressions Radiology Exams & Impressions: Radiology Procedures Category Date Time Status CHEST 1 VIEW (PORTABLE) Stat Exams 01/20/23 18:14 Taken CHEST WITHOUT CONTRAST [CT] Routine Exams 01/21/23 08:00 Ordered - Other Procedures and Tests Respiratory Therapy 01/20/23 22:43 Oxygen Nasal Cannula 4.5 lpm 01/20/23 23:22 Respiratory MDI BID Respiratory Therapy Assessment DAILY Assessment/Plan (1) Aspiration pneumonia Current Visit: No Status: Acute Assessment & Plan: LINES Femoral ANTIBIOTICS AND STEROIDS Azithromycin 01/21 Zosyn 01/21 Solumedrol 01/21 ASSESSMENT 1. Acute on Chronic Hypoxemic Respiratory Failure 2. Pneumonia 3. Acute COPD Exacerbation 4. Hyponatremia 5. Type II Diabetes Mellitus 6. Hypothyroidism 7. S/P MVR on Coumadin PLAN 1. Wean oxygen to maintain SaO2 > 90%; currently on 4L; baseline 2L 2. IV abx; cultures pending; viral panel negative; if cultures negative, would transition to levaquin + flagyl upon d/c for a total of 7 days of ABx 3. IV steroids - can transition to PO after 48-72 hours; q6hr blood glucose with ISS given she is a diabetic 4. Duonebs + antitussives 5. CT chest non-contrast in AM 6. Gentle fluids 7. Continue metformin 8. Continue coumadin - target INR given MVR is 2.5-3.5 9. On a lot of pain medications and other meds that can affect her mental status; close vigilance required 10. Needs femoral line removed and replaced with PICC or other access; she received a CL in ED due to "hypotension" but her MAPs have been 70+ and as per patient, her BP runs 90s/60s Coumadin The entirety of this encounter was done via telemedicine Robel Norris MD Pulmonary and Critical Care Medicine Code(s): J69.0 - PNEUMONITIS DUE TO INHALATION OF FOOD AND VOMIT Telemedicine Encounter - Telemedicine Encounter Telemedicine Encounter: The entirety of this encounter was performed via Telemedicine"
[2023-01-21] MEDS: OXYCODONE-ACETAMINOPHEN 10-325 PO PRN ×3 (02:11→20:14)
[2023-01-21] MEDS: Zanaflex 4 MG PO SCH ×3 (02:15→20:15)
[2023-01-21] MEDS: Robitussin-Dm Syrup PO PRN ×2 (02:57→20:14)
[2023-01-21] MEDS: DUONEB 0.5-3 MG/3 ml Neb IH SCH ×5 (03:38→19:28)
[2023-01-21] MEDS ORDERED: solu-MEDROL ONE (04:58)
[2023-01-21] MEDS ORDERED: PIPERACILLIN/TAZOBACTAM IV ONE (04:58)
[2023-01-21] MEDS ORDERED: Sterile H2O 10 ml IJ ONE (04:58)
[2023-01-21] MEDS ORDERED: Sodium Chloride 100ML MINI-BAG PLUS 100 ML IV ONE (04:59)
[2023-01-21 05:15] LABS: Absolute Neutrophil Ct (ANC) 13.31 x10^3/uL (1.4-6.9); BASOPHIL % 0.1 % (0.0-0.4); Basophil (Absolute #) 0.01 x10^3/uL (0-0.4); Eosinophil (Absolute #) 0 x10^3/uL (0-0.5); Hemoglobin 10.5 g/dL (12.0-16.0); IMMATURE GRAN # 0.14 x10^3u/L (0.00-0.03); IMMATURE GRAN % 0.9 % (0.00-0.4); Lymphocyte (Absolute #) 1.09 x10^3/uL (1.0-4.6); Lymphocytes % 7.3 % (24.0-44.0); Mean Cell Volume 91.2 fL (78-100); Mean Corpuscular Hemoglobin 28.2 pg (26-32); Mean Corpuscular Hgb Concent. 30.9 g/dL (32-36); Mean Platelet Volume 11.9 fL (7.5-11.0); Monocyte (Absolute #) 0.35 x10^3/uL (0.0-1.3); Monocytes % 2.3 % (0.0-12.0); Neutrophil % 89.4 % (36.0-66.0); Platelet Count 182 x10^3/uL (150-450); Red Blood Count 3.73 x10^6/uL (4.1-5.4); Red Cell Distribution Width 15.2 % (11.5-14.0); White Blood Count 14.9 x10^3/uL (4.0-10.5)
[2023-01-21 05:38] LABS: INR 2.49 (0.8-3.0); PROTIME 25.4 SECONDS (9.4-12.5)
[2023-01-21 05:41] LABS: ALBUMIN 3.6 g/dL (3.5-5.0); ALKALINE PHOSPHATASE 108 U/L (38-126); ANION GAP 9.5 MEQ/L (5-15); BLOOD UREA NITROGEN 13 mg/dL (7-17); CHLORIDE 103 mmol/L (98-107); Calcium 7.9 mg/dL (8.4-10.2); Carbon Dioxide 27 mmol/L (22-30); Creatinine 1 0.66 mg/dL (0.52-1.04); EST GLOMERULAR FILTRATION RATE > 60.0 ML/MIN; Glucose 299 mg/dL (74-106); Potassium 4.4 mmol/L (3.5-5.1); SGOT/AST 25 U/L (14-36); SGPT/ALT 19 U/L (0-35); SODIUM 135 mmol/L (137-145); Total Protein 6.7 g/dL (6.3-8.2)
[2023-01-21] MEDS: solu-MEDROL 40 MG, Sterile H2O 10 ml 1 ML IV SCH ×6 (05:57→21:40)
[2023-01-21] MEDS: PIPERACILLIN/TAZOBACTAM 4.5 GM in Sodium Chloride 100ML MINI-BAG PLUS 100 ML IV SCH ×3 (05:57→21:54)
[2023-01-21] MEDS: Advair Hfa 115/21 Common canister IH SCH ×2 (05:58→19:28)
[2023-01-21] MEDS ORDERED: MEDICATION INTERVENTION MC SCH (07:15)
[2023-01-21] MEDS: Glucophage 500 MG PO SCH ×2 (07:21→16:22)
[2023-01-21] MEDS: Protonix 40MG Tablet PO SCH (07:21)
[2023-01-21] MEDS ORDERED: NON-FORMULARY ITEM (Esomeprazole Magnesium [Nexium] 40 MG Capsule.Dr) PO SCH (08:00)
[2023-01-21] MEDS: Tessalon Perles 100 MG PO PRN ×2 (08:14→16:22)
[2023-01-21] MEDS: Singulair 10 MG PO SCH (08:14)
[2023-01-21] MEDS: SYNTHROID 25 MCG PO SCH (08:14)
[2023-01-21] MEDS: Mucinex 600MG ER Tabs PO SCH ×2 (08:14→21:39)
[2023-01-21] MEDS: SYNTHROID 112 MCG PO SCH (08:15)
--- NOTE | 2023-01-21 08:47 | XRAY ---
Indication: Short of breath. Pneumonia. Comparison: April 24, 2021 Portable chest demonstrates new diffuse right lung airspace disease without consolidation/large effusion. Minimal left costophrenic angle subsegmental atelectasis/scarring. Heart not enlarged again with cardiac valve replacement. Bony thorax intact.
[2023-01-21] MEDS: LYRICA 100MG PO SCH ×2 (09:38→21:38)
[2023-01-21] MEDS ORDERED: NON-FORMULARY ITEM (Prazosin Hcl [Prazosin Hcl] 2 MG Capsule) PO SCH (10:00)
[2023-01-21] MEDS ORDERED: PREGABALIN 200 MG PO SCH (10:00)
[2023-01-21] MEDS ORDERED: LEVOTHYROXINE SODIUM 137 MCG PO SCH (10:00)
[2023-01-21] MEDS: MORPHINE SULFATE 2 MG INJ IV PRN ×2 (10:40→16:22)
--- NOTE | 2023-01-21 10:41 | XRAY ---
Indication: Chest pain, short of breath, and chronic cough. History COPD. Multiple contiguous axial images obtained through the chest without contrast. Comparison: November 29, 2018 Lungs demonstrates new diffuse patchy right lung airspace disease without consolidation/effusion. Lingula and left lower lobe demonstrates new mild subsegmental atelectasis/scarring. Heart not enlarged with interval mitral valve replacement surgery. Aorta is normal in course and caliber. Stable small paratracheal lymph nodes again largest precarinal measuring 1.6 x 2.1 cm. Stable moderate sized hiatal hernia with partial intrathoracic stomach. Bony thorax intact with new sternotomy wires. Limited upper abdomen again demonstrates fatty liver and cholecystectomy clips. Impression: 1. New diffuse patchy right lung airspace disease. Also new left lung base subsegmental atelectasis/scarring. 2. Stable hiatal hernia with partial intrathoracic stomach, small nonspecific mediastinal lymph nodes, and fatty liver.
[2023-01-21] MEDS: Lopressor 25MG Tab PO SCH (10:46)
[2023-01-21] MEDS ORDERED: NON-FORMULARY ITEM PO PRN (10:51)
[2023-01-21] MEDS: HUMALOG SQ PRN ×3 (11:44→21:48)
[2023-01-21] MEDS: PHENERGAN 25 MG PO PRN ×2 (12:57→20:15)
[2023-01-21] MEDS: NON-FORMULARY ITEM PO PRN (12:59)
[2023-01-21] MEDS: ZOFRAN ODT 4 MG PO PRN (16:50)
[2023-01-21] MEDS: Nicoderm CQ 21 MG TOP SCH (21:37)
[2023-01-21] MEDS: Coumadin 3 MG PO SCH (21:39)
[2023-01-21] MEDS: Desyrel 150 MG PO SCH (21:39)
[2023-01-21] MEDS: ZOLOFT 50 MG TABLET PO SCH (21:40)
[2023-01-21] MEDS: Zithromax 500 MG/ 250 ML NaCl Premix 500 MG/250 ML IVPB IV SCH (21:51)
[2023-01-21] MEDS ORDERED: SERTRALINE HCL 50 MG PO SCH (22:00)
[2023-01-21] MEDS ORDERED: DESYREL 50 MG PO SCH (22:00)
[2023-01-21] MEDS ORDERED: WARFARIN SODIUM 10 MG PO SCH (22:00)
[2023-01-22] MEDS: MORPHINE SULFATE 2 MG INJ IV PRN ×4 (00:44→23:10)
[2023-01-22] MEDS: DUONEB 0.5-3 MG/3 ml Neb IH SCH ×5 (04:59→20:51)
[2023-01-22] MEDS: solu-MEDROL 40 MG, Sterile H2O 10 ml 1 ML IV SCH ×6 (05:14→21:13)
[2023-01-22] MEDS: PIPERACILLIN/TAZOBACTAM 4.5 GM in Sodium Chloride 100ML MINI-BAG PLUS 100 ML IV SCH ×3 (05:15→21:13)
[2023-01-22 05:35] LABS: Absolute Neutrophil Ct (ANC) 16.65 x10^3/uL (1.4-6.9); BASOPHIL % 0.2 % (0.0-0.4); Basophil (Absolute #) 0.03 x10^3/uL (0-0.4); Eosinophil (Absolute #) 0 x10^3/uL (0-0.5); Hematocrit 30.8 % (35-47); Hemoglobin 9.9 g/dL (12.0-16.0); IMMATURE GRAN # 0.19 x10^3u/L (0.00-0.03); Lymphocyte (Absolute #) 1.21 x10^3/uL (1.0-4.6); Lymphocytes % 6.5 % (24.0-44.0); Mean Cell Volume 89.5 fL (78-100); Mean Corpuscular Hemoglobin 28.8 pg (26-32); Mean Corpuscular Hgb Concent. 32.1 g/dL (32-36); Mean Platelet Volume 11.8 fL (7.5-11.0); Monocyte (Absolute #) 0.56 x10^3/uL (0.0-1.3); Neutrophil % 89.3 % (36.0-66.0); Platelet Count 211 x10^3/uL (150-450); Red Blood Count 3.44 x10^6/uL (4.1-5.4); Red Cell Distribution Width 15.7 % (11.5-14.0); White Blood Count 18.6 x10^3/uL (4.0-10.5)
[2023-01-22 05:51] LABS: INR 2.91 (0.8-3.0); PROTIME 29.3 SECONDS (9.4-12.5)
[2023-01-22 05:52] LABS: ALBUMIN 3.4 g/dL (3.5-5.0); ALKALINE PHOSPHATASE 103 U/L (38-126); ANION GAP 9.1 MEQ/L (5-15); BLOOD UREA NITROGEN 13 mg/dL (7-17); CHLORIDE 103 mmol/L (98-107); Carbon Dioxide 28 mmol/L (22-30); EST GLOMERULAR FILTRATION RATE > 60.0 ML/MIN; Glucose 276 mg/dL (74-106); Potassium 4.4 mmol/L (3.5-5.1); SGOT/AST 25 U/L (14-36); SGPT/ALT 21 U/L (0-35); SODIUM 136 mmol/L (137-145); Total Protein 6.4 g/dL (6.3-8.2)
[2023-01-22] MEDS: Glucophage 500 MG PO SCH ×2 (07:29→16:37)
[2023-01-22] MEDS: Protonix 40MG Tablet PO SCH (07:29)
[2023-01-22] MEDS: HUMALOG SQ PRN ×4 (07:29→21:19)
[2023-01-22] MEDS: Advair Hfa 115/21 Common canister IH SCH ×2 (07:31→20:32)
--- NOTE | 2023-01-22 08:11 | PCM.NOTE ---
Date and Time: 01/22/23 0803 Subjective Assessment: Ms. Vega is a 52 year-old female with DM2, COPD, chronic hypoxemic respiratory failure (2L), and hypothyroidism who presents wt acute on chronic hypoxemic respiratory failure. She admits to two weeks of a "sinus infection" but one day of fevers (Tm 101F), chills, shortness of breath, nausea, and vomiting. Upon arrival to [facility], her laboratory data was remarkable for a leukocytosis, anemia, and a mild hyponatremia, while chest imaging revealed airspace disease. Procal elevated.Oxygen demand has decreased from yesterday from 4 to 2 LNC. Her baseline oxygen is 2LNC at night and during the day PRN. treatment plan includes Zithromax, Zosyn, and steroids. She has chronic pain and anxiety. These are her major c/o today along with a H/A. She agreed to discontinuing the percoet, as it is not helping her, and changing to morphine only as it is more helpful for her breathing and pain. There was also a concern that her BP was dropping with the percocet and morphine combination. Hopfully using only one narcotic pain med will help with this. Will add hydroxyzine TID for anxiety. She is still having some SOB and coughing. Sxs have improved since yesterday. She denies CP, Abd. pain, N/V/D. <RONDA NGUYEN - Last Filed: 01/22/23 12:16> Date and Time: 01/22/23 1312 <NORI CHAN - Last Filed: 01/22/23 13:14> - Review of Systems Constitutional: No Fever, No Chills Eyes: No Symptoms Ears, Nose, & Throat: No Symptoms Respiratory: Cough, Wheezing, Other (2LNC) Cardiac: No Chest Pain, No Edema, No Syncope Abdominal/Gastrointestinal: No Abdominal Pain, No Nausea, No Vomiting, No Diarrhea Genitourinary Symptoms: No Dysuria Musculoskeletal: No Back Pain, No Neck Pain Skin: No Rash Neurological: No Dizziness, No Focal Weakness, No Sensory Changes Psychological: No Symptoms, Anxiety Endocrine: No Symptoms Hematologic/Lymphatic: No Symptoms Immunological/Allergic: No Symptoms <RONDA NGUYEN - Last Filed: 01/22/23 12:16> Objective Exam General Appearance: no apparent distress, alert Neurologic Exam: alert, oriented x 3, cooperative, normal mood/affect, nml cerebellar function, sensation nml, No motor deficits Skin Exam: normal color, warm, dry Wound Assessment: Skin/Wound Assessment Wound/Incision Assessment Start: 01/20/23 23: 34 Text: Status: Active Freq: Q6H Protocol: Document 01/22/23 04:36 SM (Rec: 01/22/23 04:37 SM [id number]) Wound Photo Photo Taken No Eye Exam: PERRL, EOMI, eyes nml inspection Ears, Nose, Throat Exam: normal ENT inspection, pharynx normal, moist mucous membranes Neck Exam: normal inspection, non-tender, supple, full range of motion Respiratory Exam: normal breath sounds, lungs clear, crackles/rales (BLLL, 2LNC), No respiratory distress Cardiovascular Exam: regular rate/rhythm, normal heart sounds Gastrointestinal/Abdomen Exam: soft, No tenderness, No mass Extremity Exam: normal inspection, normal range of motion Back Exam: normal inspection, normal range of motion, No CVA tenderness, No vertebral tenderness Pelvic Exam: deferred Rectal Exam: deferred <RONDA NGUYEN - Last Filed: 01/22/23 12:16> Wound Assessment: Skin/Wound Assessment Wound/Incision Assessment Start: 01/20/23 23:34 Text: Status: Active Freq: Q6H Protocol: Document 01/22/23 08:00 SONJA (Rec: 01/22/23 08:17 SONJA [id number]) Wound Photo Photo Taken No <NORI CHAN - Last Filed: 01/22/23 13:14> OBJECTIVE DATA Vital Signs: Vital Signs - 24 hr Temp Pulse Resp BP BP Pulse Ox 01/22/23 08:01 82 89/53 01/22/23 07:32 73 18 97 01/22/23 07:25 97.0 F 80 18 107/56 98 01/22/23 03:38 97.9 F 84 16 92/49 93 L 01/22/23 00:42 102/65 01/22/23 00:00 98.1 F 82 18 98/47 94 L 01/21/23 20:00 97.6 F 87 18 91/58 92 L 01/21/23 19:29 87 16 98 01/21/23 16:00 96.6 F 90 16 115/59 97 01/21/23 15:21 82 18 99 01/21/23 11:43 97.1 F 93 H 27 H 96/55 92 L 01/21/23 10:50 101 H 22 97 01/21/23 09:01 93 H 33 H 92/59 96 Pain Assessment - Last Documented Pain Intensity 0 Pain Scale Used 0-10 Pain Scale Intake and Output: Intake & Output 01/19/23 01/20/23 01/21/23 01/22/23 11:59 11:59 11:59 11:59 Intake Total 100 240 Balance 100 240 Weight 98.1 kg Lab Results: Lab Results-Last 24 Hours 01/21/23 01/21/23 01/21/23 Range/Units 10:38 11:39 16:46 WBC (4.0-10.5) x10^3/uL RBC (4.1-5.4) x10^6/uL Hgb (12.0-16.0) g/dL Hct (35-47) % MCV (78-100) fL MCH (26-32) pg MCHC (32-36) g/dL RDW (11.5-14.0) % Plt Count (150-450) x10^3/uL MPV (7.5-11.0) fL Gran % (36.0-66.0) % Immature Gran % (Auto) (0.00-0.4) % Nucleat RBC Rel Count (0.00-0.1) % Eos # (Auto) (0-0.5) x10^3/uL Immature Gran # (Auto) (0.00-0.03) x10^3u/L Absolute Lymphs (auto) (1.0-4.6) x10^3/uL Absolute Monos (auto) (0.0-1.3) x10^3/uL Absolute Nucleated RBC (0.00-0.01) x10^3u/L Lymphocytes % (24.0-44.0) % Monocytes % (0.0-12.0) % Eosinophils % (0.00-5.0) % Basophils % (0.0-0.4) % Absolute Granulocytes (1.4-6.9) x10^3/uL Basophils # (0-0.4) x10^3/uL PT (9.4-12.5) SECONDS INR (0.8-3.0) Sodium (137-145) mmol/L Potassium (3.5-5.1) mmol/L Chloride (98-107) mmol/L Carbon Dioxide (22-30) mmol/L Anion Gap (5-15) MEQ/L BUN (7-17) mg/dL Creatinine (0.52-1.04) mg/dL Estimated GFR ML/MIN Glucose (74-106) mg/dL POC Glucometer 332 H 345 H (74 to 106) mg/dL Hemoglobin A1c 6.95 H (4.5-6.0) % Calcium (8.4-10.2) mg/dL Magnesium (1.6-2.3) mg/dL Total Bilirubin (0.2-1.3) mg/dL AST (14-36) U/L ALT (0-35) U/L Alkaline Phosphatase (38-126) U/L Serum Total Protein (6.3-8.2) g/dL Albumin (3.5-5.0) g/dL 01/21/23 01/22/23 01/22/23 Range/Units 20:53 05:25 05:25 WBC 18.6 H (4.0-10.5) x10^3/uL RBC 3.44 L (4.1-5.4) x10^6/uL Hgb 9.9 L (12.0-16.0) g/dL Hct 30.8 L (35-47) % MCV 89.5 (78-100) fL MCH 28.8 (26-32) pg MCHC 32.1 (32-36) g/dL RDW 15.7 H (11.5-14.0) % Plt Count 211 (150-450) x10^3/uL MPV 11.8 H (7.5-11.0) fL Gran % 89.3 H (36.0-66.0) % Immature Gran % (Auto) 1.0 H (0.00-0.4) % Nucleat RBC Rel Count 0.0 (0.00-0.1) % Eos # (Auto) 0 (0-0.5) x10^3/uL Immature Gran # (Auto) 0.19 H (0.00-0.03) x10^3u/L Absolute Lymphs (auto) 1.21 (1.0-4.6) x10^3/uL Absolute Monos (auto) 0.56 (0.0-1.3) x10^3/uL Absolute Nucleated RBC 0.00 (0.00-0.01) x10^3u/L Lymphocytes % 6.5 L (24.0-44.0) % Monocytes % 3.0 (0.0-12.0) % Eosinophils % 0.0 (0.00-5.0) % Basophils % 0.2 (0.0-0.4) % Absolute Granulocytes 16.65 H (1.4-6.9) x10^3/uL Basophils # 0.03 (0-0.4) x10^3/uL PT (9.4-12.5) SECONDS INR (0.8-3.0) Sodium 136 L (137-145) mmol/L Potassium 4.4 (3.5-5.1) mmol/L Chloride 103 (98-107) mmol/L Carbon Dioxide 28 (22-30) mmol/L Anion Gap 9.1 (5-15) MEQ/L BUN 13 (7-17) mg/dL Creatinine 0.60 (0.52-1.04) mg/dL Estimated GFR > 60.0 ML/MIN Glucose 276 H (74-106) mg/dL POC Glucometer 314 H (74 to 106) mg/dL Hemoglobin A1c (4.5-6.0) % Calcium 8.0 L (8.4-10.2) mg/dL Magnesium 2.0 (1.6-2.3) mg/dL Total Bilirubin 0.40 (0.2-1.3) mg/dL AST 25 (14-36) U/L ALT 21 (0-35) U/L Alkaline Phosphatase 103 (38-126) U/L Serum Total Protein 6.4 (6.3-8.2) g/dL Albumin 3.4 L (3.5-5.0) g/dL 01/22/23 01/22/23 Range/Units 05:25 06:50 WBC (4.0-10.5) x10^3/uL RBC (4.1-5.4) x10^6/uL Hgb (12.0-16.0) g/dL Hct (35-47) % MCV (78-100) fL MCH (26-32) pg MCHC (32-36) g/dL RDW (11.5-14.0) % Plt Count (150-450) x10^3/uL MPV (7.5-11.0) fL Gran % (36.0-66.0) % Immature Gran % (Auto) (0.00-0.4) % Nucleat RBC Rel Count (0.00-0.1) % Eos # (Auto) (0-0.5) x10^3/uL Immature Gran # (Auto) (0.00-0.03) x10^3u/L Absolute Lymphs (auto) (1.0-4.6) x10^3/uL Absolute Monos (auto) (0.0-1.3) x10^3/uL Absolute Nucleated RBC (0.00-0.01) x10^3u/L Lymphocytes % (24.0-44.0) % Monocytes % (0.0-12.0) % Eosinophils % (0.00-5.0) % Basophils % (0.0-0.4) % Absolute Granulocytes (1.4-6.9) x10^3/uL Basophils # (0-0.4) x10^3/uL PT 29.3 H (9.4-12.5) SECONDS INR 2.91 (0.8-3.0) Sodium (137-145) mmol/L Potassium (3.5-5.1) mmol/L Chloride (98-107) mmol/L Carbon Dioxide (22-30) mmol/L Anion Gap (5-15) MEQ/L BUN (7-17) mg/dL Creatinine (0.52-1.04) mg/dL Estimated GFR ML/MIN Glucose (74-106) mg/dL POC Glucometer 282 H (74 to 106) mg/dL Hemoglobin A1c (4.5-6.0) % Calcium (8.4-10.2) mg/dL Magnesium (1.6-2.3) mg/dL Total Bilirubin (0.2-1.3) mg/dL AST (14-36) U/L ALT (0-35) U/L Alkaline Phosphatase (38-126) U/L Serum Total Protein (6.3-8.2) g/dL Albumin (3.5-5.0) g/dL Radiology Exams: Radiology Procedures Category Date Time Status CHEST 1 VIEW (PORTABLE) Stat Exams 01/20/23 18:14 Completed CHEST WITHOUT CONTRAST [CT] Routine Exams 01/21/23 08:00 Completed Multi-Disciplinary Progress Notes: Multi-Disciplinary Progress Notes 01/22/23 04:59 Respiratory Note by Volodymyr Santana WHEN I GAVE PT HER TX AT 1900 01/21, PT STATED THAT IF SHE WAS ASLEEP SHE DID NOT WANT TO BE WOKE FOR A NEB TX, PT AWARE TO CALL FOR RT IF NEEDED IN THE NIGHT. INFORMED NURSING. Initialized on 01/22/23 04:59 - END OF NOTE 01/21/23 13:54 Case Management Note by Bety Alvarenga [facility] UNABLE TO TAKE PATIENT D/T INSURANCE. PATIENT'S SECIND OPTION WAS [facility]- THEY ALSO DO NOT TAKE PATIENT'S INSURANCE. PATIENT WISHES TO PROCEED WITH TOP RATED, READILY AVAILABLE [facility]. REFERRAL CALLED AND FAXED TO [facility]. THEY WILL NEED NOTIFIED AT TIME OF DC AT [phone]. THEY WILL NEED FAXED THE DC INSTRUCTIONS, DC MED LIST AND DC SUMMARY ( IF AVAILABLE) TO [phone] Initialized on 01/21/23 13:54 - END OF NOTE 01/21/23 12:11 Case Management Note by Bety Alvarenga PATIENT ONLY HAS HOME OXYGEN ORDERED FOR HS CURRENTLY. SHE GETS HER O2 FROM [facility]. IF SHE NEED O2 24/ AT DC- PATIENT WILL NEED QUALIFIED AND NEW ORDER SENT TO [facility]. THEY WILL THEN NEED CALLED TO DELIVER A PORTABLE TANK FOR DC. RT NOTIFIED. ORDER FORM PLACED ON CHART FOR WEEKEND USE Initialized on 01/21/23 12:11 - END OF NOTE 01/21/23 11:58 Case Management Note by Bety Alvarenga REFERRAL SENT TO [facility] PER PATIENT REQUEST. THEY WILL NEED NOTIFIED AT TIME OF DC AT [phone]. THEY WILL NEED FAXED THE DC INSTRUCTIONS, DC MED LIST AND DC SUMMARY ( IF AVAILABLE) TO [phone] Initialized on 01/21/23 11:58 - END OF NOTE <RONDA NGUYEN - Last Filed: 01/22/23 12:16> Vital Signs: Vital Signs - 24 hr Temp Pulse Resp BP Pulse Ox 01/22/23 09:48 99 H 119/59 01/22/23 08:50 93 H 91/55 01/22/23 08:48 92 H 86/44 01/22/23 08:01 82 89/53 01/22/23 07:32 73 18 97 01/22/23 07:25 97.0 F 80 18 107/56 98 01/22/23 03:38 97.9 F 84 16 92/49 93 L 01/22/23 00:42 102/65 01/22/23 00:00 98.1 F 82 18 98/47 94 L 01/21/23 20:00 97.6 F 87 18 91/58 92 L 01/21/23 19:29 87 16 98 01/21/23 16:00 96.6 F 90 16 115/59 97 01/21/23 15:21 82 18 99 Pain Assessment - Last Documented Pain Intensity 6 Pain Scale Used 0-10 Pain Scale Intake and Output: Intake & Output 01/20/23 01/21/23 01/22/23 01/23/23 11:59 11:59 11:59 11:59 Intake Total 100 240 Balance 100 240 Weight 98.1 kg Lab Results: Lab Results-Last 24 Hours 01/21/23 01/21/23 01/21/23 Range/Units 10:38 16:46 20:53 WBC (4.0-10.5) x10^3/uL RBC (4.1-5.4) x10^6/uL Hgb (12.0-16.0) g/dL Hct (35-47) % MCV (78-100) fL MCH (26-32) pg MCHC (32-36) g/dL RDW (11.5-14.0) % Plt Count (150-450) x10^3/uL MPV (7.5-11.0) fL Gran % (36.0-66.0) % Immature Gran % (Auto) (0.00-0.4) % Nucleat RBC Rel Count (0.00-0.1) % Eos # (Auto) (0-0.5) x10^3/uL Immature Gran # (Auto) (0.00-0.03) x10^3u/L Absolute Lymphs (auto) (1.0-4.6) x10^3/uL Absolute Monos (auto) (0.0-1.3) x10^3/uL Absolute Nucleated RBC (0.00-0.01) x10^3u/L Lymphocytes % (24.0-44.0) % Monocytes % (0.0-12.0) % Eosinophils % (0.00-5.0) % Basophils % (0.0-0.4) % Absolute Granulocytes (1.4-6.9) x10^3/uL Basophils # (0-0.4) x10^3/uL PT (9.4-12.5) SECONDS INR (0.8-3.0) Sodium (137-145) mmol/L Potassium (3.5-5.1) mmol/L Chloride (98-107) mmol/L Carbon Dioxide (22-30) mmol/L Anion Gap (5-15) MEQ/L BUN (7-17) mg/dL Creatinine (0.52-1.04) mg/dL Estimated GFR ML/MIN Glucose (74-106) mg/dL POC Glucometer 345 H 314 H (74 to 106) mg/dL Hemoglobin A1c 6.95 H (4.5-6.0) % Calcium (8.4-10.2) mg/dL Magnesium (1.6-2.3) mg/dL Total Bilirubin (0.2-1.3) mg/dL AST (14-36) U/L ALT (0-35) U/L Alkaline Phosphatase (38-126) U/L Serum Total Protein (6.3-8.2) g/dL Albumin (3.5-5.0) g/dL 01/22/23 01/22/23 01/22/23 Range/Units 05:25 05:25 05:25 WBC 18.6 H (4.0-10.5) x10^3/uL RBC 3.44 L (4.1-5.4) x10^6/uL Hgb 9.9 L (12.0-16.0) g/dL Hct 30.8 L (35-47) % MCV 89.5 (78-100) fL MCH 28.8 (26-32) pg MCHC 32.1 (32-36) g/dL RDW 15.7 H (11.5-14.0) % Plt Count 211 (150-450) x10^3/uL MPV 11.8 H (7.5-11.0) fL Gran % 89.3 H (36.0-66.0) % Immature Gran % (Auto) 1.0 H (0.00-0.4) % Nucleat RBC Rel Count 0.0 (0.00-0.1) % Eos # (Auto) 0 (0-0.5) x10^3/uL Immature Gran # (Auto) 0.19 H (0.00-0.03) x10^3u/L Absolute Lymphs (auto) 1.21 (1.0-4.6) x10^3/uL Absolute Monos (auto) 0.56 (0.0-1.3) x10^3/uL Absolute Nucleated RBC 0.00 (0.00-0.01) x10^3u/L Lymphocytes % 6.5 L (24.0-44.0) % Monocytes % 3.0 (0.0-12.0) % Eosinophils % 0.0 (0.00-5.0) % Basophils % 0.2 (0.0-0.4) % Absolute Granulocytes 16.65 H (1.4-6.9) x10^3/uL Basophils # 0.03 (0-0.4) x10^3/uL PT 29.3 H (9.4-12.5) SECONDS INR 2.91 (0.8-3.0) Sodium 136 L (137-145) mmol/L Potassium 4.4 (3.5-5.1) mmol/L Chloride 103 (98-107) mmol/L Carbon Dioxide 28 (22-30) mmol/L Anion Gap 9.1 (5-15) MEQ/L BUN 13 (7-17) mg/dL Creatinine 0.60 (0.52-1.04) mg/dL Estimated GFR > 60.0 ML/MIN Glucose 276 H (74-106) mg/dL POC Glucometer (74 to 106) mg/dL Hemoglobin A1c (4.5-6.0) % Calcium 8.0 L (8.4-10.2) mg/dL Magnesium 2.0 (1.6-2.3) mg/dL Total Bilirubin 0.40 (0.2-1.3) mg/dL AST 25 (14-36) U/L ALT 21 (0-35) U/L Alkaline Phosphatase 103 (38-126) U/L Serum Total Protein 6.4 (6.3-8.2) g/dL Albumin 3.4 L (3.5-5.0) g/dL 01/22/23 01/22/23 Range/Units 06:50 11:12 WBC (4.0-10.5) x10^3/uL RBC (4.1-5.4) x10^6/uL Hgb (12.0-16.0) g/dL Hct (35-47) % MCV (78-100) fL MCH (26-32) pg MCHC (32-36) g/dL RDW (11.5-14.0) % Plt Count (150-450) x10^3/uL MPV (7.5-11.0) fL Gran % (36.0-66.0) % Immature Gran % (Auto) (0.00-0.4) % Nucleat RBC Rel Count (0.00-0.1) % Eos # (Auto) (0-0.5) x10^3/uL Immature Gran # (Auto) (0.00-0.03) x10^3u/L Absolute Lymphs (auto) (1.0-4.6) x10^3/uL Absolute Monos (auto) (0.0-1.3) x10^3/uL Absolute Nucleated RBC (0.00-0.01) x10^3u/L Lymphocytes % (24.0-44.0) % Monocytes % (0.0-12.0) % Eosinophils % (0.00-5.0) % Basophils % (0.0-0.4) % Absolute Granulocytes (1.4-6.9) x10^3/uL Basophils # (0-0.4) x10^3/uL PT (9.4-12.5) SECONDS INR (0.8-3.0) Sodium (137-145) mmol/L Potassium (3.5-5.1) mmol/L Chloride (98-107) mmol/L Carbon Dioxide (22-30) mmol/L Anion Gap (5-15) MEQ/L BUN (7-17) mg/dL Creatinine (0.52-1.04) mg/dL Estimated GFR ML/MIN Glucose (74-106) mg/dL POC Glucometer 282 H 354 H (74 to 106) mg/dL Hemoglobin A1c (4.5-6.0) % Calcium (8.4-10.2) mg/dL Magnesium (1.6-2.3) mg/dL Total Bilirubin (0.2-1.3) mg/dL AST (14-36) U/L ALT (0-35) U/L Alkaline Phosphatase (38-126) U/L Serum Total Protein (6.3-8.2) g/dL Albumin (3.5-5.0) g/dL Radiology Exams: Radiology Procedures Category Date Time Status CHEST 1 VIEW (PORTABLE) Stat Exams 01/20/23 18:14 Completed CHEST WITHOUT CONTRAST [CT] Routine Exams 01/21/23 08:00 Completed Multi-Disciplinary Progress Notes: Multi-Disciplinary Progress Notes 01/22/23 11:18 Respiratory Note by Dolly Trotter Pt C/O nebs maker her shake. Asked if she could take Albuterol mdi. Gave 2 puffs of Albuterol at 1100 instead of Duoneb. Initialized on 01/22/23 11:18 - END OF NOTE 01/22/23 04:59 Respiratory Note by Volodymyr Santana WHEN I GAVE PT HER TX AT 1900 01/21, PT STATED THAT IF SHE WAS ASLEEP SHE DID NOT WANT TO BE WOKE FOR A NEB TX, PT AWARE TO CALL FOR RT IF NEEDED IN THE NIGHT. INFORMED NURSING. Initialized on 01/22/23 04:59 - END OF NOTE 01/21/23 13:54 Case Management Note by Bety Alvarenga [facility] UNABLE TO TAKE PATIENT D/T INSURANCE. PATIENT'S SECIND OPTION WAS [facility]- THEY ALSO DO NOT TAKE PATIENT'S INSURANCE. PATIENT WISHES TO PROCEED WITH TOP RATED, READILY AVAILABLE [facility]. REFERRAL CALLED AND FAXED TO [facility]. THEY WILL NEED NOTIFIED AT TIME OF DC AT [phone]. THEY WILL NEED FAXED THE DC INSTRUCTIONS, DC MED LIST AND DC SUMMARY ( IF AVAILABLE) TO [phone] Initialized on 01/21/23 13:54 - END OF NOTE <NORI CHAN - Last Filed: 01/22/23 13:14> Assessment/Plan (1) Pneumonia Current Visit: Yes Status: Acute Assessment & Plan: - Zithromax, Zosyn - PRN cough meds - steroids - CBC, CMP daily - Chest XR: 01/20 Portable chest demonstrates new diffuse right lung airspace disease without consolidation/large effusion. Minimal left costophrenic angle subsegmental atelectasis/scarring. Heart not enlarged again with cardiac valve replacement. Bony thorax intact. - Chest CT 01/21: Impression: 1. New diffuse patchy right lung airspace disease. Also new left lung base subsegmental atelectasis/scarring. 2. Stable hiatal hernia with partial intrathoracic stomach, small nonspecific mediastinal lymph nodes, and fatty liver. Code(s): J18.9 - PNEUMONIA, UNSPECIFIED ORGANISM (2) Acute and chronic respiratory failure Current Visit: Yes Status: Acute Assessment & Plan: - RT eval and treat - Steriods, albuterol, advair, duo-neb - Pt now on 2LNC- baseline is 2LNC at night only PRN Code(s): J96.20 - ACUTE AND CHR RESP FAILURE, UNSP W HYPOXIA OR HYPERCAPNIA (3) COPD exacerbation Current Visit: Yes Status: Acute Assessment & Plan: - See above acute on chronic resp failure dx Code(s): J44.1 - CHRONIC OBSTRUCTIVE PULMONARY DISEASE W (ACUTE) EXACERBATION (4) Hyponatremia Current Visit: Yes Status: Acute Assessment & Plan: - improved NA+ 136 01/22 - trend Code(s): E87.1 - HYPO-OSMOLALITY AND HYPONATREMIA (5) Type II diabetes mellitus Current Visit: Yes Status: Acute Assessment & Plan: - A1C 6.95 on 01/21 - controlled - Humalog s/s - metformin (6) Hypothyroidism Current Visit: Yes Status: Acute Assessment & Plan: -Continue Synthroid Code(s): E03.9 - HYPOTHYROIDISM, UNSPECIFIED (7) H/O mitral valve replacement Current Visit: Yes Status: Acute Assessment & Plan: - on Coumadin- cont - Pharmacy to manage Code(s): Z95.2 - PRESENCE OF PROSTHETIC HEART VALVE (8) Hx of migraine headaches Current Visit: Yes Status: Acute Assessment & Plan: - Cont PRN imitrex Code(s): Z86.69 - PERSONAL HISTORY OF DIS OF THE NERVOUS SYS AND SENSE ORGANS (9) Chronic pain Current Visit: No Status: Acute Assessment & Plan: - Continue chronic pain meds Code(s): G89.29 - OTHER CHRONIC PAIN (10) Depression Current Visit: Yes Status: Acute Assessment & Plan: - Continue home meds Code(s): F32.A - DEPRESSION, UNSPECIFIED (11) Peripheral neuropathy Current Visit: Yes Status: Acute Assessment & Plan: - Continue Lyrica - Pt states she is wheelchair bound at home - PT eval and treat Code(s): G62.9 - POLYNEUROPATHY, UNSPECIFIED (12) Anxiety Current Visit: Yes Status: Acute Assessment & Plan: - hydroxyzine 25mg po TID VTE: Warfarin PPI: pantoprazole D/C plan: 1-2 days Next of kin: Michele Pineda [phone] Code(s): F41.9 - ANXIETY DISORDER, UNSPECIFIED <RONDA NGUYEN - Last Filed: 01/22/23 12:16> MARGOT Encounter - MARGOT Encounter Attestation MARGOT Encounter Attestation: [email or web address] Guadarrama andhavediscussed pertinent aspects of their care with Ronda Leung agree with the history, physical exam (any modifications based on my personal exam will be noted below), assessment, and plan as outlined in original note. Please see immediately below for my summary of findings and additional assessment and plan along with any meaningful corrections/explanations to the Subjective/Objective portions of the MARGOT note will be noted. 52 y/o F, here with pneumonia, acute on chronic hypoxic respiratory failure, and COPD exacerbation. Slowly improving, but not back to baseline. Continue empiric Zosyn, Azithromycin, and steroids. On warfarin for MVR, at goal INR 2.5-3.5. Chronic pain syndrome; will try changing her Percocet to scheduled PO morphine (patient on Butrans at home). My portion of the encounter took place via telemedicine. <NORI CHAN - Last Filed: 01/22/23 13:14>
[2023-01-22] MEDS: SYNTHROID 25 MCG PO SCH (09:30)
[2023-01-22] MEDS: Mucinex 600MG ER Tabs PO SCH ×2 (09:30→21:12)
[2023-01-22] MEDS: SYNTHROID 112 MCG PO SCH (09:30)
[2023-01-22] MEDS: Singulair 10 MG PO SCH (09:31)
[2023-01-22] MEDS: Lopressor 25MG Tab PO SCH (09:32)
[2023-01-22] MEDS: LYRICA 100MG PO SCH ×2 (09:32→21:12)
[2023-01-22] MEDS: Tessalon Perles 100 MG PO PRN ×2 (09:32→21:14)
[2023-01-22] MEDS: NON-FORMULARY ITEM PO PRN (09:50)
[2023-01-22] MEDS: VENTOLIN COMMON CANISTER IH PRN ×3 (11:00→20:32)
[2023-01-22] MEDS: Zanaflex 4 MG PO SCH ×2 (12:16→23:11)
[2023-01-22] MEDS: ZOFRAN ODT 4 MG PO PRN ×2 (17:09→22:46)
[2023-01-22] MEDS: Nicoderm CQ 21 MG TOP SCH (21:12)
[2023-01-22] MEDS: Coumadin 3 MG PO SCH (21:12)
[2023-01-22] MEDS: Desyrel 150 MG PO SCH (21:12)
[2023-01-22] MEDS: ZOLOFT 50 MG TABLET PO SCH (21:13)
[2023-01-22] MEDS: ATARAX 25 MG PO PRN (21:14)
[2023-01-22] MEDS: Zithromax 500 MG/ 250 ML NaCl Premix 500 MG/250 ML IVPB IV SCH (21:57)
[2023-01-23] MEDS: PIPERACILLIN/TAZOBACTAM 4.5 GM in Sodium Chloride 100ML MINI-BAG PLUS 100 ML IV SCH (05:09)
[2023-01-23] MEDS: DUONEB 0.5-3 MG/3 ml Neb IH SCH ×4 (05:55→11:28)
[2023-01-23] MEDS: solu-MEDROL 40 MG, Sterile H2O 10 ml 1 ML IV SCH ×2 (06:19)
[2023-01-23] MEDS: MORPHINE SULFATE 2 MG INJ IV PRN ×2 (06:31→12:31)
[2023-01-23 06:43] LABS: Absolute Neutrophil Ct (ANC) 13.44 x10^3/uL (1.4-6.9); BASOPHIL % 0.2 % (0.0-0.4); Basophil (Absolute #) 0.04 x10^3/uL (0-0.4); Eosinophil (Absolute #) 0 x10^3/uL (0-0.5); Hemoglobin 9.3 g/dL (12.0-16.0); IMMATURE GRAN # 0.56 x10^3u/L (0.00-0.03); IMMATURE GRAN % 3.4 % (0.00-0.4); Lymphocyte (Absolute #) 1.77 x10^3/uL (1.0-4.6); Lymphocytes % 10.8 % (24.0-44.0); Mean Cell Volume 91.2 fL (78-100); Mean Corpuscular Hemoglobin 28.3 pg (26-32); Mean Platelet Volume 11.1 fL (7.5-11.0); Monocyte (Absolute #) 0.62 x10^3/uL (0.0-1.3); Monocytes % 3.8 % (0.0-12.0); NUCLEATED RBC # 0.02 x10^3u/L (0.00-0.01); NUCLEATED RBC % 0.1 % (0.00-0.1); Neutrophil % 81.8 % (36.0-66.0); Platelet Count 210 x10^3/uL (150-450); Red Blood Count 3.29 x10^6/uL (4.1-5.4); Red Cell Distribution Width 15.8 % (11.5-14.0); White Blood Count 16.4 x10^3/uL (4.0-10.5)
[2023-01-23 06:58] LABS: INR 4.98 (0.8-3.0); PROTIME 48.2 SECONDS (9.4-12.5)
[2023-01-23 07:06] LABS: ALBUMIN 3.2 g/dL (3.5-5.0); ALKALINE PHOSPHATASE 91 U/L (38-126); ANION GAP 8.5 MEQ/L (5-15); BLOOD UREA NITROGEN 15 mg/dL (7-17); CHLORIDE 105 mmol/L (98-107); Calcium 7.9 mg/dL (8.4-10.2); Carbon Dioxide 30 mmol/L (22-30); Creatinine 1 0.64 mg/dL (0.52-1.04); EST GLOMERULAR FILTRATION RATE > 60.0 ML/MIN; Glucose 228 mg/dL (74-106); SGOT/AST 29 U/L (14-36); SGPT/ALT 24 U/L (0-35); SODIUM 139 mmol/L (137-145)
[2023-01-23] MEDS: Glucophage 500 MG PO SCH (07:29)
[2023-01-23] MEDS: HUMALOG SQ PRN ×2 (07:29→11:42)
[2023-01-23] MEDS: Protonix 40MG Tablet PO SCH (07:29)
[2023-01-23] MEDS: Advair Hfa 115/21 Common canister IH SCH (07:31)
[2023-01-23] MEDS: ATARAX 25 MG PO PRN (08:54)
[2023-01-23] MEDS: Singulair 10 MG PO SCH (09:22)
[2023-01-23] MEDS: LYRICA 100MG PO SCH (09:23)
[2023-01-23] MEDS: SYNTHROID 25 MCG PO SCH (09:24)
[2023-01-23] MEDS: Mucinex 600MG ER Tabs PO SCH (09:24)
[2023-01-23] MEDS: SYNTHROID 112 MCG PO SCH (09:24)
[2023-01-23] MEDS: Tessalon Perles 100 MG PO PRN (09:29)
[2023-01-23] MEDS: Lopressor 25MG Tab PO SCH (09:30)
[2023-01-23] MEDS: NON-FORMULARY ITEM PO PRN (09:37)
[2023-01-23] MEDS: VENTOLIN COMMON CANISTER IH PRN (11:07)
[2023-01-23 11:30] VITALS: PULSE 80; RESP 20
[2023-01-23] MEDS: Zanaflex 4 MG PO SCH (11:38)
--- NOTE | 2023-01-23 11:46 | PCM.DS ---
Discharge Summary Date of Admission: 01/20/23 22:30 Date of Discharge: 01/23/23 Admitting Physician: ALONSO CORTEZ MD Primary Care Provider: HONEY VELAZQUEZ NP Allergies Allergies divalproex sodium [From Depakote] Allergy (Intermediate, Verified 08/20/22 10:45) latex Allergy (Intermediate, Verified 08/20/22 10:45) Rash metronidazole [From Flagyl] Allergy (Intermediate, Verified 08/20/22 10:45) Hives Metronidazole HCl [From Flagyl] Allergy (Intermediate, Verified 08/20/22 10:45) Hives olanzapine [From Zyprexa] Allergy (Intermediate, Verified 08/20/22 10:45) clomiphene citrate [From Serophene] Allergy (Mild, Verified 08/20/22 10:45) Nausea and Vomiting lidocaine Allergy (Mild, Verified 08/20/22 10:45) Hives fluoxetine [From Sarafem] Allergy (Verified 08/20/22 10:45) tramadol Allergy (Verified 08/20/22 10:45) ketorolac tromethamine [From Toradol] Adverse Reaction (Intermediate, Verified 08/20/22 10:45) Vomiting NSAIDS (Non-Steroidal Anti-Inflamma Adverse Reaction (Mild, Verified 08/20/22 10:45) Vomiting triamcinolone acetonide [From Kenalog] Adverse Reaction (Verified 08/20/22 10:45) Vomiting Hospital Summary - Hospital Course Hospital Course: Ms. Vega is a 52 year-old female with DM2, COPD, chronic hypoxemic respiratory failure (2L), and hypothyroidism who was admitted for acute on chronic hypoxemic respiratory failure. She admited to two weeks of a "sinus infection" but one day of fevers (Tm 101F), chills, shortness of breath, nausea, and vomiting. Upon arrival to [facility], her laboratory data was remarkable for a leukocytosis, anemia, and a mild hyponatremia, while chest imaging revealed airspace disease. Oxygen demand improved and is on 2LNC during the day and at night. Her baseline oxygen is 2LNC at night and during the day PRN. Treatment plan included Zithromax, Zosyn, and steroids. She has chronic pain and anxiety and were able to control that with morphine and hydroxyzine. There a short time yesterday when her BP was dropping with the percocet and morphine combination. Lung sounds are clear today and she is not SOB. She is coughing some blood tinged sputum today. PT/INR is a bit elevated and pharmacy adjusted Coumadin. Pt states she gets this checked and adjusted weekly. She is requesting nicotine patches for home use. Will also send in azithromycin and prednisone. She denies any further c/o at this time. - Vitals & Intake/Output Vital Signs: Vital Signs Temperature 97.5 F 01/23/23 06:25 Pulse Rate 80 01/23/23 11:26 Respiratory Rate 01/23/23 11:26 Blood Pressure 112/72 01/23/23 06:25 O2 Sat by Pulse Oximetry 97 01/23/23 11:26 Intake & Output: Intake & Output 01/20/23 01/21/23 01/22/23 01/23/23 11:59 11:59 11:59 11:59 Intake Total 905 887 6025 Output Total 250 Balance 164 504 4559 Weight 98.1 kg - Lab Result Diagrams: 01/23/23 05:30 01/23/23 05:30 Lab Results-Last 24 Hrs: Lab Results-Last 24 Hours 01/22/23 01/22/23 01/23/23 Range/Units 16:24 20:40 05:30 WBC (4.0-10.5) x10^3/uL RBC (4.1-5.4) x10^6/uL Hgb (12.0-16.0) g/dL Hct (35-47) % MCV (78-100) fL MCH (26-32) pg MCHC (32-36) g/dL RDW (11.5-14.0) % Plt Count (150-450) x10^3/uL MPV (7.5-11.0) fL Gran % (36.0-66.0) % Immature Gran % (Auto) (0.00-0.4) % Nucleat RBC Rel Count (0.00-0.1) % Eos # (Auto) (0-0.5) x10^3/uL Immature Gran # (Auto) (0.00-0.03) x10^3u/L Absolute Lymphs (auto) (1.0-4.6) x10^3/uL Absolute Monos (auto) (0.0-1.3) x10^3/uL Absolute Nucleated RBC (0.00-0.01) x10^3u/L Lymphocytes % (24.0-44.0) % Monocytes % (0.0-12.0) % Eosinophils % (0.00-5.0) % Basophils % (0.0-0.4) % Absolute Granulocytes (1.4-6.9) x10^3/uL Basophils # (0-0.4) x10^3/uL PT (9.4-12.5) SECONDS INR (0.8-3.0) Sodium 139 (137-145) mmol/L Potassium 4.0 (3.5-5.1) mmol/L Chloride 105 (98-107) mmol/L Carbon Dioxide 30 (22-30) mmol/L Anion Gap 8.5 (5-15) MEQ/L BUN 15 (7-17) mg/dL Creatinine 0.64 (0.52-1.04) mg/dL Estimated GFR > 60.0 ML/MIN Glucose 228 H (74-106) mg/dL POC Glucometer 275 H 236 H (74 to 106) mg/dL Calcium 7.9 L (8.4-10.2) mg/dL Magnesium (1.6-2.3) mg/dL Total Bilirubin 0.40 (0.2-1.3) mg/dL AST 29 (14-36) U/L ALT 24 (0-35) U/L Alkaline Phosphatase 91 (38-126) U/L Serum Total Protein 6.0 L (6.3-8.2) g/dL Albumin 3.2 L (3.5-5.0) g/dL 01/23/23 01/23/23 01/23/23 Range/Units 05:30 05:30 05:30 WBC 16.4 H (4.0-10.5) x10^3/uL RBC 3.29 L (4.1-5.4) x10^6/uL Hgb 9.3 L (12.0-16.0) g/dL Hct 30.0 L (35-47) % MCV 91.2 (78-100) fL MCH 28.3 (26-32) pg MCHC 31.0 L (32-36) g/dL RDW 15.8 H (11.5-14.0) % Plt Count 210 (150-450) x10^3/uL MPV 11.1 H (7.5-11.0) fL Gran % 81.8 H (36.0-66.0) % Immature Gran % (Auto) 3.4 H (0.00-0.4) % Nucleat RBC Rel Count 0.1 (0.00-0.1) % Eos # (Auto) 0 (0-0.5) x10^3/uL Immature Gran # (Auto) 0.56 H (0.00-0.03) x10^3u/L Absolute Lymphs (auto) 1.77 (1.0-4.6) x10^3/uL Absolute Monos (auto) 0.62 (0.0-1.3) x10^3/uL Absolute Nucleated RBC 0.02 H (0.00-0.01) x10^3u/L Lymphocytes % 10.8 L (24.0-44.0) % Monocytes % 3.8 (0.0-12.0) % Eosinophils % 0.0 (0.00-5.0) % Basophils % 0.2 (0.0-0.4) % Absolute Granulocytes 13.44 H (1.4-6.9) x10^3/uL Basophils # 0.04 (0-0.4) x10^3/uL PT 48.2 H (9.4-12.5) SECONDS INR 4.98 H (0.8-3.0) Sodium (137-145) mmol/L Potassium (3.5-5.1) mmol/L Chloride (98-107) mmol/L Carbon Dioxide (22-30) mmol/L Anion Gap (5-15) MEQ/L BUN (7-17) mg/dL Creatinine (0.52-1.04) mg/dL Estimated GFR ML/MIN Glucose (74-106) mg/dL POC Glucometer (74 to 106) mg/dL Calcium (8.4-10.2) mg/dL Magnesium 2.0 (1.6-2.3) mg/dL Total Bilirubin (0.2-1.3) mg/dL AST (14-36) U/L ALT (0-35) U/L Alkaline Phosphatase (38-126) U/L Serum Total Protein (6.3-8.2) g/dL Albumin (3.5-5.0) g/dL 01/23/23 01/23/23 Range/Units 06:29 11:24 WBC (4.0-10.5) x10^3/uL RBC (4.1-5.4) x10^6/uL Hgb (12.0-16.0) g/dL Hct (35-47) % MCV (78-100) fL MCH (26-32) pg MCHC (32-36) g/dL RDW (11.5-14.0) % Plt Count (150-450) x10^3/uL MPV (7.5-11.0) fL Gran % (36.0-66.0) % Immature Gran % (Auto) (0.00-0.4) % Nucleat RBC Rel Count (0.00-0.1) % Eos # (Auto) (0-0.5) x10^3/uL Immature Gran # (Auto) (0.00-0.03) x10^3u/L Absolute Lymphs (auto) (1.0-4.6) x10^3/uL Absolute Monos (auto) (0.0-1.3) x10^3/uL Absolute Nucleated RBC (0.00-0.01) x10^3u/L Lymphocytes % (24.0-44.0) % Monocytes % (0.0-12.0) % Eosinophils % (0.00-5.0) % Basophils % (0.0-0.4) % Absolute Granulocytes (1.4-6.9) x10^3/uL Basophils # (0-0.4) x10^3/uL PT (9.4-12.5) SECONDS INR (0.8-3.0) Sodium (137-145) mmol/L Potassium (3.5-5.1) mmol/L Chloride (98-107) mmol/L Carbon Dioxide (22-30) mmol/L Anion Gap (5-15) MEQ/L BUN (7-17) mg/dL Creatinine (0.52-1.04) mg/dL Estimated GFR ML/MIN Glucose (74-106) mg/dL POC Glucometer 220 H 204 H (74 to 106) mg/dL Calcium (8.4-10.2) mg/dL Magnesium (1.6-2.3) mg/dL Total Bilirubin (0.2-1.3) mg/dL AST (14-36) U/L ALT (0-35) U/L Alkaline Phosphatase (38-126) U/L Serum Total Protein (6.3-8.2) g/dL Albumin (3.5-5.0) g/dL Micro Results-Entire Visit: Microbiology 01/20/23 18:28 Blood Culture - Preliminary Blood Accuchecks Date 01/23/23 Date 01/22/23 Date 01/22/23 Time 06:44 Time 21:00 Time 16:44 - Procedures and Test Procedures and Tests throughout Hospitalization: Therapy Orders & Screens 01/20/23 22:43 Oxygen Nasal Cannula 2 lpm Comment: Respiratory Therapy Consult ONCE Comment: Reason For Exam: 01/20/23 23:22 Respiratory MDI BID Comment: Respiratory Therapy Assessment DAILY Comment: 01/20/23 23:23 Incentive Spirometry UD Comment: Smoking Cessation Education ONCE Comment: Smoking Status: Current some day smoker How long have you smoked: 30 Have you smoked in the past 12 months: Yes Approximately how many cigarettes per day: 1-2 Do you dip or chew tobacco: No If,Former Smoker,when did you quit: 2 weeks ago 01/22/23 12:36 PT Eval & Treat (MD Order) ONCE Reason for Eval:: pt states she is wheelchair bound at home. due to peripheral neuropathy, please eval and treat fo any d/c needs. Diagnosis: Acute on chronic resp faliure/sepsis/Pnuemonia Discharge Exam General Appearance: no apparent distress (2LNC), alert Neurologic Exam: alert, oriented x 3, cooperative, normal mood/affect, nml cerebellar function, sensation nml, No motor deficits Eye Exam: PERRL, EOMI, eyes nml inspection Ears, Nose, Throat Exam: normal ENT inspection, pharynx normal, moist mucous membranes Neck Exam: normal inspection, non-tender, supple, full range of motion Respiratory Exam: normal breath sounds, lungs clear, No respiratory distress Cardiovascular Exam: regular rate/rhythm, normal heart sounds Gastrointestinal/Abdomen Exam: soft, No tenderness, No mass Pelvic Exam: deferred Rectal Exam: deferred Back Exam: normal inspection, normal range of motion, No CVA tenderness, No vertebral tenderness Extremity Exam: normal inspection, normal range of motion Skin Exam: normal color, warm, dry Wound Assessment: Skin/Wound Assessment Wound/Incision Assessment Start: 01/20/23 23:34 Text: Status: Active Freq: Q6H Protocol: Document 01/23/23 07:55 [facility] (Rec: 01/23/23 08:02 [facility] [id number]) Wound Photo Photo Taken No Final Diagnosis/Problem List - Final Discharge Diagnosis/Problem (1) Pneumonia Current Visit: Yes Status: Acute Assessment & Plan: - Zithromax, Zosyn - PRN cough meds - steroids - CBC, CMP daily - Chest XR: 01/20 Portable chest demonstrates new diffuse right lung airspace disease without consolidation/large effusion. Minimal left costophrenic angle subsegmental atelectasis/scarring. Heart not enlarged again with cardiac valve replacement. Bony thorax intact. - Chest CT 01/21: Impression: 1. New diffuse patchy right lung airspace disease. Also new left lung base subsegmental atelectasis/scarring. 2. Stable hiatal hernia with partial intrathoracic stomach, small nonspecific mediastinal lymph nodes, and fatty liver. Code(s): J18.9 - PNEUMONIA, UNSPECIFIED ORGANISM (2) Acute and chronic respiratory failure Current Visit: Yes Status: Acute Assessment & Plan: - RT eval and treat - Steriods, albuterol, advair, duo-neb - Pt now on 2LNC- baseline is 2LNC at night only PRN Code(s): J96.20 - ACUTE AND CHR RESP FAILURE, UNSP W HYPOXIA OR HYPERCAPNIA (3) COPD exacerbation Current Visit: Yes Status: Acute Assessment & Plan: - See above acute on chronic resp failure dx - Pt will need Oxygen day and night until sxs resolve - OP Oxygen set up for pt. Code(s): J44.1 - CHRONIC OBSTRUCTIVE PULMONARY DISEASE W (ACUTE) EXACERBATION (4) Hyponatremia Current Visit: Yes Status: Acute Assessment & Plan: - improved NA+ 136 01/22 - trend 01/23- resolved Code(s): E87.1 - HYPO-OSMOLALITY AND HYPONATREMIA (5) Type II diabetes mellitus Current Visit: Yes Status: Acute Assessment & Plan: - A1C 6.95 on 01/21 - controlled - Humalog s/s - metformin (6) Hypothyroidism Current Visit: Yes Status: Acute Assessment & Plan: -Continue Synthroid Code(s): E03.9 - HYPOTHYROIDISM, UNSPECIFIED (7) H/O mitral valve replacement Current Visit: Yes Status: Acute Assessment & Plan: - on Coumadin- cont - Pharmacy to manage -On warfarin for MVR, at goal INR 2.5-3.5. - 01/23 - PT 28.2, INR 4.98- Coumadin held today 01/23 - f/u for recheck as scheduled. Code(s): Z95.2 - PRESENCE OF PROSTHETIC HEART VALVE (8) Hx of migraine headaches Current Visit: Yes Status: Acute Assessment & Plan: - Cont PRN imitrex Code(s): Z86.69 - PERSONAL HISTORY OF DIS OF THE NERVOUS SYS AND SENSE ORGANS (9) Chronic pain Current Visit: No Status: Acute Assessment & Plan: - Continue chronic pain meds Code(s): G89.29 - OTHER CHRONIC PAIN (10) Depression Current Visit: Yes Status: Acute Assessment & Plan: - Continue home meds Code(s): F32.A - DEPRESSION, UNSPECIFIED (11) Peripheral neuropathy Current Visit: Yes Status: Acute Assessment & Plan: - Continue Lyrica - Pt states she is wheelchair bound at home - PT eval and treat Code(s): G62.9 - POLYNEUROPATHY, UNSPECIFIED (12) Anxiety Current Visit: Yes Status: Acute Assessment & Plan: - hydroxyzine 25mg po TID Code(s): F41.9 - ANXIETY DISORDER, UNSPECIFIED - Discharge Discharge Date: 01/23/23 Disposition: Home, Self-Care Condition: Fair Prescriptions: Continue Pregabalin [Lyrica] 200 mg PO BID Esomeprazole Magnesium [Nexium] 40 mg PO 0800 raNITIdine HCL [Ranitidine HCl] 150 mg PO BID PRN PRN PRN Reason: Stomach Upset Nicotine 21 mg [Nicoderm CQ 21 MG] 21 mg TOP Q24H #14 patch Potassium Chloride 20 Meq Tab [Potassium Chloride 20 MEQ TABLET] 10 meq PO DAILY Albuterol Common Canister [Ventolin Common Canister] 2 puff IH Q4-6HPRN PRN PRN Reason: Shortness Of Breath Denosumab 60 mg [Prolia 60 mg Injection] 60 mg SQ UD Ergocalciferol (Vitamin D2) [Vitamin D2] 50,000 unit PO Q7D Ferrous Sulfate 325 mg [Feosol 325 mg] 325 mg PO UD Hydroxyzine HCl 25 mg [Atarax 25 mg] 25 mg PO HS Cyanocobalamin (Vitamin B-12) [Cyanocobalamin Injection] 1,000 mcg IJ UD Prazosin HCl 2 mg PO DAILY Montelukast Sodium 10 mg [Singulair 10 MG] 10 mg PO DAILY Trazodone HCl 50 mg [Desyrel 50 mg] 150 mg PO HS Tizanidine HCl 4 mg [Zanaflex 4 MG] 4 mg PO TID PRN Levothyroxine Sodium [Synthroid] 137 mcg PO DAILY Promethazine HCl 25 mg [Phenergan 25 mg] 12.5 mg PO Q6H PRN PRN #30 tablet PRN Reason: Nausea Buprenorphine HCl [Belbuca] 450 mcg PO BID ondansetron HCL [Zofran] 4 mg PO Q6H PRN PRN Reason: Nausea Multivit-Min/Iron/Folic/Lutein [Centrum Silver Women Tablet] 1 tab PO DAILY Metoprolol Tartrate 25 mg [Lopressor 25MG Tab] 25 mg PO DAILY Metformin HCl 500 mg [Glucophage 500 MG] 500 mg PO BID L.acidoph,Paracasei, B.lactis [Probiotic] 1 each PO DAILY Warfarin Sodium [Coumadin] 12 mg PO HS Guaifenesin 600 mg ER [Mucinex 600MG ER Tabs] 1,200 mg PO BID tablet Beclomethasone Dipropionate [Qvar Redihaler] 2 puffs PO BID PRN PRN Reason: Shortness Of Breath Sertraline HCl 100 mg PO HS Oxycodone / APAP 10/325 mg [Oxycodone-Acetaminophen 10-325] 1 tab PO QID PRN PRN Reason: Pain SUMAtriptan succinate [Imitrex 50 mg] 100 mg PO DAILY PRN PRN Reason: Headache clonazePAM [Clonazepam] 0.5 - 1 mg PO DAILY PRN PRN Reason: Anxiety Additional Instructions: HHC HAS BEEN SET UP FOR YOU THRU [facility]. THEY WILL CONTACT YOU TO ARRANGE AN APPOINTMENT. IF YOU NEED SOMETHING BEFORE THEY CALL YOU- YOU CAN REACH THEM AT [phone] Coumadin was held for today as INR was 4.98. May need to hold tomorrow as well but you need to call tomorrow whoever manages your Coumadin to clarify. Follow up with: HONEY VELAZQUEZ [employer] PROFESS[employer] [Primary Care Provider] -
[2023-01-23 12:09] VITALS: BP 145/69; TEMP 97.8
[2023-01-25 23:43] VITALS: O2SAT 94
== END 2023-01-23 13:46 | disposition home or self-care (01) | DRG 193 ==
LOC: ED 17:38 → ICU 22:30 → ED 22:32 → MED SURG 01-21 09:49
PROVIDERS: ADMIT Internal Medicine Critical Care Medicine; ATTEND Internal Medicine Critical Care Medicine
DX: J18.9 Pneumonia, unspecified organism (principal); J96.20 Acute and chronic respiratory failure, unspecified whether with hypoxia or hypercapnia; J44.1 Chronic obstructive pulmonary disease with (acute) exacerbation; E87.1 Hypo-osmolality and hyponatremia; E11.9 Type 2 diabetes mellitus without complications; E03.9 Hypothyroidism, unspecified; G89.29 Other chronic pain; F32.A Depression, unspecified; G62.9 Polyneuropathy, unspecified; F41.9 Anxiety disorder, unspecified; E78.5 Hyperlipidemia, unspecified; Z79.01 Long term (current) use of anticoagulants; Z86.69 Personal history of other diseases of the nervous system and sense organs; Z95.2 Presence of prosthetic heart valve; Z79.899 Other long term (current) drug therapy; Z20.828 Contact with and (suspected) exposure to other viral communicable diseases; Z99.81 Dependence on supplemental oxygen
CPT/HCPCS: 0241U; 36000; 36415; 71045; 71250; 80053; 81001; 82947; 83036; 83605; 83735; 83880; 84145; 84484; 85025; 85610; 87040; 93005; 93041; 94640; 94762; 96360; 96365; 96367; 99285; 99291; Q3014; J0456; J1817; J2270; J2543; J2920; Q0162; A9270-GY

== ENCOUNTER 2024-06-01 15:36 | Emergency (ER) | payer MEDICARE ==
[2024-06-01 15:46] VITALS: TEMP 98
--- NOTE | 2024-06-01 16:03 | ERPHSYRPT ---
- History of Present Illness Time Seen by Provider: 06/01/24 16:02 Patient Subjective Stated Complaint: PT HERE FOR N/V/D. Triage Nursing Assessment: PT ALERT ARRIVED PER EMS. SKIN W/D/P. ABD SOFT WITH BS X4 , CHEST CLEAR, USES A WC AT HOME, Physician History: This is an obese 53-year-old white female patient who was transported to the emergency department by the paramedics secondary to 4-day history of coughing and vomiting followed by the last 2 days having several episodes of diarrhea. Patient has a history of COPD that is oxygen dependent. Patient states that she aches all over. She is a daily smoker of tobacco cigarettes. Patient currently does not have chest pain. Patient has multiple medical problems including diabetes, gastroesophageal reflux disease, hypertension, rheumatoid arthritis, fibromyalgia, anxiety, migraine headaches, peripheral neuropathy, hyperlipidemia and has had a history of opioid abuse requiring intubation. Timing/Duration: day(s) (4), worse (Symptoms worsen last 2 days) Quality: cramping Abdominal Pain Onset Location: generalized abdomen Severity of Pain-Max: mild Severity of Pain-Current: mild Associated Symptoms: diarrhea, headache, loss of appetite, nausea, vomiting, weakness Previous symptoms: no prior history, no recent treatment Allergies/Adverse Reactions: divalproex sodium [From Depakote] Allergy (Intermediate, Verified 06/01/24 15:42) latex Allergy (Intermediate, Verified 06/01/24 15:42) Rash metronidazole [From Flagyl] Allergy (Intermediate, Verified 06/01/24 15:42) Hives Metronidazole HCl [From Flagyl] Allergy (Intermediate, Verified 06/01/24 15:42) Hives olanzapine [From Zyprexa] Allergy (Intermediate, Verified 06/01/24 15:42) clomiphene citrate [From Serophene] Allergy (Mild, Verified 06/01/24 15:42) Nausea and Vomiting lidocaine Allergy (Mild, Verified 06/01/24 15:42) Hives fluoxetine [From Sarafem] Allergy (Verified 06/01/24 15:42) tramadol Allergy (Verified 06/01/24 15:42) ketorolac tromethamine [From Toradol] Adverse Reaction (Intermediate, Verified 06/01/24 15:42) Vomiting NSAIDS (Non-Steroidal Anti-Inflamma Adverse Reaction (Mild, Verified 06/01/24 15:42) Vomiting triamcinolone acetonide [From Kenalog] Adverse Reaction (Verified 06/01/24 15:42) Vomiting Home Medications: Esomeprazole Magnesium [Nexium] 40 mg PO 0800 11/26/15 [History] Pregabalin [Lyrica] 200 mg PO BID 11/26/15 [History] raNITIdine HCL [Ranitidine HCl] 150 mg PO BID PRN PRN 12/17/15 [History] Albuterol Common Canister [Ventolin Common Canister] 2 puff IH Q4-6HPRN PRN 03/10/16 [History] Denosumab 60 mg [Prolia 60 mg Injection] 60 mg SQ UD 03/10/16 [History] Potassium Chloride 20 Meq Tab [Potassium Chloride 20 MEQ TABLET] 10 meq PO DAILY 03/10/16 [History] Ergocalciferol (Vitamin D2) [Vitamin D2] 50,000 unit PO Q7D 08/23/16 [History] Ferrous Sulfate 325 mg [Feosol 325 mg] 325 mg PO UD 04/04/17 [History] Hydroxyzine HCl 25 mg [Atarax 25 mg] 25 mg PO HS 04/04/17 [History] Cyanocobalamin (Vitamin B-12) [Cyanocobalamin Injection] 1,000 mcg IJ UD 11/30/18 [History] Levothyroxine Sodium [Synthroid] 137 mcg PO DAILY 11/30/18 [History] Montelukast Sodium 10 mg [Singulair 10 MG] 10 mg PO DAILY 11/30/18 [History] Prazosin HCl 2 mg PO DAILY 11/30/18 [History] Tizanidine HCl 4 mg [Zanaflex 4 MG] 4 mg PO TID PRN 11/30/18 [History] Trazodone HCl 50 mg [Desyrel 50 mg] 150 mg PO HS 11/30/18 [History] Buprenorphine HCl [Belbuca] 450 mcg PO BID 04/24/21 [History] L.acidoph,Paracasei, B.lactis [Probiotic] 1 each PO DAILY 04/25/21 [History] Metformin HCl 500 mg [Glucophage 500 MG] 500 mg PO BID 04/25/21 [History] Metoprolol Tartrate 25 mg [Lopressor 25MG Tab] 25 mg PO DAILY 04/25/21 [History] Multivit-Min/Iron/Folic/Lutein [Centrum Silver Women Tablet] 1 tab PO DAILY 04/25/21 [History] Warfarin Sodium [Coumadin] 12 mg PO HS 04/25/21 [History] ondansetron HCL [Zofran] 4 mg PO Q6H PRN 04/25/21 [History] Beclomethasone Dipropionate [Qvar Redihaler] 2 puffs PO BID PRN 08/20/22 [History] Sertraline HCl 100 mg PO HS 08/20/22 [History] Oxycodone / APAP 10/325 mg [Oxycodone-Acetaminophen 10-325] 1 tab PO QID PRN 01/20/23 [History] SUMAtriptan succinate [Imitrex 50 mg] 100 mg PO DAILY PRN 01/21/23 [History] clonazePAM [Clonazepam] 0.5 - 1 mg PO DAILY PRN 01/21/23 [History] Hx Tetanus, Diphtheria Vaccination/Date Given: Yes Hx Influenza Vaccination/Date Given: Yes Hx Pneumococcal Vaccination/Date Given: Yes Immunizations Up to Date: Yes Travel Risk - International Travel Have you traveled outside of the country in past 3 weeks: No - Emerging Infectious Disease Are you exhibiting symptoms associated with any current EIDs: Yes Symptoms: Cough: New Onset, Diarrhea, Headaches/Body Aches/, Vomitting - Review of Systems Constitutional: Weakness Eyes: No Symptoms Ears, Nose, & Throat: No Symptoms Respiratory: No Symptoms Cardiac: No Symptoms Abdominal/Gastrointestinal: Abdominal Pain, Nausea, Vomiting, Diarrhea, Appetite Changes Genitourinary Symptoms: No Symptoms Musculoskeletal: Arthralgias, Myalgias Skin: No Symptoms Neurological: No Symptoms Psychological: No Symptoms Endocrine: No Symptoms Hematologic/Lymphatic: No Symptoms Immunological/Allergic: No Symptoms All Other Systems: Reviewed and Negative - Past Medical History Pertinent Past Medical History: Yes Neurological History: Migraines, Peripheral Neuropathy ENT History: No Pertinent History Cardiac History: High Cholesterol, Other Respiratory History: Bronchitis, COPD, Pneumonia Endocrine Medical History: Diabetes Type II, Hypothyroidism Musculoskeletal History: Other, Rheumatoid Arthritis, Osteoarthritis, Osteopor osis, Fibromyalgia GI Medical History: GERD, Hernia History: No Pertinent History Psycho-Social History: Anxiety, Depression, Other Female Reproductive Disorders: No Pertinent History Other Medical History: HIATAL HERNIA, KIDNEY STONE X1 2015. Opioid abuse; opioid overdose, has been intubated - Past Surgical History Past Surgical History: Yes Neuro Surgical History: No Pertinent History Cardiac: No Pertinent History Respiratory: No Pertinent History Gastrointestinal: Cholecystectomy Genitourinary: No Pertinent History Musculoskeletal: Joint Replacement Female Surgical History: Tubal Ligation Other Surgical History: TOTAL HIP REPLACEMENT TO LEFT, CARVED HIP SOCKET OFF "hip dysplasia repair" (1972). revision of lt total hip in june. carpal tunnel 2016. mitral valve replacement feb 2020 Significant Family History: no pertinent family hx - Female History Hx Last Menstrual Period: MENAPAUSE Hx Now: No - Social History Smoking Status: Current some day smoker How long have you smoked: 30 Exposure to second hand smoke: No Drug Use: none Patient Lives Alone: No - Social Determinants of Health Will the patient participate in the screening: Declined to provide - Nursing Vital Signs Nursing Vital Signs: Initial Vital Signs Temperature 98.0 F 06/01/24 15:45 Pulse Rate 118 H 06/01/24 15:45 Respiratory Rate 18 06/01/24 15:45 Blood Pressure 138/76 06/01/24 15:45 O2 Sat by Pulse Oximetry 98 06/01/24 15:45 Pain Scale Pain Intensity 6 - Physical Exam General Appearance: no apparent distress, alert, anxiety, obese Eye Exam: PERRL/EOMI, eyes nml inspection Ears, Nose, Throat Exam: normal ENT inspection, moist mucous membranes Neck Exam: normal inspection, non-tender, supple, full range of motion Respiratory Exam: normal breath sounds, lungs clear, airway intact, No chest tenderness, No respiratory distress Cardiovascular Exam: tachycardia Gastrointestinal/Abdomen Exam: soft, normal bowel sounds, No tenderness, No guarding, No rebound Pelvic Exam: not done Rectal Exam: not done Back Exam: normal inspection, normal range of motion, No CVA tenderness, No vertebral tenderness Extremity Exam: normal inspection, normal range of motion, pelvis stable Neurologic Exam: alert, oriented x 3, cooperative, drafter marine II-XII nml as tested, sensation nml Skin Exam: normal color, warm, dry Lymphatic Exam: No adenopathy SpO2 Interpretation: normal SpO2: 98 O2 Delivery: Room Air - Course Nursing assessment & vital signs reviewed: Yes Ordered Tests: Active Orders 24 hr Category Date Time Status IV Insertion STAT Care 06/01/24 16:30 Active CHEST 1 VIEW (PORTABLE) Stat Exams 06/01/24 16:30 Completed AMYLASE Stat Lab 06/01/24 18:06 Completed CBC W DIFF Stat Lab 06/01/24 18:06 Completed CMP Stat Lab 06/01/24 18:06 Completed CULTURE,URINE Stat Lab 06/01/24 18:55 Received LIPASE Stat Lab 06/01/24 18:06 Completed MONO SCREEN Stat Lab 06/01/24 18:06 Completed PT INR [PROTIME WITH INR] Stat Lab 06/01/24 18:06 Completed UA W/RFX UR CULTURE Stat Lab 06/01/24 18:55 Completed Medication Summary Discontinued Medications Generic Name Dose Route Start Last Admin Trade Name Freq PRN Reason Stop Dose Admin Sodium Chloride 1,000 mls @ 999 mls/hr 06/01/24 16:30 06/01/24 18:34 Sodium Chloride 0.9% 1000 Ml IV 06/01/24 17:30 999 mls/hr .Q1H1M STA Administration Sodium Chloride Confirm 06/01/24 18:27 Sodium Chloride 0.9% 1000 Ml Administered 06/01/24 18:28 Dose 1,000 mls @ ud .ROUTE .STK-MED ONE Ondansetron HCl 4 mg 06/01/24 16:30 06/01/24 18:36 Ondansetron Hcl 4 Mg/2 Ml Vial IV 06/01/24 16:31 4 mg STAT ONE Administration Ondansetron HCl Confirm 06/01/24 18:27 Ondansetron Hcl 4 Mg/2 Ml Vial Administered 06/01/24 18:28 Dose 4 mg .ROUTE .STK-MED ONE Pantoprazole Sodium 40 mg 06/01/24 16:30 06/01/24 18:37 Pantoprazole 40 Mg Vial IV 06/01/24 16:31 40 mg STAT ONE Administration Pantoprazole Sodium Confirm 06/01/24 18:27 Pantoprazole 40 Mg Vial Administered 06/01/24 18:28 Dose 40 mg IV .STK-MED ONE Lab/Rad Data: Laboratory Result Diagrams 06/01/24 18:06 06/01/24 18:06 Laboratory Results 12/06/01/24 06/01/24 Range/Units 18:55 18:06 18:06 WBC (3.98-10.04) x10^3/uL RBC (3.93-5.22) x10^6/uL Hgb (11.2-15.7) g/dL Hct (34.1-44.9) % MCV (79.4-94.8) fL MCH (25.6-32.2) pg MCHC (32.2-35.5) g/dL RDW (11.7-14.4) % Plt Count (182-369) x10^3/uL MPV (9.4-12.3) fL Gran % (34.0-71.1) % Immature Gran % (Auto) (0.001-0.429) % Nucleat RBC Rel Count (0.00-0.2) % Eos # (Auto) (0.04-0.36) x10^3/uL Immature Gran # (Auto) (0.001-0.031) x10^3u/L Absolute Lymphs (auto) (1.18-3.74) x10^3/uL Absolute Monos (auto) (0.24-0.86) x10^3/uL Absolute Nucleated RBC (0.00-0.012) x10^3u/L Lymphocytes % (19.3-51.7) % Monocytes % (4.7-12.5) % Eosinophils % (0.7-5.8) % Basophils % (0.1-1.2) % Absolute Granulocytes (1.56-6.13) x10^3/uL Basophils # (0.01-0.08) x10^3/uL PT 24.6 H (9.4-12.5) SECONDS INR 2.39 (0.8-3.0) Sodium (135-145) mmol/L Potassium (3.5-5.1) mmol/L Chloride (98-107) mmol/L Carbon Dioxide (22-30) mmol/L Anion Gap (5-15) MEQ/L BUN (7-17) mg/dL Creatinine (0.52-1.04) mg/dL Estimated GFR ML/MIN Glucose (74-106) mg/dL Calcium (8.4-10.2) mg/dL Total Bilirubin (0.2-1.3) mg/dL AST (14-36) U/L ALT (0-35) U/L Alkaline Phosphatase (38-126) U/L Serum Total Protein (6.3-8.2) g/dL Albumin (3.5-5.0) g/dL Amylase (30-110) U/L Lipase (23-300) U/L Urine Color Dark Yellow A (Yellow) Urine Appearance Clear (Clear) Urine pH 6.0 (4.6-8.0) Ur Specific Neeses 1.025 (1.005-1.030) Urine Protein 100 A (Negative) Urine Glucose (UA) Negative (Negative) mg/dL Urine Ketones Negative (Negative) Urine Blood Large A (Negative) Urine Nitrite Negative (Negative) Urine Bilirubin Negative (Negative) Urine Urobilinogen 0.2 (0.2) mg/dL Ur Leukocyte Esterase Trace A (Negative) U Hyaline Cast (Auto) NONE SEEN (0-2) /LPF Urine Microscopic RBC >100 A (0-5) /HPF Urine Microscopic WBC 6-10 A (0-5) /HPF Ur Epithelial Cells Rare (None Seen) /HPF Urine Bacteria None Seen (None Seen) /HPF Urine Culture Reflexed YES (NO) Monoscreen NEGATIVE (NEGATIVE) Influenza Type A Ag (NEGATIVE) Influenza Type B Ag (NEGATIVE) RSV (PCR) (NEGATIVE) SARS-CoV-2 (PCR) (NEGATIVE) 06/01/24 06/01/24 06/01/24 Range/Units 18:06 18:06 17:15 WBC 16.8 H (3.98-10.04) x10^3/uL RBC 4.60 (3.93-5.22) x10^6/uL Hgb 9.7 L (11.2-15.7) g/dL Hct 34.1 (34.1-44.9) % MCV 74.1 L (79.4-94.8) fL MCH 21.1 L (25.6-32.2) pg MCHC 28.4 L (32.2-35.5) g/dL RDW 19.1 H (11.7-14.4) % Plt Count 281 (182-369) x10^3/uL MPV 11.4 (9.4-12.3) fL Gran % 84.5 H (34.0-71.1) % Immature Gran % (Auto) 0.6 H (0.001-0.429) % Nucleat RBC Rel Count 0.2 (0.00-0.2) % Eos # (Auto) 0.01 L (0.04-0.36) x10^3/uL Immature Gran # (Auto) 0.10 H (0.001-0.031) x10^3u/L Absolute Lymphs (auto) 1.30 (1.18-3.74) x10^3/uL Absolute Monos (auto) 1.14 H (0.24-0.86) x10^3/uL Absolute Nucleated RBC 0.03 H (0.00-0.012) x10^3u/L Lymphocytes % 7.8 L (19.3-51.7) % Monocytes % 6.8 (4.7-12.5) % Eosinophils % 0.1 L (0.7-5.8) % Basophils % 0.2 (0.1-1.2) % Absolute Granulocytes 14.17 H (1.56-6.13) x10^3/uL Basophils # 0.04 (0.01-0.08) x10^3/uL PT (9.4-12.5) SECONDS INR (0.8-3.0) Sodium 132 L (135-145) mmol/L Potassium 3.7 (3.5-5.1) mmol/L Chloride 96 L (98-107) mmol/L Carbon Dioxide 33 H (22-30) mmol/L Anion Gap 6.8 (5-15) MEQ/L BUN 19 H (7-17) mg/dL Creatinine 0.86 (0.52-1.04) mg/dL Estimated GFR 80.7 ML/MIN Glucose 145 H (74-106) mg/dL Calcium 9.0 (8.4-10.2) mg/dL Total Bilirubin 0.20 (0.2-1.3) mg/dL AST 41 H (14-36) U/L ALT 21 (0-35) U/L Alkaline Phosphatase 88 (38-126) U/L Serum Total Protein 6.7 (6.3-8.2) g/dL Albumin 3.5 (3.5-5.0) g/dL Amylase 41 (30-110) U/L Lipase 56 (23-300) U/L Urine Color (Yellow) Urine Appearance (Clear) Urine pH (4.6-8.0) Ur Specific Neeses (1.005-1.030) Urine Protein (Negative) Urine Glucose (UA) (Negative) mg/dL Urine Ketones (Negative) Urine Blood (Negative) Urine Nitrite (Negative) Urine Bilirubin (Negative) Urine Urobilinogen (0.2) mg/dL Ur Leukocyte Esterase (Negative) U Hyaline Cast (Auto) (0-2) /LPF Urine Microscopic RBC (0-5) /HPF Urine Microscopic WBC (0-5) /HPF Ur Epithelial Cells (None Seen) /HPF Urine Bacteria (None Seen) /HPF Urine Culture Reflexed (NO) Monoscreen (NEGATIVE) Influenza Type A Ag NEGATIVE (NEGATIVE) Influenza Type B Ag NEGATIVE (NEGATIVE) RSV (PCR) NEGATIVE (NEGATIVE) SARS-CoV-2 (PCR) NEGATIVE (NEGATIVE) - Progress Progress: improved Progress Note: 06/01/24 16:51 My medical decision making and the assignment of moderate complexity to this patient's medical issue today is based on review of the patient's past medical history, review of patient medication list, reviewed patient drug allergy list, history present illness and physical findings on examination. The workup in this patient includes placement of intravenous line, infusion of normal saline solution, infusion of antiemetic, CBC, CMP, amylase, lipase, urinalysis, viral swabs, monotest. Differential diagnosis includes but is not limited to viral illness, dehydration, pneumonia, urinary tract infection, electrolyte abnormalities 06/01/24 19:36 Chest x-ray was interpreted by the radiologist and I reviewed the impression. The impression states right base with minimal infiltrate without consolidation Counseled pt/family regarding: lab results, diagnosis, rad results Medical Desision Making - Independent Historian Additional History obtained from: Barge Pilot/EMT - Diagnostic Testing Diagnostic test were ordered, analyzed, and reviewed by me: Yes Radiological Interpretation: Reviewed by me, Teleradiologist Report - Risk of complications The pt has a mod risk of morbidity or mortality based on: Need for prescription drug management - Departure Departure Disposition: Home Clinical Impression: Right pulmonary infiltrate on CXR, Vomiting, Urinary tract infection Condition: Stable Critical Care Time: No Referrals: DOCTOR,NO FAMILY [Primary Care Provider] - Follow up/PCP as directed Additional Instructions: Drink plenty of fluids. Avoid exposure to any kind of smoke. Take your antibiotics as prescribed. Call your primary care provider on 06/04/2024, to make arrangements for follow-up appointment to be seen in the next 3 to 5 days Prescriptions: Ondansetron ODT 4 MG [Zofran Odt 4 mg] 4 mg PO Q6H PRN PRN #10 tablet PRN Reason: Vomiting Cefdinir 300 mg PO BID #14 cap Hydrocodone/Acetaminophen [Hydrocodone-Acetamn 7.5-325/15] 10 ml PO Q12H PRN #60 ml MDD 30 ml PRN Reason: Cough
--- NOTE | 2024-06-01 16:57 | XRAY ---
Indication: Cough. Comparison: January 20, 2023 Portable chest now demonstrates minimal right base infiltrate/atelectasis without consolidation/large effusion. Stable left base discoid atelectasis/scarring. Heart not enlarged again with cardiac valve replacement. Bony thorax intact.
[2024-06-01 18:02] LABS: INFLUENZA A NEGATIVE (NEGATIVE); INFLUENZA B NEGATIVE (NEGATIVE); RESPIRATORY SYNCTIAL VIRUS NEGATIVE (NEGATIVE); SARS-CoV-2 Xpert Express NEGATIVE (NEGATIVE)
[2024-06-01 18:14] LABS: Absolute Neutrophil Ct (ANC) 14.17 x10^3/uL (1.56-6.13); BASOPHIL % 0.2 % (0.1-1.2); Basophil (Absolute #) 0.04 x10^3/uL (0.01-0.08); Eosinophil % 0.1 % (0.7-5.8); Eosinophil (Absolute #) 0.01 x10^3/uL (0.04-0.36); Hematocrit 34.1 % (34.1-44.9); Hemoglobin 9.7 g/dL (11.2-15.7); IMMATURE GRAN % 0.6 % (0.001-0.429); Lymphocytes % 7.8 % (19.3-51.7); Mean Cell Volume 74.1 fL (79.4-94.8); Mean Corpuscular Hemoglobin 21.1 pg (25.6-32.2); Mean Corpuscular Hgb Concent. 28.4 g/dL (32.2-35.5); Mean Platelet Volume 11.4 fL (9.4-12.3); Monocyte (Absolute #) 1.14 x10^3/uL (0.24-0.86); Monocytes % 6.8 % (4.7-12.5); NUCLEATED RBC # 0.03 x10^3u/L (0.00-0.012); NUCLEATED RBC % 0.2 % (0.00-0.2); Neutrophil % 84.5 % (34.0-71.1); Platelet Count 281 x10^3/uL (182-369); Red Cell Distribution Width 19.1 % (11.7-14.4); White Blood Count 16.8 x10^3/uL (3.98-10.04)
[2024-06-01 18:26] LABS: INR 2.39 (0.8-3.0); PROTIME 24.6 SECONDS (9.4-12.5)
[2024-06-01 18:27] LABS: ALBUMIN 3.5 g/dL (3.5-5.0); ANION GAP 6.8 MEQ/L (5-15); BILIRUBIN,TOTAL 0.2 mg/dL (0.2-1.3); Creatinine 1 0.86 mg/dL (0.52-1.04); EST GLOMERULAR FILTRATION RATE 80.7 ML/MIN; Potassium 3.7 mmol/L (3.5-5.1); Total Protein 6.7 g/dL (6.3-8.2)
[2024-06-01] MEDS ORDERED: Sodium Chloride 0.9% 1000 ML 1,000 ML ONE (18:27)
[2024-06-01] MEDS ORDERED: PROTONIX 40 MG IV IV ONE (18:27)
[2024-06-01] MEDS ORDERED: Zofran 4 MG/2 ML VIAL ONE (18:27)
[2024-06-01] MEDS: Sodium Chloride 0.9% 1000 ML 1,000 ML IV STA (18:34)
[2024-06-01] MEDS: Zofran 4 MG/2 ML VIAL IV ONE (18:36)
[2024-06-01] MEDS: PROTONIX 40 MG IV IV ONE (18:37)
[2024-06-01 19:07] LABS: Appearance Clear (Clear); Bacteria None Seen /HPF (None Seen); Bilirubin Negative (Negative); Blood Large (Negative); Epithelial Cells Rare /HPF (None Seen); Glucose, Urine Negative (Negative); Hyaline Casts NONE SEEN /LPF (0-2); Ketones Negative (Negative); Leukocyte Esterase Trace (Negative); Nitrite Negative (Negative); Protein,Urine Dip 100 (Negative); RBC >100 /HPF (0-5); Specific Gravity 1.025 (1.005-1.030); Urobilinogen 0.2 mg/dL (0.2)
[2024-06-01 19:13] VITALS: RESP 20
[2024-06-01] MEDS ORDERED: ROCEPHIN 1 GM / 100 ML NaCl 1 GM/100 ML IVPB IV ONE (19:43)
[2024-06-01] MEDS ORDERED: HYDROCODONE-ACETAMIN 2.5-108/5 ML SOLUTION ONE (19:43)
[2024-06-01] MEDS: HYDROCODONE-ACETAMIN 2.5-108/5 ML SOLUTION PO STA (19:44)
[2024-06-01] MEDS: ROCEPHIN 1 GM / 100 ML NaCl 1 GM/100 ML IVPB IV ONE (19:44)
[2024-06-01 20:03] VITALS: BP 132/84; PULSE 119; O2SAT 97
[2024-06-01 21:04] LABS: Slide Review 1 YES
== END 2024-06-01 20:41 | disposition home or self-care (01) ==
LOC: ED 15:36
DX: R11.2 Nausea with vomiting, unspecified (principal); R91.8 Other nonspecific abnormal finding of lung field; N39.0 Urinary tract infection, site not specified; R19.7 Diarrhea, unspecified; E11.9 Type 2 diabetes mellitus without complications; Z79.01 Long term (current) use of anticoagulants; R53.1 Weakness
CPT/HCPCS: 0241U; 36410; 36415; 71045; 76942; 80053; 81001; 82150; 83690; 85025; 85610; 86308; 87086; 96360; 96374; 96375; 99284; J0696; J2405; A9270-GY